=== PATIENT | male | born 1950 | race Caucasian/White ===

== ENCOUNTER 2019-05-20 06:54 | Emergency (ER) | payer OTHER, SELFPAY ==
[2019-05-20 06:57] VITALS: BP 177/95; PULSE 106; TEMP 36.8; O2SAT 95; BMI 36.6
--- NOTE | 2019-05-20 07:15 | XRR_ITS ---
PROCEDURE INFORMATION: Exam: XR Chest, 1 View Exam date and time: 05/20/2019 7:34 AM Age: 68 years old Clinical indication: Shortness of breath; Prior surgery; Surgery date: 6+ months; Surgery type: Open heart; Additional info: Cough/congestion TECHNIQUE: Imaging protocol: XR of the chest Views: 1 view. COMPARISON: CR Chest 1 [place] [id number] 09/29/2017 10:39 AM FINDINGS: Lungs: Interstitial opacities of lower lungs favoring scarring or atelectasis. Superimposed interstitial infiltrate retrocardiac left lower lung may be present. Scarring left upper lobe. Pleural space: Unremarkable. No pleural effusion. No pneumothorax. Heart/Mediastinum: Cardiomegaly. Bones/joints: Postoperative sternotomy. XR/XR chest 1V portable [id number] IMPRESSION: 1. Cardiomegaly. 2. Increasing retrocardiac left lower lung interstitial process. Infiltrate is not excluded. 3. Likely partial component of chronic thickening or atelectasis lower lungs in addition.
--- NOTE | 2019-05-20 07:16 | ECG_ITS ---
Measurements Intervals [place] Rate: 102 P: -5 NV: 148 QRS: -25 QRSD: 102 T: 109 QT: 347 QTc: 452 SINUS TACHYCARDIA POSSIBLE LEFT ATRIAL ENLARGEMENT [-0.1mV P WAVE IN V1/V2] SEPTAL MYOCARDIAL INFARCTION [40+ ms Q WAVE IN V1/V2], OF INDETERMINATE AGE MODERATE T-WAVE ABNORMALITY, CONSIDER LATERAL ISCHEMIA [-0.1+ mV T WAVE IN I/ I/aVL/V5/V6] Compared to ECG 09/29/2017 13:35:53 T-wave abnormality now present.Possible ischemia now present.Sinus rhythm no longer present.Left-axis deviation no longer present Left ventricular hypertrophy no longer present ST (T wave) deviation no longer present Myocardial infarct finding still present Electronically Signed On 05-20-2019 19:19:23 [employer] 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 [email or web address]
[2019-05-20 07:30] LABS: Basophils % 0.2 %; Eosinophils # 0.3 10^3/uL (0.0-0.8); Eosinophils % 2.9 %; Hematocrit 44.8 % (42.0-52.0); Hemoglobin 13.8 g/dL (11.7-16.6); Lymphocytes # 0.3 10^3/uL (0.8-4.8); Lymphocytes % 3.2 %; Mean Corpuscular HGB Conc 30.8 g/dL (30.0-36.0); Mean Corpuscular Hemoglobin 26.1 pg (28.0-34.0); Mean Corpuscular Volume 84.7 fL (80-94); Monocytes # 0.8 10^3/uL (0.2-0.9); Monocytes % 8.3 %; Neutrophils % 84.8 %; Nucleated Red Blood Cells % 0 %; Platelet Count 214 10^3/cmm (130-400); Red Blood Count 5.29 10^6/uL (4.1-5.3); Red Cell Distribution Width 15.5 % (12.1-15.1); White Blood Count 9.4 10^3/uL (4.0-10.0)
[2019-05-20 07:31] VITALS: BP 128/82; PULSE 92; RESP 28
--- NOTE | 2019-05-20 07:37 | PC.NURSE ---
Patient reports that he is sick. The patient was asked to elaborate on what this. The patient states he has chest pain, cough, fever, nausea, and trouble recalling recent events. His chest pain began 2 days ago while watching TV. He report coughing makes his pain worse. He denies radiation of pain. He rates this pain 4:10 at this time.
--- NOTE | 2019-05-20 07:45 | ED_ITS ---
HPI - URI/Sore Throat General: Chief Complaint: Upper Respiratory Infection Stated Complaint: sob/cp Time Seen by Provider: 05/20/19 07:06 Source: patient Mode of arrival: ambulatory Limitations: no limitations History of Present Illness: HPI Narrative: Patient is a 68-year-old male who presents to ED today with complaints of chest pain, productive cough, fever of 102 yesterday, worsening shortness of breath, and overall not feeling well over the past 2 days; patient reports chronic SOB related to his COPD but feels this is slightly worse than his baseline; patient does not wear oxygen at home; patient's chest pain reportedly is worse with coughing and movement; he denies sick contacts; reports one episode of vomiting yesterday but none since- nonbloody; patient denies abdominal pain or change in bowel movements MD elicited complaint: fever, cough and other (chest pain, SOB) Onset (ago): day(s) Consistency: constant Associated symptoms: Reports chest pain, fever(s) and vomiting; Deny abdominal pain, diarrhea or headache(s) Treatments prior to arrival: none Review of Systems Const: Reports: fever; Denies: body aches Eyes: Denies: change in vision or blurry vision ENMT: Denies: throat pain, enlarged tonsils, painful swallowing or oral sores/lesions Card: Reports: chest pain; Denies: palpitations, irregular heart rhythm, edema, swelling of feet/ankles, lightheadedness or syncope Resp: Reports: shortness of breath, productive cough and chest congestion; Denies: wheezing, stridor, pain on inspiration or coughing up blood GI: Reports: vomiting; Denies: abdominal pain, vomiting blood, difficulty swallowing, diarrhea, excessive passing of gas, change in bowel habits or painful bowel movements : Denies: difficulty urinating or painful urination Musc: Denies: neck pain, back pain or joint pain Skin/Breast: Denies: rash Neuro: Denies: headache, numbness in extremities, weakness in extremities, changes in sensation, lack of coordination, difficulty walking, frequent falls, dizziness, confusion or slurred speech PFSH ED PFSH: Statuses (acute, chronic, etc) shown below reflect problem list status as previously entered and may not be historically accurate Social History Smoking and tobacco status: never smoked Physical Exam Const: COMMON NORMALS: no apparent distress, oriented x3, alert and well nourished NUTRITIONAL APPEARANCE: obese HENMT: COMMON NORMALS: normocephalic and head/scalp atraumatic HEAD & SCALP: normocephalic and atraumatic Eye: COMMON NORMALS: PERRL and EOMs intact bilaterally PUPIL: Yes PERRL Neck/C-Spine: COMMON NORMALS: full ROM, no lymphadenopathy, supple and no meningeal signs Chest: CHEST: Yes localized rib tenderness with anteroposterior compression Resp: COMMON NORMALS: normal respiratory effort, no retractions and no use of accessory muscles EFFORT & INSPECTION: Yes able to speak in complete sentences AUSCULTATION: no wheezes and bronchial breath sounds Cardio: COMMON NORMALS: regular rate and regular rhythm RATE: regular rate RHYTHM: regular rhythm GI: COMMON NORMALS: normal to inspection, nondistended, normoactive bowel sounds, soft to palpation, non-tender, no hepatosplenomegaly and no masses PALPATION: Yes soft and Yes no hepatosplenomegaly : COMMON NORMALS: Yes no CVA tenderness BLADDER/KIDNEY EXAM: Yes no CVA tenderness Back/Pelvis: COMMON NORMALS: no CVA tenderness and thoracic and lumbar spine normal to inspection Extremity: COMMON NORMALS: normal to inspection Neuro: COMMON NORMALS: oriented x3 SENSORIUM/ORIENTATION: Yes alert MENINGEAL SIGNS: Yes no meningeal signs Skin: COMMON NORMALS: no rashes or lesions noted GENERAL SKIN EXAM: no rashes or lesions noted Course Vital Signs: Vital signs: Vital Signs Temperature 98.3 F 05/20/19 06:57 Pulse Rate 98 05/20/19 08:25 Respiratory Rate 25 H 05/20/19 08:25 Blood Pressure 154/90 05/20/19 08:25 Pulse Oximetry 95 05/20/19 08:25 MDM - URI/Sore Throat MDM Narrative: Medical decision making narrative: labs are non-concerning; pts O2 sats on RA normal; CXR with possible infiltrate-most likely viral given he is influenza A positive; reports symptoms started Fri-Sat so I think it is reasonable to treat him with Tamiflu as well as conservative measures at home; return to ED precautions given Lab Data: Labs: Lab Results 05/20/19 05/20/19 05/20/19 Range/Units 07:23 07:23 07:23 WBC 9.4 (4.0-10.0) 10^3/ uL RBC 5.29 (4.1-5.3) 10^6/u L Hgb 13.8 (11.7-16.6) g/dL Hct 44.8 (42.0-52.0) % MCV 84.7 (80-94) fL MCH 26.1 L (28.0-34.0) pg MCHC 30.8 (30.0-36.0) g/dL RDW 15.5 H (12.1-15.1) % Plt Count 214 (130-400) 10^3/c mm MPV 11.0 H (7.4-10.4) fL Neut % (Auto) 84.8 % Lymph % (Auto) 3.2 % Alpine % (Auto) 8.3 % Eos % (Auto) 2.9 % Baso % (Auto) 0.2 % Neut # (Auto) 8.0 H (1.8-7.7) 10^3/u L Lymph # (Auto) 0.3 L (0.8-4.8) 10^3/u L Alpine # (Auto) 0.8 (0.2-0.9) 10^3/u L Eos # (Auto) 0.3 (0.0-0.8) 10^3/u L Baso # (Auto) 0.0 (0.0-0.1) 10^3/u L Nucleated RBC % (a uto) 0 % Nucleated RBCs # 0.0 /100WBC Sodium 147 H (136-145) mmol/L Potassium 4.1 (3.5-5.1) mmol/L Chloride 106 (98-107) mmol/L Carbon Dioxide 25 (22-29) mmol/L Anion Gap 20.1 H (5-19) BUN 18 (8-23) mg/dL Creatinine 0.9 (0.7-1.2) mg/dL GFR Calculation 84.2 L (90-130) mL/min Glucose 163 H (74-106) mg/dL Calcium 9.1 (8.8-10.2) mg/Dl Total Bilirubin 0.5 (0.15-1.2) mg/dL AST 27 (0-40) U/L ALT 31 (0-41) U/L Alkaline Phosphata se 138 H (40-130) IU/L Troponin T Baselin e 10 (0-15) ng/mL NT-Pro-B Natriuret Pep (0-125) pg/mL Total Protein 7.5 (6.6-8.7) g/dL Albumin 4.0 (3.5-5.2) g/dL Globulin 3.5 (1.3-4.6) g/dL Influenza Type A A g (Negative) POC Influenza B Ag (Negative) 05/20/19 05/20/19 Range/Units 07:23 07:29 WBC (4.0-10.0) 10^3/ uL RBC (4.1-5.3) 10^6/u L Hgb (11.7-16.6) g/dL Hct (42.0-52.0) % MCV (80-94) fL MCH (28.0-34.0) pg MCHC (30.0-36.0) g/dL RDW (12.1-15.1) % Plt Count (130-400) 10^3/c mm MPV (7.4-10.4) fL Neut % (Auto) % Lymph % (Auto) % Alpine % (Auto) % Eos % (Auto) % Baso % (Auto) % Neut # (Auto) (1.8-7.7) 10^3/u L Lymph # (Auto) (0.8-4.8) 10^3/u L Alpine # (Auto) (0.2-0.9) 10^3/u L Eos # (Auto) (0.0-0.8) 10^3/u L Baso # (Auto) (0.0-0.1) 10^3/u L Nucleated RBC % (a uto) % Nucleated RBCs # /100WBC Sodium (136-145) mmol/L Potassium (3.5-5.1) mmol/L Chloride (98-107) mmol/L Carbon Dioxide (22-29) mmol/L Anion Gap (5-19) BUN (8-23) mg/dL Creatinine (0.7-1.2) mg/dL GFR Calculation (90-130) mL/min Glucose (74-106) mg/dL Calcium (8.8-10.2) mg/Dl Total Bilirubin (0.15-1.2) mg/dL AST (0-40) U/L ALT (0-41) U/L Alkaline Phosphata se (40-130) IU/L Troponin T Baselin e (0-15) ng/mL NT-Pro-B Natriuret Pep 484 H (0-125) pg/mL Total Protein (6.6-8.7) g/dL Albumin (3.5-5.2) g/dL Globulin (1.3-4.6) g/dL Influenza Type A A g Positive H (Negative) POC Influenza B Ag Negative (Negative) Imaging Data^: CXR: Radiologist's impression: [address] [address] XRay Report Signed Patient: Alex Nice Unit #: [id number] : [id number] Age/Sex: 68 / M ADM Date: 05/20/19 Loc: ER Room/Bed: Attending Dr: Ordering Provider/Ordering MD: Margarita Mendes Date of Service: 05/20/19 Procedure(s): XR chest 1V portable [id number] Accession Number(s): [id number] Report Number: [id number] PROCEDURE INFORMATION: Exam: XR Chest, 1 View Exam date and time: 05/20/2019 7:34 AM Age: 68 years old Clinical indication: Shortness of breath; Prior surgery; Surgery date: 6+ months; Surgery type: Open heart; Additional info: Cough/congestion TECHNIQUE: Imaging protocol: XR of the chest Views: 1 view. COMPARISON: CR Chest 1 [place] [id number] 09/29/2017 10:39 AM FINDINGS: Lungs: Interstitial opacities of lower lungs favoring scarring or atelectasis. Superimposed interstitial infiltrate retrocardiac left lower lung may be present. Scarring left upper lobe. Pleural space: Unremarkable. No pleural effusion. No pneumothorax. Heart/Mediastinum: Cardiomegaly. Bones/joints: Postoperative sternotomy. XR/XR chest 1V portable [id number] IMPRESSION: 1. Cardiomegaly. 2. Increasing retrocardiac left lower lung interstitial process. Infiltrate is not excluded. 3. Likely partial component of chronic thickening or atelectasis lower lungs in addition. Dictated By: Selina Soto DO Signed By: Selina Soto DO Signed Date/Time: 05/20/19 0754 DD/ 075 EKG Data^: EKG 1: EKG interpretation date: 05/20/19 EKG interpretation time: 07:00 Prior EKG tracings: available for review Ischemic changes: t wave inversions (present on previous EKG) Interpretation: Sinus tachycardia Rate 102 T wave inversion to I, aVL, V2-these were present on old EKG in 2018 Other EKG comments: reviewed with/by Dr. López Discharge Plan Discharge Patient Disposition: Home, Self-Care Clinical Impression: Influenza Condition: Stable Prescriptions: New Tamiflu 75 mg capsule 75 mg PO Q12H 5 Days Qty: 10 RF: 0 Discharge Orders: Discharge Order (Routine); Ordered 05/20/19 Ordered By: Margarita Mendes Referrals: Dank Schwartz [Primary Care Provider] - Discharge Diet: Usual diet Discharge Activity: Increase activity as tolerated Patient Instructions: Influenza (ED) Activity Restrictions/Additional Instructions: As discussed you tested positive for influenza/flu. We will treat you with the antiviral medication Tamiflu. Recommend lots of rest, fluids, Tylenol/Motrin for fevers and body aches. Return to ED for worsening pains, shortness of breath, uncontrollable fevers, or any other symptoms you may have. Discharge Date/Time: 05/20/19 08:26 Coding Level of Care Code ED Director Of Sustainability for Kevin Martines Exam Problem Focused
[2019-05-20 07:46] LABS: Alanine Aminotransferase 31 U/L (0-41); Alkaline Phosphatase 138 IU/L (40-130); Anion Gap 20.1 (5-19); Aspartate Amino Transferase 27 U/L (0-40); Blood Urea Nitrogen 18 mg/dL (8-23); Calcium 9.1 mg/Dl (8.8-10.2); Carbon Dioxide 25 mmol/L (22-29); Chloride 106 mmol/L (98-107); Globulin 3.5 g/dL (1.3-4.6); Glomerular Filtration Rate 84.2 mL/min (90-130); Glucose 163 mg/dL (74-106); Potassium 4.1 mmol/L (3.5-5.1); Sodium 147 mmol/L (136-145); Total Bilirubin 0.5 mg/dL (0.15-1.2); Total Protein 7.5 g/dL (6.6-8.7)
[2019-05-20 07:50] LABS: Troponin(5th) Baseline 10 ng/mL (0-15)
[2019-05-20 07:55] LABS: NT Pro B Type Natriuretic Pept 484 pg/mL (0-125)
[2019-05-20 07:57] LABS: Influenza A by IFA Positive (Negative); Influenza B by IFA Negative (Negative)
[2019-05-20 08:06] VITALS: PULSE 98; RESP 18; O2SAT 95
[2019-05-20] MEDS: ipratropium-albuterol 3 mL Neb INHALATION (08:06)
[2019-05-20 08:13] VITALS: PULSE 102; RESP 18; O2SAT 95
[2019-05-20 08:25] VITALS: BP 154/90; PULSE 98; RESP 25; O2SAT 95
== END 2019-05-20 08:26 | disposition home or self-care (01) ==
PROVIDERS: Emergency Provider Physician Assistant; Family Provider Internal Medicine; PCP Internal Medicine
DX: J11.1 Influenza due to unidentified influenza virus with other respiratory manifestations (principal); R06.02 Shortness of breath
CPT/HCPCS: 36415; 71045; 80053; 83880; 84484; 85025; 87804; 93005; 94640; 99282

== ENCOUNTER 2019-07-26 14:07 | Emergency (ER) | payer OTHER, SELFPAY ==
[2019-07-26 14:13] VITALS: BP 142/85; PULSE 89; RESP 18; TEMP 36.7; O2SAT 94; BMI 37.3
--- NOTE | 2019-07-26 14:23 | ED_ITS ---
Entered by Chanel Burdick, acting as scribe for Annie Salas DO Documented by User: Lorie Edge MD 07/26/19 17:39 HPI - Chest Pain General: Chief Complaint: Chest Pain Stated Complaint: Chest pain Time Seen by Provider: 07/26/19 14:32 Source: patient Mode of arrival: ambulatory Limitations: no limitations History of Present Illness: HPI narrative: Quinton is a 69-year-old male who has an extensive cardiac history states he has been having chest pain over the last 2 to 3 days. He states the pain is sharp in nature and rates it a 6 out of 10. He states he is also had a headache as well with this pain. He denies any worsening improving factors. He denies any shortness of breath. States the pain does radiate down his right arm. Patient here is having a difficulty time speaking with word finding difficulty. He states that he has had TIAs in the past though and that is normal for him and nothing new. He denies any new neurologic symptoms. complaint: chest pain Associated symptoms: Deny abdominal pain, dyspnea, fever(s), nausea or vomiting Review of Systems Const: Denies: fever Eyes: Denies: blurry vision or eye discomfort ENMT: Denies: throat pain or dental pain Card: Reports: chest pain Resp: Denies: shortness of breath GI: Denies: abdominal pain, nausea or vomiting : Denies: painful urination Musc: Denies: neck pain or back pain Skin/Breast: Denies: rash Neuro: Reports: headache Psych: Denies: depression Tai/Lymph: Denies: easy bruising All/Imm: Denies: hives [facility] ED PFSH: Social History Smoking and tobacco status: never smoked Physical Exam Const: COMMON NORMALS: no apparent distress, oriented x3 and healthy appearing HENMT: COMMON NORMALS: normocephalic and head/scalp atraumatic HEAD & SCALP: normocephalic and atraumatic Eye: COMMON NORMALS: PERRL and EOMs intact bilaterally PUPIL: Yes PERRL Neck/C-Spine: COMMON NORMALS: full ROM and supple Chest: COMMONS NORMALS: inspection of chest normal and palpation of chest normal Resp: COMMON NORMALS: normal respiratory effort, no retractions, no use of accessory muscles and clear to auscultation bilaterally AUSCULTATION: clear to auscultation bilaterally Cardio: COMMON NORMALS: regular rate, regular rhythm and no murmurs RATE: regular rate RHYTHM: regular rhythm GI: COMMON NORMALS: normal to inspection, nondistended, normoactive bowel sounds, soft to palpation, non-tender and no masses PALPATION: Yes soft Extremity: COMMON NORMALS: normal to inspection and full ROM Neuro: COMMON NORMALS: oriented x3, moves all extremities and no focal motor deficits Psych: COMMON NORMALS: mental status grossly normal, thought process normal and cooperative THOUGHT PROCESS: normal thought process Skin: COMMON NORMALS: no rashes or lesions noted and no wounds GENERAL SKIN EXAM: no rashes or lesions noted Course Vital Signs: Vital signs: Vital Signs Temperature 98.0 F 07/26/19 14:13 Pulse Rate 89 07/26/19 14:13 Respiratory Rate 16 07/26/19 16:06 Blood Pressure 142/85 07/26/19 14:13 Pulse Oximetry 97 07/26/19 16:06 MDM - Chest Pain MDM Narrative: Medical decision making narrative: Patient presents here with chest pain that is since resolved. His initial troponin here is negative. He does have quite an extensive history and I offered him admission. He refused admission and states that he does not want to stay in the hospital. I was able to talk him into a CT angios of the chest along with 2-hour troponin. If these 2 are negative patient likely will go home as he wishes. He understands the risks and is had a long discussion with him about the risks. . Lab Data: Labs: Lab Results 07/26/19 07/26/19 07/26/19 Range/Units 15:24 15:24 15:24 WBC 9.9 (4.0-10.0) 10^3/ uL RBC 5.11 (4.1-5.3) 10^6/u L Hgb 14.3 (11.7-16.6) g/dL Hct 44.4 (42.0-52.0) % MCV 86.9 (80-94) fL MCH 28.0 (28.0-34.0) pg MCHC 32.2 (30.0-36.0) g/dL RDW 15.7 H (12.1-15.1) % Plt Count 261 (130-400) 10^3/c mm MPV 12.0 H (7.4-10.4) fL Neut % (Auto) 74.8 % Lymph % (Auto) 15.7 % [place] % (Auto) 6.3 % Eos % (Auto) 2.3 % Baso % (Auto) 0.4 % Neut # (Auto) 7.4 (1.8-7.7) 10^3/u L Lymph # (Auto) 1.6 (0.8-4.8) 10^3/u L [place] # (Auto) 0.6 (0.2-0.9) 10^3/u L Eos # (Auto) 0.2 (0.0-0.8) 10^3/u L Baso # (Auto) 0.0 (0.0-0.1) 10^3/u L Nucleated RBC % (a uto) 0 % Nucleated RBCs # 0.0 /100WBC PT 25.00 H (10.5-13.3) SECO NDS INR 2.23 H (0.8-1.2) Sodium 140 (136-145) mmol/L Potassium 3.8 (3.5-5.1) mmol/L Chloride 103 (98-107) mmol/L Carbon Dioxide 24 (22-29) mmol/L Anion Gap 16.8 (5-19) BUN 16 (8-23) mg/dL Creatinine 0.9 (0.7-1.2) mg/dL GFR Calculation 83.9 L (90-130) mL/min Glucose 224 H (65-115) mg/dL Calculated Osmolal ity 293 (285-295) mOsm/k g Calcium 9.1 (8.5-10.5) mg/dL Total Bilirubin 0.3 (0.15-1.2) mg/dL AST 26 (0-40) U/L ALT 35 (0-41) U/L Alkaline Phosphata se 109 (40-130) IU/L Troponin T Baselin e (0-15) ng/mL Total Protein 7.1 (6.6-8.7) g/dL Albumin 3.8 (3.5-5.2) g/dL Globulin 3.3 (1.3-4.6) g/dL 03/19/20 Range/Units 15:24 WBC (4.0-10.0) 10^3/ uL RBC (4.1-5.3) 10^6/u L Hgb (11.7-16.6) g/dL Hct (42.0-52.0) % MCV (80-94) fL MCH (28.0-34.0) pg MCHC (30.0-36.0) g/dL RDW (12.1-15.1) % Plt Count (130-400) 10^3/c mm MPV (7.4-10.4) fL Neut % (Auto) % Lymph % (Auto) % [place] % (Auto) % Eos % (Auto) % Baso % (Auto) % Neut # (Auto) (1.8-7.7) 10^3/u L Lymph # (Auto) (0.8-4.8) 10^3/u L [place] # (Auto) (0.2-0.9) 10^3/u L Eos # (Auto) (0.0-0.8) 10^3/u L Baso # (Auto) (0.0-0.1) 10^3/u L Nucleated RBC % (a uto) % Nucleated RBCs # /100WBC PT (10.5-13.3) SECO NDS INR (0.8-1.2) Sodium (136-145) mmol/L Potassium (3.5-5.1) mmol/L Chloride (98-107) mmol/L Carbon Dioxide (22-29) mmol/L Anion Gap (5-19) BUN (8-23) mg/dL Creatinine (0.7-1.2) mg/dL GFR Calculation (90-130) mL/min Glucose (65-115) mg/dL Calculated Osmolal ity (285-295) mOsm/k g Calcium (8.5-10.5) mg/dL Total Bilirubin (0.15-1.2) mg/dL AST (0-40) U/L ALT (0-41) U/L Alkaline Phosphata se (40-130) IU/L Troponin T Baselin e 8 (0-15) ng/mL Total Protein (6.6-8.7) g/dL Albumin (3.5-5.2) g/dL Globulin (1.3-4.6) g/dL Imaging Data^: CXR: Radiologist's impression: [address] [place] [address] XRay Report Signed Patient: Alex Nice Unit #: [id number] : 1950 Age/Sex: 69 / M ADM Date: 07/26/19 Loc: ER Room/Bed: Attending Dr: Ordering Provider/Ordering MD: Lorie Edge MD Date of Service: 07/26/19 Procedure(s): XR chest 1V portable 59667 Accession Number(s): [id number] Report Number: [id number] WS: [id number] XR chest 1V portable 99337 REASON FOR EXAM: cp FINDINGS: Cardiomegaly is noted with coronary bypass changes. No pneumothorax is seen and no visible rib fractures in the frontal view are seen. The lung germain are relatively clear there is no pneumonia, pleural effusion, pulmonary edema, or mass effect. The hilum and apices normal. XR/XR chest 1V portable 31288 IMPRESSION: Cardiomegaly with coronary bypass changes. CT Head: Radiologist's impression: [facility] [address] [place] [address] CT Scan Report Signed Patient: Alex Nice Unit #: [id number] : 1950 Acct#:[id number] Age/Sex: 69 / M ADM Date: 07/26/19 Loc: ER Room/Bed: Attending Dr: Ordering Provider/Ordering MD: Lorie Edge MD Date of Service: 07/26/19 Procedure(s): CT head wo con* 81091 Accession Number(s): [id number] Report Number: [id number] PROCEDURE INFORMATION: Exam: CT Head Without Contrast Exam date and time: 07/26/2019 3:00 PM Age: 69 years old Clinical indication: Pain; Headache TECHNIQUE: Imaging protocol: Computed tomography of the head without contrast. Axial, coronal and sagittal reformatted images were created and reviewed. Total DLP: 862.03 mGy-cm Radiation optimization: All CT scans at this facility use at least one of these dose optimization techniques: automated exposure control; mA and/or kV adjustment per patient size (includes targeted exams where dose is matched to clinical indication); or iterative reconstruction. COMPARISON: CT head wo con* [id number] 05/15/2017 11:43 AM FINDINGS: Brain: Patchy areas of hypoattenuation in the periventricular and subcortical white matter, consistent with chronic small vessel ischemic disease. No CT evidence of acute intracranial hemorrhage or acute territorial infarction. No significant mass effect or midline shift. Basal cisterns patent. Ventricles: Prominence of the cortical sulci, cisterns and ventricular system, consistent with cerebral and cerebellar volume loss. Bones/joints: No acute osseous abnormality. Sinuses: Minimal ethmoid mucosal thickening. Mastoid air cells: Grossly unremarkable. Soft tissues: Grossly unremarkable. Vasculature: Calcific atherosclerotic disease in the cavernous internal carotid arteries, as well as the vertebro-basilar system. CT/CT head wo con* [id number] IMPRESSION: 1. No CT evidence of acute intracranial pathology. 2. Additional findings, as above. EKG Data^: EKG 1: Attestation: I personally reviewed and interpreted this EKG as follows: EKG interpretation date: 07/26/19 EKG interpretation time: 14:22 Interpretation: nsr hr [address] depression in avl and v2 along with t wave inversions in v2,v3 unchanged from ekg 05/20/19 EKG 2: Attestation: I personally reviewed and interpreted this EKG as follows: EKG interpretation date: 07/26/19 EKG interpretation time: 16:46 Interpretation: nsr hr 89 with t wave deression in v2 and v3 c/w with previous ekg Discharge Plan Discharge Patient Disposition: Home, Self-Care Clinical Impression: Chest pain Qualifiers: Chest pain type: other chest pain Qualified Code(s): R07.89 - Other chest pain Condition: Stable Prescriptions: No Action atorvastatin 80 mg Tablet 40 mg PO DAILY RF: 0 donepezil 10 mg Tablet 10 mg PO BEDTIME RF: 0 aspirin 81 mg Tablet,Delayed Release (Dr/Ec) 81 mg PO DAILY RF: 0 tamsulosin 0.4 mg Capsule 0.4 mg PO DAILY RF: 0 pantoprazole 40 mg Tablet,Delayed Release (Dr/Ec) 40 mg PO DAILY RF: 0 warfarin 2 mg Tablet See Rx Instructions .ROUTE .COMPLEX RF: 0 metoprolol tartrate 50 mg Tablet 50 mg PO BID RF: 0 furosemide 20 mg Tablet 20 mg PO DAILY RF: 0 docusate sodium 100 mg Tablet 100 mg PO DAILY RF: 0 cholecalciferol (vitamin D3) 400 unit Tablet,Chewable 400 unit PO DAILY RF: 0 Referrals: Dank Schwartz [Primary Care Provider] - 4-7 days Discharge Diet: Advance as tolerated Discharge Activity: Resume usual activity Patient Instructions: Chest Pain (ED) Coding Level of Care Code ED [employer] for Chg Fwd Exam Comprehensive Documented by User: Annie Salas DO 07/26/19 16:56 HPI - Chest Pain General: Chief Complaint: Chest Pain Stated Complaint: Chest pain Time Seen by Provider: 07/26/19 14:32 Review of Systems ENMT: Denies: enlarged tonsils PFSH ED PFSH: Social History Smoking and tobacco status: never smoked Course Vital Signs: Vital signs: Vital Signs Temperature 98.0 F 07/26/19 14:13 Pulse Rate 89 07/26/19 14:13 Respiratory Rate 16 07/26/19 16:06 Blood Pressure 142/85 07/26/19 14:13 Pulse Oximetry 97 07/26/19 16:06 MDM - Chest Pain Lab Data: Labs: Lab Results 07/26/19 07/26/19 07/26/19 Range/Units 15:24 15:24 15:24 WBC 9.9 (4.0-10.0) 10^3/ uL RBC 5.11 (4.1-5.3) 10^6/u L Hgb 14.3 (11.7-16.6) g/dL Hct 44.4 (42.0-52.0) % MCV 86.9 (80-94) fL MCH 28.0 (28.0-34.0) pg MCHC 32.2 (30.0-36.0) g/dL RDW 15.7 H (12.1-15.1) % Plt Count 261 (130-400) 10^3/c mm MPV 12.0 H (7.4-10.4) fL Neut % (Auto) 74.8 % Lymph % (Auto) 15.7 % [place] % (Auto) 6.3 % Eos % (Auto) 2.3 % Baso % (Auto) 0.4 % Neut # (Auto) 7.4 (1.8-7.7) 10^3/u L Lymph # (Auto) 1.6 (0.8-4.8) 10^3/u L [place] # (Auto) 0.6 (0.2-0.9) 10^3/u L Eos # (Auto) 0.2 (0.0-0.8) 10^3/u L Baso # (Auto) 0.0 (0.0-0.1) 10^3/u L Nucleated RBC % (a uto) 0 % Nucleated RBCs # 0.0 /100WBC PT 25.00 H (10.5-13.3) SECO NDS INR 2.23 H (0.8-1.2) Sodium 140 (136-145) mmol/L Potassium 3.8 (3.5-5.1) mmol/L Chloride 103 (98-107) mmol/L Carbon Dioxide 24 (22-29) mmol/L Anion Gap 16.8 (5-19) BUN 16 (8-23) mg/dL Creatinine 0.9 (0.7-1.2) mg/dL GFR Calculation 83.9 L (90-130) mL/min Glucose 224 H (65-115) mg/dL Calculated Osmolal ity 293 (285-295) mOsm/k g Calcium 9.1 (8.5-10.5) mg/dL Total Bilirubin 0.3 (0.15-1.2) mg/dL AST 26 (0-40) U/L ALT 35 (0-41) U/L Alkaline Phosphata se 109 (40-130) IU/L Troponin T Baselin e (0-15) ng/mL Total Protein 7.1 (6.6-8.7) g/dL Albumin 3.8 (3.5-5.2) g/dL Globulin 3.3 (1.3-4.6) g/dL 07/26/19 Range/Units 15:24 WBC (4.0-10.0) 10^3/ uL RBC (4.1-5.3) 10^6/u L Hgb (11.7-16.6) g/dL Hct (42.0-52.0) % MCV (80-94) fL MCH (28.0-34.0) pg MCHC (30.0-36.0) g/dL RDW (12.1-15.1) % Plt Count (130-400) 10^3/c mm MPV (7.4-10.4) fL Neut % (Auto) % Lymph % (Auto) % [place] % (Auto) % Eos % (Auto) % Baso % (Auto) % Neut # (Auto) (1.8-7.7) 10^3/u L Lymph # (Auto) (0.8-4.8) 10^3/u L [place] # (Auto) (0.2-0.9) 10^3/u L Eos # (Auto) (0.0-0.8) 10^3/u L Baso # (Auto) (0.0-0.1) 10^3/u L Nucleated RBC % (a uto) % Nucleated RBCs # /100WBC PT (10.5-13.3) SECO NDS INR (0.8-1.2) Sodium (136-145) mmol/L Potassium (3.5-5.1) mmol/L Chloride (98-107) mmol/L Carbon Dioxide (22-29) mmol/L Anion Gap (5-19) BUN (8-23) mg/dL Creatinine (0.7-1.2) mg/dL GFR Calculation (90-130) mL/min Glucose (65-115) mg/dL Calculated Osmolal ity (285-295) mOsm/k g Calcium (8.5-10.5) mg/dL Total Bilirubin (0.15-1.2) mg/dL AST (0-40) U/L ALT (0-41) U/L Alkaline Phosphata se (40-130) IU/L Troponin T Baselin e 8 (0-15) ng/mL Total Protein (6.6-8.7) g/dL Albumin (3.5-5.2) g/dL Globulin (1.3-4.6) g/dL Discharge Plan Discharge Patient Disposition: Home, Self-Care Clinical Impression: Chest pain Qualifiers: Chest pain type: other chest pain Qualified Code(s): R07.89 - Other chest pain Condition: Stable Prescriptions: No Action atorvastatin 80 mg Tablet 40 mg PO DAILY RF: 0 donepezil 10 mg Tablet 10 mg PO BEDTIME RF: 0 aspirin 81 mg Tablet,Delayed Release (Dr/Ec) 81 mg PO DAILY RF: 0 tamsulosin 0.4 mg Capsule 0.4 mg PO DAILY RF: 0 pantoprazole 40 mg Tablet,Delayed Release (Dr/Ec) 40 mg PO DAILY RF: 0 warfarin 2 mg Tablet See Rx Instructions .ROUTE .COMPLEX RF: 0 metoprolol tartrate 50 mg Tablet 50 mg PO BID RF: 0 furosemide 20 mg Tablet 20 mg PO DAILY RF: 0 docusate sodium 100 mg Tablet 100 mg PO DAILY RF: 0 cholecalciferol (vitamin D3) 400 unit Tablet,Chewable 400 unit PO DAILY RF: 0 Referrals: Dank Schwartz [Primary Care Provider] - 4-7 days Discharge Diet: Advance as tolerated Discharge Activity: Resume usual activity Patient Instructions: Chest Pain (ED) Coding Level of Care Code ED [employer] for Chg Fwd Exam Comprehensive The documentation recorded by the Gennaro capellan Bridget Annette, accurately reflects the service I personally performed and the decisions made by Josue schulte Sonia M, DO Jul 26, 2019 14:07
--- NOTE | 2019-07-26 14:32 | ECG_ITS ---
Measurements Intervals [place] Rate: 89 P: 37 [place]: 184 QRS: -23 QRSD: 105 T: 109 QT: 350 QTc: 427 SINUS RHYTHM LEFT VENTRICULAR HYPERTROPHY AND ST-T CHANGE [VOLTAGE CRITERIA PLUS ST/T ABN ABNORMALITY] ST changes V2,V3 -strain pattern vs ischemia Compared to ECG 05/20/2019 07:00:22 Left ventricular hypertrophy now present ST (T wave) deviation now present Sinus tachycardia no longer present T-wave abnormality no longer present Possible ischemia no longer present Myocardial infarct finding still present Electronically Signed On 07-27-2019 8:48:35 CDT by Jeremiah Park [email or web address]
--- NOTE | 2019-07-26 14:32 | CTR_ITS ---
PROCEDURE INFORMATION: Exam: CT Head Without Contrast Exam date and time: 07/26/2019 3:00 PM Age: 69 years old Clinical indication: Pain; Headache TECHNIQUE: Imaging protocol: Computed tomography of the head without contrast. Axial, coronal and sagittal reformatted images were created and reviewed. Total DLP: 862.03 mGy-cm Radiation optimization: All CT scans at this facility use at least one of these dose optimization techniques: automated exposure control; mA and/or kV adjustment per patient size (includes targeted exams where dose is matched to clinical indication); or iterative reconstruction. COMPARISON: CT head wo con* [id number] 05/15/2017 11:43 AM FINDINGS: Brain: Patchy areas of hypoattenuation in the periventricular and subcortical white matter, consistent with chronic small vessel ischemic disease. No CT evidence of acute intracranial hemorrhage or acute territorial infarction. No significant mass effect or midline shift. Basal cisterns patent. Ventricles: Prominence of the cortical sulci, cisterns and ventricular system, consistent with cerebral and cerebellar volume loss. Bones/joints: No acute osseous abnormality. Sinuses: Minimal ethmoid mucosal thickening. Mastoid air cells: Grossly unremarkable. Soft tissues: Grossly unremarkable. Vasculature: Calcific atherosclerotic disease in the cavernous internal carotid arteries, as well as the vertebro-basilar system. CT/CT head wo con* [id number] IMPRESSION: 1. No CT evidence of acute intracranial pathology. 2. Additional findings, as above. Radiation Dose CTDIVOL = (mGy): DLP = 862.03 (mGy-cm)
--- NOTE | 2019-07-26 14:32 | XR_ITS ---
WS: [id number] XR chest 1V portable [id number] REASON FOR EXAM: cp FINDINGS: Cardiomegaly is noted with coronary bypass changes. No pneumothorax is seen and no visible rib fractures in the frontal view are seen. The lung germain are relatively clear there is no pneumonia, pleural effusion, pulmonary edema, or mas s effect. The hilum and apices normal. XR/XR chest 1V portable [id number] IMPRESSION: Cardiomegaly with coronary bypass changes.
[2019-07-26 15:50] LABS: Basophils % 0.4 %; Eosinophils # 0.2 10^3/uL (0.0-0.8); Eosinophils % 2.3 %; Hematocrit 44.4 % (42.0-52.0); Hemoglobin 14.3 g/dL (11.7-16.6); Lymphocytes # 1.6 10^3/uL (0.8-4.8); Lymphocytes % 15.7 %; Mean Corpuscular HGB Conc 32.2 g/dL (30.0-36.0); Mean Corpuscular Volume 86.9 fL (80-94); Monocytes # 0.6 10^3/uL (0.2-0.9); Monocytes % 6.3 %; Neutrophils # 7.4 10^3/uL (1.8-7.7); Neutrophils % 74.8 %; Nucleated Red Blood Cells % 0 %; Platelet Count 261 10^3/cmm (130-400); Red Blood Count 5.11 10^6/uL (4.1-5.3); Red Cell Distribution Width 15.7 % (12.1-15.1); White Blood Count 9.9 10^3/uL (4.0-10.0)
[2019-07-26 16:06] VITALS: RESP 16; O2SAT 97
[2019-07-26 16:06] LABS: INR 2.23 (0.8-1.2)
[2019-07-26] MEDS: morphine 4 mg/mL SDV 1 mL IVP (16:06)
[2019-07-26 16:13] LABS: Alanine Aminotransferase 35 U/L (0-41); Albumin Level 3.8 g/dL (3.5-5.2); Alkaline Phosphatase 109 IU/L (40-130); Anion Gap 16.8 (5-19); Aspartate Amino Transferase 26 U/L (0-40); Blood Urea Nitrogen 16 mg/dL (8-23); Calcium 9.1 mg/dL (8.5-10.5); Carbon Dioxide 24 mmol/L (22-29); Chloride 103 mmol/L (98-107); Globulin 3.3 g/dL (1.3-4.6); Glomerular Filtration Rate 83.9 mL/min (90-130); Glucose 224 mg/dL (65-115); Osmolality Calculated 293 mOsm/kg (285-295); Potassium 3.8 mmol/L (3.5-5.1); Sodium 140 mmol/L (136-145); Total Bilirubin 0.3 mg/dL (0.15-1.2); Total Protein 7.1 g/dL (6.6-8.7)
[2019-07-26 16:14] LABS: Troponin(5th) Baseline 8 ng/mL (0-15)
--- NOTE | 2019-07-26 16:32 | ECG_ITS ---
Measurements Intervals [place] Rate: 89 P: 17 [place]: 171 QRS: -23 QRSD: 104 T: 114 QT: 341 QTc: 415 SINUS RHYTHM POSSIBLE LEFT ATRIAL ENLARGEMENT [-0.1mV P WAVE IN V1/V2] LEFT VENTRICULAR HYPERTROPHY AND ST-T CHANGE [VOLTAGE CRITERIA PLUS ST/T ABN ABNORMALITY] Electronically Signed On 07-27-2019 8:51:34 CDT by Jeremiah Park [email or web address]
--- NOTE | 2019-07-26 17:11 | CTR_ITS ---
PROCEDURE INFORMATION: Exam: CT Angiography Chest With Contrast Exam date and time: 07/26/2019 5:24 PM Age: 69 years old Clinical indication: Chest pain; Prior surgery; Surgery type: Bypass TECHNIQUE: Imaging protocol: Computed tomographic angiography of the chest with intravenous contrast. Axial, coronal and sagittal reformatted images were created and reviewed. 3D rendering: MIP and/or 3D reconstructed images were created by the technologist. Total DLP: 646.48 mGy-cm Radiation optimization: All CT scans at this facility use at least one of these dose optimization techniques: automated exposure control; mA and/or kV adjustment per patient size (includes targeted exams where dose is matched to clinical indication); or iterative reconstruction. Contrast material: OMNI 350; Contrast volume: 95 ml; Contrast route: IV; COMPARISON: CR XR chest 1V portable [id number] 07/26/2019 2:39 PM FINDINGS: Pulmonary arteries: Contrast opacification satisfactory. No intraluminal filling defect. Aorta: Mild atherosclerotic disease. No aneurysm or dissection. Lungs: Mild peribronchial thickening, suggestive of airway inflammation. Mild linear stranding and groundglass, likely due to atelectasis and/or scarring. No focal consolidation. Pleural space: Small right pleural effusion. Heart: Cardiomegaly. Evidence of open heart surgery. Mediastinum: Nonspecific distal esophageal wall thickening, suggesting chronic reflux/esophagitis. Diaphragm: Elevated left hemidiaphragm. Gallbladder and bile ducts: Cholelithiasis. Lymph nodes: No pathologically enlarged lymph nodes. Bones/joints: No acute osseous abnormality. Osteopenia. Degenerative changes. Soft tissues: Unremarkable. CT/CT angio chest PE protcl [id number] IMPRESSION: 1. No CT evidence of pulmonary embolism. 2. Mild peribronchial thickening, suggestive of airway inflammation. 3. Nonspecific distal esophageal wall thickening, suggesting chronic reflux/esophagitis. If clinically indicated, endoscopy may be obtained. 4. Additional findings, as above. Radiation Dose CTDIVOL = (mGy): DLP = 646.48 (mGy-cm)
[2019-07-26 17:41] LABS: Troponin 5 2HR 7.65 ng/mL (0-15)
[2019-07-26] MEDS: iohexol 350 mg/mL 100 mL Btl IV (17:56)
[2019-07-26 17:58] LABS: Troponin 5 2HR Delta -0.35 ABS# (0-10)
--- NOTE | 2019-07-26 19:15 | PC.NURSE ---
Report received from ANURADHA Chatman and care transferred to ANURADHA Virgen
[2019-07-26 19:21] VITALS: BP 155/107; PULSE 88; RESP 16; O2SAT 95
[2019-07-26 19:25] VITALS: BP 158/98; PULSE 88; RESP 16; O2SAT 96
== END 2019-07-26 19:29 | disposition home or self-care (01) ==
PROVIDERS: Emergency Provider Emergency Medicine; Family Provider Internal Medicine; PCP Internal Medicine
DX: R07.9 Chest pain, unspecified (principal); Z86.73 Personal history of transient ischemic attack (TIA), and cerebral infarction without residual deficits
CPT/HCPCS: 12345; 36415; 70450; 71045; 71275; 80053; 84484; 85025; 85610; 93005; 93010; 96374; 96375; 99282; 99284; J2270; Q9967

== ENCOUNTER 2019-10-26 12:41 | Emergency (ER) | payer OTHER, SELFPAY ==
[2019-10-26 12:49] VITALS: BP 160/91; PULSE 82; RESP 18; TEMP 36.8; O2SAT 95; BMI 38.0
--- NOTE | 2019-10-26 12:51 | W.ED.HA ---
HPI - Headache General: Chief Complaint: Headache Stated Complaint: BARAHONA Time Seen by Provider: 10/26/19 12:50 Source: patient Mode of arrival: ambulatory Limitations: no limitations History of Present Illness: HPI Narrative: Patient comes in today for complaints of headache for the last week. Patient reports he will go to bed with a headache wake up without but in the day he has another headache. Patient reports that usually he has an occasional headache but over the last week is just been persistent. Patient went to the [facility] today and was seen and they referred him to the emergency department for further treatment. MD elicited complaint: headache Review of Systems General: Reports: 10 or more systems reviewed and unremarkable except in HPI and below Neuro: Reports: headache(s) PFSH ED PFSH: Social History Smoking and tobacco status: never smoked Physical Exam Const: COMMON NORMALS: no acute distress, patient oriented x3 and alert GENERAL APPEARANCE: cooperative HENMT: COMMON NORMALS: normocephalic, TM's normal bilaterally and Normal external nose present HEAD & SCALP: normal to inspection and normocephalic NOSE: Normal external nose present TYMPANIC MEMBRANE: TM's normal bilaterally MOUTH: Normal oral and palatal mucosa present THROAT: posterior oropharynx normal Eye: GENERAL EYE: appearance normal, both eyes and all related structures Neck/C-Spine: COMMON NORMALS: full ROM and no meningeal signs Lymph: LYMPHATIC: no lymphadenopathy noted Chest: COMMONS NORMALS: normal inspection of the chest Resp: COMMON NORMALS: normal respiratory effort EFFORT & INSPECTION: Yes able to speak in complete sentences Cardio: COMMON NORMALS: regular rate and regular rhythm RATE: regular rate RHYTHM: regular rhythm GI: COMMON NORMALS: non-tender : COMMON NORMALS: Yes no CVA tenderness BLADDER/KIDNEY EXAM: Yes no CVA tenderness Back/Pelvis: COMMON NORMALS: no CVA tenderness and thoracic and lumbar spine normal to inspection Extremity: COMMON NORMALS: normal to inspection Neuro: COMMON NORMALS: patient oriented x3 and moves all extremities SENSORIUM/ORIENTATION: Yes alert MENINGEAL SIGNS: Yes no meningeal signs SPEECH: speech normal GAIT: Yes Normal gait present SENSORY EXAM: Yes extremities MOTOR EXAM: 5/5 motor strength present throughout COMATOSE PATIENT: corneal reflex present Psych: COMMON NORMALS: mental status grossly normal and cooperative Skin: COMMON NORMALS: no rashes or lesions noted GENERAL SKIN EXAM: no rashes or lesions noted Course ED course: 1350, patient reports improvement in headache and overall symptoms. Patient is resting well. Awaiting lab reports.[email or web address] Vital Signs: Vital signs: Vital Signs Temperature 98.2 F 10/26/19 12:49 Pulse Rate 78 10/26/19 14:02 Respiratory Rate 18 10/26/19 14:02 Blood Pressure 125/76 10/26/19 14:02 Pulse Oximetry 95 10/26/19 14:02 MDM - Headache MDM Narrative: Medical decision making narrative: Patient comes in today for complaints of headache. Patient reports a history of headaches but this 1 has been persisting for the last 5 days. Patient states that it is worse and the fact that has been lasting this long. Patient appears well. Patient has no focal neural deficits. Patient moves all extremities well and has good sensation throughout. Respirations are even lungs are clear to auscultation. Vital signs are normal. Differential diagnosis includes tension headache, migraine syndrome, intercerebral hemorrhage, stroke syndrome. CT scan of the head was negative. Vital signs were normal. Laboratory values were normal. Patient was given a headache cocktail of dexamethasone 10 mg, 10 mg Reglan, 25 mg Benadryl, and 15 mg ketorolac. Patient reported relief of headache. Reviewed exam and recommendations for treatment and follow-up with neurology for further treatment plans. Patient reported understanding and agreed to plan. Case management was consulted to help with referral. Lab Data: Labs: Lab Results 10/26/19 10/26/19 10/26/19 Range/Units 13:35 13:35 13:35 WBC 11.1 H (4.0-10.0) 10^3/ uL RBC 5.02 (4.1-5.3) 10^6/u L Hgb 14.1 (11.7-16.6) g/dL Hct 45.0 (42.0-52.0) % MCV 89.6 (80-94) fL MCH 28.1 (28.0-34.0) pg MCHC 31.3 (30.0-36.0) g/dL RDW 14.7 (12.1-15.1) % Plt Count 272 (130-400) 10^3/c mm MPV 11.9 H (7.4-10.4) fL Neut % (Auto) 76.1 % Lymph % (Auto) 13.6 % Jones % (Auto) 6.7 % Eos % (Auto) 2.5 % Baso % (Auto) 0.5 % Neut # (Auto) 8.4 H (1.8-7.7) 10^3/u L Lymph # (Auto) 1.5 (0.8-4.8) 10^3/u L Jones # (Auto) 0.7 (0.2-0.9) 10^3/u L Eos # (Auto) 0.3 (0.0-0.8) 10^3/u L Baso # (Auto) 0.1 (0.0-0.1) 10^3/u L Nucleated RBC % (a uto) 0 % Nucleated RBCs # 0.0 /100WBC Sodium 142 (136-145) mmol/L Potassium 3.9 (3.5-5.1) mmol/L Chloride 103 (98-107) mmol/L Carbon Dioxide 24 (22-29) mmol/L Anion Gap 18.9 (5-19) BUN 15 (8-23) mg/dL Creatinine 0.9 (0.7-1.2) mg/dL GFR Calculation 83.9 L (90-130) mL/min Glucose 127 H (65-115) mg/dL Calculated Osmolal ity 292 (285-295) mOsm/k g Calcium 8.9 (8.5-10.5) mg/dL Total Bilirubin 0.4 (0.15-1.2) mg/dL AST 43 H (0-40) U/L ALT 37 (0-41) U/L Alkaline Phosphata se 106 (40-130) IU/L Troponin T Gen 5 n g/L 11 (0-15) ng/L Total Protein 7.3 (6.6-8.7) g/dL Albumin 3.9 (3.5-5.2) g/dL Globulin 3.4 (1.3-4.6) g/dL Urine Color (Yellow) Urine Appearance (CLEAR) Urine pH (5-7) Ur Specific Gravit y (1.005-1.030) Urine Protein (Negative) Urine Glucose (UA) (Normal) Urine Ketones (Negative) Urine Blood (Negative) Urine Nitrate (Negative) Urine Bilirubin (NEGATIVE) Urine Urobilinogen (Negative) mg/dL Ur Leukocyte Yamilet ase (Negative) 10/26/19 Range/Units 13:42 WBC (4.0-10.0) 10^3/ uL RBC (4.1-5.3) 10^6/u L Hgb (11.7-16.6) g/dL Hct (42.0-52.0) % MCV (80-94) fL MCH (28.0-34.0) pg MCHC (30.0-36.0) g/dL RDW (12.1-15.1) % Plt Count (130-400) 10^3/c mm MPV (7.4-10.4) fL Neut % (Auto) % Lymph % (Auto) % Jones % (Auto) % Eos % (Auto) % Baso % (Auto) % Neut # (Auto) (1.8-7.7) 10^3/u L Lymph # (Auto) (0.8-4.8) 10^3/u L Jones # (Auto) (0.2-0.9) 10^3/u L Eos # (Auto) (0.0-0.8) 10^3/u L Baso # (Auto) (0.0-0.1) 10^3/u L Nucleated RBC % (a uto) % Nucleated RBCs # /100WBC Sodium (136-145) mmol/L Potassium (3.5-5.1) mmol/L Chloride (98-107) mmol/L Carbon Dioxide (22-29) mmol/L Anion Gap (5-19) BUN (8-23) mg/dL Creatinine (0.7-1.2) mg/dL GFR Calculation (90-130) mL/min Glucose (65-115) mg/dL Calculated Osmolal ity (285-295) mOsm/k g Calcium (8.5-10.5) mg/dL Total Bilirubin (0.15-1.2) mg/dL AST (0-40) U/L ALT (0-41) U/L Alkaline Phosphata se (40-130) IU/L Troponin T Gen 5 n g/L (0-15) ng/L Total Protein (6.6-8.7) g/dL Albumin (3.5-5.2) g/dL Globulin (1.3-4.6) g/dL Urine Color Yellow (Yellow) Urine Appearance Clear (CLEAR) Urine pH 5.0 (5-7) Ur Specific Gravit y 1.020 (1.005-1.030) Urine Protein Neg (Negative) Urine Glucose (UA) Norm (Normal) Urine Ketones Negative (Negative) Urine Blood Neg (Negative) Urine Nitrate Negative (Negative) Urine Bilirubin Neg (NEGATIVE) Urine Urobilinogen Norm (Negative) mg/dL Ur Leukocyte Yamilet ase Negative (Negative) EKG Data^: EKG 1: Attestation: I personally reviewed and interpreted this EKG as follows: (1339, sinus rhythm rate 79 bpm regular, no ST elevation, no ectopy) Discharge Plan Discharge Patient Disposition: Home, Self-Care Clinical Impression: Migraine Qualifiers: Migraine type: unspecified Status migrainosus presence: without status migrainosus Intractability: not intractable Qualified Code(s): G43.909 - Migraine, unspecified, not intractable, without status migrainosus Condition: Stable Prescriptions: No Action atorvastatin 80 mg Tablet 40 mg PO DAILY RF: 0 donepezil 10 mg Tablet 10 mg PO BEDTIME RF: 0 aspirin 81 mg Tablet,Delayed Release (Dr/Ec) 81 mg PO DAILY RF: 0 tamsulosin 0.4 mg Capsule 0.4 mg PO DAILY RF: 0 pantoprazole 40 mg Tablet,Delayed Release (Dr/Ec) 40 mg PO DAILY RF: 0 warfarin 2 mg Tablet See Rx Instructions .ROUTE .COMPLEX RF: 0 metoprolol tartrate 50 mg Tablet 50 mg PO BID RF: 0 furosemide 20 mg Tablet 20 mg PO DAILY RF: 0 docusate sodium 100 mg Tablet 100 mg PO DAILY RF: 0 cholecalciferol (vitamin D3) 400 unit Tablet,Chewable 400 unit PO DAILY RF: 0 Discharge Orders: Discharge Order (Routine); Ordered 10/26/19 Ordered By: Christofer Roth Referrals: Dank Schwartz [Primary Care Provider] - Discharge Diet: Usual diet Discharge Activity: Increase activity as tolerated Patient Instructions: Headache - Migraine (Adult) Activity Restrictions/Additional Instructions: Continue with naproxen as needed for headache. Drink plenty of water. Healthy diet and activity. Follow-up with primary care. Follow-up with neurologist for further treatment options. Case management will be contacting you regarding assistance with neurology referral. Coding Level of Care Code ED Director Of Enterprise Strategy for Kevin Fwd Exam Comprehensive
--- NOTE | 2019-10-26 12:57 | ECG_ITS ---
[facility] ED Test Date: 2019-10-26 Pat Name: Alex Nice Department: Room: Gender: Male Radio Repairer: [place] : 1950 Requested By: Christofer Rivers Order Number: [id number] Kimberlee MD: Laura Juárez M.D. Measurements Intervals [place] Rate: 79 P: 32 NH: 184 QRS: -20 QRSD: 105 T: 121 QT: 369 QTc: 425 Interpretive Statements SINUS RHYTHM POSSIBLE LEFT ATRIAL ENLARGEMENT LEFT VENTRICULAR HYPERTROPHY AND ST-T CHANGE POSSIBLE SEPTAL MYOCARDIAL INFARCTION, OF INDETERMINATE AGE Compared to ECG 07/26/2019 16:46:47 Myocardial infarct finding now present ST (T wave) deviation still present Electronically Signed On 10-27-2019 22:54:45 CDT by Laura Juárez M.D. [id number]
--- NOTE | 2019-10-26 12:58 | CT_ITS ---
WS: [id number] CT head wo con* [id number] REASON FOR EXAM: headache IV CONTRAST ADMINISTERED: None. TOTAL EXAM DLP: 851.[address] scans at [facility] use at least one of these dose optimization techniques: automat ed exposure control; mA and/or kV adjustment per patient size (includes targeted exams where dose is matched to clinical indication); or iterative reconstruction. FINDINGS: Brain white matter interfaces are normal. No evidence of hemorrhage, infarction, or mass effect. The ventricles are normal and not displaced. No paraventricular changes seen. The anthony ,posterior fossa are normal. The mastoid air cells are normal. The paranasal sinuses are normal. The orbits show no abnormalities. The calvarium show normal appearance. CT/CT head wo con* [id number] IMPRESSION: Normal CT of the brain
--- NOTE | 2019-10-26 12:58 | XR_ITS ---
WS: [id number] XR chest 1V portable [id number] REASON FOR EXAM: headache FINDINGS: Cardiomegaly is again noted similar to previous exam of July 26, 2019. There is sternotomy changes and coronary bypass findings. The peripheral lungs are well aerated and similar to the previous exam. XR/XR chest 1V portable [id number] IMPRESSION: Gross cardiomegaly Previous coronary bypass changes.
[2019-10-26] MEDS: metoclopramide 5 mg/mL SDV 2 mL 10 MG IVP (13:29)
[2019-10-26] MEDS: dexamethasone 10 mg/mL INJ IM (13:29)
[2019-10-26] MEDS: diphenhydrAMINE 50 mg/mL SDV 1mL 25 MG IVP (13:29)
[2019-10-26] MEDS: sodium chloride 0.9% 500 ML 999 ML IV (13:30)
[2019-10-26 13:44] VITALS: BP 133/86; PULSE 82; RESP 16; O2SAT 98
[2019-10-26 13:48] LABS: Basophils # 0.1 10^3/uL (0.0-0.1); Basophils % 0.5 %; Eosinophils # 0.3 10^3/uL (0.0-0.8); Eosinophils % 2.5 %; Hemoglobin 14.1 g/dL (11.7-16.6); Lymphocytes # 1.5 10^3/uL (0.8-4.8); Lymphocytes % 13.6 %; Mean Corpuscular HGB Conc 31.3 g/dL (30.0-36.0); Mean Corpuscular Hemoglobin 28.1 pg (28.0-34.0); Mean Corpuscular Volume 89.6 fL (80-94); Mean Platelet Volume 11.9 fL (7.4-10.4); Monocytes # 0.7 10^3/uL (0.2-0.9); Monocytes % 6.7 %; Neutrophils # 8.4 10^3/uL (1.8-7.7); Neutrophils % 76.1 %; Nucleated Red Blood Cells % 0 %; Platelet Count 272 10^3/cmm (130-400); Red Blood Count 5.02 10^6/uL (4.1-5.3); Red Cell Distribution Width 14.7 % (12.1-15.1); White Blood Count 11.1 10^3/uL (4.0-10.0)
[2019-10-26 14:02] VITALS: BP 125/76; PULSE 78; RESP 18; O2SAT 95
[2019-10-26 14:03] LABS: Add Urine Microscopic? NO
[2019-10-26 14:12] LABS: Bilirubin Urine Neg (NEGATIVE); Blood Urine Neg (Negative); Glucose Urine UA Norm (Normal); Ketones Urine Negative (Negative); Leukocyte Esterase Urine Negative (Negative); Nitrate Urine Negative (Negative); Protein Urine Neg (Negative); Urine Appearance Clear (CLEAR); Urine Color Yellow (Yellow); Urobilinogen Urine Norm (Negative)
[2019-10-26 14:17] LABS: Alanine Aminotransferase 37 U/L (0-41); Albumin Level 3.9 g/dL (3.5-5.2); Alkaline Phosphatase 106 IU/L (40-130); Anion Gap 18.9 (5-19); Aspartate Amino Transferase 43 U/L (0-40); Blood Urea Nitrogen 15 mg/dL (8-23); Calcium 8.9 mg/dL (8.5-10.5); Carbon Dioxide 24 mmol/L (22-29); Chloride 103 mmol/L (98-107); Creatinine Clr Calc Pharmacy 108.1804; Globulin 3.4 g/dL (1.3-4.6); Glomerular Filtration Rate 83.9 mL/min (90-130); Glucose 127 mg/dL (65-115); Osmolality Calculated 292 mOsm/kg (285-295); Potassium 3.9 mmol/L (3.5-5.1); Sodium 142 mmol/L (136-145); Total Bilirubin 0.4 mg/dL (0.15-1.2); Total Protein 7.3 g/dL (6.6-8.7); Troponin T (5th) Once 11 ng/L (0-15)
[2019-10-26 14:56] VITALS: BP 126/93; PULSE 74; RESP 16; O2SAT 96
--- NOTE | 2019-10-29 09:32 | DCPLANNER ---
Addendum entered by Montserrat Cotton 10/29/19 10:16: Анна from Dr. Maxwell office called case management assistant informed case management assistant that patients appointment scheduled for November at 2:[address] Pratt, needed to be rescheduled to November at 3:15. Patient returned employment evaluator/case manager phone call and case management assistant gave patient the appointment information. Original Note: retail manager in training had message to schedule a follow up appointment for patient with Dr. Pratt. retail manager in training called the office of Dr. Pratt, spoke with Анна. A follow up appointment was scheduled for November at 2:[address] Pratt. Patient has [employer] insurance, case management assistant called August with [facility] the community, informed VA that patient was seen in the ED and that patient had an appointment scheduled with Dr. Pratt. retail manager in training called patient to give patient appointment information. retail manager in training was unable to speak with patient at this time, a letter was mailed to patient with appointment information.
--- NOTE | 2019-11-20 11:23 | DCPLANNER ---
Patient did attend appointment scheduled for 11.15.[address] Pratt.
--- NOTE | 2019-11-20 11:25 | DCPLANNER ---
Patient did attend follow up appointment scheduled for 11.15.[address] Pratt.
== END 2019-10-26 15:03 | disposition home or self-care (01) ==
PROVIDERS: Emergency Provider Nurse Practitioner Family; Family Provider Internal Medicine; PCP Internal Medicine
DX: G43.909 Migraine, unspecified, not intractable, without status migrainosus (principal); Z79.82 Long term (current) use of aspirin; Z79.01 Long term (current) use of anticoagulants
CPT/HCPCS: 12345; 70450; 71045; 80053; 81003; 84484; 85025; 93005; 96372; 96374; 96375; 99283; J1100; J1200; J2765; J7040

== ENCOUNTER → 2019-11-15 13:13 | Outpatient (BNVA) | payer OTHER, SELFPAY | PROVIDERS: Family Provider Internal Medicine; PCP Internal Medicine; Visit Provider Specialist | DX: G43.711 Chronic migraine without aura, intractable, with status migrainosus (principal) | CPT/HCPCS: 96372; 99204; J1885 ==

== ENCOUNTER 2020-07-31 09:49 | Inpatient (IN) | payer OTHER, MEDICARE, SELFPAY ==
[2020-07-31] VITALS (14 sets, daily range): BP systolic 133–184; BP diastolic 75–107; PULSE 79–97; RESP 16–26; TEMP 36.1–36.7; O2SAT 91–96; BMI 36.6
--- NOTE | 2020-07-31 09:52 | ECG_ITS ---
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 Measurements Intervals [place] Rate: 82 P: 36 MA: 193 QRS: -18 QRSD: 101 T: 106 QT: 348 QTc: 409 Interpretive Statements SINUS RHYTHM LEFT VENTRICULAR HYPERTROPHY AND ST-T CHANGE [VOLTAGE CRITERIA PLUS ST/T ABNORMALITY] POSSIBLE SEPTAL MYOCARDIAL INFARCTION , OF INDETERMINATE AGE [30 ms Q WAVE IN V1/V2] Compared to ECG 10/26/2019 13:39:18 No significant changes Electronically Signed On 07-31-2020 20:36:48 CDT by Eligio Guzman M.D. [id number]
--- NOTE | 2020-07-31 09:52 | XR_ITS ---
WS: [id number] Exam: XR chest 1V portable [id number] Date/Time of Exam: 07/31/2020 9:52 AM Reason For Exam: chest pain Comparison 10/16/2019. The chest is somewhat rotated. There is cardiac enlargement unchanged. The lungs are fully expanded. No consolidating infiltrates are noted. No pleural effusions. Signs of previous CABG surgery. XR/XR chest 1V portable [id number] IMPRESSION: 1. Cardiac enlargement unchanged. No acute process.
[2020-07-31 10:26] LABS: Basophils # 0.1 10^3/uL (0.0-0.1); Basophils % 0.7 %; Eosinophils # 0.2 10^3/uL (0.0-0.8); Eosinophils % 1.5 %; Lymphocytes # 1.7 10^3/uL (0.8-4.8); Lymphocytes % 15.3 %; Mean Corpuscular HGB Conc 31.9 g/dL (30.0-36.0); Mean Corpuscular Hemoglobin 28.5 pg (28.0-34.0); Mean Corpuscular Volume 89.4 fL (80-94); Mean Platelet Volume 11.5 fL (7.4-10.4); Monocytes # 0.5 10^3/uL (0.2-0.9); Monocytes % 4.4 %; Neutrophils # 8.35 10^3/uL (1.8-7.7); Nucleated Red Blood Cells % 0 %; Platelet Count 244 10^3/cmm (130-400); Red Blood Count 5.26 10^6/uL (4.1-5.3); Red Cell Distribution Width 14.6 % (12.1-15.1); White Blood Count 10.9 10^3/uL (4.0-10.0)
[2020-07-31 10:47] LABS: Troponin(5th) Baseline 9 ng/L (0-15)
[2020-07-31 10:56] LABS: Alanine Aminotransferase 25 U/L (0-41); Albumin Level 3.7 g/dL (3.5-5.2); Alkaline Phosphatase 104 IU/L (40-130); Aspartate Amino Transferase 17 U/L (0-40); Blood Urea Nitrogen 20 mg/dL (8-23); Calcium 8.6 mg/dL (8.5-10.5); Carbon Dioxide 26 mmol/L (22-29); Chloride 100 mmol/L (98-107); Globulin 3.2 g/dL (1.3-4.6); Glomerular Filtration Rate 83.7 mL/min (90-130); Glucose 316 mg/dL (65-115); NT Pro B Type Natriuretic Pept 112 pg/mL (0-125); Osmolality Calculated 293 mOsm/kg (285-295); Sodium 134 mmol/L (136-145); Total Bilirubin 0.4 mg/dL (0.15-1.2); Total Protein 6.9 g/dL (6.6-8.7)
[2020-07-31 11:01] LABS: Anion Gap 12.7 (5-19); Potassium 4.7 mmol/L (3.5-5.1)
--- NOTE | 2020-07-31 11:11 | W.ED.CHESTPA ---
HPI - Chest Pain General: Chief Complaint: Chest Pain Stated Complaint: CHEST PAIN Time Seen by Provider: 07/31/20 10:03 History of Present Illness: HPI narrative: This patient is a 70 year old male presenting with chest pain that started at about 8 this morning. He has been having chest pain off and on for a while, and also breaks out in a sweat. He has symptoms yesterday but toughed it out but this morning the symptoms were bad enough that he decided to call his doctor and was told to come to the ED. He has had a CABG x4 two years ago. He sees Dr. Park here and gets primary care through the [facility]. He took his morning medications and says that he is compliant with all his usual meds as they are prescribed. MD complaint: chest pain Pertinent past history: coronary artery disease Onset (ago): hour(s) (2) Onset: after eating Pain location: left chest Pain radiation: neck Quality: aching, heaviness and similar to prior ND Relieving factors: nothing Exacerbating factors: nothing Associated symptoms: Reports diaphoresis, dyspnea and nausea Review of Systems General: Reports: 10 or more systems reviewed and unremarkable except in HPI and below Const: Reports: diaphoresis Eyes: Denies: change in vision ENMT: Denies: odynophagia Card: Reports: chest pain and dyspnea on exertion; Denies: swelling of feet/ankles Resp: Reports: dyspnea GI: Reports: nausea : Denies: flank pain Musc: Denies: neck pain or back pain Skin/Breast: Denies: rash Neuro: Denies: headache(s), numbness in extremities or weakness in extremities Tai/Lymph: Denies: easy bruising or easy bleeding PENDING SALE TO [facility] ED PFSH: Surgical History (Updated 07/31/20 @ 11:16 by Deb Waters MD) S/P CABG x 4 Social History Smoking and tobacco status: never smoked Physical Exam Const: COMMON NORMALS: patient oriented x3, no limitations and alert GENERAL APPEARANCE: cooperative and other (uncomfortable) NUTRITIONAL APPEARANCE: obese HENMT: HEAD & SCALP: normal to inspection FACE & SINUS: normal facial exam Eye: GENERAL EYE: appearance normal, both eyes and all related structures Neck/C-Spine: COMMON NORMALS: supple, no meningeal signs and no JVD Chest: COMMONS NORMALS: normal inspection of the chest Resp: COMMON NORMALS: normal respiratory effort, No use of accessory muscles and clear to auscultation bilaterally AUSCULTATION: clear to auscultation bilaterally and diminished lung sounds bilateral throughout Cardio: COMMON NORMALS: no JVD, regular rate, regular rhythm and No murmurs present (Cardio) RATE: regular rate RHYTHM: regular rhythm GI: COMMON NORMALS: Normal to inspection, nondistended, normoactive bowel sounds present, Soft to palpation and non-tender INSPECTION: Yes normal to inspection AUSCULTATION: Yes normoactive bowel sounds PALPATION: Yes Soft to palpation Back/Pelvis: COMMON NORMALS: thoracic and lumbar spine normal to inspection Extremity: COMMON NORMALS: normal to inspection Neuro: COMMON NORMALS: patient oriented x3, moves all extremities, no focal motor deficits and no sensory deficits noted SENSORIUM/ORIENTATION: Yes alert MENINGEAL SIGNS: Yes no meningeal signs Psych: COMMON NORMALS: mental status grossly normal, cooperative and normal affect Skin: COMMON NORMALS: no rashes or lesions noted and turgor normal GENERAL SKIN EXAM: no rashes or lesions noted and turgor normal Course ED course: Chest pain improved with nitro, but then came back a while later and he became diaphoretic again. Nitro paste placed and that seemed to control the symptoms. CT chest done to rule out pneumonia or PE - nothing that appeared to be acute. Troponins neg. EKG unchanged from prior - but his heart score is high based on the concerning nature of his symptoms and his history so will admit for further evaluation. Vital Signs: Vital signs: Vital Signs Temperature 98.0 F 07/31/20 10:02 Pulse Rate 92 07/31/20 16:36 Respiratory Rate 22 H 07/31/20 16:36 Blood Pressure 143/107 07/31/20 16:36 Pulse Oximetry 95 07/31/20 16:36 MDM - Chest Pain MDM Narrative: Medical decision making narrative: unstable angina, AMI, pericarditis, pneumonia, GERD. Doubt PE or TAD Lab Data: Labs: Lab Results 07/31/20 07/31/20 07/31/20 Range/Units 10:20 10:20 10:20 WBC 10.9 H (4.0-10.0) 10^3/ uL RBC 5.26 (4.1-5.3) 10^6/u L Hgb 15.0 (11.7-16.6) g/dL Hct 47.0 (42.0-52.0) % MCV 89.4 (80-94) fL MCH 28.5 (28.0-34.0) pg MCHC 31.9 (30.0-36.0) g/dL RDW 14.6 (12.1-15.1) % Plt Count 244 (130-400) 10^3/c mm MPV 11.5 H (7.4-10.4) fL Neut % (Auto) 77.0 % Lymph % (Auto) 15.3 % [place] % (Auto) 4.4 % Eos % (Auto) 1.5 % Baso % (Auto) 0.7 % Neut # (Auto) 8.35 H (1.8-7.7) 10^3/u L Lymph # (Auto) 1.7 (0.8-4.8) 10^3/u L [place] # (Auto) 0.5 (0.2-0.9) 10^3/u L Eos # (Auto) 0.2 (0.0-0.8) 10^3/u L Baso # (Auto) 0.1 (0.0-0.1) 10^3/u L Nucleated RBC % (a uto) 0 % Nucleated RBCs # 0.0 /100WBC Sodium 134 L (136-145) mmol/L Potassium 4.7 (3.5-5.1) mmol/L Chloride 100 (98-107) mmol/L Carbon Dioxide 26 (22-29) mmol/L Anion Gap 12.7 (5-19) BUN 20 (8-23) mg/dL Creatinine 0.9 (0.7-1.2) mg/dL GFR Calculation 83.7 L (90-130) mL/min Glucose 316 H (65-115) mg/dL Calculated Osmolal ity 293 (285-295) mOsm/k g Calcium 8.6 (8.5-10.5) mg/dL Total Bilirubin 0.4 (0.15-1.2) mg/dL AST 17 (0-40) U/L ALT 25 (0-41) U/L Alkaline Phosphata se 104 (40-130) IU/L Troponin T Baselin e 9 (0-15) ng/L Troponin T 120 Min [place] (0-15) ng/L Delta Troponin T (0-10) ABS# NT-Pro-B Natriuret Pep 112 (0-125) pg/mL Total Protein 6.9 (6.6-8.7) g/dL Albumin 3.7 (3.5-5.2) g/dL Globulin 3.2 (1.3-4.6) g/dL 07/31/20 Range/Units 12:23 WBC (4.0-10.0) 10^3/ uL RBC (4.1-5.3) 10^6/u L Hgb (11.7-16.6) g/dL Hct (42.0-52.0) % MCV (80-94) fL MCH (28.0-34.0) pg MCHC (30.0-36.0) g/dL RDW (12.1-15.1) % Plt Count (130-400) 10^3/c mm MPV (7.4-10.4) fL Neut % (Auto) % Lymph % (Auto) % [place] % (Auto) % Eos % (Auto) % Baso % (Auto) % Neut # (Auto) (1.8-7.7) 10^3/u L Lymph # (Auto) (0.8-4.8) 10^3/u L [place] # (Auto) (0.2-0.9) 10^3/u L Eos # (Auto) (0.0-0.8) 10^3/u L Baso # (Auto) (0.0-0.1) 10^3/u L Nucleated RBC % (a uto) % Nucleated RBCs # /100WBC Sodium (136-145) mmol/L Potassium (3.5-5.1) mmol/L Chloride (98-107) mmol/L Carbon Dioxide (22-29) mmol/L Anion Gap (5-19) BUN (8-23) mg/dL Creatinine (0.7-1.2) mg/dL GFR Calculation (90-130) mL/min Glucose (65-115) mg/dL Calculated Osmolal ity (285-295) mOsm/k g Calcium (8.5-10.5) mg/dL Total Bilirubin (0.15-1.2) mg/dL AST (0-40) U/L ALT (0-41) U/L Alkaline Phosphata se (40-130) IU/L Troponin T Baselin e (0-15) ng/L Troponin T 120 Min [place] 7.80 (0-15) ng/L Delta Troponin T -1.20 L (0-10) ABS# NT-Pro-B Natriuret Pep (0-125) pg/mL Total Protein (6.6-8.7) g/dL Albumin (3.5-5.2) g/dL Globulin (1.3-4.6) g/dL Discharge Plan Discharge Patient Disposition: Admitted As Inpatient Admit Provider: Rossi Mittal Clinical Impression: Unstable angina pectoris Chest pain Qualifiers: Chest pain type: unspecified Qualified Code(s): R07.9 - Chest pain, unspecified Condition: Stable Coding Level of Care Code ED Complex Care Nurse for [facility] Fwd Exam Comprehensive
[2020-07-31] MEDS: nitroglycerin 0.4 mg sublingual Tablet SUBLINGUAL (11:29)
--- NOTE | 2020-07-31 11:52 | ECG_ITS ---
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 Measurements Intervals [place] Rate: 83 P: 25 MA: 187 QRS: -22 QRSD: 102 T: 134 QT: 349 QTc: 411 Interpretive Statements SINUS RHYTHM POSSIBLE LEFT ATRIAL ENLARGEMENT [-0.1mV P WAVE IN V1/V2] LEFT VENTRICULAR HYPERTROPHY AND ST-T CHANGE [VOLTAGE CRITERIA PLUS ST/T ABNORMALITY] POSSIBLE SEPTAL MYOCARDIAL INFARCTION , OF INDETERMINATE AGE [30 ms Q WAVE IN V1/V2] Compared to ECG 07/31/2020 10:12:06 No significant changes Electronically Signed On 07-31-2020 20:43:48 CDT by Eligio Guzman M.D. [id number]
--- NOTE | 2020-07-31 13:15 | CT_ITS ---
WS: [id number] CT CHEST ANGIOGRAPHY WITH REFORMATS HISTORY: CP, SOB TECHNIQUE: Contiguous axial images are obtained through the chest during arterial injection of intrav enous contrast. Images are reconstructed to evaluate the pulmonary arteries. MIP imaging also reviewe d. All CT scans at [facility] use at least one of these dose optimization techniques: aut omated exposure control; mA and/or kV adjustment per patient size (includes targeted exams where dose is matched to clinical indication); or iterative reconstruction. CONTRAST: Omnipaque 350; 95 mL IV. DLP: 575.78 mGy.cm COMPARISON: 07/26/2019 Adequate opacification of the pulmonary arteries. Pulmonary artery size is normal. Small filling defe cts in the distal RIGHT lower and LEFT lower lobe pulmonary arteries. These are nonocclusive and may be related to chronic pulmonary emboli. No RIGHT heart strain. Mild atherosclerosis aorta. Prior CABG . No adenopathy. Diffuse thickening of the mid to distal esophagus as seen on the prior study. Correlate for esophagit is. Mild pulmonary venous congestion. Contracted gallbladder with stones. Adrenal glands are negative. Mild hepatic steatosis. CT/CT angio chest PE protcl [id number] IMPRESSION: 1. Very minimal subsegmental filling defects in the distal lower lobe pulmonar y arteries. Favor these are probably related to remote emboli. No large central pulmonary emboli. 2. Circumferential significant esophageal thickening. May be related to esopha gitis. 3. Prior CABG. 4. Mild pulmonary venous congestion.
[2020-07-31] MEDS: iohexol 350 mg/mL 100 mL Btl IV (13:25)
[2020-07-31] MEDS: nitroglycerin 1 gm/inch oint Pkt 1 INCH TOPICAL (14:01)
--- NOTE | 2020-07-31 15:52 | ECG_ITS ---
[facility] Test Date: 2020-07-31 Pat Name: Alex Nice Department: Room: Gender: Male Director Of Academic Support: : 1950 Requested By: Margarita Mendes Order Number: [id number] Kimberlee MD: Eligio Guzman M.D. Measurements Intervals [place] Rate: 90 P: 26 TN: 178 QRS: -24 QRSD: 101 T: 133 QT: 334 QTc: 411 Interpretive Statements SINUS RHYTHM POSSIBLE LEFT ATRIAL ENLARGEMENT [-0.1mV P WAVE IN V1/V2] BORDERLINE LEFT AXIS DEVIATION [QRS AXIS < -20] LEFT VENTRICULAR HYPERTROPHY AND ST-T CHANGE [VOLTAGE CRITERIA PLUS ST/T ABNORMALITY] Compared to ECG 07/31/2020 11:56:58 Myocardial infarct finding no longer present ST (T wave) deviation still present Electronically Signed On 07-31-2020 20:44:58 CDT by Eligio Guzman M.D. [id number]
[2020-07-31 16:53] LABS: Troponin 5 6HR 8.04 ng/L (0-15)
[2020-07-31 16:54] LABS: Troponin 5 6HR Delta -0.96 ng/L (0-12)
--- NOTE | 2020-07-31 18:10 | ECG_ITS ---
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 Interpretive Statements NAME OF STUDY: LEXISCAN SESTAMIBI STRESS TEST INDICATION: Angina; Hx of CABG PROCEDURE: At the baseline, the blood pressure was 115/90 mmHg, oxygen saturation 93% with a heart rate of 88 bpm. The electrocardiogram showed normal sinus rhythm. Possible left atrial enlargement. Left ventricular hypertrophy and ST-T wave changes. The Lexiscan was infused over a period of 20 seconds. A total of 0.4 milligrams of Lexiscan was infused. The stress phase was continued for a total of 5 minutes. Heart rate at the end of the stress phase was 94 bpm, oxygen saturation 94% with a blood pressure of 139/77 mmHg. The EKG at the peak infusion revealed sinus rhythm with no significant ST-T wave changes. Sestamibi was injected 20 seconds after the Lexiscan infusion. Blood pressure at the end of the recovery phase was 125/78 mmHg, oxygen saturation 92% with a heart rate of 94 beats per minute. CONCLUSION: 1. No significant EKG changes with the LexiScan infusion. 2. No LexiScan induced chest pain or cardiac arrhythmia. 3. Normal blood pressure and heart rate response. 4. Sestamibi/sestamibi perfusion scan pending; see separate report. Electronically Signed On 08-01-2020 14:54:01 CDT by Laura Juárez M.D. [id number]
--- NOTE | 2020-07-31 18:15 | PM.HP ---
Providers/Chief Complaint Admitting Physician: Rossi Mittal MD Primary Care Provider: Dank Schwartz Chief Complaint: CHEST PAIN History of Present Illness Alex Nice is a 70 year old male with past medical history of CAD, CABG 4 years ago, on anticoagulation with warfarin for unclear reason, may be PE versus A. fib who presented to the ER today complaining of chest pain and intense diaphoresis. Patient states he has been having chest pain on and off for the last 2 months, without any apparent trigger factors. Describes this as a retrosternal chest pain with radiation upwards into the neck associated with diaphoresis. No specific trigger described. Is unrelated to exertion. Has had episodes while laying still in bed as well. Some episodes resolved with taking sublingual nitroglycerin, some resolved spontaneously. Each time pain lasts about 2 to 3 minutes at a time. Does also describe shortness of breath during these episodes. More chronic shortness of breath described at least over the last 2 to 3 years with exertion. Patient feels his dyspnea has progressed currently with the point where he can walk about 20 feet without feeling dyspneic. Past history of CAD and CABG 4 years ago performed at [facility] in [place]. Follows with egg buyer in [place] at the ID. Currently on Coumadin, he is unsure of the indication, last INR checked yesterday was at 2.1. He has mild memory impairment, visiting home health nurse sets of his medications. He is unaware of the doses in which medications he takes exactly. Denies any orthopnea, denies paroxysmal nocturnal dyspnea. CTA of the chest was performed which showed small peripheral PE of uncertain chronicity. Note made of thickening of the lower end of the esophagus which has progressed since last CAT scan in 2019. Patient does describe symptoms of early satiety, and dysphagia worse for liquids than solids. Currently on a PPI. Denies any weight loss, in fact states he has gained 15 pounds in the past year. Troponin series currently today without any significant delta at 2 and 6 hours. EKG without any acute ST-T wave changes. Review of Systems General: Reports: 10 or more systems reviewed and unremarkable except in HPI and below Const: Denies: fever(s), chills or body aches Eyes: Denies: change in vision, blurry vision or photophobia ENMT: Reports: hoarseness; Denies: throat pain, enlarged tonsils, odynophagia or nasal congestion Card: Reports: chest pain and dyspnea on exertion; Denies: palpitations, irregular heart rhythm, edema, swelling of feet/ankles, lightheadedness, pre-syncope or orthopnea Resp: Reports: dyspnea; Denies: productive cough, non-productive cough, wheezing, stridor, pain on inspiration, change in phlegm color, hemoptysis or chest congestion GI: Denies: abdominal pain, nausea, vomiting, hematemesis, coffee ground emesis, dysphagia, heartburn, diarrhea, constipation, GI cramping, change in stool character, hematochezia or melena : Denies: flank pain, dysuria, urinary frequency, urinary urgency, urinary hesitancy or hematuria Musc: Denies: neck pain, back pain, extremity pain, joint swelling, joint warmth or deformity Neuro: Denies: headache(s), numbness in extremities, weakness in extremities, sensory changes, difficulty walking, frequent falls, dizziness, vertigo, behavioral changes, Slurred speech present or seizure-like activity Psych: Denies: anxiety, depression, suicidal ideation or homicidal ideation Endo: Denies: polyuria, polydipsia, tired all the time, cold intolerance or hot flashes Tai/Lymph: Denies: easy bruising or easy bleeding Medications/Allergies Home Medications Medication Instructions Recorded Confirmed Last Taken Type aspirin 81 mg PO DAILY 07/26/19 07/31/20 07/31/20 History atorvastatin 40 mg PO DAILY 07/26/19 07/31/20 07/30/20 History cholecalciferol (vitamin D3) 400 unit PO DAILY 07/26/19 07/31/20 07/31/20 History docusate sodium 100 mg PO DAILY 07/26/19 07/31/20 07/31/20 History donepezil 5 mg PO BEDTIME 07/26/19 07/31/20 07/30/20 History furosemide 20 mg PO DAILY 07/26/19 07/31/20 07/31/20 History metoprolol tartrate 50 mg PO BID 07/26/19 07/31/20 07/31/20 History pantoprazole 40 mg PO DAILY 07/26/19 07/31/20 07/31/20 History tamsulosin 0.4 mg PO DAILY 07/26/19 07/31/2021 History warfarin See Rx Instructions .ROUTE .COMPLEX 07/26/19 07/31/20 07/30/20 History amitriptyline 25 mg tablet 25 mg PO DAILY #30 tab 02/04/20 07/31/20 07/31/20 Rx isosorbide mononitrate 30 mg PO DAILY 07/31/20 07/31/20 07/31/20 History nitroglycerin [Nitrostat] 0.4 mg SUBLINGUAL Q5M PRN 07/31/20 07/31/20 Unknown History tizanidine 4 mg PO TID PRN 07/31/20 07/31/20 Unknown History Allergies Allergy/AdvReac Type Severity Reaction Status Date / Time No Known Allergies Allergy Verified 11/15/19 13:26 PFSH Acute PFSH: Medical History (Updated 07/31/20 @ 18:32 by Rossi Mittal MD) Chronic migraine without aura, intractable, with status migrainosus Coronary artery disease GERD (gastroesophageal reflux disease) Memory impairment Pulmonary embolism Surgical History (Updated 07/31/20 @ 11:16 by Deb Waters MD) S/P CABG x 4 Family History (Updated 07/31/20 @ 18:32 by Rossi Mittal MD) Other CAD (coronary artery disease) Social History Smoking and tobacco status: never smoked Vitals/I&O/Wt Last Vital Signs Temp 97.0 F L 07/31/20 17:00 Pulse 96 07/31/20 18:08 Resp 18 07/31/20 17:00 BP 167/94 07/31/20 17:00 Pulse Ox 91 07/31/20 17:00 Weight last 48 hrs Weight 122.47 kg Physical Exam Narrative: EXAM NARRATIVE: GENERAL: Awake, alert, oriented, in no acute distress. [] HEENT: Normocephalic, atraumatic, PERRLA. [] CHEST: Clear to auscultation bilaterally. [] CVS: S1, S2 normal. No murmur, rubs, gallops. Peripheral pulses palpable. [] ABDOMEN: Soft, nontender. Nondistended. Bowel sounds heard. [] NEUROVASCULAR: Awake, alert. Power 5/5 all extremities. DTR+ [] EXTREMITIES: No edema. [] Data : 07/31/20 10:20 07/31/20 10:20 A&P Assessment and plan (1) Chest pain: Currently EKG without any acute ST-T wave changes and troponin series negative at 2 and 6-hour, overall picture not consistent with acute MS, however certainly concerning for unstable angina. Patient has multiple risk factors for coronary artery disease We will order stress test tomorrow morning, and if abnormal will obtain cardiology consult Continue aspirin, statin, metoprolol in the interim Echocardiogram ordered to evaluate for current EF, any regional wall motion abnormalities Patient also noted to have bilateral small peripheral PE, unknown chronicity, will obtain records from his primary, at any rate do not think this would be contributing to the retrosternal chest pain that he is describing at this present time. Check INR today. If within range of 2-3, will continue Coumadin after stress test is obtained. If less than 2, will use full dose Lovenox Lower extremity duplex to evaluate for DVT [facility] Alternate etiology of chest pain may be related GERD, noted thickening noted at lower part of esophagus. Patient has not had an upper GI endoscopy yet. Together with symptoms of dysphagia and chest pain, patient get further evaluation to rule out underlying malignancy, however this can be addressed after stress test results are obtained and cardiac etiology ruled out first. 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 Diagnoses Chest pain R07.9 Chest pain type: unspecified Unstable angina pectoris I20.0 Pulmonary embolism I26.99
[2020-07-31] MEDS: isosorbide mononitrate ER 30 mg Tablet PO (18:52)
[2020-07-31] MEDS: donepezil 5 MG Tablet PO (20:23)
[2020-07-31] MEDS: metoprolol tartrate 50 mg Tablet PO (20:23)
[2020-07-31 20:40] LABS: INR 1.75 (0.8-1.2)
[2020-07-31 20:53] LABS: Estmated Average Glucose 269
[2020-07-31] MEDS: morphine 4 mg/mL SDV 1 mL 2 MG IVP (21:19)
[2020-08-01] VITALS (7 sets, daily range): BP systolic 106–127; BP diastolic 71–80; PULSE 73–94; RESP 16–31; TEMP 36.3–36.4; O2SAT 90–95
[2020-08-01 05:27] LABS: INR 1.65 (0.8-1.2)
[2020-08-01 05:40] LABS: Alanine Aminotransferase 22 U/L (0-41); Albumin Level 3.6 g/dL (3.5-5.2); Alkaline Phosphatase 90 IU/L (40-130); Aspartate Amino Transferase 18 U/L (0-40); Blood Urea Nitrogen 21 mg/dL (8-23); Calcium 8.2 mg/dL (8.5-10.5); Carbon Dioxide 27 mmol/L (22-29); Chloride 101 mmol/L (98-107); Globulin 3.4 g/dL (1.3-4.6); Glomerular Filtration Rate 95.8 mL/min (90-130); Glucose 244 mg/dL (65-115); Osmolality Calculated 295 mOsm/kg (285-295); Sodium 137 mmol/L (136-145); Total Bilirubin 0.6 mg/dL (0.15-1.2)
--- NOTE | 2020-08-01 07:45 | SUR.PREOP ---
Patient reports no pain or discomfort prior to the start of the procedure.
[2020-08-01] MEDS: regadenoson 0.4 Mg/5 ml Syringe IVP (07:48)
[2020-08-01] MEDS: docusate sodium 100 mg Capsule PO (09:58)
[2020-08-01] MEDS: tamsulosin 0.4 mg Capsule PO (09:58)
[2020-08-01] MEDS: atorvastatin 40 mg Tablet PO (09:58)
[2020-08-01] MEDS: aspirin 81 mg EC Tablet PO (09:59)
[2020-08-01] MEDS: pantoprazole DR 40 mg Tablet PO (09:59)
[2020-08-01] MEDS: isosorbide mononitrate ER 30 mg Tablet PO (09:59)
[2020-08-01] MEDS: FUROsemide 20 mg Tablet PO (09:59)
[2020-08-01] MEDS: metoprolol tartrate 50 mg Tablet PO (10:00)
--- NOTE | 2020-08-01 11:59 | PC.CHAP ---
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 visit [] Patient/Family/Request visit [] Outpatient visit [] Follow-up visit [] Physician referral [] Code/Alert [] Routine visit [] Staff referral [] Actively dying [] Patient sleeping [] Family support [] [xx] Out of room [] Palliative care [] [] Receiving care in room [] Pre-surgical visit [] Trauma [] Long length of stay [] ICU visit [] Other: Relational/Emotional Strength [] Patient feels connected with others/family/visitors/staff [] Distress [] Loneliness/isolation [] Abandonment Spirituality of Patient [] Person of Linn [] Attends Lutheran of their Linn [] Believes in Prayer [] Reads Bible or Roman Catholic materials [] There are Spiritual issues to be addressed 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 Interventions [] Prayer [] Active listening [] Non-anxious presence [] Spiritual/emotional support [] Crisis/trauma care [] Spiritual counseling [] Bereavement support [] Provided bereavement packet [] Provided Bible/devotional materials [] Provided toy/stuffed animal, coloring book to patient or family member [] Provided Communion [] Anointing/[place] [] Salvation [] Completed spiritual assessment [] Other: Impact on Illness or Injury [] Angry [] Fearful [] Anxious [] Often cries [] Exhaustion [] Unable to work [] Unable to attend sabianism [] Unable to walk/stand [] Unable to read [] Unable to drive [] Unable to eat/drink [] Unable to sleep [] Unable to be with family [] Patient intubated [] Other: Summary needs follow up Time spent with patient
[2020-08-01] MEDS: enoxaparin 120 mg/0.8 mL Syringe SUBCUT (12:35)
--- NOTE | 2020-08-01 15:26 | PM.DCS ---
Discharge Providers Date of Admission: 07/31/20 16:06 Date of Discharge: August 01, 2020 Attending Provider at Admission: Rossi Mittal MD Attending Provider at Discharge: Rossi Mittal MD Primary Care Provider: Dank Schwartz Diagnoses at Discharge Discharge Diagnosis (1) Chest pain: Status: Acute Qualifiers: Chest pain type: unspecified Qualified Code(s): R07.9 - Chest pain, unspecified (2) Unstable angina pectoris: Status: Acute (3) Pulmonary embolism: Status: Acute Qualifiers: Acute cor pulmonale presence: unspecified Chronicity: chronic Pulmonary embolism type: unspecified Qualified Code(s): I27.82 - Chronic pulmonary embolism Other Information Additional DC diagnoses/information: Reason for Visit Reason for Visit: CHEST PAIN Hospital Course Hospital Course Alex Nice is a 70 year old male with past medical history of CAD, CABG 4 years ago, on anticoagulation with warfarin for unclear reason, may be PE versus A. fib who presented to the ER today complaining of chest pain and intense diaphoresis. CTA of the chest was performed which showed small peripheral PE of uncertain chronicity, likely old per radiology read. Note made of thickening of the lower end of the esophagus which has progressed since last CAT scan in 2019. Patient does describe symptoms of early satiety, and dysphagia worse for liquids than solids. Troponin series currently today without any significant delta at 2 and 6 hours. EKG without any acute ST-T wave changes. Stress test was ordered and returned normal without signs of reversible ischemia. Echocardiogram remains pending at the time of discharge. Estimated EF from stress test at 57%, chest pain resolved after nitroglycerin on 07/31 and has not recurred. Alternate etiology of chest pain may be related GERD, noted thickening noted at lower part of esophagus. Patient has not had an upper GI endoscopy yet. Together with symptoms of dysphagia and chest pain, he should get get further evaluation to rule out underlying malignancy. Incidentally noted PE likely not contributing at this present time, per radiology read they appear to be old, patient is on anticoagulation with INR range between 2-3 as an outpatient, lower extremity Doppler was additionally negative. He received full dose Lovenox while in the hospital, resumed Coumadin upon discharge, recommend INR check on Tuesday(today is Tuesday) with his primary care provider at the [place] [facility]. Referrals provided to follow-up with Dr. Park from cardiology and Dr. Morin from surgery for endoscopy. Physical Exam Narrative: EXAM NARRATIVE: GEN: Awake, alert and oriented, no acute distress CVS: S1S2 N RS: CTA B/L Abd: Soft, nt/nd , bs+ NET TECHNICAL ARCHITECT: no focal neuro deficits Discharge Data Data Completed and Pending: Completed Studies During Hospitalization Category Date Time Status CT angio chest PE protcl 23100 Urge nt Cat Scan 07/31/20 13:15 Completed Sestamibi Stress Test Request Routi ne Exams 07/31/20 18:10 Completed XR chest 1V senait ble [id number] Urgent Exams 07/31/20 09:52 Completed NM [place] perf SPECT r/s* [id number] Routin e Nuc Med 08/01/20 18:12 [place] [id number] Routin e Ultrasound 08/01/20 18:10 Completed Pending at discharge Category Date Time Status CV echo complete* [id number] Routine Ultrasound 08/01/20 18:10 Taken Labs from last 24 hours 08/01/20 08/01/20 07/31/20 04:39 04:39 20:14 PT 20.10 H 21.00 H INR 1.65 H 1.75 H Sodium 137 Potassium 4.0 Chloride 101 Carbon Dioxide 27 Anion Gap 13.0 BUN 21 Creatinine 0.8 GFR Calculation 95.8 Glucose 244 H Estimat Average Gl ucose Hemoglobin A1c Calculated Osmolal ity 295 Calcium 8.2 L Total Bilirubin 0.6 AST 18 ALT 22 Alkaline Phosphata se 90 Troponin T Hi Sens 6Hr Troponin T Hi Sens 6Hr Delta Total Protein 7.0 Albumin 3.6 Globulin 3.4 07/31/20 07/31/20 18:24 16:15 PT INR Sodium Potassium Chloride Carbon Dioxide Anion Gap BUN Creatinine GFR Calculation Glucose Estimat Average Gl ucose 269 Hemoglobin A1c 11.0 H Calculated Osmolal ity Calcium Total Bilirubin AST ALT Alkaline Phosphata se Troponin T Hi Sens 6Hr 8.04 Troponin T Hi Sens 6Hr Delta -0.96 L Total Protein Albumin Globulin Vitals: Last Vital Signs Temp 97.6 F 08/01/20 11:17 Pulse 74 08/01/20 11:17 Resp 31 H 08/01/20 11:17 BP 125/76 08/01/20 11:17 Pulse Ox 95 08/01/20 11:17 Discharge Plan Discharge Patient Disposition: Home Condition: Stable Prescriptions: New alum-mag hydroxide-simeth [Maalox Maximum Strength] 400-400-40 mg/5 mL suspension 5 ml PO Q4H PRN (Reason: indigestion) Qty: 30 RF: 0 Continued amitriptyline 25 mg tablet 25 mg PO DAILY Qty: 30 RF: 2 atorvastatin 80 mg Tablet 40 mg PO DAILY RF: 0 donepezil 10 mg Tablet 5 mg PO BEDTIME RF: 0 aspirin 81 mg Tablet,Delayed Release (Dr/Ec) 81 mg PO DAILY RF: 0 tamsulosin 0.4 mg Capsule 0.4 mg PO DAILY RF: 0 warfarin 2 mg Tablet See Rx Instructions .ROUTE .COMPLEX RF: 0 metoprolol tartrate 50 mg Tablet 50 mg PO BID RF: 0 furosemide 20 mg Tablet 20 mg PO DAILY RF: 0 docusate sodium 100 mg Tablet 100 mg PO DAILY RF: 0 cholecalciferol (vitamin D3) 400 unit Tablet,Chewable 400 unit PO DAILY RF: 0 tizanidine 4 mg Tablet 4 mg PO TID PRN (Reason: Muscle Pain) RF: 0 isosorbide mononitrate 30 mg Tablet Extended Release 24 Hr 30 mg PO DAILY RF: 0 Nitrostat 0.4 mg Tablet, Sublingual 0.4 mg SUBLINGUAL Q5M PRN (Reason: Chest Pain) RF: 0 Changed pantoprazole 40 mg Tablet,Delayed Release (Dr/Ec) 40 mg PO BID Qty: 0 RF: 0 Discharge Orders: Discharge Order (Routine); Ordered 08/01/20 Ordered By: Rossi Mittal Referrals: Ronni Morin MD [Physician] - 7-10 days Bernie Park MD [Physician] - 7-10 days Discharge Diet: Cardiac Discharge Activity: Use walker/crutches as instructed Discharge Attestations Time Spent in Discharge Care*: greater than 30 min Quality Metrics Clinical Quality Measures During this hospital stay, did patient experience: None Coding Level of Care Code Acute Chg FW DC note Diagnoses Chest pain R07.9 Chest pain type: unspecified Unstable angina pectoris I20.0 Pulmonary embolism I27.82 Acute cor pulmonale presence: unspecified Chronicity: chronic Pulmonary embolism type: unspecified
[2020-08-01] MEDS: warfarin 6 mg Tablet PO (16:19)
--- NOTE | 2020-08-01 16:23 | PC.NURSE ---
patient discharged home at this time patient provided with discharge instruction as well as follow up appointments patient assisted to private vehicle by staff via wheel chair patient alert oriented and in stable condition upon departure
--- NOTE | 2020-08-01 18:10 | USCV_ITS ---
Alex Nice Age: 70 Gender: M : 1950 Exam Date: 08/01/2020 06:27 Ordering Phys: Rossi Mittal MD Technologist: REGINO Exam Location: [facility] – [place] Indication: PE ON CTA, EVAL FOR DVT HISTORY: Pulmonary embolism. PROCEDURES: Venous duplex imaging was performed in bilateral lower extremities. The following venous structures were evaluated: common femoral vein, profunda vein, proximal portion of the greater saphenous vein, superficial femoral vein, and the popliteal vein. In addition, the posterior tibial and peroneal trunk were evaluated. Serial compression, augmentation maneuvers, and spectral Doppler flow evaluation were performed. FINDINGS: Normal 2-D Doppler and augmentation and compressibility throughout the lower extremity venous structures. Additional imaging through the proximal calf veins also reveals no thrombus. Limited evaluation of the greater saphenous vein is patent with no thrombus. CONCLUSIONS No DVT bilateral lower extremities. Dr. Kaitlynn Colmenares DO (Electronically Signed) Final Date: 01 August 2020 08:33 Amended: 04 August 2020 10:11 C
--- NOTE | 2020-08-01 18:10 | USCV_ITS ---
ArletAlex Age: 70 Gender: M : 1950 Exam Date: 08/01/2020 09:11 Ordering Phys: Rossi Mittal MD Technologist: Porsha Davies [place]am [place] [facility] [place] Indication: CHEST PAIN BP: 130 / 80 HR: 82 Rhythm: Sinus Technical Quality: TDS MEASUREMENTS (Male / Female) Normal Values 2D ECHO LV Diastolic Diameter PLAX 5.4 cm 4.2 - 5.9 / 3.9 - 5.3 cm LV Systolic Diameter PLAX 4.3 cm LV Chamber Size 3.4 cm IVS Diastolic Thickness 1.2 cm 0.6 - 1.0 / 0.6 - 0.9 cm IVS Systolic Thickness 1.5 cm LVPW Diastolic Thickness 1.6 cm 0.6 - 1.0 / 0.6 - 0.9 cm LVPW Systolic Thickness 1.7 cm RV Chamber Size 3.1 cm LVOT Diameter 2.0 cm LV Ejection Fraction 2D Teich 41.6 % LV Ejection Fraction MOD 2C 49.0 % LV Ejection Fraction 2C AL 54.5 % LA Diameter 4.0 cm LA Width 3.1 cm LA Height 4.8 cm RA Width 3.1 cm RA Height 4.4 cm Aorta at Sinotubular Diameter 3.5 cm M-MODE LV Diastolic Diameter MM 5.1 cm 4.2 - 5.9 / 3.9 - 5.3 cm LV Systolic Diameter MM 3.7 cm LV Ejection Fraction MM Teich 52.7 % IVS Diastolic Thickness MM 1.3 cm 0.6 - 1.0 / 0.6 - 0.9 cm IVS Systolic Thickness MM 1.7 cm LVPW Diastolic Thickness MM 1.1 cm 0.6 - 1.0 / 0.6 - 0.9 cm LVPW Systolic Thickness MM 1.9 cm Aortic Annulus Diameter 3.9 cm LA Ao Ratio MM 1.3 MV E Point Septal Separation 0.6 cm DOPPLER AV Peak Velocity 185.0 cm/s LVOT Peak Velocity 98.0 cm/s AV Area Cont Eq vti 1.6 cm squared AV Area Cont Eq pk 1.7 cm squared MV Area PHT 3.9 cm squared Mitral E to A Ratio 0.9 MV E' Velocity 45.5 cm/s Mitral E to MV E' Ratio 12.9 Mitral E to LV E' Lateral Ratio 10.6 Mitral E to LV E' Septal Ratio 16.9 TR Peak Velocity 139.0 cm/s TR Peak Gradient 7.7 mmHg TV Peak E Velocity 71.0 cm/s Right Atrial Pressure 3.0 mmHg Pulmonary Artery Systolic Pressu 10.7 mmHg PV Peak Velocity 73.0 cm/s RV Acceleration Time 0.1 s RV Ejection Time 0.3 s RV AcT/ET 0.4 FINDINGS Left Ventricle Normal left ventricular size.systolic function and wall thickness, with no regional wall motion abnormalities. Normal left ventricular wall thickness. Grade 1 diastolic dysfunction is noted Right Ventricle The right ventricle is normal in size and function. Right Atrium The right atrium is normal in size. Left Atrium The left atrium is normal in size. Mitral Valve Structurally normal mitral valve without significant stenosis or prolapse. There is trace mitral regurgitation. Aortic Valve Aortic valve is thickened without significant sclerosis or stenosis. There is no aortic regurgitation. Tricuspid Valve Structurally normal tricuspid valve without significant stenosis or regurgitation. Insufficient TR jet to calculate RVSP Pulmonic Valve Structurally normal pulmonic valve without significant stenosis. There is no pulmonic regurgitation. Pericardium Normal pericardium without effusion. Aorta Normal ascending aorta dimension. CONCLUSIONS LV systolic function is normal with EF of 50-55% Grade 1 diastolic dysfunction Trace mitral regurgitation Compared to prior echocardiogram from 04/23/16, no significant changes are noted Kirk Lane MD (Electronically Signed) Final Date: 08 August 2020 16:10 S
--- NOTE | 2020-08-01 18:12 | NMCV_ITS ---
NM chap[place]ito perf SPECT r/s* [id number] Alex Nice Age: 70 Gender: M : 1950 Exam Date: 08/01/2020 07:17 Ordering Phys: Rossi Mittal MD Technologist: EUSEBIO Guillen Exam Location: [facility] Indications: CHEST PAIN STRESS TEST Please see separate stress test report in [facility] for full findings IMAGE PROTOCOL Rest/Stress 1 Lexiscan Day Radiopharmaceutical Dose (mCi) Administration Site Administered by Rest: Tc-99m 10.9 IV EUSEBIO Gutiérrez Sestamibi Stress:Tc-99m 32.9 IV EUSEBIO Guillen Sestamihalima Rest: 01-Aug-2020 60 Discovery 630 Stress: 01-Aug-2020 30 Discovery 630 0.4mg Lexiscan. Images obtained in supine and prone position. SPECT RESULTS Technical Quality: Excellent Raw Data Analysis: Normal Image Corrections: No attenuation or motion correction applied Summed Stress Score: 0 Summed Rest Score: 0 Summed Difference Score: 0 PERFUSION FINDINGS SPECT images demonstrate homogeneous tracer distribution throughout the myocardium. FUNCTIONAL RESULTS (calculated via Gated SPECT) Stress Image LV EF (%): 57 Stress EDV (mL):94 TID: 1.06 Stress ESV (mL):40 FUNCTIONAL FINDINGS: The left ventricle is normal in size. Transient Ischemia Dilatation of 1.1. There is normal left ventricular systolic function. The left ventricular ejection fraction is normal with a value of 57%. There is normal left ventricular wall thickening. Normal end-diastolic end-systolic volumes. IMPRESSIONS 1. Myocardial perfusion imaging is normal. 2. Overall left ventricular systolic function is normal without regional wall motion abnormalities. 3. The left ventricular ejection fraction is normal with a value of 57%. 4. No significant EKG changes with Lexiscan infusion, refer to separate report for details. 5. Scan indicates low risk for cardiac events. Laura Juárez MD (Electronically Signed) Final Date: 01 August 2020 14:58 S
== END 2020-08-01 16:24 | disposition home or self-care (01) | DRG 303 ==
LOC: ER 11:00 → CSU 16:28
PROVIDERS: Physician Assistant; Admitting Provider Student in an Organized Health Care Education/Training Program; Emergency Provider Emergency Medicine; PCP Internal Medicine; Visit Provider Student in an Organized Health Care Education/Training Program
DX: I25.110 Atherosclerotic heart disease of native coronary artery with unstable angina pectoris (principal); I27.82 Chronic pulmonary embolism; Z95.1 Presence of aortocoronary bypass graft; G43.711 Chronic migraine without aura, intractable, with status migrainosus; K21.9 Gastro-esophageal reflux disease without esophagitis; R41.3 Other amnesia; Z79.82 Long term (current) use of aspirin; Z79.01 Long term (current) use of anticoagulants
CPT/HCPCS: 36415; 71045; 71275; 78452; 80053; 83036; 83880; 84484; 85025; 85610; 93005; 93017; 93306; 93970; 96372; 99285; A9500; J1650; J2270; J2785; Q9967

== ENCOUNTER 2020-09-02 09:13 | Outpatient (CLI) | payer OTHER, MEDICARE, SELFPAY ==
--- NOTE | 2020-09-02 09:30 | FL_ITS ---
WS: [id number] MODIFIED BARIUM SWALLOW HISTORY: R47.02 - Dysphasia FLUOROSCOPY TIME: 2.2 minutes. Modified barium swallow was performed by the speech pathologist. Fluoroscopy was provided with the pa tient in a lateral projection. Multiple food consistencies were provided. No aspiration or laryngeal penetration. Patient experienced difficulty and increased gag reflex with liquid and food consistencies. There is mild delay in transit of the more solid food consistencies at the level of the piriform sinuses. Barium tablet swallowed without difficulty. There is mild delay in emptying of the esophagus. On a recent CT circumferential esophageal wall thic kening was described. Endoscopy may be necessary for further evaluation. FL/FL barium swallow modifd 39784 IMPRESSION: 1. No aspiration or laryngeal penetration. 2. Patient had difficulty swallowing the liquid and solid food consistencies w ith increased gag reflex. 3. Delayed emptying of esophagus. Circumferential esophageal thickening was no ivana on a recent CT. Endoscopy may be necessary for complete evaluation. Please see speech therapist report also for recommendations.
== END 2020-09-02 09:14 | disposition home or self-care (01) ==
LOC: RAD 09:17
PROVIDERS: PCP Family Medicine; Visit Provider Surgery
DX: R47.02 Dysphasia (principal)
CPT/HCPCS: 74230; 92611

== ENCOUNTER → 2020-09-26 10:42 | Outpatient (BNVA) | payer MEDICARE, SELFPAY | PROVIDERS: PCP Family Medicine; Visit Provider Surgery | DX: Z01.812 Encounter for preprocedural laboratory examination (principal); Z20.822 Contact with and (suspected) exposure to COVID-19 | CPT/HCPCS: 87635 ==

== ENCOUNTER → 2020-10-02 09:55 | Day surgery (SDC) | payer OTHER, MEDICARE, SELFPAY ==
[2020-09-30 13:50] VITALS: BMI 36.6
--- NOTE | 2020-10-02 10:17 | P.ANESASSM_ITS ---
Pre-Anesthetic Assessment Pre-Anesthetic Assessment: Height/Weight: Height 1.83 m Weight 122.47 kg Preop Diagnosis: upper gi symptoms Proposed Procedure: Operation Date: 10/02/20 11:30 Proposed Procedures p EGD Dilation W/ Balloon 11376 R47.2(Not Applicable) - Ronni Morin MD Familial anesthetic complications: None Was Beta Deann taken within 24 hours: Yes (says he took whatever he was supposed to last night) Was Clonid ine taken within 24 hours: N/A Last intake: Off warfarin for 3 days > 8 hrs NPO Social: Social History: No alcohol and No tobacco Exam: Pre-Anes Outpt Exam: alert, oriented x 3, clear to auscultation bilaterally and regular rate & rhythm Airway: Cervical ROM: WNL MP: 4 Dentition: Partials and Other (top plate) Additional comments: full navarro Pulmonary: Comments: 07/26/20 CTA IMPRESSION: 1. Very minimal subsegmental filling defects in the distal lower lobe pulmonary arteries. Favor these are probably related to remote emboli. No large central pulmonary emboli. 2. Circumferential significant esophageal thickening. May be related to esophagitis. 3. Prior CABG. 4. Mild pulmonary venous congestion. CV/HEM: CV/HEM: CAD (CABG 3 years ago - doing well, can climb a couple flights of stairs) and HTN Comments: Cath 2020 IMPRESSIONS 1. Myocardial perfusion imaging is normal. 2. Overall left ventricular systolic function is normal without regional wall motion abnormalities. 3. The left ventricular ejection fraction is normal with a value of 57%. 4. No significant EKG changes with Lexiscan infusion, refer to separate report for details. 5. Scan indicates low risk for cardiac events. Echo 2020 CONCLUSIONS LV systolic function is normal with EF of 50-55% Grade 1 diastolic dysfunction Trace mitral regurgitation Compared to prior echocardiogram from 04/23/16, no significant changes are noted GI: GI: GERD Metabolic: Metabolic: DM (about to start medication) Neuropsych: Neuropsych: TIA (post cabg) Anesthetic Plan: ASA status: 3 Anesthesia: MAC Risk of > 500 ml blood loss (7ml/kg in children): No PFSH Anesthesia PFSH: Medical History (Updated 08/18/20 @ 19:01 by Bernie Park MD) Chronic migraine without aura, intractable, with status migrainosus Coronary artery disease GERD (gastroesophageal reflux disease) HTN (hypertension), benign Hyperlipidemia Memory impairment Pulmonary embolism Surgical History S/P CABG x 4 Status post colonoscopy Family History (Updated 08/14/20 @ 12:34 by Adriana Fountain, RN) Other CAD (coronary artery disease) Cancer Chronic kidney disease (CKD) Diabetes Family history of premature coronary artery disease Hyperlipidemia Hypertension Lung disease Denies family history of Anesthesia complication Bleeding disorder Stroke Social History (Updated 08/14/20 @ 12:28 by Adriana Fuontain, RN) Smoking and tobacco status: never smoked Alcohol intake: never Data Anesthesia Cardiac Studies: No Data to Display
== END ==
PROVIDERS: PCP Family Medicine; Visit Provider Surgery
DX: R47.02 Dysphasia (principal)
CPT/HCPCS: J2704

== ENCOUNTER → 2020-10-08 11:26 | Outpatient (BNVA) | payer OTHER, MEDICARE, SELFPAY | PROVIDERS: PCP Family Medicine; Visit Provider Surgery | DX: R47.02 Dysphasia (principal); Z20.822 Contact with and (suspected) exposure to COVID-19 | CPT/HCPCS: 87635 ==

== ENCOUNTER 2020-10-14 06:25 | Day surgery (SDC) | payer OTHER, MEDICARE, SELFPAY ==
[2020-10-10 13:02] VITALS: BMI 36.6
[2020-10-14 06:45] VITALS: BP 153/99; PULSE 77; RESP 18; TEMP 36.1; O2SAT 98
[2020-10-14] MEDS: sodium chloride 0.9% 1,000 ML 30 ML IV (07:05)
[2020-10-14 07:06] LABS: Glucose Point of Care 158 mg/dL (70-110)
--- NOTE | 2020-10-14 07:38 | P.HP_ITS ---
Same Day Surgery H&P Indication for Procedure/HPI DATE OF PROCEDURE: October 14, 2020 CHIEF COMPLAINT/INDICATIONFOR SURGICAL PROCEDURE: dysphagia PREOP DIAGNOSIS: upper gi symptoms PLANNED PROCEDRUE: Operation Date: 10/14/20 07:30 Proposed Procedures p EGD Dilation W/ Balloon 96897 R47.2(Not Applicable) - Ronni Morin MD Medications/Allergies* Home Medications Medication Instructions Recorded Confirmed Type aspirin 81 mg PO DAILY 07/26/19 10/14/20 History atorvastatin 40 mg PO DAILY 07/26/19 10/14/20 History cholecalciferol (vitamin D3) 400 unit PO DAILY 07/26/19 10/10/20 History docusate sodium 100 mg PO DAILY 07/26/19 10/10/20 History donepezil 5 mg PO BEDTIME 07/26/19 10/10/20 History furosemide 20 mg PO DAILY 07/26/19 10/10/20 History metoprolol tartrate 50 mg PO BID 07/26/19 10/10/20 History tamsulosin 0.4 mg PO DAILY 07/26/19 10/10/20 History warfarin See Rx Instructions .ROUTE .COMPLEX 07/26/19 10/14/20 History nitroglycerin [Nitrostat] 0.4 mg SUBLINGUAL Q5M PRN 07/31/20 10/14/20 History Allergies/Adverse Reactions Allergy/AdvReac Type Severity Reaction Status Date / Time No Known Allergies Allergy Verified 10/10/20 12:58 Current Medications: Generic Name Dose Route Start Last Admin Trade Name Freq PRN Reason Stop Dose Admin Sodium Chloride 1,000 mls @ 30 mls/hr 10/14/20 06:45 10/14/20 07:05 Sodium Chloride 0.9% IV 10/15/20 06:44 30 mls/hr .Q24H MUSTAPHA Administration Pertinent History/Comorbid Conditions* Medical History (Updated 08/18/20 @ 19:01 by Bernie Park MD) Chronic migraine without aura, intractable, with status migrainosus Coronary artery disease GERD (gastroesophageal reflux disease) HTN (hypertension), benign Hyperlipidemia Memory impairment Pulmonary embolism Surgical History (Updated 08/08/20 @ 10:58 by Ronni Morin MD) S/P CABG x 4 Status post colonoscopy Family History (Updated 08/14/20 @ 12:34 by Adriana Fountain, RN) Diabetes CAD (coronary artery disease) Hyperlipidemia Chronic kidney disease (CKD) Family history of premature coronary artery disease Lung disease Cancer Hypertension Denies family history of Anesthesia complication Bleeding disorder Stroke Social History Smoking and tobacco status: never smoked Alcohol intake: never Pertinent Exam Findings alert, oriented x 3 and regular rate & rhythm Recommendations Surgery/Procedure today Coding Level of Care Code Acute Marketing Instructor for Kevin Martines
--- NOTE | 2020-10-14 07:52 | P.ANESUD_ITS ---
Pre-Anesthetic Update Pre-Anesthetic Assessment: Date of Surgery/Procedure: 10/14/20 Preop Shanelle gnosis: upper gi symptoms Proposed Procedure: Operation Date: 10/14/20 07:30 Proposed Procedures p EGD Dilation W/ Balloon 13160 R47.2(Not Applicable) - Ronni Morin MD Any changes to Pre-Anesthetic Assessment?: No Last Intake: Intake Last Liquid Date 10/13/20 Last Liquid Time 15:00 Last Solid Date 10/13/20 Last Solid Time 15:00 Last Intake: 16:00 Labs Last 48hrs: Laboratory Results - last 48 hr 10/14/20 07:03 POC Glucose 158 H Vitals: Temperature 96.9 F L 10/14/20 06:45 Pulse Rate 77 10/14/20 06:45 Respiratory Rate 18 10/14/20 06:45 Blood Pressure 153/99 10/14/20 06:45 Blood Pressure Rosanne n 117 10/14/20 06:45 Pulse Oximetry 98 10/14/20 06:45 Cardiac Studies: No Data to Display
[2020-10-14 08:17] VITALS: BP 133/75; PULSE 70; RESP 16; TEMP 36.4; O2SAT 93
[2020-10-14 08:29] VITALS: BP 153/85; PULSE 68; RESP 18; O2SAT 93
--- NOTE | 2020-10-14 21:20 | ANE.PACU2 ---
Inpatient post-anesthesia follow up: Airway intact: Yes Vital signs: Temperature 97.6 F Pulse Rate 68 Respiratory Rate 18 Blood Pressure 153/85 Pulse Oximetry 93 Oxygen Delivery Me thod Room Air Oxygen Flow Rate 5 Fraction of Inspir ed Oxygen Hydration adequate: Yes Nausea and vomiting: No Pain level: 1 Mental status: Baseline
== END 2020-10-14 08:52 | disposition home or self-care (01) ==
PROVIDERS: PCP Family Medicine; Visit Provider Surgery
DX: R13.10 Dysphagia, unspecified (principal); K29.70 Gastritis, unspecified, without bleeding; Z79.82 Long term (current) use of aspirin; Z79.01 Long term (current) use of anticoagulants; I25.10 Atherosclerotic heart disease of native coronary artery without angina pectoris; I10 Essential (primary) hypertension; E78.5 Hyperlipidemia, unspecified; Z86.711 Personal history of pulmonary embolism; Z95.1 Presence of aortocoronary bypass graft; Z82.49 Family history of ischemic heart disease and other diseases of the circulatory system; Z83.3 Family history of diabetes mellitus; K22.2 Esophageal obstruction
CPT/HCPCS: 36416; 43239; 43249; 82962; 88305; 96360; J2704; J7030

== ENCOUNTER 2020-10-24 08:00 | Emergency (ER) | payer MEDICARE, SELFPAY ==
[2020-10-24 08:07] VITALS: BP 146/94; PULSE 73; RESP 20; TEMP 36.9; O2SAT 93; BMI 35.2
[2020-10-24 08:26] VITALS: BP 146/94
[2020-10-24 08:28] LABS: Basophils # 0.1 10^3/uL (0.0-0.1); Basophils % 0.6 %; Eosinophils # 0.2 10^3/uL (0.0-0.8); Eosinophils % 2.1 %; Hematocrit 50.6 % (42.0-52.0); Hemoglobin 16.2 g/dL (11.7-16.6); Lymphocytes # 1.5 10^3/uL (0.8-4.8); Lymphocytes % 15.2 %; Mean Corpuscular Hemoglobin 28.4 pg (28.0-34.0); Mean Corpuscular Volume 88.8 fL (80-94); Mean Platelet Volume 11.9 fL (7.4-10.4); Monocytes # 0.6 10^3/uL (0.2-0.9); Monocytes % 6.1 %; Neutrophils # 7.34 10^3/uL (1.8-7.7); Neutrophils % 75.4 %; Nucleated Red Blood Cells % 0 %; Platelet Count 276 10^3/cmm (130-400); Red Cell Distribution Width 14.2 % (12.1-15.1); White Blood Count 9.7 10^3/uL (4.0-10.0)
[2020-10-24 08:46] LABS: Add Urine Microscopic? NO; Charge for UA Resulting for Rev
[2020-10-24 08:51] LABS: Alanine Aminotransferase 28 U/L (0-41); Albumin Level 4.2 g/dL (3.5-5.2); Alkaline Phosphatase 93 IU/L (40-130); Blood Urea Nitrogen 21 mg/dL (8-23); Calcium 8.8 mg/dL (8.5-10.5); Carbon Dioxide 25 mmol/L (22-29); Chloride 101 mmol/L (98-107); Globulin 3.6 g/dL (1.3-4.6); Glomerular Filtration Rate 95.8 mL/min (90-130); Glucose 159 mg/dL (65-115); Osmolality Calculated 292 mOsm/kg (285-295); Sodium 138 mmol/L (136-145); Total Bilirubin 0.5 mg/dL (0.15-1.2); Total Protein 7.8 g/dL (6.6-8.7)
[2020-10-24 08:53] LABS: Anion Gap 16.6 (5-19)
--- NOTE | 2020-10-24 08:55 | ED_ITS ---
HPI - Male Genitourinary General: Chief complaint: Urogenital-Male Stated complaint: CHILLS Time Seen by Provider: 10/24/20 08:09 History of Present Illness: HPI Narrative: 70-year-old male presents to the emergency room with complaints of fever chills difficulty urinating he states he has been unable to empty his bladder completely.This been going on for the last 2 days has not had any nausea vomiting denies any shortness of breath or chest pain. No diarrhea he is not noticed any hematuria. MD Complaint: other (Urinary retention) Onset (ago): day(s) Duration: intermittent and progressively worsening Severity: moderate Quality: aching Relieving factors: urination Associated symptoms: Reports urinary retention; Deny discharge, dysuria, fevers/chills, hematuria, nausea, rash, swelling, urinary incontinence, mass or vomiting Review of Systems Const: Denies: fever(s), chills, body aches, change in appetite, fatigue or malaise ENMT: Denies: throat pain, ear or mastoid pain, nasal discharge or nasal congestion Card: Denies: chest pain, edema, dyspnea on exertion or orthopnea Resp: Denies: dyspnea, productive cough or non-productive cough GI: Denies: nausea or vomiting : Denies: dysuria, urinary incontinence or hematuria Skin/Breast: Denies: rash or pruritus PFSH ED PFSH: Medical History Chronic migraine without aura, intractable, with status migrainosus Coronary artery disease GERD (gastroesophageal reflux disease) HTN (hypertension), benign Hyperlipidemia Memory impairment Pulmonary embolism Surgical History S/P CABG x 4 Status post colonoscopy Family History Other CAD (coronary artery disease) Cancer Chronic kidney disease (CKD) Diabetes Family history of premature coronary artery disease Hyperlipidemia Hypertension Lung disease Denies family history of Anesthesia complication Bleeding disorder Stroke Social History Smoking and tobacco status: never smoked Alcohol intake: never Physical Exam Const: COMMON NORMALS: no acute distress GENERAL APPEARANCE: cooperative and comfortable ORIENTATION/CONSCIOUSNESS: Yes awake, Yes oriented to person, Yes oriented to place and Yes oriented to time HENMT: COMMON NORMALS: normocephalic, atraumatic, hearing grossly normal bilaterally and external ears normal HEAD & SCALP: normocephalic and atraumatic EXTERNAL EAR: Yes external ears normal Neck/C-Spine: COMMON NORMALS: no JVD Resp: COMMON NORMALS: normal respiratory effort, No retractions, No use of accessory muscles and clear to auscultation bilaterally AUSCULTATION: clear to auscultation bilaterally Cardio: COMMON NORMALS: no JVD, regular rate, regular rhythm and No murmurs present (Cardio) RATE: regular rate RHYTHM: regular rhythm GI: COMMON NORMALS: Soft to palpation and No hepatosplenomegaly present AUSCULTATION: Yes normoactive bowel sounds PALPATION: Yes Soft to palpation, No Tenderness to palpation present (GI), No Guarding due to palpation present (GI) and Yes No hepatosplenomegaly present Extremity: COMMON NORMALS: normal to inspection, capillary refill normal, no clubbing, cyanosis or edema, no calf tenderness and no pedal edema Neuro: SENSORIUM/ORIENTATION: Yes oriented to person, Yes oriented to place and Yes oriented to time Skin: COMMON NORMALS: no rashes or lesions noted GENERAL SKIN EXAM: no rashes or lesions noted Course Vital Signs: Vital signs: Vital Signs Temperature 98.5 F 10/24/20 08:07 Pulse Rate 87 10/24/20 09:15 Respiratory Rate 16 10/24/20 09:15 Blood Pressure 128/95 10/24/20 09:15 Pulse Oximetry 96 10/24/20 09:15 MDM - Male [facility] Narrative: Medical decision making narrative: And has 400 residual urine. We will increase his tamsulosin 1 discussed with him either leaving the [place] in or taking it out and then he would have to return if he was able to void he wants to go home without it discussed the risks and benefits he still wishes to proceed with him follow-up with Dr. Castellanos next week return if his problems Lab Data: Labs: Lab Results 10/24/20 10/24/20 10/24/20 Range/Units 08:18 08:18 08:25 WBC 9.7 (4.0-10.0) 10^3/ uL RBC 5.70 H (4.1-5.3) 10^6/u L Hgb 16.2 (11.7-16.6) g/dL Hct 50.6 (42.0-52.0) % MCV 88.8 (80-94) fL MCH 28.4 (28.0-34.0) pg MCHC 32.0 (30.0-36.0) g/dL RDW 14.2 (12.1-15.1) % Plt Count 276 (130-400) 10^3/c mm MPV 11.9 H (7.4-10.4) fL Neut % (Auto) 75.4 % Lymph % (Auto) 15.2 % [place] % (Auto) 6.1 % Eos % (Auto) 2.1 % Baso % (Auto) 0.6 % Neut # (Auto) 7.34 (1.8-7.7) 10^3/u L Lymph # (Auto) 1.5 (0.8-4.8) 10^3/u L [place] # (Auto) 0.6 (0.2-0.9) 10^3/u L Eos # (Auto) 0.2 (0.0-0.8) 10^3/u L Baso # (Auto) 0.1 (0.0-0.1) 10^3/u L Nucleated RBC % (a uto) 0 % Nucleated RBCs # 0.0 /100WBC PT (12.1-14.9) SECO NDS INR (0.8-1.2) Sodium 138 (136-145) mmol/L Potassium 4.6 (3.5-5.1) mmol/L Chloride 101 (98-107) mmol/L Carbon Dioxide 25 (22-29) mmol/L Anion Gap 16.6 (5-19) BUN 21 (8-23) mg/dL Creatinine 0.8 (0.7-1.2) mg/dL GFR Calculation 95.8 (90-130) mL/min Glucose 159 H (65-115) mg/dL Calculated Osmolal ity 292 (285-295) mOsm/k g Calcium 8.8 (8.5-10.5) mg/dL Total Bilirubin 0.5 (0.15-1.2) mg/dL AST 23 (0-40) U/L ALT 28 (0-41) U/L Alkaline Phosphata se 93 (40-130) IU/L Total Protein 7.8 (6.6-8.7) g/dL Albumin 4.2 (3.5-5.2) g/dL Globulin 3.6 (1.3-4.6) g/dL Urine Color Straw (Yellow) Urine Appearance Clear (CLEAR) Urine pH 5 (5-7) Ur Specific Gravit y 1.015 (1.005-1.030) Urine Protein Neg (Negative) Urine Glucose (UA) Norm (Normal) Urine Ketones Negative (Negative) Urine Blood Neg (Negative) Urine Nitrate Negative (Negative) Urine Bilirubin Neg (Negative) Urine Urobilinogen Norm (Negative) mg/dL Ur Leukocyte Yamilet ase Negative (Negative) 10/24/20 Range/Units 09:32 WBC (4.0-10.0) 10^3/ uL RBC (4.1-5.3) 10^6/u L Hgb (11.7-16.6) g/dL Hct (42.0-52.0) % MCV (80-94) fL MCH (28.0-34.0) pg MCHC (30.0-36.0) g/dL RDW (12.1-15.1) % Plt Count (130-400) 10^3/c mm MPV (7.4-10.4) fL Neut % (Auto) % Lymph % (Auto) % [place] % (Auto) % Eos % (Auto) % Baso % (Auto) % Neut # (Auto) (1.8-7.7) 10^3/u L Lymph # (Auto) (0.8-4.8) 10^3/u L [place] # (Auto) (0.2-0.9) 10^3/u L Eos # (Auto) (0.0-0.8) 10^3/u L Baso # (Auto) (0.0-0.1) 10^3/u L Nucleated RBC % (a uto) % Nucleated RBCs # /100WBC PT 20.60 H (12.1-14.9) SECO NDS INR 1.73 H (0.8-1.2) Sodium (136-145) mmol/L Potassium (3.5-5.1) mmol/L Chloride (98-107) mmol/L Carbon Dioxide (22-29) mmol/L Anion Gap (5-19) BUN (8-23) mg/dL Creatinine (0.7-1.2) mg/dL GFR Calculation (90-130) mL/min Glucose (65-115) mg/dL Calculated Osmolal ity (285-295) mOsm/k g Calcium (8.5-10.5) mg/dL Total Bilirubin (0.15-1.2) mg/dL AST (0-40) U/L ALT (0-41) U/L Alkaline Phosphata se (40-130) IU/L Total Protein (6.6-8.7) g/dL Albumin (3.5-5.2) g/dL Globulin (1.3-4.6) g/dL Urine Color (Yellow) Urine Appearance (CLEAR) Urine pH (5-7) Ur Specific Gravit y (1.005-1.030) Urine Protein (Negative) Urine Glucose (UA) (Normal) Urine Ketones (Negative) Urine Blood (Negative) Urine Nitrate (Negative) Urine Bilirubin (Negative) Urine Urobilinogen (Negative) mg/dL Ur Leukocyte Yamilet ase (Negative) Discharge Plan Discharge Patient Disposition: Home Clinical Impression: Acute retention of urine, Benign prostatic hyperplasia Condition: Stable Prescriptions: Changed tamsulosin 0.4 mg Capsule 0.8 mg PO DAILY Qty: 0 RF: 0 No Action isosorbide mononitrate 30 mg tablet extended release 24 hr 15 mg PO BID Qty: 90 RF: 3 atorvastatin 80 mg Tablet 40 mg PO DAILY RF: 0 donepezil 10 mg Tablet 5 mg PO BEDTIME RF: 0 aspirin 81 mg Tablet,Delayed Release (Dr/Ec) 81 mg PO DAILY RF: 0 warfarin 2 mg Tablet See Rx Instructions .ROUTE .COMPLEX RF: 0 metoprolol tartrate 50 mg Tablet 50 mg PO BID RF: 0 furosemide 20 mg Tablet 20 mg PO DAILY RF: 0 docusate sodium 100 mg Tablet 100 mg PO DAILY RF: 0 cholecalciferol (vitamin D3) 400 unit Tablet,Chewable 400 unit PO DAILY RF: 0 nitroglycerin [Nitrostat] 0.4 mg Tablet, Sublingual 0.4 mg SUBLINGUAL Q5M PRN (Reason: Chest Pain) RF: 0 pantoprazole 40 mg Tablet,Delayed Release (Dr/Ec) 40 mg PO BID Qty: 0 RF: 0 alum-mag hydroxide-simeth [Maalox Maximum Strength] 400-400-40 mg/5 mL suspension 5 ml PO Q4H PRN (Reason: indigestion) Qty: 30 RF: 0 Discharge Orders: Discharge ED (Routine); Ordered 10/24/20 Ordered By: Luis A Umanzor Referrals: Kaelyn Horta MD [Primary Care Provider] - Discharge Diet: Usual diet Discharge Activity: Resume usual activity Patient Instructions: Opioid Safety Activity Restrictions/Additional Instructions: Case Management will make an appointment for you with the urologist. Coding Level of Care Code ED Energy And Conservation Technician for Kevin Martines
[2020-10-24 08:56] LABS: Aspartate Amino Transferase 23 U/L (0-40); Potassium 4.6 mmol/L (3.5-5.1)
[2020-10-24 09:15] VITALS: BP 128/95; PULSE 87; RESP 16; O2SAT 96
[2020-10-24 09:48] LABS: Bilirubin Urine Neg (Negative); Blood Urine Neg (Negative); Glucose Urine UA Norm (Normal); Ketones Urine Negative (Negative); Leukocyte Esterase Urine Negative (Negative); Nitrate Urine Negative (Negative); Protein Urine Neg (Negative); Specific Gravity, Urine 1.015 (1.005-1.030); Urine Appearance Clear (CLEAR); Urine Color Straw (Yellow); Urobilinogen Urine Norm (Negative); pH Urine 5 (5-7)
[2020-10-24 09:53] LABS: INR 1.73 (0.8-1.2)
--- NOTE | 2020-10-27 08:25 | DCPLANNER ---
manager intel had message to schedule a follow up appointment for patient with Dr. Castellanos. manager intel called the office of Dr. Castellanos, spoke with Mandy. manager intel gave clinic patients information. manager intel was told that patients information would be printed and reviewed. Clinic will call patient with appointment information. Patient has [employer] insurance, human services case manager emailed patients information over a secure email to [place]a with [employer] [facility] so that the authorization process could be started.
--- NOTE | 2020-11-14 07:17 | DCPLANNER ---
Patient has a follow up appointment scheduled for Saturday, November 21, 2020 at 8:[address] Castellanos. Clinic will call patient with appointment information.
--- NOTE | 2020-12-04 06:49 | DCPLANNER ---
Patient had a follow up appointment scheduled for 11.21.[address] Castellanos - patient did attend appointment.
== END 2020-10-24 10:38 | disposition home or self-care (01) ==
PROVIDERS: Emergency Provider Family Medicine; PCP Family Medicine
DX: N40.1 Benign prostatic hyperplasia with lower urinary tract symptoms (principal); R33.8 Other retention of urine; Z79.82 Long term (current) use of aspirin; Z79.01 Long term (current) use of anticoagulants; I25.10 Atherosclerotic heart disease of native coronary artery without angina pectoris; I10 Essential (primary) hypertension; E78.5 Hyperlipidemia, unspecified; Z86.711 Personal history of pulmonary embolism; Z95.1 Presence of aortocoronary bypass graft
CPT/HCPCS: 80053; 81003; 85025; 85610; 87040; 99283

== ENCOUNTER 2020-12-16 08:46 | Outpatient (CLI) | payer OTHER, SELFPAY ==
--- NOTE | 2020-12-16 09:00 | CT_ITS ---
WS: [id number] CT ABDOMEN PELVIS TECHNIQUE: Noncontrast CT of the abdomen and contrast-enhanced CT of the abdomen and pelvis with marvin nal and sagittal reformatted images. CLINICAL INFORMATION: URINARY RETENTION COMPARISON: CT October 2007 DLP: 5208.[address] scans at [facility] use at least one of these dose optimization techniques: automat ed exposure control; mA and/or kV adjustment per patient size (includes targeted exams where dose is matched to clinical indication); or iterative reconstruction. FINDINGS: Mild diffuse fatty infiltration liver. Cholelithiasis. Normal portal vein and splenic vein. Small eso phageal hiatal hernia. Fatty atrophy of the pancreas. Normal spleen. Normal renal parenchymal enhance ment. No hydronephrosis. Adrenal glands are normal. Noncalcified nodule right lower lobe measuring 6 mm. This is unchanged since the CT abdomen pelvis 2007. Atelectasis left lower lobe. Cardiomegaly. St ernotomy. Heterogeneous enhancing prostate measuring 3.7 x 4.9 CM. Prostate calcification. Bladder is decompres sed. Mild bladder wall thickening can be seen with bladder outlet obstruction or chronic cystitis. No obstructing renal or ureteral calculi. Normal excretion on the delayed imaging. Sigmoid diverticulosis. No evidence of acute diverticulitis. No evidence of small or large bowel obst ruction.Tiny fat-containing umbilical hernia. Disc bulging worse L4-5 with moderate central canal sami nosis CT/CT abdomen pelvis wo/w [id number] IMPRESSION: 1. No hydronephrosis in either kidney. No obstructing renal or ureteral calcul i. Normal renal parenchymal enhancement. Normal excretion on the delayed imagin g. 2. Bladder is decompressed with mild bladder wall thickening can be seen with chronic cystitis or bladder outlet obstruction. 3. Moderate enlargement of prostate measuring 4.9 x 3.8 cm. rrelation PSA. 4. Sigmoid diverticulosis. 5. Mild diffuse fatty infiltration liver. 6. Small esophageal hiatal hernia. 7. Cholelithiasis.
[2020-12-16 10:17] LABS: Anion Gap 15.2 (5-19); Blood Urea Nitrogen 17 mg/dL (8-23); Calcium 8.3 mg/dL (8.5-10.5); Carbon Dioxide 25 mmol/L (22-29); Chloride 101 mmol/L (98-107); Glomerular Filtration Rate 111.8 mL/min (90-130); Glucose 135 mg/dL (65-115); Osmolality Calculated 288 mOsm/kg (285-295); Potassium 4.2 mmol/L (3.5-5.1); Sodium 137 mmol/L (136-145)
== END 2020-12-16 08:47 | disposition home or self-care (01) ==
LOC: CT 08:47
PROVIDERS: PCP Family Medicine; Visit Provider Urology
DX: R33.9 Retention of urine, unspecified (principal); K80.20 Calculus of gallbladder without cholecystitis without obstruction; K44.9 Diaphragmatic hernia without obstruction or gangrene; K76.0 Fatty (change of) liver, not elsewhere classified; K57.30 Diverticulosis of large intestine without perforation or abscess without bleeding; N40.0 Benign prostatic hyperplasia without lower urinary tract symptoms
CPT/HCPCS: 36415; 74178; 80048; 81003; 87086; 88112; Q9967

== ENCOUNTER 2020-12-23 09:15 | Emergency (ER) | payer OTHER, MEDICARE, SELFPAY ==
[2020-12-23 09:17] VITALS: BMI 36.6
--- NOTE | 2020-12-23 09:20 | ED_ITS ---
HPI - Chest Pain General: Chief Complaint: Chest Pain Stated Complaint: chest pain Time Seen by Provider: 12/23/20 09:16 History of Present Illness: HPI narrative: 70-year-old male with a history of coronary artery disease. Who presents emergency room today complaining of chest pain and tingling on for the last couple of days it has gotten worse. Is worse with exertion and does not improve a little bit with rest he passed out once last week but did not come in to be seen. Patient had a echocardiogram and sestamibi stress test earlier this year both of which were relatively unremarkable other reviewed in the chart today. He is not taken any nitro for it no recent medication changes. Denies any fever sweats or chills pain does radiate into his back he denies any nausea vomiting or diaphoresis with it but is somewhat short of breath. MD complaint: chest pain Pertinent past history: coronary artery disease Onset (ago): day(s) Timing of current episode: episodic Prior episodes: Yes Onset: during exertion Pain location: left chest Pain radiation: back Severity: mild Quality: heaviness Relieving factors: rest Exacerbating factors: nothing Associated symptoms: Deny abdominal pain, diaphoresis, dyspnea, fever(s), leg edema, nausea, sense of impending doom, syncope or vomiting Treatment prior to arrival: none Review of Systems Const: Denies: fever(s) or diaphoresis ENMT: Denies: throat pain, ear or mastoid pain, nasal discharge or nasal congestion Card: Denies: syncope Resp: Denies: dyspnea GI: Denies: abdominal pain, nausea or vomiting : Denies: flank pain, dysuria, urinary frequency or urinary urgency Skin/Breast: Denies: rash or pruritus PFSH ED PFSH: Medical History BPH loc w urin obs/LUTS Chronic migraine without aura, intractable, with status migrainosus Coronary artery disease GERD (gastroesophageal reflux disease) Gross hematuria HTN (hypertension), benign Hyperlipidemia Memory impairment Pulmonary embolism Surgical History S/P CABG x 4 Status post colonoscopy Family History Mother , at age 92 Cancer bone Father , at age 93 No problems noted. Other CAD (coronary artery disease) Chronic kidney disease (CKD) Diabetes Family history of premature coronary artery disease Hyperlipidemia Hypertension Lung disease Denies family history of Anesthesia complication Bleeding disorder Stroke Social History Alcohol intake: never Marital status: Current occupational status: retired and disabled History of recent travel: No Physical Exam Const: COMMON NORMALS: no acute distress GENERAL APPEARANCE: cooperative and comfortable ORIENTATION/CONSCIOUSNESS: Yes awake, Yes oriented to person, Yes oriented to place and Yes oriented to time HENMT: COMMON NORMALS: normocephalic, atraumatic, hearing grossly normal bilaterally, external ears normal, EAC's normal, TM's normal bilaterally, Normal nasal mucous membranes and turbinates present, moist oral mucous membranes and oropharynx normal HEAD & SCALP: normocephalic and atraumatic NOSE: Normal nasal mucous membranes and turbinates present EXTERNAL EAR: Yes external ears normal EXTERNAL AUDITORY CANAL: EAC's normal TYMPANIC MEMBRANE: TM's normal bilaterally Eye: COMMON NORMALS: Equal, round and reactive pupils present, EOMs intact bilaterally, conjunctivae normal and no scleral icterus CONJUNCTIVA: Yes conjunctivae normal PUPIL: Yes Equal, round and reactive pupils present Neck/C-Spine: COMMON NORMALS: full ROM, no lymphadenopathy, supple and no JVD Lymph: LYMPHATIC: no lymphadenopathy noted and no lymphedema noted Resp: COMMON NORMALS: normal respiratory effort, No retractions, No use of accessory muscles and clear to auscultation bilaterally AUSCULTATION: clear to auscultation bilaterally Cardio: COMMON NORMALS: no JVD, regular rate, regular rhythm and No murmurs present (Cardio) RATE: regular rate RHYTHM: regular rhythm GI: COMMON NORMALS: Soft to palpation and No hepatosplenomegaly present AUSCULTATION: Yes normoactive bowel sounds PALPATION: Yes Soft to palpation, No Tenderness to palpation present (GI), No Guarding due to palpation present (GI) and Yes No hepatosplenomegaly present Extremity: COMMON NORMALS: normal to inspection, capillary refill normal, no clubbing, cyanosis or edema, no calf tenderness and no pedal edema Neuro: SENSORIUM/ORIENTATION: Yes oriented to person, Yes oriented to place and Yes oriented to time Skin: COMMON NORMALS: no rashes or lesions noted GENERAL SKIN EXAM: no rashes or lesions noted Course Vital Signs: Vital signs: Vital Signs Temperature 97.9 F 12/23/20 12:32 Pulse Rate 72 12/23/20 12:32 Respiratory Rate 18 12/23/20 12:32 Blood Pressure 117/86 12/23/20 12:32 Pulse Oximetry 95 12/23/20 12:32 MDM - Chest Pain MDM Narrative: Medical decision making narrative: Reviewed EKG and lab findings on the chart and discussed with the patient. He is not having any further discomfort now he had a stress test earlier this spring. We discussed possible admission for observation he prefer to go home. With his troponins negative and no significant EKG change compared to previous. At this point we will let him go home have should get short-term follow-up with Dr. Barrios has any worsening or change symptoms return immediately. Lab Data: Labs: Lab Results 12/23/20 12/23/20 12/23/20 Range/Units 09:30 09:30 09:30 WBC Cancelled Corrected WBC Cancelled RBC Cancelled Hgb Cancelled Hct Cancelled MCV Cancelled MCH Cancelled MCHC Cancelled RDW Cancelled Plt Count Cancelled MPV Cancelled Gran % Cancelled Neut % (Auto) Cancelled Lymph % (Auto) Cancelled [place] % (Auto) Cancelled Eos % (Auto) Cancelled Baso % (Auto) Cancelled Neut # (Auto) Cancelled Lymph # (Auto) Cancelled [place] # (Auto) Cancelled Eos # (Auto) Cancelled Baso # (Auto) Cancelled Absolute Gran (aut o) Cancelled Nucleated RBC % (a uto) Cancelled Nucleated RBCs # Cancelled Sodium 137 (136-145) mmol/L Potassium 3.8 (3.5-5.1) mmol/L Chloride 101 (98-107) mmol/L Carbon Dioxide 25 (22-29) mmol/L Anion Gap 14.8 (5-19) BUN 13 (8-23) mg/dL Creatinine 0.8 (0.7-1.2) mg/dL GFR Calculation 95.8 (90-130) mL/min Glucose 135 H (65-115) mg/dL Calculated Osmolal ity 286 (285-295) mOsm/k g Calcium 8.7 (8.5-10.5) mg/dL Total Bilirubin 0.6 (0.15-1.2) mg/dL AST 20 (0-40) U/L ALT 27 (0-41) U/L Alkaline Phosphata se 103 (40-130) IU/L Troponin T Baselin e 9 (0-15) ng/L Troponin T 120 Min three affiliated (0-15) ng/L Delta Troponin T (0-10) ABS# Total Protein 8.2 (6.6-8.7) g/dL Albumin 4.1 (3.5-5.2) g/dL Globulin 4.1 (1.3-4.6) g/dL Urine Color (Yellow) Urine Appearance (CLEAR) Urine pH (5-7) Ur Specific Gravit y (1.005-1.030) Urine Protein (Negative) Urine Glucose (UA) (Normal) Urine Ketones (Negative) Urine Blood (Negative) Urine Nitrate (Negative) Urine Bilirubin (Negative) Urine Urobilinogen (Negative) mg/dL Ur Leukocyte Yamilet ase (Negative) Urine RBC (0-2) /hpf Urine WBC (0-5) /hpf Ur Squamous Epith Cells (0-5) /hpf Amorphous Sediment Urine Bacteria (NONE) /hpf Urine Mucus /hpf 12/23/20 12/23/20 12/23/20 Range/Units 10:15 11:10 11:15 WBC 6.1 Corrected WBC RBC 5.35 H Hgb 15.0 Hct 46.8 MCV 87.5 MCH 28.0 MCHC 32.1 RDW 14.3 Plt Count 243 MPV 11.7 H Gran % Neut % (Auto) 69.9 Lymph % (Auto) 20.0 [place] % (Auto) 8.2 Eos % (Auto) 1.3 Baso % (Auto) 0.3 Neut # (Auto) 4.27 Lymph # (Auto) 1.2 [place] # (Auto) 0.5 Eos # (Auto) 0.1 Baso # (Auto) 0.0 Absolute Gran (aut o) Nucleated RBC % (a uto) 0 Nucleated RBCs # 0.0 Sodium (136-145) mmol/L Potassium (3.5-5.1) mmol/L Chloride (98-107) mmol/L Carbon Dioxide (22-29) mmol/L Anion Gap (5-19) BUN (8-23) mg/dL Creatinine (0.7-1.2) mg/dL GFR Calculation (90-130) mL/min Glucose (65-115) mg/dL Calculated Osmolal ity (285-295) mOsm/k g Calcium (8.5-10.5) mg/dL Total Bilirubin (0.15-1.2) mg/dL AST (0-40) U/L ALT (0-41) U/L Alkaline Phosphata se (40-130) IU/L Troponin T Baselin e (0-15) ng/L Troponin T 120 Min three affiliated 6.72 (0-15) ng/L Delta Troponin T -2.28 L (0-10) ABS# Total Protein (6.6-8.7) g/dL Albumin (3.5-5.2) g/dL Globulin (1.3-4.6) g/dL Urine Color Yellow (Yellow) Urine Appearance Clear (CLEAR) Urine pH 5 (5-7) Ur Specific Gravit y 1.020 (1.005-1.030) Urine Protein Neg (Negative) Urine Glucose (UA) Norm (Normal) Urine Ketones Negative (Negative) Urine Blood Neg (Negative) Urine Nitrate Negative (Negative) Urine Bilirubin Neg (Negative) Urine Urobilinogen 1 H (Negative) mg/dL Ur Leukocyte Yamilet ase 1+ H (Negative) Urine RBC Rare (0-2) /hpf Urine WBC 5-10 H (0-5) /hpf Ur Squamous Epith Cells 0-4 H (0-5) /hpf Amorphous Sediment Not Reportable Urine Bacteria Trace (NONE) /hpf Urine Mucus 2+ /hpf Discharge Plan Discharge Patient Disposition: Home Clinical Impression: Atypical chest pain Condition: Stable Prescriptions: No Action isosorbide mononitrate 30 mg tablet extended release 24 hr 15 mg PO BID Qty: 90 RF: 3 atorvastatin 80 mg Tablet 40 mg PO DAILY RF: 0 donepezil 10 mg Tablet 5 mg PO BEDTIME RF: 0 warfarin 2 mg Tablet See Rx Instructions .ROUTE .COMPLEX RF: 0 metoprolol tartrate 50 mg Tablet 50 mg PO BID RF: 0 furosemide 20 mg Tablet 20 mg PO DAILY RF: 0 docusate sodium 100 mg Tablet 100 mg PO DAILY RF: 0 cholecalciferol (vitamin D3) 400 unit Tablet,Chewable 400 unit PO DAILY RF: 0 aspirin 325 mg Tablet 325 mg PO DAILY RF: 0 ewlhfjovgi-ddwjksorkkevu-cbyb 50-325-40 mg Tablet 1 tab PO Q4H PRN (Reason: Migraine Headache) RF: 0 amitriptyline 25 mg Tablet 25 mg PO BEDTIME RF: 0 Fish Oil Capsule 1,000 mg PO BID RF: 0 Cymbalta 30 mg Capsule,Delayed Release(Dr/Ec) 30 mg PO DAILY RF: 0 tamsulosin 0.4 mg capsule 0.4 mg PO BID RF: 0 pantoprazole 40 mg tablet,delayed release (DR/EC) 40 mg PO QAM RF: 0 nitroglycerin [Nitrostat] 0.4 mg Tablet, Sublingual 0.4 mg SUBLINGUAL Q5M PRN (Reason: Chest Pain) RF: 0 alum-mag hydroxide-simeth [Maalox Maximum Strength] 400-400-40 mg/5 mL suspen sunil 5 ml PO Q4H PRN (Reason: indigestion) Qty: 30 RF: 0 Discharge Orders: Discharge ED (Routine); Ordered 12/23/20 Ordered By: Luis A Umanzor Referrals: Kaelyn Horta MD [Primary Care Provider] - Discharge Diet: Usual diet Discharge Activity: Resume usual activity Patient Instructions: Opioid Safety Activity Restrictions/Additional Instructions: Follow-up with Dr. Barrios Coding Level of Care Code ED Dip Stand Loader for Jeremiahg Fwd Exam Comprehensive
--- NOTE | 2020-12-23 09:22 | ECG_ITS ---
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 Measurements Intervals [place] Rate: 66 P: 14 FL: 183 QRS: -28 QRSD: 109 T: 131 QT: 415 QTc: 435 Interpretive Statements SINUS RHYTHM LEFT VENTRICULAR HYPERTROPHY AND ST-T CHANGE [VOLTAGE CRITERIA PLUS ST/T ABNORMALITY] POSSIBLE SEPTAL MYOCARDIAL INFARCTION , OF INDETERMINATE AGE [30 ms Q WAVE IN V1/V2] Compared to ECG 07/31/2020 16:04:32 Myocardial infarct finding now present ST (T wave) deviation still present Electronically Signed On 12-23-2020 16:12:48 CDT by Laura Juárez M.D. [id number]
--- NOTE | 2020-12-23 09:22 | XRR_ITS ---
PROCEDURE INFORMATION: Exam: XR Chest Exam date and time: 12/23/2020 9:22 AM Age: 70 years old Clinical indication: Cough and shortness of breath; Prior surgery; Surgery type: Heart; Additional info: Dyspnea/cough, SOB for years TECHNIQUE: Imaging protocol: XR of the chest. Views: 1 view. Total images: 1 COMPARISON: CR XR chest 1V portable [id number] 07/31/2020 10:31 AM FINDINGS: Lungs: Left pulmonary opacity is improved from the prior exam. Trace atelectasis or scar noted in the left mid lung. Pleural spaces: Unremarkable. No pleural effusion. No pneumothorax. Heart/Mediastinum: Heart size is stable when compared to the prior exam. Bones/joints: Osseous structures are unchanged from the prior exam. Other findings: Stable postsurgical changes. XR/XR chest 1V portable [id number] IMPRESSION: 1. Left pulmonary opacity is improved from the prior exam. 2. Trace atelectasis or scar noted in the left mid lung.
[2020-12-23 09:25] VITALS: BP 122/90; PULSE 71; RESP 18; O2SAT 94
--- NOTE | 2020-12-23 09:58 | PC.PHAR ---
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
[2020-12-23 10:15] LABS: Alanine Aminotransferase 27 U/L (0-41); Albumin Level 4.1 g/dL (3.5-5.2); Alkaline Phosphatase 103 IU/L (40-130); Anion Gap 14.8 (5-19); Aspartate Amino Transferase 20 U/L (0-40); Blood Urea Nitrogen 13 mg/dL (8-23); Calcium 8.7 mg/dL (8.5-10.5); Carbon Dioxide 25 mmol/L (22-29); Chloride 101 mmol/L (98-107); Globulin 4.1 g/dL (1.3-4.6); Glomerular Filtration Rate 95.8 mL/min (90-130); Glucose 135 mg/dL (65-115); Osmolality Calculated 286 mOsm/kg (285-295); Potassium 3.8 mmol/L (3.5-5.1); Sodium 137 mmol/L (136-145); Total Bilirubin 0.6 mg/dL (0.15-1.2); Total Protein 8.2 g/dL (6.6-8.7); Troponin(5th) Baseline 9 ng/L (0-15)
[2020-12-23 10:29] LABS: Basophils % 0.3 %; Eosinophils # 0.1 10^3/uL (0.0-0.8); Eosinophils % 1.3 %; Hematocrit 46.8 % (42.0-52.0); Lymphocytes # 1.2 10^3/uL (0.8-4.8); Mean Corpuscular HGB Conc 32.1 g/dL (30.0-36.0); Mean Corpuscular Volume 87.5 fl (80-94); Mean Platelet Volume 11.7 fL (7.4-10.4); Monocytes # 0.5 10^3/uL (0.2-0.9); Monocytes % 8.2 %; Neutrophils # 4.27 10^3/uL (1.8-7.7); Neutrophils % 69.9 %; Nucleated Red Blood Cells % 0 %; Platelet Count 243 10^3/cmm (130-400); Red Blood Count 5.35 10^6/uL (4.1-5.3); Red Cell Distribution Width 14.3 % (12.1-15.1); White Blood Count 6.1 10^3/uL (4.0-10.0)
--- NOTE | 2020-12-23 11:22 | ECG_ITS ---
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 Measurements Intervals [place] Rate: 65 P: 14 FL: 192 QRS: -25 QRSD: 104 T: 122 QT: 416 QTc: 433 Interpretive Statements SINUS RHYTHM POSSIBLE LEFT ATRIAL ENLARGEMENT [-0.1mV P-WAVE IN V1/V2] LEFT VENTRICULAR HYPERTROPHY AND ST-T CHANGE [VOLTAGE CRITERIA PLUS ST/T ABNORMALITY] POSSIBLE SEPTAL MYOCARDIAL INFARCTION , OF INDETERMINATE AGE [30 ms Q WAVE IN V1/V2] Compared to ECG 12/23/2020 09:20:27 No significant changes Electronically Signed On 12-23-2020 16:41:34 CDT by Laura Juárez M.D. [id number]
--- NOTE | 2020-12-23 11:22 | PC.NURSE ---
Pt was having some urinary retention. He was able to void 100mls. Post bladder scanner showed 95ml. Dr. Umanzor was notified.
[2020-12-23 11:29] VITALS: BP 135/81; PULSE 67; RESP 16; O2SAT 97
[2020-12-23 11:30] VITALS: BP 135/81; PULSE 67; O2SAT 97
[2020-12-23 11:50] LABS: Bilirubin Urine Neg (Negative); Blood Urine Neg (Negative); Glucose Urine UA Norm (Normal); Ketones Urine Negative (Negative); Nitrate Urine Negative (Negative); Protein Urine Neg (Negative); Urine Appearance Clear (CLEAR); Urine Color Yellow (Yellow); Urobilinogen Urine 1 mg/dL (Negative); pH Urine 5 (5-7)
[2020-12-23 11:50] LABS: Troponin 5 2HR 6.72 ng/L (0-15)
[2020-12-23 11:51] LABS: Leukocyte Esterase Urine 1+ (Negative)
[2020-12-23 11:56] LABS: Bacteria Urine TRACE /hpf; Mucus Urine 2+ /hpf; RBC Urine RARE /hpf (0-2); Squamous Epithelial Cell Urine 0-4 /hpf (0-5)
[2020-12-23 11:57] LABS: Add Urine Culture? No
[2020-12-23 11:57] LABS: Troponin 5 2HR Delta -2.28 ABS# (0-10)
[2020-12-23 12:32] VITALS: BP 117/86; PULSE 72; RESP 18; TEMP 36.6; O2SAT 95
== END 2020-12-23 12:27 | disposition home or self-care (01) ==
PROVIDERS: Emergency Provider Family Medicine; PCP Family Medicine
DX: R07.89 Other chest pain (principal); Z79.01 Long term (current) use of anticoagulants; Z79.82 Long term (current) use of aspirin; I25.10 Atherosclerotic heart disease of native coronary artery without angina pectoris; I10 Essential (primary) hypertension; E78.5 Hyperlipidemia, unspecified; Z86.711 Personal history of pulmonary embolism; Z95.1 Presence of aortocoronary bypass graft
CPT/HCPCS: 51798; 71045; 80053; 81001; 84484; 85025; 93005; 99283

== ENCOUNTER 2021-09-01 10:51 | Emergency (ER) | payer OTHER, MEDICARE, SELFPAY ==
[2021-09-01 10:59] VITALS: BP 135/84; PULSE 78; RESP 24; TEMP 36.1; O2SAT 98; BMI 33.9
--- NOTE | 2021-09-01 11:02 | ED_ITS ---
HPI - Chest Pain General: Chief Complaint: Chest Pain Stated Complaint: Possible Heart Attack Time Seen by Provider: 09/01/21 11:02 History of Present Illness: Mr. Nice is a 71-year-old gentleman with significant past medical history of hypertension, hyperlipidemia, CAD, history of CABG x4, history of pulmonary embolism on chronic anticoagulation who presents to the emergency department due to worsening chest pain. He has a longstanding history of chest pain that has been persistent however presents today due to increasing frequency of chest discomfort. He has pressure in the substernal and left anterior chest with episodes occurring randomly though more frequently with exertion. He often has associated diaphoresis, nausea, and shortness of breath. When present intensity of symptoms is generally moderate to severe and currently it is moderate in intensity. He reports compliance with his medication regimen including daily aspirin full dose. He notes more profound fatigue recently and baseline however denies sick contacts or other specific infectious symptoms. No other specific changes in health, exacerbating, or alleviating factors identified. Pertinent past history: coronary artery disease, CABG and other Onset (ago): hour(s) Timing of current episode: constant Prior episodes: Yes Onset: during exertion Pain location: substernal and left chest Severity: moderate Quality: tightness and aching Relieving factors: nothing Exacerbating factors: nothing Review of Systems General: Reports: 10 or more systems reviewed and unremarkable except in HPI and below PFSH ED PFSH: Medical History BPH loc w urin obs/LUTS Chronic migraine without aura, intractable, with status migrainosus Coronary artery disease GERD (gastroesophageal reflux disease) Gross hematuria HTN (hypertension), benign Hyperlipidemia Memory impairment Pulmonary embolism Surgical History S/P CABG x 4 Status post colonoscopy Family History Mother , at age 92 Cancer bone Father , at age 93 No problems noted. Other CAD (coronary artery disease) Chronic kidney disease (CKD) Diabetes Family history of premature coronary artery disease Hyperlipidemia Hypertension Lung disease Denies family history of Anesthesia complication Bleeding disorder Stroke Social History Alcohol intake: never Marital status: Current occupational status: retired and disabled History of recent travel: No Physical Exam Const: COMMON NORMALS: alert GENERAL APPEARANCE: cooperative and well developed HENMT: COMMON NORMALS: normocephalic and atraumatic HEAD & SCALP: normocephalic and atraumatic Eye: COMMON NORMALS: conjunctivae normal CONJUNCTIVA: Yes conjunctivae normal SCLERA: sclerae normal Neck/C-Spine: COMMON NORMALS: supple GENERAL: Yes trachea midline Resp: COMMON NORMALS: clear to auscultation bilaterally EFFORT & INSPECTION: Yes able to speak in complete sentences and Yes tachypneic AUSCULTATION: clear to auscultation bilaterally Cardio: COMMON NORMALS: regular rate and regular rhythm RATE: regular rate RHYTHM: regular rhythm GI: COMMON NORMALS: Soft to palpation PALPATION: Yes Soft to palpation and No Tenderness to palpation present (GI) PERCUSSION: normal to percussion Extremity: GENERAL: Yes normal exam except as noted and No edema Neuro: COMMON NORMALS: moves all extremities SENSORIUM/ORIENTATION: Yes alert and No Orientation impaired Psych: COMMON NORMALS: mental status grossly normal and Normal thought process present THOUGHT PROCESS: Normal thought process present Course ED course: - Patient was seen and evaluated by me at bedside - Patient placed on cardiac monitors, IV access obtained - Initial evaluation notable for exam as above - Labs and xrays personally interpreted by me. EKG reviewed, no STEMI but does have nonspecific ST segment analysis. Sinus rhythm. 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 Provoking factors. Abnormalities and symptoms did delta troponin is negative. - Imaging notable for pneumothorax or pleural insulation - Upon serial reexamination after treatment the patient was mildly improved - Based on patient history, evaluation, and testing as interpreted the most likely cause of the patient's condition is unspecified chest pain. The patient has an extensive cardiac history and is not low risk factors. - The results of ED evaluation were discussed with the patient including possible disposition options. Patient admission for additional testing which he declined in favor of outpatient testing. I discussed prescriptions and/or symptomatic cares (if applicable) including appropriate and responsible use, followup plan, and return precautions. The patient verbalized understanding and felt safe for discharge. - Patient discharged in satisfactory condition. Note: Click bubbles or prepopulated germain in note writing are used for assistance with data collection and billing and are inherently more limited than narrative and other text portions of this note. Please use narrative for additional clinical history and defer to narrative/free test for any case of contradictory information. If information appears in only free text or click bubble it should be considered present or absent as reported. Please contact note bid writer for clarifications of clinical information or contradictory information. MDM is a brief summary, contradictory or erroneous seeming information should be clarified and full note should be reviewed. Vital Signs: Vital signs: Vital Signs Temperature 97.1 F L 09/01/21 11:19 Pulse Rate 69 09/01/21 11:28 Respiratory Rate 20 H 09/01/21 11:28 Blood Pressure 128/69 09/01/21 12:03 Pulse Oximetry 94 09/01/21 12:03 MDM - Chest Pain Medical Decision Making 71-year-old gentleman with complex past medical treatment cardiac history presenting with chest pain. Delta troponin negative. ED evaluation without clear source of symptoms. Offered admission given patient is not low risk by heart score however he presented discharged. Discharged in satisfactory condition for outpatient cardiac evaluation and follow-up. Medical Records I reviewed the patient's medical records. Lab Data I reviewed the patient's lab results. : 09/01/21 11:15 09/01/21 11:15 Radiology Impressions Chest X-Ray 09/01/21 11:05 Impression: Atherosclerosis and hyperinflation. Laboratory Results WBC 8.7 10^3/uL (4.0-10.0) 09/01/21 11:15 RBC 5.01 10^6/uL (4.1-5.3) 09/01/21 11:15 Hgb 14.9 g/dL (11.7-16.6) 09/01/21 11:15 Hct 45.6 % (42.0-52.0) 09/01/21 11:15 MCV 91.0 fl (80-94) 09/01/21 11:15 MCH 29.7 pg (28.0-34.0) 09/01/21 11:15 MCHC 32.7 g/dL (30.0-36.0) 09/01/21 11:15 RDW 14.4 % (12.1-15.1) 09/01/21 11:15 Plt Count 248 10^3/cmm (130-400) 09/01/21 11:15 MPV 11.6 fL (7.4-10.4) H 09/01/21 11:15 Neut % (Auto) 75.5 % 09/01/21 11:15 Lymph % (Auto) 14.8 % 09/01/21 11:15 [place] % (Auto) 6.7 % 09/01/21 11:15 Eos % (Auto) 2.2 % 09/01/21 11:15 Baso % (Auto) 0.3 % 09/01/21 11:15 Neut # (Auto) 6.56 10^3/uL (1.8-7.7) 09/01/21 11:15 Lymph # (Auto) 1.3 10^3/uL (0.8-4.8) 09/01/21 11:15 [place] # (Auto) 0.6 10^3/uL (0.2-0.9) 09/01/21 11:15 Eos # (Auto) 0.2 10^3/uL (0.0-0.8) 09/01/21 11:15 Baso # (Auto) 0.0 10^3/uL (0.0-0.1) 09/01/21 11:15 Nucleated RBC % (auto) 0 % 09/01/21 11:15 Nucleated RBCs # 0.0 /100WBC 09/01/21 11:15 PT 21.90 SECONDS (12.1-14.9) H 09/01/21 11:15 INR 1.87 (0.8-1.2) H 09/01/21 11:15 APTT 38.5 SECONDS (23.9-36.7) H 09/01/21 11:15 Sodium 138 mmol/L (136-145) 09/01/21 11:15 Potassium 3.8 mmol/L (3.5-5.1) 09/01/21 11:15 Chloride 102 mmol/L (98-107) 09/01/21 11:15 Carbon Dioxide 26 mmol/L (22-29) 09/01/21 11:15 Anion Gap 13.8 (5-19) 09/01/21 11:15 BUN 19 mg/dL (8-23) 09/01/21 11:15 Creatinine 1.0 mg/dL (0.7-1.2) 09/01/21 11:15 GFR Calculation 73.9 mL/min (90-130) L 09/01/21 11:15 Glucose 179 mg/dL (65-115) H 09/01/21 11:15 Calculated Osmolality 293 mOsm/kg (285-295) 09/01/21 11:15 Calcium 8.0 mg/dL (8.5-10.5) L 09/01/21 11:15 Total Bilirubin 0.5 mg/dL (0.15-1.2) 09/01/21 11:15 AST 13 U/L (0-40) 09/01/21 11:15 ALT 18 U/L (0-41) 09/01/21 11:15 Alkaline Phosphatase 96 IU/L (40-130) 09/01/21 11:15 Troponin T Baseline 10 ng/L (0-15) 09/01/21 11:15 Troponin T 120 Minute 8.76 ng/L (0-15) 09/01/21 13:06 Delta Troponin T -1.24 ABS# (0-10) L 09/01/21 13:06 NT-Pro-B Natriuret Pep 347 pg/mL (0-125) H 09/01/21 11:15 Total Protein 6.6 g/dL (6.6-8.7) 09/01/21 11:15 Albumin 3.9 g/dL (3.5-5.2) 09/01/21 11:15 Globulin 2.7 g/dL (1.3-4.6) 09/01/21 11:15 Lipase 36 U/L (13-60) 09/01/21 11:15 Discharge Plan Discharge Patient Disposition: Home Clinical Impression: Chest pain Condition: Stable Prescriptions: New Norvasc 2.5 mg tablet 2.5 mg PO DAILY Qty: 30 0RF No Action isosorbide mononitrate 30 mg tablet extended release 24 hr 15 mg PO BID Qty: 90 3RF Rx Instructions: Hold this medicine for 24 hours before taking Viagra sildenafil 50 mg tablet 50 mg PO DAILY PRN (Reason: sexual activity) Qty: 30 3RF Rx Instructions: administer 30 minutes to 4 hours before activity atorvastatin 80 mg Tablet 40 mg PO QPM 0RF donepezil 10 mg Tablet 10 mg PO BEDTIME 0RF warfarin 2 mg Tablet See Rx Instructions .ROUTE .COMPLEX 0RF Rx Instructions: TAKE 4 TABS (8MG) PO ON TUESDAY,TUE, TUESDAY AND TAKE 3 TABS(6MG) ALL OTHER DAYS OR DIRECTED metoprolol tartrate 50 mg Tablet 50 mg PO BID 0RF furosemide 20 mg Tablet 20 mg PO DAILY 0RF docusate sodium 100 mg Tablet 100 mg PO DAILY 0RF cholecalciferol (vitamin D3) 400 unit Tablet,Chewable 400 unit PO DAILY 0RF aspirin 325 mg Tablet 325 mg PO DAILY 0RF djupcdfrob-ztdhcpgvdepkf-tkbh 50-325-40 mg Tablet 1 tab PO Q4H PRN (Reason: Migraine Headache) 0RF tamsulosin 0.4 mg capsule 0.4 mg PO QPM 0RF pantoprazole 40 mg tablet,delayed release (DR/EC) 40 mg PO BID 0RF nitroglycerin [Nitrostat] 0.4 mg Tablet, Sublingual 0.4 mg SUBLINGUAL Q5M PRN (Reason: Chest Pain) 0RF tizanidine 2 mg Tablet See Rx Instructions .ROUTE .COMPLEX 0RF Rx Instructions: 2mg po bedtime for 2 weeks then 4mg po bedtime allopurinol 100 mg Tablet 100 mg PO DAILY PRN (Reason: gout) 0RF metformin 500 mg Tablet Extended Release 24 Hr 500 mg PO DAILY 0RF Fish Oil Capsule 1,000 mg PO BID 0RF Cymbalta 60 mg Capsule,Delayed Release(Dr/Ec) 60 mg PO DAILY 0RF Maalox Maximum Strength 400-400-40 mg/5 mL suspension 5 ml PO Q6H PRN (Reason: indigestion) 0RF Discharge Orders: Discharge ED (Routine); Ordered 09/01/21 Ordered By: Shyam Lam Referrals: Kaelyn Horta MD [Primary Care Provider] - Discharge Diet: Usual diet Discharge Activity: Resume usual activity Patient Instructions: Chest Pain (ED) Activity Restrictions/Additional Instructions: Thank you for visiting the emergency department. You were seen and evaluated for chest pain. The exact cause of your symptoms is unclear however given your cardiac history you are not low risk for a cardiac cause. This requires further evaluation which you are electing to have in the outpatient setting. I will message case management for stress test and cardiology follow-up. Additionally I will add Norvasc to your medication regimen as you have not been taking the isosorbide mononitrate. Norvasc should not interact with your sildenafil. This also should help with angina. Please follow-up with your primary care provider and cardiology. Please return to the emergency department for worsening symptoms or anything else that you are concerned about and feel needs emergency department evaluation. Coding Level of Care Code ED Automatic Gluing Machine Operator for Kevin Martines Exam Comprehensive
--- NOTE | 2021-09-01 11:05 | XR_ITS ---
WS: [id number] Portable AP upright chest, 09/01/2021 Clinical Data: chest pain Comparison: Portable chest, 12/23/2020. Findings: No nodules, masses or effusions are seen. The heart is enlarged. The pulmonary vascularity is not increased. No pneumonia or pneumothorax is seen. The aortic arch and descending thoracic aorta are tortuous. There are midline sternotomy sutures. The diaphragms are flattened. XR/XR chest 1V portable [id number] Impression: Atherosclerosis and hyperinflation.
--- NOTE | 2021-09-01 11:06 | ECG_ITS ---
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 Measurements Intervals [place] Rate: 66 P: 30 MA: 186 QRS: -33 QRSD: 114 T: 102 QT: 405 QTc: 427 Interpretive Statements SINUS RHYTHM LEFT AXIS DEVIATION [QRS AXIS < -30] INCOMPLETE RIGHT BUNDLE BRANCH BLOCK LEFT VENTRICULAR HYPERTROPHY AND ST-T CHANGE POSSIBLE SEPTAL MYOCARDIAL INFARCTION , OF INDETERMINATE AGE Compared to ECG 12/23/2020 11:20:29 Left-axis deviation now present Incomplete right bundle-branch block now present ST (T wave) deviation still present Myocardial infarct finding still present Electronically Signed On 09-01-2021 23:19:03 CDT by Laura Juárez M.D. [email or web address]
[2021-09-01 11:19] VITALS: BP 167/91; PULSE 64; RESP 18; TEMP 36.2; O2SAT 96
[2021-09-01] MEDS: ondansetron 2 mg/ML SDV 2 mL 4 MG IVP (11:24)
[2021-09-01 11:25] VITALS: RESP 18
[2021-09-01] MEDS: morphine 4 mg/mL SDV 1 mL IVP (11:25)
[2021-09-01 11:26] LABS: Basophils % 0.3 %; Eosinophils # 0.2 10^3/uL (0.0-0.8); Eosinophils % 2.2 %; Hematocrit 45.6 % (42.0-52.0); Hemoglobin 14.9 g/dL (11.7-16.6); Lymphocytes # 1.3 10^3/uL (0.8-4.8); Lymphocytes % 14.8 %; Mean Corpuscular HGB Conc 32.7 g/dL (30.0-36.0); Mean Corpuscular Hemoglobin 29.7 pg (28.0-34.0); Mean Platelet Volume 11.6 fL (7.4-10.4); Monocytes # 0.6 10^3/uL (0.2-0.9); Monocytes % 6.7 %; Neutrophils # 6.56 10^3/uL (1.8-7.7); Neutrophils % 75.5 %; Nucleated Red Blood Cells % 0 %; Platelet Count 248 10^3/cmm (130-400); Red Blood Count 5.01 10^6/uL (4.1-5.3); Red Cell Distribution Width 14.4 % (12.1-15.1); White Blood Count 8.7 10^3/uL (4.0-10.0)
[2021-09-01 11:28] VITALS: BP 139/71; PULSE 69; RESP 20; O2SAT 99
[2021-09-01 11:44] LABS: Troponin(5th) Baseline 10 ng/L (0-15)
[2021-09-01 11:52] LABS: Alanine Aminotransferase 18 U/L (0-41); Albumin Level 3.9 g/dL (3.5-5.2); Alkaline Phosphatase 96 IU/L (40-130); Anion Gap 13.8 (5-19); Aspartate Amino Transferase 13 U/L (0-40); Blood Urea Nitrogen 19 mg/dL (8-23); Carbon Dioxide 26 mmol/L (22-29); Chloride 102 mmol/L (98-107); Creatinine Clr Calc Pharmacy 89.3659; Globulin 2.7 g/dL (1.3-4.6); Glomerular Filtration Rate 73.9 mL/min (90-130); Glucose 179 mg/dL (65-115); Lipase 36 U/L (13-60); NT Pro B Type Natriuretic Pept 347 pg/mL (0-125); Osmolality Calculated 293 mOsm/kg (285-295); Potassium 3.8 mmol/L (3.5-5.1); Sodium 138 mmol/L (136-145); Total Bilirubin 0.5 mg/dL (0.15-1.2); Total Protein 6.6 g/dL (6.6-8.7)
[2021-09-01 11:57] LABS: INR 1.87 (0.8-1.2); Partial Thromboplastin Time 38.5 SECONDS (23.9-36.7)
[2021-09-01 12:03] VITALS: BP 128/69; O2SAT 94
--- NOTE | 2021-09-01 12:07 | PC.PHAR ---
pt states he has a nurse from [facility] [phone] from [facility] states they dont have a med list for [place]-med[place] [facility] [place] [facility] and what the pt states he takes
[2021-09-01 13:36] LABS: Troponin 5 2HR 8.76 ng/L (0-15)
[2021-09-01 14:13] LABS: Troponin 5 2HR Delta -1.24 ABS# (0-10)
--- NOTE | 2021-09-03 12:50 | DCPLANNER ---
Addendum entered by Montserrat Cotton 10/02/21 18:41: Patient had a follow up appointment scheduled for 09.11.21 with [facility] - patient did attend appointment. Addendum entered by Montserrat Cotton 09/04/21 14:29: Patient has a follow up appointment scheduled for Saturday, September 11, 2021 at 10:[address] Kebede at [facility]. advertising campaign manager called patient and gave him the appointment information. Original Note: advertising campaign manager had message to schedule an out patient stress test and a follow up appointment for patient with [facility]. Patient has [facility] insurance, so a stress test from the ER can not be ordered. advertising campaign manager did send patients information to the front staff at [facility] for an appointment to be scheduled. Patients information will be printed and reviewed. Clinic will notify telehealth case manager of the scheduled appointment, telehealth case manager will call patient with appointment information. advertising campaign manager sent patients information to [place] with [facility] for the authorization process could be started.
== END 2021-09-01 14:03 | disposition home or self-care (01) ==
PROVIDERS: Emergency Provider Emergency Medicine; PCP Family Medicine
DX: R07.9 Chest pain, unspecified (principal); I10 Essential (primary) hypertension; E78.5 Hyperlipidemia, unspecified; I25.10 Atherosclerotic heart disease of native coronary artery without angina pectoris; Z95.1 Presence of aortocoronary bypass graft; Z86.711 Personal history of pulmonary embolism; Z79.01 Long term (current) use of anticoagulants; E11.9 Type 2 diabetes mellitus without complications; Z79.84 Long term (current) use of oral hypoglycemic drugs
CPT/HCPCS: 71045; 80053; 83690; 83880; 84484; 85025; 85610; 85730; 93005; 96374; 96375; 99284; J2270; J2405

== ENCOUNTER → 2021-09-11 09:36 | Outpatient (BNVA) | payer OTHER, MEDICARE, SELFPAY | PROVIDERS: PCP Family Medicine; Visit Provider Internal Medicine Cardiovascular Disease | DX: I25.810 Atherosclerosis of coronary artery bypass graft(s) without angina pectoris (principal); I27.82 Chronic pulmonary embolism; I10 Essential (primary) hypertension; E78.5 Hyperlipidemia, unspecified; Z95.1 Presence of aortocoronary bypass graft; E11.9 Type 2 diabetes mellitus without complications; Z79.01 Long term (current) use of anticoagulants; Z79.84 Long term (current) use of oral hypoglycemic drugs | CPT/HCPCS: 99213; 99214 ==

== ENCOUNTER 2021-09-29 09:19 | Observation (INO) | payer OTHER, MEDICARE, SELFPAY ==
[2021-09-29] VITALS (9 sets, daily range): BP systolic 121–157; BP diastolic 72–99; PULSE 66–90; RESP 14–18; TEMP 36.8–37; O2SAT 94–98; BMI 33.9
--- NOTE | 2021-09-29 09:41 | CT_ITS ---
WS: [id number] CT ABDOMEN AND PELVIS WITH CONTRAST HISTORY: abd pain, diarrhea TECHNIQUE: Imaging performed of the abdomen and pelvis with IV contrast. Single phase imaging of the abdomen. Coronal and sagittal reformats are submitted. All CT scans at [facility] use at [facility] [facility] one of these dose optimization techniques: automated exposure control; mA and/or kV adjustment per patient size (includes targeted exams where dose is matched to clinical indication); or iterative re construction. IV CONTRAST: Visipaque 320; 75 mL IV. Oral contrast: No DLP: 2034.47 mGy.cm COMPARISON: 12/16/2020 Lower thorax: Stable 5 mm nodule at the LEFT lung base. Heart is normal size. Marked diffuse circumfe rential thickening of the distal esophagus and a small hiatal hernia. Similar to the prior study. Liver/biliary system: Normal size with no intrahepatic dilatation. Gallbladder: Normally distended gallbladder with stones in the dependent portion. No adjacent inflamm ation. No common bile duct dilatation. Pancreas: Normal size pancreas and pancreatic duct. No adjacent inflammation. Spleen: Normal size spleen. No mass or infarct. Adrenal glands: Normal. Right kidney: Normal. Left kidney: Normal. Aorta: Mild atherosclerosis with no aneurysm. Calcifications at the origins of the SMA and celiac axi s with very mild stenosis. 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 Lymphadenopathy: None. Free fluid: None. GI tract: Normally distended stomach. No small bowel obstruction. The appendix is not visualized. No history of prior to removal. Beginning in the descending colon and through the sigmoid there is mild wall thickening and mural enhancement. There is mild adjacent inflammation and prominence of the vasa recta surrounding the distal colon to the level of the rectum. Abdominal wall: Fat containing umbilical hernia. Pelvis: No free fluid or adenopathy within the pelvis. Mild prostate enlargement. Bones: Unremarkable. CT/CT abdomen pelvis w con* [id number] IMPRESSION: 1. Bowel wall thickening with enhancement involving the descending and sigmoid colon to the level of the rectum. These changes can be seen with vasodilatatio n associated with acute hyperemia of inflammatory bowel disease, hemorrhage or reperfusion after ischemia. There is no ascites or free air. No free fluid. 2. Cholelithiasis without acute cholecystitis or bile duct dilatation. 3. Atherosclerosis aorta. Atherosclerotic plaque in the proximal SMA with sten osis approaching 50%. 4. Mild diffuse circumferential thickening of the distal esophagus. Similar to prior study from 12/16/2020.
--- NOTE | 2021-09-29 09:46 | W.ED.ABDPA2 ---
HPI - Abdominal Pain General: Chief Complaint: Abdominal Pain Stated Complaint: severe abdominal pain/weakness Time Seen by Provider: 09/29/21 09:25 History of Present Illness: 71 yo m p/w cc of watery diarrhea 20-30x per day, now on the fourth day. He feels weak and dehydrated. This has happened to him in past--he's unsure what causes it. Pt reports he has no recollection of any colonoscopy in last 5 years. Patient has crampy abdominal pain. His diarrhea is uncontrollable; he's having stool incontinence. No fever, hematochezia, vomiting. No recent abx or reported hx of c diff. Pt says the only think that works is CiproMax (he says it is an antibiotic). Pt has tried loperamide without relief. Review of Systems Narrative: Pertinent Positives: Weakness, diarrhea, crampy abdominal pain, stool incontinence Pertinent Negatives: Denies fever, vomiting, hematochezia, melena, history of C. difficile, sick contacts. 12 Point ROS performed and otherwise negative unless stated here or HPI. PFS ED PFSH: Medical History (Updated 09/29/21 @ 12:03 by Seng García MD) BPH loc w urin obs/LUTS Chronic migraine without aura, intractable, with status migrainosus Coronary artery disease Diabetes GERD (gastroesophageal reflux disease) Gross hematuria HTN (hypertension), benign Hyperlipidemia Memory impairment Pulmonary embolism Warfarin anticoagulation Surgical History (Updated 09/11/21 @ 10:24 by Nathan Kebede MD) S/P CABG x 4 Status post colonoscopy Family History Mother , at age 92 Cancer bone Father , at age 93 No problems noted. Other CAD (coronary artery disease) Chronic kidney disease (CKD) Diabetes Family history of premature coronary artery disease Hyperlipidemia Hypertension Lung disease Denies family history of Anesthesia complication Bleeding disorder Stroke Social History Smoking and tobacco status: never smoked Alcohol intake: never Marital status: Current occupational status: retired and disabled History of recent travel: No Physical Exam Narrative: EXAM NARRATIVE: I have reviewed the triage vital signs. Const: Well-nourished, Well-developed, appearing stated age. Patient just finished on the commode; diarrhea. Eyes: EOMI, no conjunctival injection, and symmetrical lids. ENMT: Atraumatic head and facial exam, external nose and ears normal Neck: Symmetric, trachea midline, no swelling, no JVD, ROM wnl CVS: Regular rate, radial pulse 2+, no peripheral edema RESP: Tachypneic after getting up from the commode. No coughing GI: Soft, obese, generalized tenderness with moderate depth palpation. No rebound MSK: Normocephalic/Atraumatic, extremities w/o deformity, no cyanosis or clubbing, no edema Skin: Warm, Dry, No rashes or lesions noted. Neuro: Sensation grossly intact, STARK, no focal neurologic deficits Psych: awake, alert, oriented, appropriate mood and affect Course Vital Signs: Vital signs: Vital Signs Temperature 98.6 F 09/29/21 09:22 Pulse Rate 78 09/29/21 09:54 Respiratory Rate 14 09/29/21 09:22 Blood Pressure 139/94 09/29/21 09:54 Pulse Oximetry 95 09/29/21 09:54 MDM - Abdominal Pain Medical Decision Making Differential diagnosis is broad and includes infectious diarrhea, inflammatory bowel disease, IBS, food allergies, neoplastic processes, malabsorption, etc. We will start with fluid resuscitation, check electrolytes and renal function, stool studies, CT scan of the abdomen and pelvis. UPDATE Patient has C. difficile colitis. CT scan is positive for distal colitis and PCR for C. difficile is positive. The patient's white blood cell count is elevated. He is clinically very fatigued and feels weak from fluid loss. He has history of distal pulmonary emboli and this may be contributing to his weakness as well. Patient does take Coumadin. The patient lives alone. He has been having stool incontinence. He has had 5 episodes of diarrhea here. I think it would be best to admit the patient at least overnight for treatment with oral vancomycin and rehydration therapy until his stool slowdown and he is able to treat himself at home. I spoke with Dr. Roman who agreed and oral vancomycin was started. Patient will be referred for observation in medical surgical unit. Lab Data : 09/29/21 09:45 09/29/21 09:45 Labs/Radiology: Radiology Impressions Abdomen/Pelvis CT 09/29/21 09:41 IMPRESSION: 1. Bowel wall thickening with enhancement involving the descending and sigmoid colon to the level of the rectum. These changes can be seen with vasodilatation associated with acute hyperemia of inflammatory bowel disease, hemorrhage or reperfusion after ischemia. There is no ascites or free air. No free fluid. 2. Cholelithiasis without acute cholecystitis or bile duct dilatation. 3. Atherosclerosis aorta. Atherosclerotic plaque in the proximal SMA with stenosis approaching 50%. 4. Mild diffuse circumferential thickening of the distal esophagus. Similar to prior study from 12/16/2020. Laboratory Results WBC 17.9 10^3/uL (4.0-10.0) H 09/29/21 09:45 RBC 5.36 10^6/uL (4.1-5.3) H 09/29/21 09:45 Hgb 15.8 g/dL (11.7-16.6) 09/29/21 09:45 Hct 48.0 % (42.0-52.0) 09/29/21 09:45 MCV 89.6 fl (80-94) 09/29/21 09:45 MCH 29.5 pg (28.0-34.0) 09/29/21 09:45 MCHC 32.9 g/dL (30.0-36.0) 09/29/21 09:45 RDW 14.1 % (12.1-15.1) 09/29/21 09:45 Plt Count 276 10^3/cmm (130-400) 09/29/21 09:45 MPV 11.7 fL (7.4-10.4) H 09/29/21 09:45 Neut % (Auto) 87.8 % 09/29/21 09:45 Lymph % (Auto) 4.7 % 09/29/21 09:45 Anson % (Auto) 4.5 % 09/29/21 09:45 Eos % (Auto) 2.3 % 09/29/21 09:45 Baso % (Auto) 0.3 % 09/29/21 09:45 Neut # (Auto) 15.73 10^3/uL (1.8-7.7) H 09/29/21 09:45 Lymph # (Auto) 0.8 10^3/uL (0.8-4.8) 09/29/21 09:45 Anson # (Auto) 0.8 10^3/uL (0.2-0.9) 09/29/21 09:45 Eos # (Auto) 0.4 10^3/uL (0.0-0.8) 09/29/21 09:45 Baso # (Auto) 0.1 10^3/uL (0.0-0.1) 09/29/21 09:45 Nucleated RBC % (auto) 0 % 09/29/21 09:45 Nucleated RBCs # 0.0 /100WBC 09/29/21 09:45 Sodium 136 mmol/L (136-145) 09/29/21 09:45 Potassium 3.4 mmol/L (3.5-5.1) L 09/29/21 09:45 Chloride 98 mmol/L (98-107) 09/29/21 09:45 Carbon Dioxide 26 mmol/L (22-29) 09/29/21 09:45 Anion Gap 15.4 (5-19) 09/29/21 09:45 BUN 10 mg/dL (8-23) 09/29/21 09:45 Creatinine 0.9 mg/dL (0.7-1.2) 09/29/21 09:45 GFR Calculation 83.4 mL/min (90-130) L 09/29/21 09:45 Glucose 179 mg/dL (65-115) H 09/29/21 09:45 Calculated Osmolality 286 mOsm/kg (285-295) 09/29/21 09:45 Lactate 2.1 mmol/L (0.5-2.2) 09/29/21 09:45 Calcium 9.2 mg/dL (8.5-10.5) 09/29/21 09:45 Magnesium 1.8 mg/dL (1.7-2.3) 09/29/21 09:45 Total Bilirubin 1.2 mg/dL (0.15-1.2) 09/29/21 09:45 AST 13 U/L (0-40) 09/29/21 09:45 ALT 16 U/L (0-41) 09/29/21 09:45 Alkaline Phosphatase 107 IU/L (40-130) 09/29/21 09:45 Total Protein 7.3 g/dL (6.6-8.7) 09/29/21 09:45 Albumin 4.1 g/dL (3.5-5.2) 09/29/21 09:45 Globulin 3.2 g/dL (1.3-4.6) 09/29/21 09:45 Discharge Plan Discharge Patient Disposition: Placed in Observation Clinical Impression: Clostridium difficile colitis Coding Level of Care Code ED Client Experience Manager for [facility] [employer]
[2021-09-29 10:00] LABS: Basophils # 0.1 10^3/uL (0.0-0.1); Basophils % 0.3 %; Eosinophils # 0.4 10^3/uL (0.0-0.8); Eosinophils % 2.3 %; Hemoglobin 15.8 g/dL (11.7-16.6); Lymphocytes # 0.8 10^3/uL (0.8-4.8); Lymphocytes % 4.7 %; Mean Corpuscular HGB Conc 32.9 g/dL (30.0-36.0); Mean Corpuscular Hemoglobin 29.5 pg (28.0-34.0); Mean Corpuscular Volume 89.6 fl (80-94); Mean Platelet Volume 11.7 fL (7.4-10.4); Monocytes # 0.8 10^3/uL (0.2-0.9); Monocytes % 4.5 %; Neutrophils # 15.73 10^3/uL (1.8-7.7); Neutrophils % 87.8 %; Nucleated Red Blood Cells % 0 %; Platelet Count 276 10^3/cmm (130-400); Red Blood Count 5.36 10^6/uL (4.1-5.3); Red Cell Distribution Width 14.1 % (12.1-15.1); White Blood Count 17.9 10^3/uL (4.0-10.0)
[2021-09-29] MEDS: sodium chloride 0.9% 1,000 ML 999 ML IV (10:01)
[2021-09-29] MEDS: morphine 4 mg/mL SDV 1 mL IVP (10:05)
[2021-09-29 10:21] LABS: Alanine Aminotransferase 16 U/L (0-41); Albumin Level 4.1 g/dL (3.5-5.2); Alkaline Phosphatase 107 IU/L (40-130); Anion Gap 15.4 (5-19); Aspartate Amino Transferase 13 U/L (0-40); Blood Urea Nitrogen 10 mg/dL (8-23); Calcium 9.2 mg/dL (8.5-10.5); Carbon Dioxide 26 mmol/L (22-29); Chloride 98 mmol/L (98-107); Globulin 3.2 g/dL (1.3-4.6); Glomerular Filtration Rate 83.4 mL/min (90-130); Glucose 179 mg/dL (65-115); Magnesium 1.8 mg/dL (1.7-2.3); Osmolality Calculated 286 mOsm/kg (285-295); Potassium 3.4 mmol/L (3.5-5.1); Sodium 136 mmol/L (136-145); Total Bilirubin 1.2 mg/dL (0.15-1.2); Total Protein 7.3 g/dL (6.6-8.7)
[2021-09-29 10:22] LABS: Lactate (Lactic Acid level) 2.1 mmol/L (0.5-2.2)
[2021-09-29] MEDS: iodixanol 320 mg/mL 100mL Btl IV (10:46)
--- NOTE | 2021-09-29 12:18 | P.HP_ITS ---
Providers/Chief Complaint Admitting Physician: Evaristo Roman MD Primary Care Provider: Kaelyn Horta MD Chief Complaint: severe abdominal pain/weakness History of Present Illness Alex Nice is a 71 year old male who presents to the emergency department with complaints of significant diarrhea, over 10 episodes, in the last 3 days. He states this is happened intermittently. 2 weeks ago this happened and he took some Cipro, with improvement for short while. He denies any fever. He has had some global abdominal pain. No blood in his stool, no black or tarry stool. Last colonoscopy over 5 years ago. Denies knowledge of having C. difficile before. Decreased p.o. intake, feeling tired and dizzy at times. Review of Systems General: Reports: 10 or more systems reviewed and unremarkable except in HPI and below Const: Reports: change in appetite; Denies: fever(s) or chills Eyes: Denies: change in vision ENMT: Denies: throat pain Card: Denies: chest pain Resp: Denies: dyspnea GI: Reports: abdominal pain and diarrhea; Denies: vomiting, hematochezia or melena : Denies: flank pain Musc: Denies: neck pain Skin/Breast: Denies: rash Neuro: Denies: headache(s) Psych: Denies: anxiety or depression Endo: Denies: polyuria Tai/Lymph: Denies: easy bruising All/Imm: Denies: urticaria Medications/Allergies Home Medications Medication Instructions Recorded Confirmed Last Taken Type atorvastatin 80 mg tablet 40 mg PO QPM 07/26/19 09/29/21 09/28/21 History cholecalciferol (vitamin D3) 10 400 unit PO DAILY 07/26/19 09/29/21 09/28/21 History mcg (400 unit) chewable tablet docusate sodium 100 mg tablet 100 mg PO DAILY 07/26/19 09/29/21 09/28/21 History donepezil 10 mg tablet 10 mg PO BEDTIME 07/26/19 09/29/21 09/28/21 History furosemide 20 mg tablet 20 mg PO DAILY 07/26/19 09/29/21 09/28/21 History metoprolol tartrate 50 mg tablet 50 mg PO BID 07/26/19 09/29/21 09/28/21 History warfarin 2 mg tablet See Rx Instructions .ROUTE .COMPLEX 07/26/19 09/29/21 09/28/21 History nitroglycerin 0.4 mg sublingual 0.4 mg SUBLINGUAL Q5M PRN 07/31/20 09/29/21 10/09/20 History tablet (Nitrostat) aspirin 325 mg tablet 325 mg PO DAILY 12/23/20 09/29/21 09/28/21 History ljaqopeotv-xwtpvylzdcqhy-deyhwdkj 1 tab PO Q4H PRN 12/23/20 09/29/21 Unknown History 50 mg-325 mg-40 mg tablet pantoprazole 40 mg tablet,delayed 40 mg PO BID 12/23/20 09/29/21 09/28/21 History release tamsulosin 0.4 mg capsule 0.4 mg PO QPM 12/23/20 09/29/21 09/28/21 History sildenafil 50 mg tablet 50 mg PO DAILY PRN #30 tab 05/13/21 09/29/21 Unknown Rx allopurinol 100 mg tablet 100 mg PO DAILY PRN 09/01/21 09/29/21 Unknown History aluminum-mag hydroxide-simethicone 5 ml PO Q6H PRN 09/01/21 09/29/21 Unknown History 400 mg-400 mg-40 mg/5 mL oral susp (Maalox Maximum Strength) duloxetine 60 mg capsule,delayed 60 mg PO DAILY 09/01/21 09/29/21 09/28/21 History release (Cymbalta) metformin 500 mg tablet,extended 500 mg PO BID 09/01/21 09/29/21 09/28/21 History release 24 hr omega-3 fatty acids 1,000 mg PO BID 09/01/21 09/29/21 09/28/21 History Lactobacillus acidophilus 10 20,000 mmu cells PO BID 09/29/21 09/29/21 09/28/21 History billion cell capsule bismuth subsalicylate 262 mg/15 mL 524 mg PO Q1H PRN 09/29/21 09/29/21 Unknown History oral suspension isosorbide mononitrate 30 mg 15 mg PO BID 09/29/21 09/29/21 09/28/21 History tablet,extended release 24 hr loperamide 2 mg tablet 2 mg PO DAILY PRN 09/29/21 09/29/21 Unknown History Allergies Allergy/AdvReac Type Severity Reaction Status Date / Time No Known Allergies Allergy Verified 09/11/21 09:51 PFSH Acute PFSH: Medical History (Updated 09/29/21 @ 12:30 by Evaristo Roman MD) BPH loc w urin obs/LUTS Chronic migraine without aura, intractable, with status migrainosus Coronary artery disease CVA (cerebral vascular accident) Depression Diabetes GERD (gastroesophageal reflux disease) Gross hematuria HTN (hypertension), benign Hyperlipidemia Memory impairment Pulmonary embolism Warfarin anticoagulation Surgical History S/P CABG x 4 Status post colonoscopy Family History Mother , at age 92 Cancer bone Father , at age 93 No problems noted. Other CAD (coronary artery disease) Chronic kidney disease (CKD) Diabetes Family history of premature coronary artery disease Hyperlipidemia Hypertension Lung disease Denies family history of Anesthesia complication Bleeding disorder Stroke Social History Smoking and tobacco status: never smoked Alcohol intake: never Marital status: Current occupational status: retired and disabled History of recent travel: No Vitals/I&O/Wt Last Vital Signs Temp 98.6 F 09/29/21 09:22 Pulse 78 09/29/21 09:54 Resp 14 09/29/21 09:22 BP 139/94 09/29/21 09:54 Pulse Ox 95 09/29/21 09:54 Weight last 48 hrs Weight 113.398 kg Physical Exam Narrative: General exam is an articulate white male, reporting voluminous diarrhea, who reports he is weak, in no current distress HEENT: Atraumatic and normocephalic. Pupils equally round. Oropharynx clear. Mucous membranes dry Neck is supple no lymphadenopathy thyromegaly Cardiovascular regular rate and rhythm without murmur, no S3 or S4 Lungs clear no wheezing or crackles Abdomen is soft, positive bowel sounds. Some global tenderness. No obvious organomegaly. exam is deferred Extremities no cyanosis clubbing or edema, cap refill brisk Skin a few red papules, left hand Neuro no obvious focal deficits. Data : 09/29/21 09:45 09/29/21 09:45 Other Labs: INR has been ordered Magnesium, calcium, lactate normal LFTs normal Stool is C. difficile positive. Bacterial and parasite panel are pending. Fecal Hemoccult positive. CT shows bowel thickening descending and sigmoid colon to the level of the rectum consistent with colitis. Cholelithiasis without cholecystitis is noted. Atherosclerotic this plaque is noted. Some circumferential thickening of the distal esophagus similar to prior study Micro: Microbiology 09/29/21 09:45 C.difficile Toxin B Gene (PCR) - Final Stool Occult Blood (FIT) - Final A&P Assessment and plan (1) Clostridium difficile colitis: Patient with severe C. difficile colitis, manifested while white blood cell count at 17.9, voluminous diarrhea, and mild dehydration. Initiate vancomycin 125 mg by mouth 4 times daily He warrants observation secondary to the severity of his symptoms, and high risk for dehydration and worsening clinical outcome without observation. Discussed with him etiology of C. difficile colitis, is frequently antibiotics. He has had ciprofloxacin in the last several weeks. Noted his stool is Hemoccult positive. This is consistent with his C. difficile colitis. No evidence of anemia. Continue Coumadin at this point. Status: Acute (2) Dehydration: Mild dehydration on clinical exam Continue hydration with IV fluids, with small amount of potassium Status: Acute (3) Diabetes: Sliding scale insulin Status: Acute (4) Pulmonary embolism: Continue Coumadin, pharmacy consult for dosing Status: Acute Qualifiers: Pulmonary embolism type: unspecified Chronicity: chronic Acute cor pulmonale presence: unspecified Qualified Code(s): I27.82 - Chronic pulmonary embolism Plan Mild hypokalemia, supplement Multiple other medical conditions as listed in his past medical history. Continue home medicines with the exception of Lasix which is being held for his mild dehydration Full code Coumadin will suffice for DVT prophylaxis Attestations Medical Necessity Statement*: Will require less than 2 midnight stay for evaluation and treatment of C. difficile colitis with initiation of vancomycin and support with IV fluids. 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
[2021-09-29] MEDS: lactated ringers 1,000 ML 75 ML IV (13:03)
[2021-09-29] MEDS: potassium chloride ER 20 mEq Tablet 40 MEQ PO (13:04)
[2021-09-29 13:10] LABS: INR 1.47 (0.8-1.2)
[2021-09-29] MEDS: HYDROmorphone 1 mg/mL INJ 1 mL IVP (14:52)
[2021-09-29] MEDS: pantoprazole DR 40 mg Tablet PO (17:34)
[2021-09-29] MEDS: atorvastatin 40 mg Tablet PO (17:34)
[2021-09-29] MEDS: isosorbide mononitrate ER 30 mg Tablet 15 MG PO (17:35)
[2021-09-29] MEDS: tamsulosin 0.4 mg Capsule PO (17:36)
[2021-09-29] MEDS: sodium chlor 0.9% + KCl 20 mEq 20 MEQ/1,000 ML BAG 75 MEQ IV (17:38)
[2021-09-29 17:45] LABS: Glucose Point of Care 158 mg/dL (70-110)
[2021-09-29] MEDS: warfarin 6 mg Tablet PO (18:17)
[2021-09-29] MEDS: donepezil 5 MG Tablet 10 MG PO (20:27)
[2021-09-29] MEDS: metoprolol tartrate 50 mg Tablet PO (20:27)
[2021-09-29 22:01] LABS: Glucose Point of Care 136 mg/dL (70-110)
[2021-09-30] VITALS (9 sets, daily range): BP systolic 106–137; BP diastolic 61–72; PULSE 56–82; RESP 16–18; TEMP 36.3–36.8; O2SAT 93–97
[2021-09-30 05:05] LABS: Basophils # 0.1 10^3/uL (0.0-0.1); Basophils % 0.4 %; Eosinophils # 0.8 10^3/uL (0.0-0.8); Eosinophils % 5.2 %; Hematocrit 41.7 % (42.0-52.0); Hemoglobin 13.2 g/dL (11.7-16.6); Lymphocytes % 6.4 %; Mean Corpuscular HGB Conc 31.7 g/dL (30.0-36.0); Mean Corpuscular Hemoglobin 29.3 pg (28.0-34.0); Mean Corpuscular Volume 92.5 fl (80-94); Mean Platelet Volume 11.5 fL (7.4-10.4); Monocytes # 1.1 10^3/uL (0.2-0.9); Neutrophils # 12.66 10^3/uL (1.8-7.7); Neutrophils % 80.6 %; Nucleated Red Blood Cells % 0 %; Platelet Count 228 10^3/cmm (130-400); Red Blood Count 4.51 10^6/uL (4.1-5.3); Red Cell Distribution Width 14.3 % (12.1-15.1); White Blood Count 15.7 10^3/uL (4.0-10.0)
[2021-09-30 05:18] LABS: INR 1.62 (0.8-1.2)
[2021-09-30 05:33] LABS: Alanine Aminotransferase 11 U/L (0-41); Albumin Level 3.4 g/dL (3.5-5.2); Alkaline Phosphatase 122 IU/L (40-130); Anion Gap 13.1 (5-19); Aspartate Amino Transferase 11 U/L (0-40); Blood Urea Nitrogen 10 mg/dL (8-23); Calcium 8.2 mg/dL (8.5-10.5); Carbon Dioxide 25 mmol/L (22-29); Chloride 104 mmol/L (98-107); Glomerular Filtration Rate 95.6 mL/min (90-130); Glucose 164 mg/dL (65-115); Osmolality Calculated 289 mOsm/kg (285-295); Potassium 4.1 mmol/L (3.5-5.1); Sodium 138 mmol/L (136-145); Total Protein 6.4 g/dL (6.6-8.7)
[2021-09-30] MEDS: sodium chlor 0.9% + KCl 20 mEq 20 MEQ/1,000 ML BAG 75 MEQ IV ×2 (06:23→21:29)
[2021-09-30 06:33] LABS: Glucose Point of Care 147 mg/dL (70-110)
--- NOTE | 2021-09-30 09:05 | P.PN_ITS ---
Subjective Subjective: Alex reports he is still having quite a bit of diarrhea. He thinks he had at least 20 stools last night. No nausea or vomiting. Medications: Reviewed: Yes Vitals/I&O/Wt Last Vital Signs Temp 98.1 F 09/30/21 07:50 Pulse 72 09/30/21 07:50 Resp 18 09/30/21 07:50 BP 132/71 09/30/21 07:50 Pulse Ox 95 09/30/21 07:50 09/29/21 09/30/21 09/30/21 22:59 06:59 14:59 Intake Total 343.75 / 1343.75 1316.25 / 2660.00 240 / 240 Balance 343.75 / 1343.75 1316.25 / 2660.00 240 / 240 Weight last 48 hrs Weight 113.398 kg Physical Exam Narrative: General exam is an articulate white male, no distress currently. During my interview he abruptly jumps up, and tries to make it to the toilet prior to having an episode of diarrhea. Neck is supple no lymphadenopathy thyromegaly Cardiovascular regular rate and rhythm without murmur, no S3 or S4 Lungs clear no wheezing or crackles Abdomen is soft, positive bowel sounds. Some global tenderness. No obvious organomegaly. Extremities no cyanosis clubbing or edema, cap refill brisk Skin a few red papules, left hand Data : 09/30/21 04:35 09/30/21 04:35 Micro: Microbiology 09/29/21 09:45 C.difficile Toxin B Gene (PCR) - Final Stool Occult Blood (FIT) - Final A&P Assessment and plan (1) Clostridium difficile colitis: Patient with severe C. difficile colitis, manifested with white blood cell count at 17.9, voluminous diarrhea, and mild dehydration. White blood cell count has improved somewhat today. Symptomatic diarrhea has not yet improved. Continue vancomycin 125 mg by mouth 4 times daily Not yet ready for discharge secondary to no improvement in symptoms currently. Continue IV fluids Discussed with him etiology of C. difficile colitis, is frequently antibiotics. He has had ciprofloxacin in the last several weeks. Noted his stool is Hemoccult positive. This is consistent with his C. difficile colitis. No evidence of anemia. Continue Coumadin at this point. When improvement occurs, he can likely be discharged home. Status: Acute (2) Dehydration: Mild dehydration on clinical exam Resolved with IV fluids. Continue. Status: Acute (3) Diabetes: Sliding scale insulin Status: Acute (4) Pulmonary embolism: Continue Coumadin, pharmacy consult for dosing Status: Acute Qualifiers: Pulmonary embolism type: unspecified Chronicity: chronic Acute cor pulmonale presence: unspecified Qualified Code(s): I27.82 - Chronic pulmonary embolism Plan Mild hypokalemia, resolved Multiple other medical conditions as listed in his past medical history. Continue home medicines with the exception of Lasix which is being held for his mild dehydration Full code Coumadin will suffice for DVT prophylaxis Attestations Medical Necessity Statement*: Needs continued hospitalization secondary to continued severe symptoms of C. difficile colitis. Coding Level of Care Code Acute Neuro Intensivist Physician for [facility] Diagnoses Clostridium difficile colitis A04.72 Dehydration E86.0 Diabetes E11.9 Pulmonary embolism I27.82 Pulmonary embolism type: unspecified Chronicity: chronic Acute cor pulmonale presence: unspecified
[2021-09-30] MEDS: insulin lispro 100 unit/1 mL SUBCUT ×2 (09:19→12:46)
[2021-09-30] MEDS: aspirin 325 mg Tablet PO (09:20)
[2021-09-30] MEDS: metoprolol tartrate 50 mg Tablet PO ×2 (09:20→21:28)
[2021-09-30] MEDS: isosorbide mononitrate ER 30 mg Tablet 15 MG PO ×2 (09:20→17:15)
[2021-09-30] MEDS: pantoprazole DR 40 mg Tablet PO ×2 (09:21→17:16)
[2021-09-30] MEDS: duloxetine 60 mg Capsule PO (09:21)
[2021-09-30] MEDS: acetaminophen 325 mg Tablet 650 MG PO (09:29)
[2021-09-30 10:56] LABS: Glucose Point of Care 142 mg/dL (70-110)
[2021-09-30] MEDS: HYDROcodone-acetaminophen 5-325 mg Tablet 1 TAB PO ×2 (11:25→17:15)
[2021-09-30] MEDS: warfarin 2 mg Tablet PO (14:43)
[2021-09-30] MEDS: warfarin 6 mg Tablet PO (14:44)
[2021-09-30 17:06] LABS: Glucose Point of Care 112 mg/dL (70-110)
[2021-09-30] MEDS: tamsulosin 0.4 mg Capsule PO (17:15)
[2021-09-30] MEDS: atorvastatin 40 mg Tablet PO (17:15)
[2021-09-30 20:55] LABS: Glucose Point of Care 117 mg/dL (70-110)
[2021-09-30] MEDS: donepezil 5 MG Tablet 10 MG PO (21:28)
[2021-10-01 03:12] LABS: Basophils # 0.1 10^3/uL (0.0-0.1); Basophils % 0.5 %; Eosinophils # 0.9 10^3/uL (0.0-0.8); Hematocrit 40.3 % (42.0-52.0); Hemoglobin 12.8 g/dL (11.7-16.6); Lymphocytes # 1.1 10^3/uL (0.8-4.8); Lymphocytes % 10.5 %; Mean Corpuscular HGB Conc 31.8 g/dL (30.0-36.0); Mean Corpuscular Hemoglobin 29.4 pg (28.0-34.0); Mean Corpuscular Volume 92.6 fl (80-94); Mean Platelet Volume 11.7 fL (7.4-10.4); Monocytes # 0.6 10^3/uL (0.2-0.9); Monocytes % 5.8 %; Neutrophils # 7.44 10^3/uL (1.8-7.7); Neutrophils % 73.8 %; Nucleated Red Blood Cells % 0 %; Platelet Count 213 10^3/cmm (130-400); Red Blood Count 4.35 10^6/uL (4.1-5.3); Red Cell Distribution Width 14.4 % (12.1-15.1); White Blood Count 10.1 10^3/uL (4.0-10.0)
[2021-10-01 03:22] LABS: INR 1.82 (0.8-1.2)
[2021-10-01 03:33] LABS: Anion Gap 12.7 (5-19); Blood Urea Nitrogen 6 mg/dL (8-23); Calcium 8.3 mg/dL (8.5-10.5); Carbon Dioxide 25 mmol/L (22-29); Chloride 106 mmol/L (98-107); Glomerular Filtration Rate 111.5 mL/min (90-130); Glucose 148 mg/dL (65-115); Osmolality Calculated 290 mOsm/kg (285-295); Potassium 3.7 mmol/L (3.5-5.1); Sodium 140 mmol/L (136-145)
[2021-10-01 03:36] VITALS: BP 126/77; PULSE 67; RESP 16; TEMP 36.7; O2SAT 97
[2021-10-01 06:36] LABS: Glucose Point of Care 142 mg/dL (70-110)
[2021-10-01 07:54] VITALS: BP 144/75; PULSE 63; TEMP 36.6; O2SAT 96
[2021-10-01 08:00] VITALS: PULSE 74; O2SAT 96
[2021-10-01] MEDS: metoprolol tartrate 50 mg Tablet PO (08:18)
[2021-10-01] MEDS: pantoprazole DR 40 mg Tablet PO (08:18)
[2021-10-01] MEDS: isosorbide mononitrate ER 30 mg Tablet 15 MG PO (08:18)
[2021-10-01] MEDS: duloxetine 60 mg Capsule PO (08:18)
[2021-10-01] MEDS: aspirin 325 mg Tablet PO (08:18)
[2021-10-01 08:27] LABS: Glucose Point of Care 141 mg/dL (70-110)
--- NOTE | 2021-10-01 10:27 | PM.DCS ---
Discharge Providers Date of Admission: 09/29/21 12:22 Date of Discharge: October 01, 2021 Attending Provider at Admission: Evaristo Roman MD Attending Provider at Discharge: Harris Spann Primary Care Provider: Kaelyn Horta MD Diagnoses at Discharge Discharge Diagnosis (1) Clostridium difficile colitis: Status: Acute (2) Dehydration: Status: Acute (3) Diabetes: Status: Acute (4) Pulmonary embolism: Status: Acute Qualifiers: Acute cor pulmonale presence: unspecified Chronicity: chronic Pulmonary embolism type: unspecified Qualified Code(s): I27.82 - Chronic pulmonary embolism Reason for Visit Reason for Visit: severe abdominal pain/weakness Hospital Course Hospital Course Pleasant 71-year-old gentleman with a history of TIAs with mild cognitive impairment, PE, on chronic anticoagulation with warfarin, other chronic morbidities who was admitted for cyst management after remote absence of diarrhea since about Tuesday. He was trying to self treat with ciprofloxacin which he stated was helping his symptoms temporarily, but since Tuesday continued having severe diarrhea, with some global abdominal pain, decreased p.o. intake, feeling tired and dizzy. Found to have C. difficile colitis with stool studies positive, with CT abdomen pelvis with bowel wall thickening involving descending, sigmoid colonic wall or rectum. Incidental findings included cholelithiasis without acute cholecystitis or bile duct dilation. Atherosclerosis of aorta. Atherosclerotic plaque and proximal SMA with stenosis approaching 50%. Mild diffuse circumferential thickening of the distal esophagus similar to prior study from 12/16/2020. Received treatment with PO vanco, IV hydration and potassium replacement. Diarrhea gradually improving. Abdominal pain resolved. He is currently tolerating clear liquids. Leukocytosis with significant improvement down from 18,000-10.1. Renal function remains intact. He states he still having some diarrhea, but so far no additional diarrhea since 4 AM this morning. He feels better and feels safe returning home. He elected to have medications delivered to bedside. Discussed with him to complete vancomycin course, but to notify primary provider in case diarrhea does not entirely resolve or comes back, in that case may require a prolonged pulse taper course. Discussed with him cleaning precautions at home, using it as infection/blister would be activity sports. Discussed with him to also avoid taking any more Cipro unless otherwise instructed by his doctor. Discussed w his son on the phone as well. Please follow-up with him for resolution of symptoms. Please also follow-up incidental findings including esophageal thickening, aorta and SMA atherosclerosis, incidentally noted SMA stenosis approaching 50%. Was continued on warfarin. Latest INR 1.82. Please follow-up in office. Physical Exam Const: COMMON NORMALS: alert GENERAL APPEARANCE: cooperative ORIENTATION/CONSCIOUSNESS: Yes awake HENMT: COMMON NORMALS: normocephalic, EAC's normal, Normal external nose present and moist oral mucous membranes HEAD & SCALP: normocephalic NOSE: Normal external nose present EXTERNAL AUDITORY CANAL: EAC's normal Neck/C-Spine: COMMON NORMALS: no meningeal signs Chest: CHEST: Yes Symmetrical chest wall rise OTHER: Old sternotomy scar. Resp: COMMON NORMALS: clear to auscultation bilaterally AUSCULTATION: clear to auscultation bilaterally Cardio: COMMON NORMALS: regular rate, regular rhythm and No murmurs present (Cardio) RATE: regular rate RHYTHM: regular rhythm GI: COMMON NORMALS: Normal to inspection, nondistended, normoactive bowel sounds present, Soft to palpation and non-tender PALPATION: Yes Soft to palpation Extremity: COMMON NORMALS: no pedal edema Neuro: COMMON NORMALS: moves all extremities SENSORIUM/ORIENTATION: Yes alert MENINGEAL SIGNS: Yes no meningeal signs Psych: COMMON NORMALS: mental status grossly normal Skin: COMMON NORMALS: no wounds RASHES: no rashes Discharge Data Studies Completed and Pending Completed Studies During Hospitalization Category Date Time Status CT abdomen pelvis w con* [id number] Urgent Cat Scan 09/29/21 09:41 Completed Pending at discharge Category Date Time Status Prothrombin Time INR AM LABS Lab 10/02/21 04:00 Ordered Radiology Impressions Abdomen/Pelvis CT 09/29/21 09:41 IMPRESSION: 1. Bowel wall thickening with enhancement involving the descending and sigmoid colon to the level of the rectum. These changes can be seen with vasodilatation associated with acute hyperemia of inflammatory bowel disease, hemorrhage or reperfusion after ischemia. There is no ascites or free air. No free fluid. 2. Cholelithiasis without acute cholecystitis or bile duct dilatation. 3. Atherosclerosis aorta. Atherosclerotic plaque in the proximal SMA with stenosis approaching 50%. 4. Mild diffuse circumferential thickening of the distal esophagus. Similar to prior study from 12/16/2020. Laboratory Results WBC 10.1 10^3/uL (4.0-10.0) H 10/01/21 02: RBC 4.35 10^6/uL (4.1-5.3) 10/01/21 02: Hgb 12.8 g/dL (11.7-16.6) 10/01/21 02: Hct 40.3 % (42.0-52.0) L 10/01/21 02: MCV 92.6 fl (80-94) 10/01/21 02: MCH 29.4 pg (28.0-34.0) 10/01/21 02: MCHC 31.8 g/dL (30.0-36.0) 10/01/21 02: RDW 14.4 % (12.1-15.1) 10/01/21 02: Plt Count 213 10^3/cmm (130-400) 10/01/21 02: MPV 11.7 fL (7.4-10.4) H 10/01/21 02: Neut % (Auto) 73.8 % 10/01/21 02: Lymph % (Auto) 10.5 % 10/01/21 02: Osborne % (Auto) 5.8 % 10/01/21 02: Eos % (Auto) 9.0 % 10/01/21 02: Baso % (Auto) 0.5 % 10/01/21 02: Neut # (Auto) 7.44 10^3/uL (1.8-7.7) 10/01/21 02: Lymph # (Auto) 1.1 10^3/uL (0.8-4.8) 10/01/21 02: Osborne # (Auto) 0.6 10^3/uL (0.2-0.9) 10/01/21 02: Eos # (Auto) 0.9 10^3/uL (0.0-0.8) H 10/01/21 02: Baso # (Auto) 0.1 10^3/uL (0.0-0.1) 10/01/21 02: Nucleated RBC % (auto) 0 % 10/01/21 02: Nucleated RBCs # 0.0 /100WBC 10/01/21 02: PT 21.40 SECONDS (12.1-14.9) H 10/01/21 02:23 INR 1.82 (0.8-1.2) H 10/01/21 02:23 Sodium 140 mmol/L (136-145) 10/01/21 02:23 Potassium 3.7 mmol/L (3.5-5.1) 10/01/21 02:23 Chloride 106 mmol/L (98-107) 10/01/21 02:23 Carbon Dioxide 25 mmol/L (22-29) 10/01/21 02:23 Anion Gap 12.7 (5-19) 10/01/21 02:23 BUN 6 mg/dL (8-23) L 10/01/21 02:23 Creatinine 0.7 mg/dL (0.7-1.2) 10/01/21 02:23 GFR Calculation 111.5 mL/min (90-130) 10/01/21 02:23 Glucose 148 mg/dL (65-115) H 10/01/21 02:23 POC Glucose 141 mg/dL (70-110) H 10/01/21 08:21 Calculated Osmolality 290 mOsm/kg (285-295) 10/01/21 02:23 Lactate 2.1 mmol/L (0.5-2.2) 09/29/21 09:45 Calcium 8.3 mg/dL (8.5-10.5) L 10/01/21 02:23 Magnesium 1.8 mg/dL (1.7-2.3) 09/29/21 09:45 Total Bilirubin 1.0 mg/dL (0.15-1.2) 09/30/21 04:35 AST 11 U/L (0-40) 09/30/21 04:35 ALT 11 U/L (0-41) 09/30/21 04:35 Alkaline Phosphatase 122 IU/L (40-130) 09/30/21 04:35 Total Protein 6.4 g/dL (6.6-8.7) L 09/30/21 04:35 Albumin 3.4 g/dL (3.5-5.2) L 09/30/21 04:35 Globulin 3.0 g/dL (1.3-4.6) 09/30/21 04:35 Vitals Last Vital Signs Temp 98 F 10/01/21 07:54 Pulse 74 10/01/21 08:00 Resp 16 10/01/21 03:36 BP 144/75 10/01/21 07:54 Pulse Ox 96 10/01/21 08:00 Discharge Plan Discharge Patient Disposition: Home Condition: Stable Prescriptions: New vancomycin 125 mg capsule 125 mg PO QID 8 Days Qty: 34 0RF Continued sildenafil 50 mg tablet 50 mg PO DAILY PRN (Reason: sexual activity) Qty: 30 3RF Rx Instructions: administer 30 minutes to 4 hours before activity atorvastatin 80 mg Tablet 40 mg PO QPM 0RF donepezil 10 mg Tablet 10 mg PO BEDTIME 0RF warfarin 2 mg Tablet See Rx Instructions .ROUTE .COMPLEX 0RF Rx Instructions: TAKE 4 TABS (8MG) PO ON TUESDAY,TUE, TUESDAY AND TAKE 3 TABS(6MG) ALL OTHER DAYS OR DIRECTED metoprolol tartrate 50 mg Tablet 50 mg PO BID 0RF docusate sodium 100 mg Tablet 100 mg PO DAILY 0RF cholecalciferol (vitamin D3) 400 unit Tablet,Chewable 400 unit PO DAILY 0RF aspirin 325 mg Tablet 325 mg PO DAILY 0RF gmvfrbtigd-cjljfuewtygcd-prap 50-325-40 mg Tablet 1 tab PO Q4H PRN (Reason: Migraine Headache) 0RF tamsulosin 0.4 mg capsule 0.4 mg PO QPM 0RF pantoprazole 40 mg tablet,delayed release (DR/EC) 40 mg PO BID 0RF nitroglycerin [Nitrostat] 0.4 mg Tablet, Sublingual 0.4 mg SUBLINGUAL Q5M PRN (Reason: Chest Pain) 0RF allopurinol 100 mg Tablet 100 mg PO DAILY PRN (Reason: gout) 0RF metformin 500 mg Tablet Extended Release 24 Hr 500 mg PO BID 0RF omega-3 fatty acids Capsule 1,000 mg PO BID 0RF duloxetine [Cymbalta] 60 mg Capsule,Delayed Release(Dr/Ec) 60 mg PO DAILY 0RF alum-mag hydroxide-simeth [Maalox Maximum Strength] 400-400-40 mg/5 mL suspension 5 ml PO Q6H PRN (Reason: indigestion) 0RF isosorbide mononitrate 30 mg Tablet Extended Release 24 Hr 15 mg PO BID 0RF bismuth subsalicylate 262 mg/15 mL Suspension 524 mg PO Q1H PRN (Reason: Heartburn) 0RF Rx Instructions: do not exceed 8 doses in a 24 hour period Lactobacillus acidophilus 10 billion cell Capsule 20,000 mmu cells PO BID 0RF Held furosemide 20 mg Tablet 20 mg PO DAILY 0RF Hold Instructions: Resume on 10/15/21. Discontinued loperamide 2 mg Tablet 2 mg PO DAILY PRN (Reason: Diarrhea) 0RF Rx Instructions: administer after each loose stool until symptoms controlled; do not exceed 8 mg per 24 hrs Discharge Orders: Discharge Order (Routine); Ordered 10/01/21 Ordered By: Harris Spann Referrals: Kaelyn Horta MD [Primary Care Provider] - 4-7 days (C diff) Patient Instructions: Vancomycin (By mouth), Dehydration (ED), C. Diff (Clostridioides Difficile) Infection (GEN) Activity Restrictions/Additional Instructions: Advance diet gradually to full liquid, then soft as tolerating. Avoid dehydration. Hold diuretic for now until instructed to resume by your primary doctor. Complete Vancomycin course. Do not take loperamide or other antidiarrheals as it may be dangerous when taken for colitis due to C diff. Follow-up with your primary doctor to reassess for resolution of C diff colitis. In case you develop high fever, abdominal pain, or are unable to eat, seek medical attention. In case diarrhea does not entirely resolve, or comes back, discussed with your primary doctor as you may require prolonged course of antibiotic (vancomycin or fidoxamycin). Please do not take ciprofloxacin unless otherwise instructed by your doctor. Clean surgfaces with bleach. Follow-up with your doctor for reassessment of your INR. Follow up with your primary doctor regarding mild diffuse circumferential thickening of the distal esophagus incidentally seen on CT. Discussed referral for evaluation by endoscopy if not done recently. Please discuss with your primary doctor incidentally seen atherosclerosis in her aorta as well as GI tract artery (SMA) which is showing narrowing up to 50%. Discharge Attestations Time Spent in Discharge Care*: greater than 30 min Quality Metrics Clinical Quality Measures [ No reported AMI, CVA or VTE this stay] Coding Level of Care Code Acute Chg FW DC note Diagnoses Clostridium difficile colitis A04.72 Dehydration E86.0 Diabetes E11.9 Pulmonary embolism I27.82 Acute cor pulmonale presence: unspecified Chronicity: chronic Pulmonary embolism type: unspecified
[2021-10-01 12:40] VITALS: BP 139/72; PULSE 59; RESP 18; TEMP 36.4; O2SAT 98
[2021-10-01 13:09] LABS: Glucose Point of Care 131 mg/dL (70-110)
== END 2021-10-01 13:31 | disposition home or self-care (01) ==
LOC: ER 12:35 → MEDSURG 15:03
PROVIDERS: Admitting Provider Internal Medicine; Emergency Provider Emergency Medicine; PCP Family Medicine; Visit Provider Internal Medicine
DX: A04.72 Enterocolitis due to Clostridium difficile, not specified as recurrent (principal); E86.0 Dehydration; E11.9 Type 2 diabetes mellitus without complications; I27.82 Chronic pulmonary embolism; Z86.73 Personal history of transient ischemic attack (TIA), and cerebral infarction without residual deficits; Z86.711 Personal history of pulmonary embolism; Z79.01 Long term (current) use of anticoagulants; N40.1 Benign prostatic hyperplasia with lower urinary tract symptoms; N13.8 Other obstructive and reflux uropathy; I10 Essential (primary) hypertension; E78.5 Hyperlipidemia, unspecified; Z95.1 Presence of aortocoronary bypass graft
CPT/HCPCS: 36415; 36416; 74177; 80048; 80053; 82274; 82962; 83605; 83735; 85025; 85610; 87493; 87506; 96365; 96366; 96367; 96372; 96375; 99285; G0378; J1170; J1815; J2270; J3370; J7030; Q9967

== ENCOUNTER → 2021-10-21 07:38 | Outpatient (BNVA) | payer OTHER, SELFPAY | PROVIDERS: PCP Family Medicine; Visit Provider Surgery | DX: A04.72 Enterocolitis due to Clostridium difficile, not specified as recurrent (principal); K22.89 Other specified disease of esophagus; R13.10 Dysphagia, unspecified | CPT/HCPCS: 99204 ==

== ENCOUNTER 2022-02-22 09:47 | Emergency (ER) | payer OTHER, SELFPAY ==
[2022-02-22 09:52] VITALS: BP 124/68; PULSE 69; RESP 16; TEMP 36.8; O2SAT 98; BMI 32.5
--- NOTE | 2022-02-22 10:12 | PC.NURSE ---
pt reports a syncopal episode a week ago and since then has had progressive swelling and decreased ROM to right arm. Pt c/o right elbow and wrist pain. Reports he keeps hitting his elbow, increasing his pain. Pt states if he stands up too quickly he gets dizzy, but that he is used to that. pt states he is only here to get his elbow checked out.
--- NOTE | 2022-02-22 10:20 | ECG_ITS ---
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 Measurements Intervals [place] Rate: 64 P: 22 MN: 214 QRS: -20 QRSD: 103 T: 84 QT: 404 QTc: 419 Interpretive Statements SINUS RHYTHM WITH FIRST DEGREE AV BLOCK POSSIBLE LEFT ATRIAL ENLARGEMENT [-0.1mV P-WAVE IN V1/V2] LEFT VENTRICULAR HYPERTROPHY AND ST-T CHANGE [VOLTAGE CRITERIA PLUS ST/T ABNORMALITY] Compared to ECG 09/01/2021 11:08:57 First degree AV block now present Left-axis deviation no longer present Incomplete right bundle-branch block no longer present Myocardial infarct finding no longer present ST (T wave) deviation still present Electronically Signed On 02-22-2022 17:19:[address] M.D. [id number]
--- NOTE | 2022-02-22 10:20 | XRR_ITS ---
PROCEDURE INFORMATION: Exam: XR Chest Exam date and time: 02/22/2022 10:46 AM Age: 71 years old Clinical indication: Other: Syncopal episode TECHNIQUE: Imaging protocol: Radiologic exam of the chest. Views: 1 view. COMPARISON: CR XR chest 1V portable [id number] 09/01/2021 11:15 AM FINDINGS: Lungs: Unremarkable. No consolidation. Pleural spaces: Unremarkable. No pleural effusion. No pneumothorax. Heart/Mediastinum: Changes of prior CABG. Bones/joints: Unremarkable. XR/XR chest 1V portable [id number] IMPRESSION: No acute cardiopulmonary abnormality.
--- NOTE | 2022-02-22 10:20 | CT_ITS ---
WS: [id number] CT HEAD TECHNIQUE: Noncontrast CT of the head obtained from the skullbase to the vertex. CLINICAL INFORMATION: syncopal episode COMPARISON: None. DLP: 1085.[address] scans at [facility] use at least one of these dose optimization techniques: automated e xposure control; mA and/or kV adjustment per patient size (includes targeted exams where dose is matc hed to clinical indication); or iterative reconstruction. FINDINGS: No evidence of intracranial hemorrhage or mass effect. Ventricular system and basal cisterns are mary nt. Mild small vessel changes with moderate parenchymal volume loss. Tiny chronic lacunar infarcts in the RIGHT caudate. Intracranial vascular calcification. No extra-axial fluid collections. No evidenc e of mass or mass effect. Paranasal sinuses and mastoid air cells are well aerated. .Normal visualized soft tissues. CT/CT head wo con* [id number] IMPRESSION: 1. No evidence of intracranial hemorrhage or mass effect. 2. Mild small vessel changes. Moderate parenchymal volume loss. 3. No acute intracranial findings.
--- NOTE | 2022-02-22 10:23 | XRR_ITS ---
PROCEDURE INFORMATION: Exam: XR Right Wrist Exam date and time: 02/22/2022 10:51 AM Age: 71 years old Clinical indication: Injury or trauma; Fall; Blunt trauma (contusions or hematomas); Wrist; Right; Additional info: Fall injury TECHNIQUE: Imaging protocol: Radiologic exam of the Right wrist. Views: 3 or more views. COMPARISON: No relevant prior studies available. FINDINGS: Bones/joints: No acute fracture or malalignment. Moderate STT and 1st CMC joint degenerative changes. Soft tissues: Normal. XR/XR wrist RT min 3V* [id number] IMPRESSION: No acute fracture or malalignment.
--- NOTE | 2022-02-22 10:23 | XRR_ITS ---
PROCEDURE INFORMATION: Exam: XR Right Elbow Exam date and time: 02/22/2022 10:51 AM Age: 71 years old Clinical indication: Injury or trauma; Fall; Blunt trauma (contusions or hematomas); Elbow; Right; Additional info: Fall injury TECHNIQUE: Imaging protocol: Radiologic exam of the Right elbow. Views: 3 or more views. COMPARISON: No relevant prior studies available. FINDINGS: Bones/joints: No acute fracture or malalignment. Mild degenerative changes of the elbow. No joint effusion. Lateral epicondylar enthesopathy. Soft tissues: Normal. XR/XR elbow RT min 3V* [id number] IMPRESSION: No acute fracture or malalignment.
--- NOTE | 2022-02-22 10:26 | ED_ITS ---
Documented by User: ANTHONY Casas 02/23/22 08:36 HPI - Fall General: Chief Complaint: Fall Stated Complaint: head injury-va sent over for head xray Time Seen by Provider: 02/22/22 10:06 History of Present Illness: Patient is a 71-year-old male comes to the ED with syncopal episode injury. Past medical history of hypertension, CAD, CABG, hyperlipidemia and diabetes. Patient is on warfarin. He states that approximately a week ago he was up walking around his house and had a syncopal episode. He says he has these types of syncopal episodes a couple times a year. He has to get up slowly and stand worries that for few minutes before he gets moving because when he first gets up he gets dizzy. After his syncopal episode a week ago he was able to get back up himself without any help. His main complaints since episode has been right elbow and right wrist pain. he denies any chest pain, headache, shortness of breath, headache, nausea/vomiting, bladder or bowel symptoms. Associated symptoms-after fall: Denies abdominal pain, chest pain, headache(s), hematuria or neck pain Review of Systems Const: Denies: fever(s), chills or fatigue Eyes: Denies: change in vision or eye discomfort ENMT: Denies: throat pain, odynophagia, nasal discharge or nasal congestion Card: Reports: syncope; Denies: chest pain, palpitations, edema, swelling of feet/ankles, dyspnea on exertion or orthopnea Resp: Denies: dyspnea, productive cough or non-productive cough GI: Denies: abdominal pain, nausea, vomiting, diarrhea, constipation or hematochezia : Denies: flank pain, difficulty urinating, dysuria or hematuria Musc: Reports: extremity pain (Right elbow and right wrist), extremity swelling (Right elbow right wrist) and limited range of motion (Right wrist); Denies: neck pain or back pain Skin/Breast: Denies: rash or new lesions Neuro: Denies: headache(s), numbness in extremities or weakness in extremities [facility] ED PFSH: Medical History BPH loc w urin obs/LUTS Chronic migraine without aura, intractable, with status migrainosus Coronary artery disease CVA (cerebral vascular accident) Depression Diabetes GERD (gastroesophageal reflux disease) Gross hematuria HTN (hypertension), benign Hyperlipidemia Memory impairment Pulmonary embolism Urinary retention Warfarin anticoagulation Surgical History History of esophagogastroduodenoscopy (EGD) S/P CABG x 4 Status post colonoscopy Family History Mother , at age 92 Cancer bone Father , at age 93 No problems noted. Other CAD (coronary artery disease) Chronic kidney disease (CKD) Diabetes Family history of premature coronary artery disease Hyperlipidemia Hypertension Lung disease Denies family history of Anesthesia complication Bleeding disorder Stroke Social History Smoking and tobacco status: never smoked Alcohol intake: never Marital status: Current occupational status: retired and disabled History of recent travel: No Physical Exam Const: COMMON NORMALS: no acute distress, patient oriented x3 and alert GENERAL APPEARANCE: cooperative and comfortable HENMT: COMMON NORMALS: normocephalic HEAD & SCALP: normocephalic MOUTH: Normal oral and palatal mucosa present THROAT: posterior oropharynx normal and uvula midline Neck/C-Spine: COMMON NORMALS: supple GENERAL: Yes normal visual inspection CERVICAL SPINE: Yes cervical ROM normal and No Cervical spine tenderness Resp: COMMON NORMALS: normal respiratory effort, No retractions, No use of accessory muscles and clear to auscultation bilaterally AUSCULTATION: clear to auscultation bilaterally Cardio: COMMON NORMALS: regular rate, regular rhythm, S1 normal heart sound present, S2 normal heart sound present, No gallops present (Cardio), No clicks present (Cardio), No murmurs present (Cardio) and Peripheral pulses 2+ throughout RATE: regular rate RHYTHM: regular rhythm HEART SOUNDS: S1 normal heart sound present and S2 normal heart sound present PERIPHERAL PULSES: Peripheral pulses 2+ throughout GI: COMMON NORMALS: Normal to inspection, nondistended, normoactive bowel sounds present, Soft to palpation, non-tender and no masses PALPATION: Yes Soft to palpation : COMMON NORMALS: Yes no CVA tenderness BLADDER/KIDNEY EXAM: Yes no CVA tenderness Back/Pelvis: COMMON NORMALS: no CVA tenderness Extremity: COMMON NORMALS: normal to inspection NARRATIVE EXTREMITY EXAM: Right arm?tenderness over olecranial process and right wrist. Neurovascular intact. Neuro: COMMON NORMALS: patient oriented x3 SENSORIUM/ORIENTATION: Yes alert GAIT: Yes Normal gait present Skin: GENERAL SKIN EXAM: dry skin Course Vital Signs: Vital signs: Vital Signs Temperature 98.3 F 02/22/22 09:52 Pulse Rate 68 02/22/22 12:46 Respiratory Rate 16 02/22/22 12:46 Blood Pressure 124/68 02/22/22 09:52 Pulse Oximetry 94 02/22/22 12:46 Oxygen Delivery Me thod 02/22/22 09:52 MDM - Fall Medical Decision Making Patient is a 71-year-old male comes to the ED with syncopal episode injury. Past medical history of hypertension, CAD, CABG, hyperlipidemia and diabetes. Patient is on warfarin. His main complaint is right wrist and right elbow pain since syncopal episode last week. Denies any chest pain, shortness of breath. Vitals are stable and patient appears nontoxic in no acute distress or pain. Labs are unremarkable. Troponin negative. Chest x-ray shows no acute findings. Head CT shows no acute findings. Right elbow and right wrist showed no acute fractures or findings. EKG showed no acute changes or any ST segment elevation or depression seen. Patient was diagnosed with right arm pain and episode of syncope. He was told to follow-up with his mortgage loan specialist within the next week for reevaluation. Return to ED precautions given. Patient understood and agreed with plan. Lab Data I reviewed the patient's lab results. : 02/22/22 10:40 02/22/22 10:40 Radiology Impressions Chest X-Ray 02/22/22 10:20 IMPRESSION: No acute cardiopulmonary abnormality. Head CT 02/22/22 10:20 IMPRESSION: 1. No evidence of intracranial hemorrhage or mass effect. 2. Mild small vessel changes. Moderate parenchymal volume loss. 3. No acute intracranial findings. Elbow X-Ray 02/22/22 10:23 IMPRESSION: No acute fracture or malalignment. Wrist X-Ray 02/22/22 10:23 IMPRESSION: No acute fracture or malalignment. Laboratory Results WBC 12.3 10^3/uL (4.0-10.0) H 02/22/22 10:40 RBC 4.51 10^6/uL (4.1-5.3) 02/22/22 10:40 Hgb 13.5 g/dL (11.7-16.6) 02/22/22 10:40 Hct 41.2 % (42.0-52.0) L 02/22/22 10:40 MCV 91.4 fl (80-94) 02/22/22 10:40 MCH 29.9 pg (28.0-34.0) 02/22/22 10:40 MCHC 32.8 g/dL (30.0-36.0) 02/22/22 10:40 RDW 14.5 % (12.1-15.1) 02/22/22 10:40 Plt Count 282 10^3/cmm (130-400) 02/22/22 10:40 MPV 11.3 fL (7.4-10.4) H 02/22/22 10:40 Neut % (Auto) 80.0 % 02/22/22 10:40 Lymph % (Auto) 10.9 % 02/22/22 10:40 [place] % (Auto) 6.4 % 02/22/22 10:40 Eos % (Auto) 1.6 % 02/22/22 10:40 Baso % (Auto) 0.4 % 02/22/22 10:40 Neut # (Auto) 9.82 10^3/uL (1.8-7.7) H 02/22/22 10:40 Lymph # (Auto) 1.3 10^3/uL (0.8-4.8) 02/22/22 10:40 [place] # (Auto) 0.8 10^3/uL (0.2-0.9) 02/22/22 10:40 Eos # (Auto) 0.2 10^3/uL (0.0-0.8) 02/22/22 10:40 Baso # (Auto) 0.1 10^3/uL (0.0-0.1) 02/22/22 10:40 Nucleated RBC % (auto) 0 % 02/22/22 10:40 Nucleated RBCs # 0.0 /100WBC 02/22/22 10:40 Sodium 134 mmol/L (136-145) L 02/22/22 10:40 Potassium 4.3 mmol/L (3.5-5.1) 02/22/22 10:40 Chloride 98 mmol/L (98-107) 02/22/22 10:40 Carbon Dioxide 28 mmol/L (22-29) 02/22/22 10:40 Anion Gap 12.3 (5-19) 02/22/22 10:40 BUN 19 mg/dL (8-23) 02/22/22 10:40 Creatinine 1.0 mg/dL (0.7-1.2) 02/22/22 10:40 GFR Calculation 73.9 mL/min (90-130) L 02/22/22 10:40 Glucose 118 mg/dL (65-115) H 02/22/22 10:40 Calculated Osmolality 281 mOsm/kg (285-295) L 02/22/22 10:40 Calcium 8.9 mg/dL (8.5-10.5) 02/22/22 10:40 Total Bilirubin 0.6 mg/dL (0.15-1.2) 02/22/22 10:40 AST 11 U/L (0-40) 02/22/22 10:40 ALT 14 U/L (0-41) 02/22/22 10:40 Alkaline Phosphatase 96 U/L (40-130) 02/22/22 10:40 Troponin T Baseline 9 ng/L (0-15) 02/22/22 10:40 NT-Pro-B Natriuret Pep 512 pg/mL (0-125) H 02/22/22 10:40 Total Protein 6.9 g/dL (6.6-8.7) 02/22/22 10:40 Albumin 3.7 g/dL (3.5-5.2) 02/22/22 10:40 Globulin 3.2 g/dL (1.3-4.6) 02/22/22 10:40 Discharge Plan Discharge Patient Disposition: Home Clinical Impression: Episode of syncope, Right arm pain Condition: Stable Prescriptions: No Action sildenafil 50 mg tablet 50 mg PO DAILY PRN (Reason: sexual activity) Qty: 30 3RF Rx Instructions: administer 30 minutes to 4 hours before activity atorvastatin 80 mg Tablet 40 mg PO QPM donepezil 10 mg Tablet 10 mg PO BEDTIME warfarin 2 mg Tablet See Rx Instructions .ROUTE .COMPLEX Rx Instructions: TAKE 4 TABS (8MG) PO ON TUESDAY,TUE, TUESDAY AND TAKE 3 TABS(6MG) ALL OTHER DAYS OR DIRECTED metoprolol tartrate 50 mg Tablet 50 mg PO BID furosemide 20 mg Tablet 20 mg PO DAILY Hold Instructions: Resume on 10/15/21. docusate sodium 100 mg Tablet 100 mg PO DAILY cholecalciferol (vitamin D3) 400 unit Tablet,Chewable 400 unit PO DAILY aspirin 325 mg Tablet 325 mg PO DAILY tamsulosin 0.4 mg capsule 0.4 mg PO QPM pantoprazole 40 mg tablet,delayed release (DR/EC) 40 mg PO BID nitroglycerin [Nitrostat] 0.4 mg Tablet, Sublingual 0.4 mg SUBLINGUAL Q5M PRN (Reason: Chest Pain) [place] 3 Fish Oil 684-1,200 mg Capsule,Delayed Release(Dr/Ec) 1 cap PO DAILY allopurinol 100 mg Tablet 100 mg PO DAILY PRN (Reason: gout) metformin 500 mg Tablet Extended Release 24 Hr 500 mg PO BID duloxetine [Cymbalta] 60 mg Capsule,Delayed Release(Dr/Ec) 60 mg PO DAILY alum-mag hydroxide-simeth [Maalox Maximum Strength] 400-400-40 mg/5 mL suspension 5 ml PO Q6H PRN (Reason: indigestion) isosorbide mononitrate 30 mg Tablet Extended Release 24 Hr 15 mg PO BID bismuth subsalicylate 262 mg/15 mL Suspension 524 mg PO Q1H PRN (Reason: Heartburn) Rx Instructions: do not exceed 8 doses in a 24 hour period Lactobacillus acidophilus 10 billion cell Capsule 20,000 mmu cells PO BID Discharge Orders: Discharge ED (Routine); Ordered 02/22/22 Ordered By: Joseph Laurent Referrals: Kaelyn Horta MD [Primary Care Provider] - Discharge Diet: Regular Discharge Activity: Increase activity as tolerated Patient Instructions: Syncope (DC) Activity Restrictions/Additional Instructions: Follow-up with medical provider as directed in the next 5 to 7 days for reevaluation. Kevin mortgage loan specialist and set up a follow-up appoint with them within the next couple weeks. Take medications as prescribed. Return to the ER or your medical provider if condition worsens. Please read and understand discharge instructions. Thank you for choosing [facility] for your healthcare needs today. Please realize this is an emergency room and that we are providing you with a medical screening exam and this may not be complete and all inclusive of all the testing and or work up that you may need to determine your ailment or severity of your illness. It is very important that you follow up as instructed or that you return to the Emergency Department should you have concerns or if your cond ition changes or worsens in any way. Coding Level of Care Code ED Solvent Station Attendant for Chg Fwd Exam Comprehensive Documented by User: Shyam Lam MD 02/28/22 23:51 HPI - Fall General: Chief Complaint: Fall Stated Complaint: head injury-va sent over for head xray Time Seen by Provider: 02/22/22 10:06 [facility] ED PFSH: Medical History BPH loc w urin obs/LUTS Chronic migraine without aura, intractable, with status migrainosus Coronary artery disease CVA (cerebral vascular accident) Depression Diabetes GERD (gastroesophageal reflux disease) Gross hematuria HTN (hypertension), benign Hyperlipidemia Memory impairment Pulmonary embolism Urinary retention Warfarin anticoagulation Surgical History History of esophagogastroduodenoscopy (EGD) S/P CABG x 4 Status post colonoscopy Family History Mother , at age 92 Cancer bone Father , at age 93 No problems noted. Other CAD (coronary artery disease) Chronic kidney disease (CKD) Diabetes Family history of premature coronary artery disease Hyperlipidemia Hypertension Lung disease Denies family history of Anesthesia complication Bleeding disorder Stroke Social History Smoking and tobacco status: never smoked Alcohol intake: never Marital status: Current occupational status: retired and disabled History of recent travel: No Course Vital Signs: Vital signs: Vital Signs Temperature 98.3 F 02/22/22 09:52 Pulse Rate 68 02/22/22 12:46 Respiratory Rate 16 02/22/22 12:46 Blood Pressure 124/68 02/22/22 09:52 Pulse Oximetry 94 10/17/22 12:46 Oxygen Delivery Me thod 02/22/22 09:52 MDM - Fall Medical Decision Making Patient is a 71-year-old male comes to the ED with syncopal episode injury. Past medical history of hypertension, CAD, CABG, hyperlipidemia and diabetes. Patient is on warfarin. His main complaint is right wrist and right elbow pain since syncopal episode last week. Denies any chest pain, shortness of breath. Vitals are stable and patient appears nontoxic in no acute distress or pain. Labs are unremarkable. Troponin negative. Chest x-ray shows no acute findings. Head CT shows no acute findings. Right elbow and right wrist showed no acute fractures or findings. EKG showed no acute changes or any ST segment elevation or depression seen. Patient was diagnosed with right arm pain and episode of syncope. He was told to follow-up with his mortgage loan specialist within the next week for reevaluation. Return to ED precautions given. Patient understood and agreed with plan. I discussed this case with ANTHONY Casas. I reviewed documentation. Shyam Lam MD Emergency Medicine Lab Data : 02/22/22 10:40 02/22/22 10:40 Radiology Impressions Chest X-Ray 02/22/22 10:20 IMPRESSION: No acute cardiopulmonary abnormality. Head CT 02/22/22 10:20 IMPRESSION: 1. No evidence of intracranial hemorrhage or mass effect. 2. Mild small vessel changes. Moderate parenchymal volume loss. 3. No acute intracranial findings. Elbow X-Ray 02/22/22 10:23 IMPRESSION: No acute fracture or malalignment. Wrist X-Ray 02/22/22 10:23 IMPRESSION: No acute fracture or malalignment. Laboratory Results WBC 12.3 10^3/uL (4.0-10.0) H 02/22/22 10:40 RBC 4.51 10^6/uL (4.1-5.3) 02/22/22 10:40 Hgb 13.5 g/dL (11.7-16.6) 02/22/22 10:40 Hct 41.2 % (42.0-52.0) L 02/22/22 10:40 MCV 91.4 fl (80-94) 02/22/22 10:40 MCH 29.9 pg (28.0-34.0) 02/22/22 10:40 MCHC 32.8 g/dL (30.0-36.0) 02/22/22 10:40 RDW 14.5 % (12.1-15.1) 02/22/22 10:40 Plt Count 282 10^3/cmm (130-400) 02/22/22 10:40 MPV 11.3 fL (7.4-10.4) H 02/22/22 10:40 Neut % (Auto) 80.0 % 02/22/22 10:40 Lymph % (Auto) 10.9 % 02/22/22 10:40 [place] % (Auto) 6.4 % 02/22/22 10:40 Eos % (Auto) 1.6 % 02/22/22 10:40 Baso % (Auto) 0.4 % 02/22/22 10:40 Neut # (Auto) 9.82 10^3/uL (1.8-7.7) H 02/22/22 10:40 Lymph # (Auto) 1.3 10^3/uL (0.8-4.8) 02/22/22 10:40 [place] # (Auto) 0.8 10^3/uL (0.2-0.9) 02/22/22 10:40 Eos # (Auto) 0.2 10^3/uL (0.0-0.8) 02/22/22 10:40 Baso # (Auto) 0.1 10^3/uL (0.0-0.1) 02/22/22 10:40 Nucleated RBC % (auto) 0 % 02/22/22 10:40 Nucleated RBCs # 0.0 /100WBC 02/22/22 10:40 Sodium 134 mmol/L (136-145) L 02/22/22 10:40 Potassium 4.3 mmol/L (3.5-5.1) 02/22/22 10:40 Chloride 98 mmol/L (98-107) 02/22/22 10:40 Carbon Dioxide 28 mmol/L (22-29) 02/22/22 10:40 Anion Gap 12.3 (5-19) 02/22/22 10:40 BUN 19 mg/dL (8-23) 02/22/22 10:40 Creatinine 1.0 mg/dL (0.7-1.2) 02/22/22 10:40 GFR Calculation 73.9 mL/min (90-130) L 02/22/22 10:40 Glucose 118 mg/dL (65-115) H 02/22/22 10:40 Calculated Osmolality 281 mOsm/kg (285-295) L 02/22/22 10:40 Calcium 8.9 mg/dL (8.5-10.5) 02/22/22 10:40 Total Bilirubin 0.6 mg/dL (0.15-1.2) 02/22/22 10:40 AST 11 U/L (0-40) 02/22/22 10:40 ALT 14 U/L (0-41) 02/22/22 10:40 Alkaline Phosphatase 96 U/L (40-130) 02/22/22 10:40 Troponin T Baseline 9 ng/L (0-15) 02/22/22 10:40 NT-Pro-B Natriuret Pep 512 pg/mL (0-125) H 02/22/22 10:40 Total Protein 6.9 g/dL (6.6-8.7) 02/22/22 10:40 Albumin 3.7 g/dL (3.5-5.2) 02/22/22 10:40 Globulin 3.2 g/dL (1.3-4.6) 02/22/22 10:40 Discharge Plan Discharge Patient Disposition: Home Clinical Impression: Episode of syncope, Right arm pain Condition: Stable Prescriptions: No Action sildenafil 50 mg tablet 50 mg PO DAILY PRN (Reason: sexual activity) Qty: 30 3RF Rx Instructions: administer 30 minutes to 4 hours before activity atorvastatin 80 mg Tablet 40 mg PO QPM donepezil 10 mg Tablet 10 mg PO BEDTIME warfarin 2 mg Tablet See Rx Instructions .ROUTE .COMPLEX Rx Instructions: TAKE 4 TABS (8MG) PO ON TUESDAY,TUE, TUESDAY AND TAKE 3 TABS(6MG) ALL OTHER DAYS OR DIRECTED metoprolol tartrate 50 mg Tablet 50 mg PO BID furosemide 20 mg Tablet 20 mg PO DAILY Hold Instructions: Resume on 10/15/21. docusate sodium 100 mg Tablet 100 mg PO DAILY cholecalciferol (vitamin D3) 400 unit Tablet,Chewable 400 unit PO DAILY aspirin 325 mg Tablet 325 mg PO DAILY tamsulosin 0.4 mg capsule 0.4 mg PO QPM pantoprazole 40 mg tablet,delayed release (DR/EC) 40 mg PO BID nitroglycerin [Nitrostat] 0.4 mg Tablet, Sublingual 0.4 mg SUBLINGUAL Q5M PRN (Reason: Chest Pain) [place] 3 Fish Oil 684-1,200 mg Capsule,Delayed Release(Dr/Ec) 1 cap PO DAILY allopurinol 100 mg Tablet 100 mg PO DAILY PRN (Reason: gout) metformin 500 mg Tablet Extended Release 24 Hr 500 mg PO BID duloxetine [Cymbalta] 60 mg Capsule,Delayed Release(Dr/Ec) 60 mg PO DAILY alum-mag hydroxide-simeth [Maalox Maximum Strength] 400-400-40 mg/5 mL suspension 5 ml PO Q6H PRN (Reason: indigestion) isosorbide mononitrate 30 mg Tablet Extended Release 24 Hr 15 mg PO BID bismuth subsalicylate 262 mg/15 mL Suspension 524 mg PO Q1H PRN (Reason: Heartburn) Rx Instructions: do not exceed 8 doses in a 24 hour period Lactobacillus acidophilus 10 billion cell Capsule 20,000 mmu cells PO BID Discharge Orders: Discharge ED (Routine); Ordered 02/22/22 Ordered By: Joseph Laurent Referrals: Kaelyn Horta MD [Primary Care Provider] - Discharge Diet: Regular Discharge Activity: Increase activity as tolerated Patient Instructions: Syncope (DC) Activity Restrictions/Additional Instructions: Follow-up with medical provider as directed in the next 5 to 7 days for reevaluation. Kevin mortgage loan specialist and set up a follow-up appoint with them within the next couple weeks. Take medications as prescribed. Return to the ER or your medical provider if condition worsens. Please read and understand discharge instructions. Thank you for choosing [facility] for your healthcare needs today. Please realize this is an emergency room and that we are providing you with a medical screening exam and this may not be complete and all inclusive of all the testing and or work up that you may need to determine your ailment or severity of your illness. It is very important that you follow up as instructed or that you return to the Emergency Department should you have concerns or if your condition changes or worsens in any way. Coding Level of Care Code ED Solvent Station Attendant for Kevin Martines Exam Comprehensive
[2022-02-22 11:00] LABS: Basophils # 0.1 10^3/uL (0.0-0.1); Basophils % 0.4 %; Eosinophils # 0.2 10^3/uL (0.0-0.8); Eosinophils % 1.6 %; Hematocrit 41.2 % (42.0-52.0); Hemoglobin 13.5 g/dL (11.7-16.6); Lymphocytes # 1.3 10^3/uL (0.8-4.8); Lymphocytes % 10.9 %; Mean Corpuscular HGB Conc 32.8 g/dL (30.0-36.0); Mean Corpuscular Hemoglobin 29.9 pg (28.0-34.0); Mean Corpuscular Volume 91.4 fl (80-94); Mean Platelet Volume 11.3 fL (7.4-10.4); Monocytes # 0.8 10^3/uL (0.2-0.9); Monocytes % 6.4 %; Neutrophils # 9.82 10^3/uL (1.8-7.7); Nucleated Red Blood Cells % 0 %; Platelet Count 282 10^3/cmm (130-400); Red Blood Count 4.51 10^6/uL (4.1-5.3); Red Cell Distribution Width 14.5 % (12.1-15.1); White Blood Count 12.3 10^3/uL (4.0-10.0)
[2022-02-22 11:36] LABS: Alanine Aminotransferase 14 U/L (0-41); Albumin Level 3.7 g/dL (3.5-5.2); Alkaline Phosphatase 96 U/L (40-130); Anion Gap 12.3 (5-19); Aspartate Amino Transferase 11 U/L (0-40); Blood Urea Nitrogen 19 mg/dL (8-23); Calcium 8.9 mg/dL (8.5-10.5); Carbon Dioxide 28 mmol/L (22-29); Chloride 98 mmol/L (98-107); Globulin 3.2 g/dL (1.3-4.6); Glomerular Filtration Rate 73.9 mL/min (90-130); Glucose 118 mg/dL (65-115); NT Pro B Type Natriuretic Pept 512 pg/mL (0-125); Osmolality Calculated 281 mOsm/kg (285-295); Potassium 4.3 mmol/L (3.5-5.1); Sodium 134 mmol/L (136-145); Total Bilirubin 0.6 mg/dL (0.15-1.2); Total Protein 6.9 g/dL (6.6-8.7)
[2022-02-22 11:49] LABS: Troponin(5th) Baseline 9 ng/L (0-15)
[2022-02-22] MEDS: acetaminophen 500 mg Tablet 1000 MG PO (12:35)
[2022-02-22 12:46] VITALS: PULSE 68; RESP 16; O2SAT 94
== END 2022-02-22 12:48 | disposition home or self-care (01) ==
PROVIDERS: Emergency Provider Physician Assistant; PCP Family Medicine
DX: R55 Syncope and collapse (principal); M79.601 Pain in right arm; Z79.01 Long term (current) use of anticoagulants; Z79.82 Long term (current) use of aspirin; Z79.84 Long term (current) use of oral hypoglycemic drugs; Z95.1 Presence of aortocoronary bypass graft; I25.10 Atherosclerotic heart disease of native coronary artery without angina pectoris; Z86.73 Personal history of transient ischemic attack (TIA), and cerebral infarction without residual deficits; E11.9 Type 2 diabetes mellitus without complications; I10 Essential (primary) hypertension; E78.5 Hyperlipidemia, unspecified
CPT/HCPCS: 70450; 71045; 73080; 73110; 80053; 83880; 84484; 85025; 93005; 99285

== ENCOUNTER → 2022-03-16 10:44 | Outpatient (BNVA) | payer OTHER, SELFPAY | PROVIDERS: PCP Family Medicine; Visit Provider Student in an Organized Health Care Education/Training Program | DX: A04.72 Enterocolitis due to Clostridium difficile, not specified as recurrent (principal) | CPT/HCPCS: 99214 ==

== ENCOUNTER 2022-05-11 02:10 | Emergency (ER) | payer OTHER, SELFPAY ==
--- NOTE | 2022-05-11 02:11 | XRR_ITS ---
PROCEDURE INFORMATION: Exam: XR Chest Exam date and time: 05/11/2022 2:24 AM Age: 71 years old Clinical indication: Chest pressure; Prior surgery; Surgery type: Cabg; Patient HX: C/O chest pain; Additional info: Cp TECHNIQUE: Imaging protocol: Radiologic exam of the chest. Views: 1 view. COMPARISON: CR XR chest 1V portable [id number] 02/22/2022 10:46 AM FINDINGS: Lungs: Minimal areas of left lower lung atelectasis or scarring. No consolidation. Pleural spaces: Unremarkable. No pleural effusion. No pneumothorax. Heart/Mediastinum: The heart is quite large with CABG. Bones/joints: Unremarkable. XR/XR chest 1V portable [id number] IMPRESSION: Stable chest with no acute process or significant change from 02/22/2022.
--- NOTE | 2022-05-11 02:12 | ECG_ITS ---
[facility] Test Date: 2022-05-11 Pat Name: Alex Nice Department: Room: Gender: Male Janitor: : 1950 Requested By: Lorie Edge Order Number: [id number] Kimberlee MD: Eligio Guzman M.D. Measurements Intervals [place] Rate: 70 P: 17 ID: [id number] QRS: -29 QRSD: 101 T: 119 QT: 392 QTc: 424 Interpretive Statements SINUS RHYTHM LEFT VENTRICULAR HYPERTROPHY AND ST-T CHANGE [VOLTAGE CRITERIA PLUS ST/T ABNORMALITY] POSSIBLE SEPTAL MYOCARDIAL INFARCTION , OF INDETERMINATE AGE [30 ms Q WAVE IN V1/V2] Compared to ECG 02/22/2022 10:31:59 Myocardial infarct finding now present First degree AV block no longer present ST (T wave) deviation still present Electronically Signed On 05-11-2022 20:24:47 FLOOR COVERING PRINTER ASSISTANT by Eligio Guzman M.D. [id number]
[2022-05-11 02:20] VITALS: BP 151/85; PULSE 73; RESP 18; TEMP 36.4; O2SAT 97; BMI 31.1
--- NOTE | 2022-05-11 02:29 | W.ED.CHESTPA ---
HPI - Chest Pain General: Chief Complaint: Chest Pain Stated Complaint: Chest Pains Time Seen by Provider: 05/11/22 02:13 Source: patient Mode of arrival: ambulatory Limitations: no limitations History of Present Illness: 71-year-old male states that over the last 2 days he has been running a chainsaw at his house and working states he did chainsaw a lot of trees he states he been having sharp chest pains today states much worse with movement and worse with touch. He denies any shortness of breath denies any diaphoresis. Associated symptoms: Deny abdominal pain, dyspnea, fever(s), nausea or vomiting Review of Systems Const: Denies: fever(s), chills, body aches or change in appetite Eyes: Denies: blurry vision or eye discomfort ENMT: Denies: throat pain or dental pain Card: Reports: chest pain Resp: Denies: dyspnea GI: Denies: abdominal pain, nausea, vomiting or diarrhea : Denies: dysuria Musc: Denies: neck pain or back pain Skin/Breast: Denies: rash Neuro: Denies: headache(s) Psych: Denies: depression Tai/Lymph: Denies: easy bruising All/Imm: Denies: urticaria PFSH ED PFSH: Medical History BPH loc w urin obs/LUTS Chronic migraine without aura, intractable, with status migrainosus Coronary artery disease CVA (cerebral vascular accident) Depression Diabetes GERD (gastroesophageal reflux disease) Gross hematuria HTN (hypertension), benign Hyperlipidemia Memory impairment Pulmonary embolism Urinary retention Warfarin anticoagulation Surgical History History of esophagogastroduodenoscopy (EGD) S/P CABG x 4 Status post colonoscopy Family History Mother , at age 92 Cancer bone Father , at age 93 No problems noted. Other CAD (coronary artery disease) Chronic kidney disease (CKD) Diabetes Family history of premature coronary artery disease Hyperlipidemia Hypertension Lung disease Denies family history of Anesthesia complication Bleeding disorder Stroke Social History Smoking and tobacco status: never smoked Alcohol intake: never Marital status: Current occupational status: retired and disabled History of recent travel: No Physical Exam Const: COMMON NORMALS: no acute distress, patient oriented x3 and healthy appearing HENMT: COMMON NORMALS: normocephalic and atraumatic HEAD & SCALP: normocephalic and atraumatic Eye: COMMON NORMALS: Equal, round and reactive pupils present and EOMs intact bilaterally PUPIL: Yes Equal, round and reactive pupils present Neck/C-Spine: COMMON NORMALS: full ROM and supple Chest: COMMONS NORMALS: normal inspection of the chest OTHER: point tender over chest Resp: COMMON NORMALS: normal respiratory effort, No retractions, No use of accessory muscles and clear to auscultation bilaterally AUSCULTATION: clear to auscultation bilaterally Cardio: COMMON NORMALS: regular rate, regular rhythm and No murmurs present (Cardio) RATE: regular rate RHYTHM: regular rhythm GI: COMMON NORMALS: Normal to inspection, nondistended, normoactive bowel sounds present, Soft to palpation, non-tender and no masses PALPATION: Yes Soft to palpation Extremity: COMMON NORMALS: normal to inspection and full ROM Neuro: COMMON NORMALS: patient oriented x3, moves all extremities and no focal motor deficits Psych: COMMON NORMALS: mental status grossly normal, Normal thought process present and cooperative THOUGHT PROCESS: Normal thought process present Skin: COMMON NORMALS: no rashes or lesions noted and no wounds GENERAL SKIN EXAM: no rashes or lesions noted Course Vital Signs: Vital signs: Vital Signs Temperature 97.6 F 05/11/22 02:20 Pulse Rate 67 05/11/22 03:22 Respiratory Rate 16 05/11/22 03:22 Blood Pressure 114/72 05/11/22 03:22 Pulse Oximetry 93 05/11/22 03:22 Oxygen Delivery Me thod 05/11/22 03:22 MDM - Chest Pain Medical Decision Making Patient presents for chest pain likely chest wall pain from using a chainsaw he is point tender to his anterior chest his troponin EKG and x-ray are normal he stable for discharge she is to follow-up with PCP and return if worsening he understands agrees to plan. Lab Data 05/11/22 02:27 05/11/22 02:27 Radiology Impressions Chest X-Ray 05/11/22 02:11 IMPRESSION: Stable chest with no acute process or significant change from 02/22/2022. Laboratory Results WBC 8.8 10^3/uL (4.0-10.0) 05/11/22 02:27 RBC 4.70 10^6/uL (4.1-5.3) 05/11/22 02:27 Hgb 13.8 g/dL (11.7-16.6) 05/11/22 02:27 Hct 43.4 % (42.0-52.0) 05/11/22 02:27 MCV 92.3 fl (80-94) 05/11/22 02:27 MCH 29.4 pg (28.0-34.0) 05/11/22 02: MCHC 31.8 g/dL (30.0-36.0) 05/11/22 02:27 RDW 14.9 % (12.1-15.1) 05/11/22 02:27 Plt Count 230 10^3/cmm (130-400) 05/11/22 02:27 MPV 11.5 fL (7.4-10.4) H 05/11/22 02:27 Neut % (Auto) 71.5 % 05/11/22 02:27 Lymph % (Auto) 17.2 % 05/11/22 02:27 Jerome % (Auto) 7.4 % 05/11/22 02:27 Eos % (Auto) 3.1 % 05/11/22 02:27 Baso % (Auto) 0.5 % 05/11/22 02:27 Neut # (Auto) 6.27 10^3/uL (1.8-7.7) 05/11/22 02:27 Lymph # (Auto) 1.5 10^3/uL (0.8-4.8) 05/11/22 02:27 Jerome # (Auto) 0.7 10^3/uL (0.2-0.9) 05/11/22 02:27 Eos # (Auto) 0.3 10^3/uL (0.0-0.8) 05/11/22 02:27 Baso # (Auto) 0.0 10^3/uL (0.0-0.1) 05/11/22 02:27 Nucleated RBC % (auto) 0 % 05/11/22 02:27 Nucleated RBCs # 0.0 /100WBC 05/11/22 02:27 PT 23.80 SECONDS (12.1-14.9) H 05/11/22 02:27 INR 2.09 (0.8-1.2) H 05/11/22 02:27 Sodium 140 mmol/L (136-145) 05/11/22 02:27 Potassium 4.2 mmol/L (3.5-5.1) 05/11/22 02:27 Chloride 105 mmol/L (98-107) 05/11/22 02:27 Carbon Dioxide 26 mmol/L (22-29) 05/11/22 02:27 Anion Gap 13.2 (5-19) 05/11/22 02:27 BUN 22 mg/dL (8-23) 05/11/22 02:27 Creatinine 1.0 mg/dL (0.7-1.2) 05/11/22 02:27 GFR Calculation 73.9 mL/min (90-130) L 05/11/22 02:27 Glucose 153 mg/dL (65-115) H 05/11/22 02:27 Calculated Osmolality 296 mOsm/kg (285-295) H 05/11/22 02:27 Calcium 8.4 mg/dL (8.5-10.5) L 05/11/22 02:27 Total Bilirubin 0.5 mg/dL (0.15-1.2) 05/11/22 02:27 AST 15 U/L (0-40) 05/11/22 02:27 ALT 16 U/L (0-41) 05/11/22 02:27 Alkaline Phosphatase 82 U/L (40-130) 05/11/22 02:27 Troponin T Baseline 9 ng/L (0-15) 05/11/22 02:27 Total Protein 6.8 g/dL (6.6-8.7) 05/11/22 02:27 Albumin 4.1 g/dL (3.5-5.2) 05/11/22 02:27 Globulin 2.7 g/dL (1.3-4.6) 05/11/22 02:27 EKG Data EKG 1: I personally reviewed and interpreted this EKG as follows: EKG interpretation date: 05/11/22 EKG interpretation time: 02:17 Interpretation: nsr hr [address] or t wave abnormalities qrs 101 qtc 413 Discharge Plan Discharge Patient Disposition: Home Clinical Impression: Chest pain Condition: Stable Prescriptions: New Naprosyn 500 mg tablet 500 mg PO BID PRN (Reason: pain) Qty: 20 0RF No Action Dificid 200 mg tablet 200 mg PO BID 10 Days Qty: 20 0RF sildenafil 50 mg tablet 50 mg PO DAILY PRN (Reason: sexual activity) Qty: 30 3RF Rx Instructions: administer 30 minutes to 4 hours before activity atorvastatin 80 mg Tablet 40 mg PO QPM donepezil 10 mg Tablet 10 mg PO BEDTIME warfarin 2 mg Tablet See Rx Instructions .ROUTE .COMPLEX Rx Instructions: TAKE 4 TABS (8MG) PO ON TUESDAY,TUE, TUESDAY AND TAKE 3 TABS(6MG) ALL OTHER DAYS OR DIRECTED metoprolol tartrate 50 mg Tablet 50 mg PO BID furosemide 20 mg Tablet 20 mg PO DAILY Hold Instructions: Resume on 10/15/21. docusate sodium 100 mg Tablet 100 mg PO DAILY cholecalciferol (vitamin D3) 400 unit Tablet,Chewable 400 unit PO DAILY aspirin 325 mg Tablet 325 mg PO DAILY tamsulosin 0.4 mg capsule 0.4 mg PO QPM pantoprazole 40 mg tablet,delayed release (DR/EC) 40 mg PO BID nitroglycerin [Nitrostat] 0.4 mg Tablet, Sublingual 0.4 mg SUBLINGUAL Q5M PRN (Reason: Chest Pain) [place] 3 Fish Oil 684-1,200 mg Capsule,Delayed Release(Dr/Ec) 1 cap PO DAILY allopurinol 100 mg Tablet 100 mg PO DAILY PRN (Reason: gout) metformin 500 mg Tablet Extended Release 24 Hr 500 mg PO BID duloxetine [Cymbalta] 60 mg Capsule,Delayed Release(Dr/Ec) 60 mg PO DAILY alum-mag hydroxide-simeth [Maalox Maximum Strength] 400-400-40 mg/5 mL suspension 5 ml PO Q6H PRN (Reason: indigestion) isosorbide mononitrate 30 mg Tablet Extended Release 24 Hr 15 mg PO BID bismuth subsalicylate 262 mg/15 mL Suspension 524 mg PO Q1H PRN (Reason: Heartburn) Rx Instructions: do not exceed 8 doses in a 24 hour period Lactobacillus acidophilus 10 billion cell Capsule 20,000 mmu cells PO BID Discharge Orders: Discharge ED (Routine); Ordered 05/11/22 Ordered By: Lorie Edge Referrals: Kaelyn Horta MD [Primary Care Provider] - 1-3 days Discharge Diet: Advance as tolerated Discharge Activity: Resume usual activity Coding Level of Care Code ED Web Development Instructor for Chg Fwd Exam Comprehensive
[2022-05-11 02:36] LABS: Basophils % 0.5 %; Eosinophils # 0.3 10^3/uL (0.0-0.8); Eosinophils % 3.1 %; Hematocrit 43.4 % (42.0-52.0); Hemoglobin 13.8 g/dL (11.7-16.6); Lymphocytes # 1.5 10^3/uL (0.8-4.8); Lymphocytes % 17.2 %; Mean Corpuscular HGB Conc 31.8 g/dL (30.0-36.0); Mean Corpuscular Hemoglobin 29.4 pg (28.0-34.0); Mean Corpuscular Volume 92.3 fl (80-94); Mean Platelet Volume 11.5 fL (7.4-10.4); Monocytes # 0.7 10^3/uL (0.2-0.9); Monocytes % 7.4 %; Neutrophils # 6.27 10^3/uL (1.8-7.7); Neutrophils % 71.5 %; Nucleated Red Blood Cells % 0 %; Platelet Count 230 10^3/cmm (130-400); Red Cell Distribution Width 14.9 % (12.1-15.1); White Blood Count 8.8 10^3/uL (4.0-10.0)
[2022-05-11] MEDS: ondansetron 2 mg/ML SDV 2 mL 4 MG IVP (02:38)
[2022-05-11] MEDS: morphine 4 mg/mL SDV 1 mL IVP (02:38)
[2022-05-11 02:52] LABS: INR 2.09 (0.8-1.2)
[2022-05-11 03:00] LABS: Troponin(5th) Baseline 9 ng/L (0-15)
[2022-05-11 03:01] LABS: Alanine Aminotransferase 16 U/L (0-41); Albumin Level 4.1 g/dL (3.5-5.2); Alkaline Phosphatase 82 U/L (40-130); Anion Gap 13.2 (5-19); Aspartate Amino Transferase 15 U/L (0-40); Blood Urea Nitrogen 22 mg/dL (8-23); Calcium 8.4 mg/dL (8.5-10.5); Carbon Dioxide 26 mmol/L (22-29); Chloride 105 mmol/L (98-107); Globulin 2.7 g/dL (1.3-4.6); Glomerular Filtration Rate 73.9 mL/min (90-130); Glucose 153 mg/dL (65-115); Osmolality Calculated 296 mOsm/kg (285-295); Potassium 4.2 mmol/L (3.5-5.1); Sodium 140 mmol/L (136-145); Total Bilirubin 0.5 mg/dL (0.15-1.2); Total Protein 6.8 g/dL (6.6-8.7)
[2022-05-11 03:22] VITALS: BP 114/72; PULSE 67; RESP 16; O2SAT 93
[2022-05-11] MEDS: HYDROcodone-acetaminophen 5-325 mg Tablet 1 TAB PO (04:03)
[2022-05-11 04:10] VITALS: BP 162/85; PULSE 71; RESP 18; O2SAT 94
== END 2022-05-11 04:11 | disposition home or self-care (01) ==
PROVIDERS: Emergency Provider Emergency Medicine; PCP Family Medicine
DX: R07.9 Chest pain, unspecified (principal); Z79.01 Long term (current) use of anticoagulants; Z79.82 Long term (current) use of aspirin; Z79.84 Long term (current) use of oral hypoglycemic drugs; I25.10 Atherosclerotic heart disease of native coronary artery without angina pectoris; Z86.73 Personal history of transient ischemic attack (TIA), and cerebral infarction without residual deficits; E11.9 Type 2 diabetes mellitus without complications; I10 Essential (primary) hypertension; E78.5 Hyperlipidemia, unspecified; Z95.1 Presence of aortocoronary bypass graft
CPT/HCPCS: 71045; 80053; 84484; 85025; 85610; 93005; 96374; 96375; 99285; J2270; J2405

== ENCOUNTER 2022-07-30 13:04 | Inpatient (IN) | payer OTHER, SELFPAY ==
[2022-07-30] VITALS (10 sets, daily range): BP systolic 141–178; BP diastolic 75–98; PULSE 57–68; RESP 15–18; TEMP 36.4–36.7; O2SAT 94–99; BMI 32.5
--- NOTE | 2022-07-30 13:15 | CT_ITS ---
WS: [id number] EXAMINATION: CT head wo con* [id number] REASON FOR EXAM: CVA COMPARISON: 02/22/2022 and no change from previous study ORDER DATE: 07/30/2022 2:05 PM TOTAL EXAM DLP: 1107.[address] scans at [facility] use at least one of these dose optimization techniques: automated e xposure control; mA and/or kV adjustment per patient size (includes targeted exams where dose is matc hed to clinical indication); or iterative reconstruction. TECHNIQUE: CT imaging of the head is performed without the use of intravascular contrast with transax ial imaging from the skull base to the vertex with 2-D reformats. FINDINGS: No evidence of intracranial hemorrhage or mass effect. Ventricular system and basal cisterns are patent. Mild small vessel changes with moderate parenchymal volume loss. Tiny chronic lacunar infarcts in the RIGHT caudate. Intracranial vascular calcification. No extra-axial fluid collections. No evidence of mass or mass effect. Paranasal sinuses and mastoid air cells are well aerated. .Normal visualized soft tissues. CT/CT head wo con* [id number] IMPRESSION: 1. No evidence of intracranial hemorrhage or mass effect. 2. Mild small vessel changes. Moderate parenchymal volume loss. 3. No acute intracranial findings and no change from previous study.
--- NOTE | 2022-07-30 13:15 | XR_ITS ---
WS: [id number] EXAMINATION: XR chest 1V portable [id number] REASON FOR EXAM: dyspnea/cough COMPARISON: 05/11/2022 ORDER DATE: 07/30/2022 1:29 PM TECHNIQUE: A single, portable frontal chest x-ray was obtained. X-RAY FINDINGS: Lungs: Minimal areas of left lower lung atelectasis or scarring. No consolidation. Pleural spaces: Unremarkable. No pleural effusion. No pneumothorax. Heart/Mediastinum: The heart is quite large with CABG. Bones/joints: Unremarkable. XR/XR chest 1V portable [id number] IMPRESSION: Stable chest with no acute process or significant change from 02/22/2022.
--- NOTE | 2022-07-30 13:30 | ECG_ITS ---
[facility] Test Date: 2022-07-30 Pat Name: Alex Nice Department: Room: Gender: Male Line Walker: : 1950 Requested By: Luis A Caruso Order Number: [id number] Kimberlee MD: Eligio Guzman M.D. Measurements Intervals [place] Rate: 64 P: 32 RI: 208 QRS: -31 QRSD: 109 T: 113 QT: 400 QTc: 415 Interpretive Statements SINUS RHYTHM POSSIBLE LEFT ATRIAL ENLARGEMENT [-0.1mV P-WAVE IN V1/V2] LEFT AXIS DEVIATION [QRS AXIS < -30] PATTERN CONSISTENT WITH PULMONARY DISEASE LEFT VENTRICULAR HYPERTROPHY AND ST-T CHANGE [VOLTAGE CRITERIA PLUS ST/T ABNORMALITY] Compared to ECG 05/11/2022 02:17:41 Left-axis deviation now present Myocardial infarct finding no longer present ST (T wave) deviation still present Electronically Signed On 07-30-2022 23:03:09 CDT by Eligio Guzman M.D. [id number]
--- NOTE | 2022-07-30 13:30 | ED_ITS ---
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 He has a history of previous Bustillos's palsy. He is awake and alert he does have a facial droop Onset (ago): minute(s) Timing confirmed by: spouse Location: speech History of same: Yes Severity: mild Quality: weak and numb Relieving factors: none Exacerbating factors: none On Anticoagulants: Yes Associated symptoms: Deny chest pain, cough, diaphoresis, fevers/chills, headache(s), anorexia, malaise, nausea, seizures, short of breath, syncope, tingling, vertigo, vomiting or weakness Treatments Prior to Arrival: none Review of Systems General: Reports: ROS unobtainable due to mental status (Limited review of systems due to cognitive deficits and memory loss) Const: Denies: malaise or diaphoresis Card: Denies: chest pain or syncope Resp: Denies: dyspnea GI: Denies: abdominal pain, nausea or vomiting Neuro: Denies: headache(s) or vertigo PFS ED PFSH: Medical History BPH loc w urin obs/LUTS Chronic migraine without aura, intractable, with status migrainosus Coronary artery disease CVA (cerebral vascular accident) Depression Diabetes GERD (gastroesophageal reflux disease) Gross hematuria HTN (hypertension), benign Hyperlipidemia Memory impairment Pulmonary embolism Urinary retention Warfarin anticoagulation Surgical History History of esophagogastroduodenoscopy (EGD) S/P CABG x 4 Status post colonoscopy Family History Mother , at age 92 Cancer bone Father , at age 93 No problems noted. Other CAD (coronary artery disease) Chronic kidney disease (CKD) Diabetes Family history of premature coronary artery disease Hyperlipidemia Hypertension Lung disease Denies family history of Anesthesia complication Bleeding disorder Stroke Social History Smoking and tobacco status: never smoked Alcohol intake: never Marital status: Current occupational status: retired and disabled NIH stroke score NIHSS: Level Of Consciousness - 1a: 0 Level Of Consciousness Questions - 1b: One Correct Level Of Consciousness Commands - 1c: Both Correct Best Gaze - 2: Normal Visual Clarke - 3: No Visual Loss Facial Palsy - 4: Partial Paralysis Motor Arm Right - 5: No Drift Motor Arm Left - 5: No Drift Motor Leg Right - 6: Drift Motor Leg Left - 6: No Drift Limb Ataxia - 7: Present In Two Limbs Sensory - 8: Mild To Moderate Loss Best Language - 9: Mild/Moderate Aphasia Dysarthia - 10: Normal Extinction And Inattention - 11: 1 Score: Total Score: 9 Physical Exam Const: GENERAL APPEARANCE: cooperative and comfortable ORIENTATION/C ONSCIOUSNESS: Yes awake, Yes oriented to person, Yes oriented to place and Yes oriented to time HENMT: COMMON NORMALS: normocephalic, atraumatic and hearing grossly normal bilaterally HEAD & SCALP: normocephalic and atraumatic Resp: COMMON NORMALS: normal respiratory effort, No retractions, No use of accessory muscles and clear to auscultation bilaterally AUSCULTATION: clear to auscultation bilaterally Cardio: COMMON NORMALS: regular rate, regular rhythm and No murmurs present (Cardio) RATE: regular rate RHYTHM: regular rhythm GI: COMMON NORMALS: Soft to palpation and No hepatosplenomegaly present AUSCULTATION: Yes normoactive bowel sounds PALPATION: Yes Soft to palpation, No Tenderness to palpation present (GI), No Guarding due to palpation present (GI) and Yes No hepatosplenomegaly present Extremity: COMMON NORMALS: normal to inspection, capillary refill normal, no clubbing, cyanosis or edema, no calf tenderness and no pedal edema Neuro: SENSORIUM/ORIENTATION: Yes oriented to person, Yes oriented to place and Yes oriented to time Skin: COMMON NORMALS: no rashes or lesions noted GENERAL SKIN EXAM: no ra shes or lesions noted Course Vital Signs: Vital signs: Vital Signs Temperature 98.0 F 07/30/22 13:09 Pulse Rate 63 07/30/22 16:17 Respiratory Rate 17 07/30/22 16:17 Blood Pressure 172/86 03/24/23 16:17 Pulse Oximetry 99 07/30/22 16:17 Oxygen Delivery Me thod 07/30/22 13:09 MDM - Neuro Symptoms/Deficit Medical Decision Making Patient is 72 hours or more since last known well. He is not able to contribute much to history. CT did not show anything acute he is under anticoagulated on his warfarin. He would not be a candidate for embolectomy or tPA. NIH score of 9 has persistent what appears to be new cognitive deficits that are sudden onset. Discussed with hospitalist will admit orders written. Labs imaging and EKG reviewed as found on the chart. Medical Records I reviewed the patient's medical records. Lab Data I reviewed the patient's lab results. 07/30/22 13:29 07/30/22 13:29 Radiology Impressions Chest X-Ray 07/30/22 13:15 IMPRESSION: Stable chest with no acute process or significant change from 02/22/2022. Head CT 07/30/22 13:15 IMPRESSION: 1. No evidence of intracranial hemorrhage or mass effect. 2. Mild small vessel changes. Moderate parenchymal volume loss. 3. No acute intracranial findings and no change from previous study. Laboratory Results WBC 8.4 10^3/uL (4.0-10.0) 07/30/22 13:29 RBC 4.83 10^6/uL (4.1-5.3) 07/30/22 13:29 Hgb 14.0 g/dL (11.7-16.6) 07/30/22 13:29 Hct 44.4 % (42.0-52.0) 07/30/22 13:29 MCV 91.9 fl (80-94) 07/30/22 13:29 MCH 29.0 pg (28.0-34.0) 07/30/22 13:29 MCHC 31.5 g/dL (30.0-36.0) 07/30/22 13:29 RDW 15.0 % (12.1-15.1) 07/30/22 13:29 Plt Count 242 10^3/cmm (130-400) 07/30/22 13:29 MPV 11.6 fL (7.4-10.4) H 07/30/22 13:29 Neut % (Auto) 70.6 % 07/30/22 13:29 Lymph % (Auto) 19.5 % 07/30/22 13:29 [place] % (Auto) 6.9 % 07/30/22 13:29 Eos % (Auto) 2.1 % 07/30/22 13:29 Baso % (Auto) 0.5 % 07/30/22 13:29 Neut # (Auto) 5.93 10^3/uL (1.8-7.7) 07/30/22 13:29 Lymph # (Auto) 1.6 10^3/uL (0.8-4.8) 07/30/22 13:29 [place] # (Auto) 0.6 10^3/uL (0.2-0.9) 07/30/22 13:29 Eos # (Auto) 0.2 10^3/uL (0.0-0.8) 07/30/22 13:29 Baso # (Auto) 0.0 10^3/uL (0.0-0.1) 07/30/22 13:29 Nucleated RBC % (auto) 0 % 07/30/22 13:29 Nucleated RBCs # 0.0 /100WBC 07/30/22 13:29 PT 22.30 SECONDS (12.1-14.9) H 07/30/22 13:29 INR 1.89 (0.8-1.2) H 07/30/22 13:29 Sodium 141 mmol/L (136-145) 07/30/22 13:29 Potassium 4.0 mmol/L (3.5-5.1) 07/30/22 13:29 Chloride 105 mmol/L (98-107) 07/30/22 13:29 Carbon Dioxide 26 mmol/L (22-29) 07/30/22 13:29 Anion Gap 14.0 (5-19) 07/30/22 13:29 BUN 21 mg/dL (8-23) 07/30/22 13:29 Creatinine 1.0 mg/dL (0.7-1.2) 07/30/22 13:29 GFR Calculation Not Reportable 07/30/22 13:29 Glucose 118 mg/dL (65-115) H 07/30/22 13:29 Calculated Osmolality 296 mOsm/kg (285-295) H 07/30/22 13:29 Calcium 8.6 mg/dL (8.5-10.5) 07/30/22 13:29 Total Bilirubin 0.6 mg/dL (0.15-1.2) 07/30/22 13:29 AST 17 U/L (0-40) 07/30/22 13:29 ALT 22 U/L (0-41) 07/30/22 13:29 Alkaline Phosphatase 80 U/L (40-130) 07/30/22 13:29 Total Protein 7.2 g/dL (6.6-8.7) 07/30/22 13:29 Albumin 3.9 g/dL (3.5-5.2) 07/30/22 13:29 Globulin 3.3 g/dL (1.3-4.6) 07/30/22 13:29 Urine Color Yellow (Yellow) 07/30/22 14:28 Urine Appearance Clear (CLEAR) 07/30/22 14:28 Urine pH 5 (5-7) 07/30/22 14:28 Ur Specific Romance 1.020 (1.005-1.030) 07/30/22 14:28 Urine Protein Neg (Negative) 07/30/22 14:28 Urine Glucose (UA) 2+ (Normal) H 07/30/22 14:28 Urine Ketones Negative (Negative) 07/30/22 14:28 Urine Blood Neg (Negative) 07/30/22 14:28 Urine Nitrate Negative (Negative) 07/30/22 14:28 Urine Bilirubin 1+ (Negative) H 07/30/22 14:28 Urine Urobilinogen Norm mg/dL (Negative) 07/30/22 14:28 Ur Leukocyte Esterase Negative (Negative) 07/30/22 14:28 Discharge Plan Discharge Patient Disposition: Admitted As Inpatient Clinical Impression: Cerebrovascular accident, Dementia Condition: Stable Prescriptions: No Action sildenafil 50 mg tablet 50 mg PO DAILY PRN (Reason: sexual activity) Qty: 30 3RF Rx Instructions: administer 30 minutes to 4 hours before activity atorvastatin 80 mg Tablet 40 mg PO QPM donepezil 10 mg Tablet 10 mg PO BEDTIME warfarin 2 mg Tablet See Rx Instructions .ROUTE .COMPLEX Rx Instructions: TAKE 4 TABS (8MG) PO ON TUESDAY,TUE, TUESDAY AND TAKE 3 TABS(6MG) ALL OTHER DAYS OR DIRECTED metoprolol tartrate 50 mg Tablet 50 mg PO BID furosemide 20 mg Tablet 20 mg PO DAILY Hold Instructions: Resume on 10/15/21. cholecalciferol (vitamin D3) 400 unit Tablet,Chewable 400 unit PO DAILY aspirin 325 mg Tablet 325 mg PO DAILY tamsulosin 0.4 mg capsule 0.4 mg PO QPM nitroglycerin [Nitrostat] 0.4 mg Tablet, Sublingual 0.4 mg SUBLINGUAL Q5M PRN (Reason: Chest Pain) [place] 3 Fish Oil 684-1,200 mg Capsule,Delayed Release(Dr/Ec) 1 cap PO DAILY loperamide 2 mg Capsule 2 mg PO Q6H PRN (Reason: Diarrhea) tizanidine 4 mg Tablet 2 mg PO BEDTIME metformin 500 mg Tablet Extended Release 24 Hr 500 mg PO BID duloxetine [Cymbalta] 60 mg Capsule,Delayed Release(Dr/Ec) 60 mg PO DAILY isosorbide mononitrate 30 mg Tablet Extended Release 24 Hr 15 mg PO BID bismuth subsalicylate 262 mg/15 mL Suspension 524 mg PO Q1H PRN (Reason: Heartburn) Rx Instructions: do not exceed 8 doses in a 24 hour period Lactobacillus acidophilus 10 billion cell Capsule 20,000 mmu cells PO BID Referrals: Kaelyn Horta MD [Primary Care Provider] - Coding Level of Care Code ED Waiter/Waitress Dining Car for Kevin Martines
[2022-07-30 13:46] LABS: Basophils % 0.5 %; Eosinophils # 0.2 10^3/uL (0.0-0.8); Eosinophils % 2.1 %; Hematocrit 44.4 % (42.0-52.0); Lymphocytes # 1.6 10^3/uL (0.8-4.8); Lymphocytes % 19.5 %; Mean Corpuscular HGB Conc 31.5 g/dL (30.0-36.0); Mean Corpuscular Volume 91.9 fl (80-94); Mean Platelet Volume 11.6 fL (7.4-10.4); Monocytes # 0.6 10^3/uL (0.2-0.9); Monocytes % 6.9 %; Neutrophils # 5.93 10^3/uL (1.8-7.7); Neutrophils % 70.6 %; Nucleated Red Blood Cells % 0 %; Platelet Count 242 10^3/cmm (130-400); Red Blood Count 4.83 10^6/uL (4.1-5.3); White Blood Count 8.4 10^3/uL (4.0-10.0)
[2022-07-30 13:58] LABS: INR 1.89 (0.8-1.2)
[2022-07-30 14:06] LABS: Alanine Aminotransferase 22 U/L (0-41); Albumin Level 3.9 g/dL (3.5-5.2); Alkaline Phosphatase 80 U/L (40-130); Aspartate Amino Transferase 17 U/L (0-40); Blood Urea Nitrogen 21 mg/dL (8-23); Calcium 8.6 mg/dL (8.5-10.5); Carbon Dioxide 26 mmol/L (22-29); Chloride 105 mmol/L (98-107); Globulin 3.3 g/dL (1.3-4.6); Glucose 118 mg/dL (65-115); Osmolality Calculated 296 mOsm/kg (285-295); Sodium 141 mmol/L (136-145); Total Bilirubin 0.6 mg/dL (0.15-1.2); Total Protein 7.2 g/dL (6.6-8.7)
[2022-07-30 14:39] LABS: Charge for UA Resulting for Rev
--- NOTE | 2022-07-30 14:42 | PC.PHAR ---
pt unable to verify medications- [facility]- called pts home health nurse to verify medications- nurse is with [employer] [phone]
[2022-07-30 15:04] LABS: Add Urine Microscopic? NO; Bilirubin Urine 1+ (Negative); Blood Urine Neg (Negative); Glucose Urine UA 2+ (Normal); Ketones Urine Negative (Negative); Leukocyte Esterase Urine Negative (Negative); Nitrate Urine Negative (Negative); Protein Urine Neg (Negative); Urine Appearance Clear (CLEAR); Urine Color Yellow (Yellow); Urobilinogen Urine Norm (Negative); pH Urine 5 (5-7)
--- NOTE | 2022-07-30 15:19 | PC.NURSE ---
PT PLACED ON CONTINUOUS NIBP, SPO2, AND CM
--- NOTE | 2022-07-30 16:53 | CTR_ITS ---
PROCEDURE INFORMATION: Exam: CTA Head With Contrast, Arteriography Exam date and time: 07/30/2022 5:04 PM Age: 72 years old Clinical indication: Memory loss and weakness; Additional info: AMS, CVA TECHNIQUE: Imaging protocol: Computed tomographic angiography of the head with contrast. Exam focused on the arteries. 3D rendering (Not supervised by radiologist): MIP and/or 3D reconstructed images were created by the technologist. Radiation optimization: All CT scans at this facility use at least one of these dose optimization techniques: automated exposure control; mA and/or kV adjustment per patient size (includes targeted exams where dose is matched to clinical indication); or iterative reconstruction. Contrast material: OMNI 350; Contrast volume: 100 ml; Contrast route: INTRAVENOUS (IV); REPORTING DATA: Count of CT and Cardiac NM exams in prior 12 months: This patient has received 3 known CTs and 0 known cardiac nuclear medicine studies in the 12 months prior to the current study. COMPARISON: CT head wo con* [id number] 07/30/2022 2:06 PM RADIATION DOSE METRICS: Total DLP (mGy-cm): 1205.68 FINDINGS: ANTERIOR CIRCULATION: Right internal carotid artery: Intracranial segment is patent with no significant stenosis. No aneurysm. Right middle cerebral artery: No occlusion or significant stenosis. No aneurysm. Right anterior cerebral artery: No occlusion or significant stenosis. No aneurysm. Left internal carotid artery: The left internal carotid artery has mild calcified atherosclerotic plaque with mild narrowing in the distal cavernous segment. Left middle cerebral artery: There is mild narrowing of the proximal left MCA just beyond its origin related to atherosclerosis. Left anterior cerebral artery: No occlusion or significant stenosis. No aneurysm. POSTERIOR CIRCULATION: Right vertebral artery: The right V4 segment of the vertebral artery has some faint opacification proximally and is more robust newly opacified in its distal aspect likely from retrograde collateral flow. Left vertebral artery: The distal left V4 segment of the vertebral artery has moderate stenosis just proximal to the basilar focally. Basilar artery: The basilar artery has multifocal irregularity throughout its course from atherosclerotic disease. The basilar artery beyond the origin of the superior cerebellar arteries is not visualized. This may be chronic related to bilateral SENIOR ERP CONSULTANT origin or congenital. Right posterior cerebral artery: The right SENIOR ERP CONSULTANT has origin and is patent. Left posterior cerebral artery: The left SENIOR ERP CONSULTANT has origin and is patent. Brain: Chronic lacunar-type infarcts right caudate nucleus are unchanged. Stable mild involutional changes of the brain. No midline shift or mass effect. No hemorrhage. Cerebral ventricles: No ventriculomegaly. Bones/joints: Unremarkable. No acute fracture. Soft tissues: Unremarkable. PROCEDURE INFORMATION: Exam: CTA Neck With Contrast Exam date and time: 07/30/2022 5:04 PM Age: 72 years old Clinical indication: Memory loss and weakness; Additional info: AMS, CVA TECHNIQUE: Imaging protocol: Computed tomographic angiography of the neck with contrast. 3D rendering (Not supervised by radiologist): MIP and/or 3D reconstructed images were created by the technologist. Radiation optimization: All CT scans at this facility use at least one of these dose optimization techniques: automated exposure control; mA and/or kV adjustment per patient size (includes targeted exams where dose is matched to clinical indication); or iterative reconstruction. Contrast material: OMNI 350; Contrast volume: 100 ml; Contrast route: INTRAVENOUS (IV); REPORTING DATA: Count of CT and Cardiac NM exams in prior 12 months: This patient has received 3 known CTs and 0 known cardiac nuclear medicine studies in the 12 months prior to the current study. COMPARISON: CT head wo con* [id number] 07/30/2022 2:06 PM RADIATION DOSE METRICS: Total DLP (mGy-cm): 1205.68 FINDINGS: Right common carotid artery: No stenosis. No dissection or occlusion. Right internal carotid artery: Right internal carotid calcified and noncalcified plaque proximally causes mild approximally 30% stenosis just beyond the bifurcation. Right external carotid artery: High-grade greater than 70% stenosis is present at its origin. Left common carotid artery: No stenosis. No dissection or occlusion. Left internal carotid artery: Proximal left internal carotid artery calcified and noncalcified plaque is present without significant stenosis. Left external carotid artery: No occlusion or stenosis of the origin. Right vertebral artery: The right vertebral artery is occluded just beyond its origin with regions of intermittent opacification in the V2 segment and V3 segment. Left vertebral artery: No stenosis. No dissection or occlusion. Soft tissues: Normal. No significant soft tissue swelling. Bones/joints: Previous sternotomy for CABG. CT/CT angio headneck* [id number] IMPRESSION: 1. The right V4 segment of the vertebral artery is reconstituted distally likely from retrograde flow. Its proximal intracranial portion is intermittently opacified. This is likely the sequelae of a dissection which is age indeterminate. 2. The distal basilar artery beyond the superior cerebellar artery origin is not visualized. This may be congenital related to bilateral origin of the tooling supervisor or related to age-indeterminate occlusion. 3. Major anterior intracranial circulation branch vessels are patent with mild atherosclerotic changes as described. IMPRESSION: 1. 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 This is most likely the sequelae of an age-indeterminate dissection. 2. Carotid mild atherosclerotic changes without high-grade stenosis or occlusion. REFERENCES: NASCET CRITERIA. The degree of stenosis in the cervical segment of the internal carotid artery is based on NASCET criteria. Normal is no stenosis. Mild is less than 50% stenosis. Moderate is 50-69% stenosis. Severe is 70% to 99% stenosis. Total occlusion is no detectable patent lumen.
--- NOTE | 2022-07-30 17:04 | PM.HP ---
Providers/Chief Complaint Primary Care Provider: Kaelyn Horta MD Chief Complaint: CVA X3 DAYS History of Present Illness Alex Nice is a 72 year old male with a past medical history of CAD status post CABG, history of pulmonary embolism on Coumadin, history of noninsulin-dependent type 2 diabetes mellitus, hypertension, dyslipidemia, BPH, history of recurrent C. difficile infections, history of dementia, who presents to [facility] due to altered mental status increased confusion. Patient tells me that he woke up this morning he did not know where he was, he did not remember the day before. Because of concerns for confusion, he knew something was off so [facility]. He is not exactly sure how he got there, I asked him what car he drove and it took him a minute to come up that he drove a Chevy truck, and another minute to come up with the answer that it was maroon-colored. It takes about a minute for him to tell me his birthday, he knows in the hospital but he does not know the time, does not know the date. He can follow commands, but his responses are very delayed. He tells me that he feels off, he is more forgetful than usual, denies any dysuria, hematuria, no abdominal pain, no diarrhea, no fevers, no cough. He denies any chest pain or palpitations. According to ER physician, there was concern for difficulty speaking, difficulty walking right-sided facial droop right sided weakness, concerns for acute CVA, acute head CT had no acute CVA findings. Does show a right-sided lacunar infarct. No evidence of UTI. No evidence of pneumonia on chest x-ray. Blood work was relative within normal limits. NIH stroke scale 9, Hospital stay was called for admission currently he does have weakness on the right side, roughly 4-5 compared to 5 out of 5 on the left, has a bit of a right facial droop, more profoundly he has trouble coordinating, [id number]-vy-syyn is grossly abnormal bilaterally, especially on the right, he denies drinking alcohol, but does tell me that once alcoholic goes an alcoholic. But has not drank any alcohol in many years. He does have some productive aphasia, Review of Systems Const: Denies: fever(s) Eyes: Denies: change in vision Card: Denies: chest pain or palpitations Resp: Denies: dyspnea or non-productive cough GI: Denies: abdominal pain, nausea or vomiting : Denies: flank pain or difficulty urinating Musc: Denies: neck pain or back pain Skin/Breast: Denies: rash Neuro: Reports: numbness in extremities, weakness in extremities, lack of coordination, difficulty walking, confusion and difficulty communicating thoughts; Denies: headache(s) or Slurred speech present Medications/Allergies Home Medications Medication Instructions Recorded Confirmed Last Taken Type atorvastatin 80 mg tablet 40 mg PO QPM 07/26/19 07/30/22 07/29/22 History cholecalciferol (vitamin D3) 10 400 unit PO DAILY 07/26/19 07/30/22 02/22/22 History mcg (400 unit) chewable tablet donepezil 10 mg tablet 10 mg PO BEDTIME 07/26/19 07/30/22 07/29/22 History furosemide 20 mg tablet 20 mg PO DAILY 07/26/19 07/30/22 07/30/22 History metoprolol tartrate 50 mg tablet 50 mg PO BID 07/26/19 07/30/22 07/30/22 History warfarin 2 mg tablet See Rx Instructions .Route .COMPLEX 07/26/19 07/30/22 07/30/22 History nitroglycerin 0.4 mg sublingual 0.4 mg sublingual Q5M PRN Chest 07/31/20 07/30/22 10/09/20 History tablet (Nitrostat) Pain aspirin 325 mg tablet 325 mg PO DAILY 12/23/20 07/30/22 02/22/22 History tamsulosin 0.4 mg capsule 0.4 mg PO QPM 12/23/20 07/30/22 07/29/22 History sildenafil 50 mg tablet 50 mg PO DAILY PRN sexual activity 05/13/21 07/30/22 Unknown Rx #30 tabs duloxetine 60 mg capsule,delayed 60 mg PO DAILY 09/01/21 07/30/22 07/30/22 History release (Cymbalta) metformin 500 mg tablet,extended 500 mg PO BID 09/01/21 07/30/22 07/30/22 History release 24 hr Lactobacillus acidophilus 10 20,000 mmu cells PO BID 09/29/21 07/30/22 02/22/22 History billion cell capsule bismuth subsalicylate 262 mg/15 mL 524 mg PO Q1H PRN Heartburn 09/29/21 07/30/22 Unknown History oral suspension isosorbide mononitrate 30 mg 15 mg PO BID 09/29/21 07/30/22 07/30/22 History tablet,extended release 24 hr omega-3 fatty acids-fish oil 684 1 cap PO DAILY 02/22/22 07/30/22 07/30/22 History mg-1,200 mg capsule,delayed release loperamide 2 mg capsule 2 mg PO Q6H PRN Diarrhea 07/30/22 07/30/22 Unknown History tizanidine 4 mg tablet 2 mg PO BEDTIME 07/30/22 07/30/22 07/29/22 History Allergies Allergy/AdvReac Type Severity Reaction Status Date / Time No Known Allergies Allergy Verified 07/30/22 14:42 PFSH Acute PFSH: Medical History BPH loc w urin obs/LUTS Chronic migraine without aura, intractable, with status migrainosus Coronary artery disease CVA (cerebral vascular accident) Depression Diabetes GERD (gastroesophageal reflux disease) Gross hematuria HTN (hypertension), benign Hyperlipidemia Memory impairment Pulmonary embolism Urinary retention Warfarin anticoagulation Surgical History History of esophagogastroduodenoscopy (EGD) S/P CABG x 4 Status post colonoscopy Family History Mother , at age 92 Cancer bone Father , at age 93 No problems noted. Other CAD (coronary artery disease) Chronic kidney disease (CKD) Diabetes Family history of premature coronary artery disease Hyperlipidemia Hypertension Lung disease Denies family history of Anesthesia complication Bleeding disorder Stroke Social History Smoking and tobacco status: never smoked Alcohol intake: never Marital status: Current occupational status: retired and disabled Vitals/I&O/Wt Last Vital Signs Temp 98.0 F 07/30/22 13:09 Pulse 63 07/30/22 16:17 Resp 17 07/30/22 16:17 BP 172/86 07/30/22 16:17 Pulse Ox 99 07/30/22 16:17 O2 Del Method 07/30/22 13:09 Weight last 48 hrs Weight 108.862 kg Physical Exam Const: COMMON NORMALS: no acute distress ORIENTATION/CONSCIOUSNESS: Yes awake, Yes oriented to person, Yes oriented to place and Yes confused; not oriented to time HENMT: COMMON NORMALS: normocephalic HEAD & SCALP: normocephalic Eye: COMMON NORMALS: Equal, round and reactive pupils present and EOMs intact bilaterally Neck/C-Spine: COMMON NORMALS: no JVD Resp: COMMON NORMALS: normal respiratory effort, No retractions, No use of accessory muscles and clear to auscultation bilaterally AUSCULTATION: clear to auscultation bilaterally Cardio: COMMON NORMALS: regular rate, regular rhythm, S1 normal heart sound present and S2 normal heart sound present RATE: regular rate RHYTHM: regular rhythm HEART SOUNDS: S1 normal heart sound present and S2 normal heart sound present GI: COMMON NORMALS: Normal to inspection, nondistended, normoactive bowel sounds present, Soft to palpation, non-tender, No hepatosplenomegaly present, no masses and no bruits PALPATION: Yes Soft to palpation Extremity: COMMON NORMALS: no calf tenderness and no pedal edema Neuro: OTHER: - Has slight right facial droop -Right upper extremity strength 4-5 -Right lower extremity strength 4-5 -Has productive aphasia -[id number]-[id number]-vbxg abnormally bilaterally Data 07/30/22 13:29 07/30/22 13:29 A&P Assessment and plan (1) Altered mental status: (2) Cerebrovascular accident: (3) Dementia: (4) Warfarin anticoagulation: (5) S/P CABG x 4: (6) Hyperlipidemia: (7) Gross hematuria: (8) BPH loc w urin obs/LUTS: (9) Coronary artery disease: Qualifiers: Coronary Disease-Associated Artery/Lesion type: bypass graft [place] vs. transplanted heart: [place] heart Associated angina: without angina Qualified Code(s): I25.810 - Atherosclerosis of coronary artery bypass graft(s) without angina pectoris (10) HTN (hypertension), benign: Plan Altered mental status -Highly concerning for acute CVA -Right-sided deficits, productive aphasia, cerebellar signs -Out of tPA window, timeframe unknown, NIH stroke scale 9 is on Coumadin Plan -Neurochecks, aspiration precautions, night stroke scale -PT OT, speech therapy eval -Blood pressure management -Continue Coumadin, monitor INR -CT angiogram of the neck -Cardiac echo -TSH, A1c, lipid panel -Telemetry monitoring -Serial EKGs or troponins telemetry monitoring -Full code -Coumadin for DVT prophylaxis -Type 2 diabetes mellitus, low-dose sliding scale Attestations Medical Necessity Statement*: Patient requires hospitalization outpatient with observation for altered mental status Diagnoses Altered mental status R41.82 Cerebrovascular accident I63.9 Dementia F03.90 Warfarin anticoagulation Z79.01 S/P CABG x 4 Z95.1 Hyperlipidemia E78.5 Gross hematuria R31.0 BPH loc w urin obs/LUTS N40.1 Coronary artery disease I25.810 Coronary Disease-Associated Artery/Lesion type: bypass graft [place] vs. transplanted heart: [place] heart Associated angina: without angina HTN (hypertension), benign I10
[2022-07-30] MEDS: iohexol 350 mg/mL 500 mL Btl (per mL) IV (17:14)
[2022-07-30 17:19] LABS: Troponin(5th) Baseline 7 ng/L (0-15)
[2022-07-30 17:33] LABS: Amphetamines Screen Urine Negative (Negative); Barbiturates Screen Urine Negative (Negative); Benzodiazepines Screen Urine Negative (Negative); Cocaine Screen Urine Negative (Negative); Opiate Screen Urine Negative (Negative); PCP Screen Urine Negative (Negative); THC Screen Urine Negative (Negative)
[2022-07-30 17:38] LABS: Glucose Point of Care 86 mg/dL (70-110)
[2022-07-30 17:41] LABS: Estmated Average Glucose 154
[2022-07-30 17:52] LABS: Chol HDL Ratio 3.21 mg/dL (1.0-5.00); Cholesterol 106 mg/dL (0-200); HDL Cholesterol 33 mg/dL (60-100); LDL Cholesterol Calculated 39 mg/dL (50-129); LDL HDL Ratio 1.18 RATIO (0.00-3.22); Triglycerides 169 mg/dL (0-150)
[2022-07-30] MEDS: sodium chloride 0.9% 1,000 ML 75 ML IV ×2 (17:54→21:47)
[2022-07-30] MEDS: pantoprazole 40 mg SDV IVP (17:55)
[2022-07-30] MEDS: isosorbide mononitrate ER 30 mg Tablet 15 MG PO (17:57)
--- NOTE | 2022-07-30 17:58 | PC.NURSE ---
PT NOTICED TO HAVE CLEARING OF THE THROAT AFTER DYSPHASIA SCREENING. DR. AVENDAÑO NOTIFIED. PHYSICIAN INSTRUCTED TO ADMINISTER PO ISOSORBIDE.
[2022-07-30 18:11] LABS: NT Pro B Type Natriuretic Pept 372 pg/mL (0-125); Thyroid Stimulating Hormone 1.34 uIU/mL (0.27-4.20); Vitamin B12 468 pg/mL (232-1245)
[2022-07-30 18:12] LABS: Alcohol Level < 10 mg/dL (0-10)
--- NOTE | 2022-07-30 18:44 | ECG_ITS ---
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 Measurements Intervals [place] Rate: 61 P: 28 MO: 220 QRS: -30 QRSD: 108 T: 122 QT: 428 QTc: 434 Interpretive Statements SINUS RHYTHM WITH FIRST DEGREE AV BLOCK BORDERLINE LEFT AXIS DEVIATION [QRS AXIS < -20] LEFT VENTRICULAR HYPERTROPHY AND ST-T CHANGE [VOLTAGE CRITERIA PLUS ST/T ABNORMALITY] Compared to ECG 07/30/2022 13:30:56 First degree AV block now present ST (T wave) deviation still present Electronically Signed On 07-30-2022 23:17:18 CDT by Eligio Guzman M.D. [id number]
[2022-07-30 18:55] LABS: Folate Level 11.9 ng/mL (4.5-32.2)
[2022-07-30 20:04] LABS: Troponin 5 2HR 7.37 ng/L (0-15)
--- NOTE | 2022-07-30 20:08 | PC.OT ---
OT Eval Held - Eval held on this day secondary to insufficient time for completion of evaluation.
--- NOTE | 2022-07-30 20:13 | PC.NURSE ---
Patient educated on need for MRI, patient is refusing MRI. Dr Petty aware. Son notified that patient is being transferred to [facility].
[2022-07-30 20:31] LABS: Troponin 5 2HR Delta 0.37 ABS# (0-10)
[2022-07-30] MEDS: donepezil 5 MG Tablet 10 MG PO (21:47)
[2022-07-30] MEDS: atorvastatin 40 mg Tablet PO (21:47)
[2022-07-30] MEDS: metoprolol tartrate 50 mg Tablet PO (21:50)
[2022-07-30 22:33] LABS: Glucose Point of Care 98 mg/dL (70-110)
[2022-07-30 23:07] LABS: Troponin 5 6HR 8.39 ng/L (0-15)
[2022-07-30 23:13] LABS: Troponin 5 6HR Delta 1.39 ng/L (0-12)
[2022-07-31] VITALS (9 sets, daily range): BP systolic 99–156; BP diastolic 56–81; PULSE 55–66; RESP 16–19; TEMP 36.3–36.7; O2SAT 92–96
[2022-07-31 05:02] LABS: Basophils % 0.3 %; Eosinophils # 0.3 10^3/uL (0.0-0.8); Eosinophils % 3.1 %; Hemoglobin 13.1 g/dL (11.7-16.6); Lymphocytes # 1.5 10^3/uL (0.8-4.8); Lymphocytes % 16.8 %; Mean Corpuscular HGB Conc 31.2 g/dL (30.0-36.0); Mean Corpuscular Hemoglobin 28.5 pg (28.0-34.0); Mean Corpuscular Volume 91.3 fl (80-94); Mean Platelet Volume 11.3 fL (7.4-10.4); Monocytes # 0.6 10^3/uL (0.2-0.9); Monocytes % 7.1 %; Neutrophils # 6.29 10^3/uL (1.8-7.7); Neutrophils % 72.4 %; Nucleated Red Blood Cells % 0 %; Platelet Count 234 10^3/cmm (130-400); White Blood Count 8.7 10^3/uL (4.0-10.0)
[2022-07-31 05:14] LABS: INR 1.78 (0.8-1.2)
[2022-07-31 05:21] LABS: Alanine Aminotransferase 18 U/L (0-41); Albumin Level 3.7 g/dL (3.5-5.2); Alkaline Phosphatase 79 U/L (40-130); Anion Gap 12.2 (5-19); Aspartate Amino Transferase 15 U/L (0-40); Blood Urea Nitrogen 17 mg/dL (8-23); Calcium 8.2 mg/dL (8.5-10.5); Carbon Dioxide 26 mmol/L (22-29); Chloride 104 mmol/L (98-107); Globulin 2.8 g/dL (1.3-4.6); Glucose 126 mg/dL (65-115); Osmolality Calculated 289 mOsm/kg (285-295); Potassium 4.2 mmol/L (3.5-5.1); Sodium 138 mmol/L (136-145); Total Protein 6.5 g/dL (6.6-8.7)
[2022-07-31] MEDS: sodium chloride 0.9% 1,000 ML 75 ML IV ×2 (05:40→18:01)
--- NOTE | 2022-07-31 06:00 | USCV_ITS ---
Alex Nice Age: 72 Gender: M : 1950 Exam Date: 07/31/2022 13:56 Ordering Phys: Harris Spann MD Technologist: DONALD Exam Location: [facility] [place] Indication: cva BP: / HR: 56 Rhythm: Sinus Technical Quality: Adequate MEASUREMENTS (Male / Female) Normal Values 2D ECHO LV Diastolic Diameter PLAX 5.3 cm 4.2 - 5.9 / 3.9 - 5.3 cm LV Systolic Diameter PLAX 3.9 cm IVS Diastolic Thickness 1.0 cm 0.6 - 1.0 / 0.6 - 0.9 cm IVS Systolic Thickness 1.5 cm LVPW Diastolic Thickness 1.2 cm 0.6 - 1.0 / 0.6 - 0.9 cm LVPW Systolic Thickness 1.4 cm LVOT Diameter 2.1 cm LV Ejection Fraction 2D Teich 50.2 % LV Ejection Fraction MOD 2C 80.6 % LV Ejection Fraction 2C AL 81.7 % LA Diameter 4.3 cm M-MODE Aortic Annulus Diameter 3.4 cm LA Ao Ratio MM 1.3 MV E Point Septal Separation 0.8 cm DOPPLER AV Peak Velocity 213.0 cm/s LVOT Peak Velocity 100.0 cm/s AV Area Cont Eq vti 1.9 cm squared AV Area Cont Eq pk 1.7 cm squared MV Area PHT 4.1 cm squared Mitral E to A Ratio 1.0 MV E' Velocity 44.5 cm/s Mitral E to MV E' Ratio 13.3 Mitral E to LV E' Lateral Ratio 13.6 Mitral E to LV E' Septal Ratio 13.1 TV Peak E Velocity 70.0 cm/s PV Peak Velocity 129.0 cm/s FINDINGS Left Ventricle Left ventricle is normal in size. LV systolic function is normal with EF of 50-55%. No regional wall motion abnormalities. Right Ventricle Normal in size and function Right Atrium Normal in size Left Atrium Dilated Mitral Valve Structurally normal in size.Mild mitral regurgitation. Aortic Valve Aortic valve is thickened. Mild aortic stenosis with aortic valve area of 1.88cm2 with mean gradient across the aortic valve of 10mmHg. Tricuspid Valve Trace tricuspid regurgitation. Pulmonic Valve Trace pulmonic regurgitation. Pericardium Normal Aorta Normal in size IVC Not well visualized CONCLUSIONS LV systolic function is normal with EF of 50-55%. Left atrial dilation Mild mitral regurgitation Mild aortic stenosis with aortic valve area of 1.88cm2 with mean gradient across the aortic valve of 10mmHg. Trace tricuspid regurgitation Trace pulmonic regurgitation Compared to prior echocardiogram from 07/2020, mild aortic stenosis now seen Kirk Lane MD (Electronically Signed) Final Date: 01 August 2022 12:32 S
[2022-07-31 07:10] LABS: Glucose Point of Care 125 mg/dL (70-110)
[2022-07-31] MEDS: aspirin 81 mg EC Tablet PO (08:42)
[2022-07-31] MEDS: isosorbide mononitrate ER 30 mg Tablet 15 MG PO ×2 (08:42→17:40)
[2022-07-31] MEDS: duloxetine 60 mg Capsule PO (08:43)
[2022-07-31] MEDS: tamsulosin 0.4 mg Capsule PO (08:43)
[2022-07-31] MEDS: metoprolol tartrate 50 mg Tablet PO ×2 (08:43→21:59)
[2022-07-31] MEDS: LORazepam 2 mg/mL INJ 1 mL 1 MG IM (09:49)
--- NOTE | 2022-07-31 09:59 | MRR_ITS ---
PROCEDURE INFORMATION: Exam: MRA Head Without Contrast; Arteriography Exam date and time: 07/31/2022 10:12 AM Age: 72 years old Clinical indication: Cognitive deficit and memory loss; Altered mental status; Additional info: Right sided weakness TECHNIQUE: Imaging protocol: Magnetic resonance angiography head without contrast. Xenv-sy-jroceu (TOF) technique was utilized for this exam. Exam focused on the arteries. COMPARISON: CT angio headneck* [id number] 07/30/2022 5:04 PM FINDINGS: ANTERIOR CIRCULATION: Right internal carotid artery: Intracranial segment is patent with no significant stenosis. No aneurysm. Right middle cerebral artery: No occlusion or significant stenosis. No aneurysm. Right anterior cerebral artery: No occlusion or significant stenosis. No aneurysm. Left internal carotid artery: Intracranial segment is patent with moderate stenosis in the clinoid segment. No aneurysm. Left middle cerebral artery: No occlusion. Short severe stenosis in proximal M1 segment documented on prior CTA head (series 21, image 79) appears as 2 mm segment of nearly absent flow on the current exam (series 301, image 116, series 305, image 17). No aneurysm. Left anterior cerebral artery: No occlusion or significant stenosis. No aneurysm. POSTERIOR CIRCULATION: Right vertebral artery: The artery is occluded at the craniocervical junction. The flow within the right V4 segment is likely supplied from the left vertebral artery. No aneurysm. Left vertebral artery: No occlusion or significant stenosis. No aneurysm. Basilar artery: No occlusion or significant stenosis. No aneurysm. The artery is of small caliber as expected with origin of bilateral posterior cerebral arteries (see below). Right posterior cerebral artery: No occlusion or significant stenosis. No aneurysm. There is developmental variant of origin of the artery from the anterior circulation. Left posterior cerebral artery: No occlusion or significant stenosis. No aneurysm. There is developmental variant of origin of the artery from the anterior circulation. MR/MR angio head wo con [id number] IMPRESSION: Short severe stenosis in the proximal left M1 segment documented on CTA head on 07/30/2022 it appears as 2 mm wide focus of absent flow on the current exam. Moderate stenosis in the clinoid segment of the left internal carotid artery. Age indeterminate occlusion of the right vertebral artery. 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
--- NOTE | 2022-07-31 10:00 | MRR_ITS ---
PROCEDURE INFORMATION: Exam: MR Head Without Contrast Exam date and time: 07/31/2022 10:22 AM Age: 72 years old Clinical indication: Altered mental status/memory loss; Additional info: Right side weekness TECHNIQUE: Imaging protocol: Magnetic resonance imaging of the head without contrast. COMPARISON: CT head wo con* [id number] 07/30/2022 2:06 PM FINDINGS: Brain: No acute infarction. No sequela of hemorrhage. There are small confluent areas and multiple foci of increased signal seen on the FLAIR and T2 weighted sequences with no restricted diffusion in the bilateral periventricular white matter and in the central anthony suggestive of chronic small vessel ischemic changes. Cerebral ventricles: No hydrocephalus. The ventricles and sulci are prominent in size in keeping with brain atrophy. Bones/joints: No focal signal abnormality. Paranasal sinuses: Normal as visualized. No acute sinusitis. Mastoid air cells: No mastoid effusion. Orbital cavities: Unremarkable. Soft tissues: Unremarkable. MR/MR head wo con* [id number] IMPRESSION: No acute infarction. Brain atrophy and chronic microangiopathic changes in the periventricular white matter and in the anthony.
--- NOTE | 2022-07-31 10:47 | PC.NURSE ---
Patient refuse cardiac monitoring, patient stated I don't need the monitor because even if there is something wrong I'm not getting it fixed.
[2022-07-31 11:53] LABS: Glucose Point of Care 117 mg/dL (70-110)
[2022-07-31] MEDS: warfarin 2 mg Tablet PO (14:27)
[2022-07-31] MEDS: warfarin 2 mg Tablet 6 MG PO (14:28)
--- NOTE | 2022-07-31 17:03 | P.PN_ITS ---
Subjective Subjective: - Overnight, patient was found to have a right vertebral artery dissection, age indeterminate -Dr. Umanzor from the emergency room spoke to vascular surgery, they did not recommend any intervention except anticoagulation -I spoke to [facility] about the case, spoke to neurology, they recommended medical management, continue anticoagulation continue antiplatelet therapy, however they did recommend an MRI -MRI could not be performed as patient declined -This morning patient was seen he is alert to person, to place, not to time he continues to have right upper right lower extremity weakness, no choking or coughing episodes, he continues to have significant word finding difficulty, and episodes of confusion Vitals/I&O/Wt Last Vital Signs Temp 98.1 F 07/31/22 16:00 Pulse 58 L 07/31/22 16:00 Resp 16 07/31/22 16:00 BP 156/68 07/31/22 16:00 Pulse Ox 93 07/31/22 16:00 O2 Del Method 07/31/22 04:43 07/31/22 07/31/22 07/31/22 06:59 14:59 22:59 Intake Total 791.25 / 1082.50 Output Total 500 / 500 Balance 291.25 / 582.50 Weight last 48 hrs Weight 108.862 kg Physical Exam Const: COMMON NORMALS: no acute distress ORIENTATION/CONSCIOUSNESS: Yes awake and Yes oriented to person; not oriented to place and not oriented to time Resp: COMMON NORMALS: normal respiratory effort, No retractions, No use of accessory muscles and clear to auscultation bilaterally AUSCULTATION: clear to auscultation bilaterally Cardio: COMMON NORMALS: regular rate, regular rhythm, S1 normal heart sound present and S2 normal heart sound present RATE: regular rate RHYTHM: regular rhythm HEART SOUNDS: S1 normal heart sound present and S2 normal heart sound present GI: COMMON NORMALS: Normal to inspection, nondistended, normoactive bowel sounds present and non-tender Extremity: COMMON NORMALS: no pedal edema Neuro: SENSORIUM/ORIENTATION: Yes oriented to person, No oriented to place and No oriented to time OTHER: Right upper extremity strength 4-5 Right lower extremity strength 4-5 Word finding difficulty Slight right facial droop [id number] abnormal Data 07/31/22 04:46 07/31/22 04:46 Micro: Microbiology 03/24/23 17:25 Blood Culture - Preliminary Blood SPECIMEN COLLECTED 07/30/22 17:20 Blood Culture - Preliminary Blood SPECIMEN COLLECTED A&P Assessment and plan (1) Vertebral artery dissection: (2) Altered mental status: (3) Cerebrovascular accident: (4) Dementia: (5) Warfarin anticoagulation: (6) S/P CABG x 4: (7) Hyperlipidemia: (8) Gross hematuria: (9) BPH loc w urin obs/LUTS: (10) Coronary artery disease: Qualifiers: Coronary Disease-Associated Artery/Lesion type: bypass graft [place] vs. transplanted heart: [place] heart Associated angina: without angina Qualified Code(s): I25.810 - Atherosclerosis of coronary artery bypass graft(s) without angina pectoris (11) HTN (hypertension), benign: Plan Altered mental status -Highly concerning for acute CVA -Right-sided deficits, word finding difficulty, cerebellar signs -Out of tPA window, timeframe unknown, NIH stroke scale 9 is on Coumadin -With findings of vertebral artery dissection on the right, vascular surgery recommended no surgical invention except anticoagulation, -Spoke to Castrejon about the case, recommended medical management anticoagulant therapy, and MRIs, patient declined last night agreeable this morning Plan -Neurochecks, aspiration precautions, night stroke scale -PT OT, speech therapy eval -Blood pressure management -Continue Coumadin, monitor INR -MRI head and neck -Cardiac echo -TSH within normal limits, A1c 7.0, -Telemetry monitoring -Serial EKGs or troponins telemetry monitoring -Full code -Coumadin for DVT prophylaxis -Type 2 diabetes mellitus, low-dose sliding scale Attestations Medical Necessity Statement*: Patient requires hospitalization for for cute CVA, right vertebral artery dissection, inpatient, greater than 2 midnights Diagnoses Vertebral artery dissection I77.74 Altered mental status R41.82 Cerebrovascular accident I63.9 Dementia F03.90 Warfarin anticoagulation Z79.01 S/P CABG x 4 Z95.1 Hyperlipidemia E78.5 Gross hematuria R31.0 BPH loc w urin obs/LUTS N40.1 Coronary artery disease I25.810 Coronary Disease-Associated Artery/Lesion type: bypass graft [place] vs. transplanted heart: [place] heart Associated angina: without angina HTN (hypertension), benign I10
[2022-07-31 17:10] LABS: Glucose Point of Care 102 mg/dL (70-110)
[2022-07-31 17:10] LABS: Glucose Point of Care 123 mg/dL (70-110)
[2022-07-31] MEDS: pantoprazole 40 mg SDV IVP (17:25)
[2022-07-31 20:17] LABS: Glucose Point of Care 148 mg/dL (70-110)
[2022-07-31] MEDS: atorvastatin 40 mg Tablet PO (21:59)
[2022-07-31] MEDS: donepezil 5 MG Tablet 10 MG PO (21:59)
[2022-08-01] VITALS (8 sets, daily range): BP systolic 116–163; BP diastolic 67–90; PULSE 57–76; RESP 15–19; TEMP 36.2–37.6; O2SAT 92–96
[2022-08-01 04:38] LABS: Basophils # 0.1 10^3/uL (0.0-0.1); Basophils % 0.6 %; Eosinophils # 0.5 10^3/uL (0.0-0.8); Eosinophils % 5.6 %; Hematocrit 41.9 % (42.0-52.0); Hemoglobin 13.1 g/dL (11.7-16.6); Lymphocytes # 1.3 10^3/uL (0.8-4.8); Lymphocytes % 14.2 %; Mean Corpuscular HGB Conc 31.3 g/dL (30.0-36.0); Mean Corpuscular Hemoglobin 28.7 pg (28.0-34.0); Mean Corpuscular Volume 91.7 fl (80-94); Mean Platelet Volume 11.5 fL (7.4-10.4); Monocytes # 0.6 10^3/uL (0.2-0.9); Monocytes % 7.1 %; Neutrophils # 6.47 10^3/uL (1.8-7.7); Neutrophils % 72.1 %; Nucleated Red Blood Cells % 0 %; Platelet Count 211 10^3/cmm (130-400); Red Blood Count 4.57 10^6/uL (4.1-5.3); Red Cell Distribution Width 14.7 % (12.1-15.1)
[2022-08-01 04:52] LABS: INR 1.63 (0.8-1.2)
[2022-08-01 04:55] LABS: Alanine Aminotransferase 15 U/L (0-41); Albumin Level 3.4 g/dL (3.5-5.2); Alkaline Phosphatase 73 U/L (40-130); Anion Gap 10.3 (5-19); Aspartate Amino Transferase 13 U/L (0-40); Blood Urea Nitrogen 11 mg/dL (8-23); Calcium 8.5 mg/dL (8.5-10.5); Carbon Dioxide 26 mmol/L (22-29); Chloride 106 mmol/L (98-107); Glucose 140 mg/dL (65-115); Osmolality Calculated 288 mOsm/kg (285-295); Potassium 4.3 mmol/L (3.5-5.1); Sodium 138 mmol/L (136-145); Total Bilirubin 0.8 mg/dL (0.15-1.2); Total Protein 6.4 g/dL (6.6-8.7)
[2022-08-01 06:31] LABS: Glucose Point of Care 134 mg/dL (70-110)
[2022-08-01] MEDS: isosorbide mononitrate ER 30 mg Tablet 15 MG PO ×2 (09:09→17:30)
[2022-08-01] MEDS: metoprolol tartrate 50 mg Tablet PO ×2 (09:09→20:34)
[2022-08-01] MEDS: aspirin 81 mg EC Tablet PO (09:09)
[2022-08-01] MEDS: tamsulosin 0.4 mg Capsule PO (09:09)
[2022-08-01] MEDS: enoxaparin 100 mg/mL Syringe SUBCUT ×2 (09:09→20:34)
[2022-08-01] MEDS: duloxetine 60 mg Capsule PO (09:09)
--- NOTE | 2022-08-01 12:54 | P.PN_ITS ---
Subjective Subjective: Patient was seen this morning, upset with his persistent word finding difficulty, he tells me that he notices he is having episodes of confusion, he feels more weak on the right side, right upper right lower extremity, he is frustrated about being here in the hospital, he really does not want to go to a shelter, Vitals/I&O/Wt Last Vital Signs Temp 97.8 F 08/01/22 08:00 Pulse 62 08/01/22 12:00 Resp 15 08/01/22 08:00 BP 157/82 08/01/22 12:00 Pulse Ox 94 08/01/22 12:00 O2 Del Method 07/31/22 04:43 07/31/22 08/01/22 08/01/22 22:59 06:59 14:59 Intake Total 1726.25 / 1726.25 1240 / 1240 Output Total 850 / 850 Balance 1726.25 / 1726.25 -850 / 876.25 1240 / 1240 Weight last 48 hrs Weight 108.862 kg Physical Exam Const: COMMON NORMALS: no acute distress ORIENTATION/CONSCIOUSNESS: Yes awake, Yes oriented to person and Yes oriented to place; not oriented to time OTHER: alert to per Resp: COMMON NORMALS: normal respiratory effort, No retractions, No use of accessory muscles and clear to auscultation bilaterally AUSCULTATION: clear to auscultation bilaterally Cardio: COMMON NORMALS: regular rate, regular rhythm, S1 normal heart sound pr esent and S2 normal heart sound present RATE: regular rate RHYTHM: regular rhythm HEART SOUNDS: S1 normal heart sound present and S2 normal heart sound present GI: COMMON NORMALS: Normal to inspection, nondistended, normoactive bowel sounds present and non-tender Extremity: COMMON NORMALS: no pedal edema OTHER: Strength in right upper extremity 3 out of 5, strength in right lower extremity with 5, still trouble coordinating still has word finding difficulty no facial droop noted today, Neuro: SENSORIUM/ORIENTATION: Yes oriented to person, Yes oriented to place and No oriented to time Data 08/01/22 04:05 08/01/22 04:05 Micro: Microbiology 07/30/22 14:28 Urine Culture - Final Urine,Voided 07/30/22 17:25 Blood Culture - Preliminary Blood NEGATIVE TO DATE 07/30/22 17:20 Blood Culture - Preliminary Blood NEGATIVE TO DATE A&P Assessment and plan (1) Vertebral artery dissection: (2) Altered mental status: (3) Cerebrovascular accident: (4) Dementia: (5) Warfarin anticoagulation: (6) S/P CABG x 4: (7) Hyperlipidemia: (8) Gross hematuria: (9) BPH loc w urin obs/LUTS: (10) Coronary artery disease: Qualifiers: Coronary Disease-Associated Artery/Lesion type: bypass graft [place] vs. transplanted heart: [place] heart Associated angina: without angina Qualified Code(s): I25.810 - Atherosclerosis of coronary artery bypass graft(s) without angina pectoris (11) HTN (hypertension), benign: (12) Acute ischemic left MCA stroke: Plan Acute CVA, left MCA -Right-sided deficits, word finding difficulty, cerebellar signs -Right-sided deficits today are a little bit more pronounced, 3 out of 5 upper and lower extremities, compared to yesterday -Out of tPA window, timeframe unknown, could be a day or 3 days, NIH stroke scale 9 on admission, wason Coumadin -With findings of vertebral artery dissection on the right, vascular surgery recommended no surgical invention except anticoagulation, -Spoke to Castrejon about the case, recommended medical management anticoagulant therapy, and MRI ordered a stat however patient declined -MRI ordered the day after 07/31/2022, as patient was more agreeable Ativan ordered -MRI head No acute infarction. Brain atrophy and chronic microangiopathic changes in the periventricular white matter and in the anthony. MRA ?Short severe stenosis in the proximal left M1 segment documented on CTA head on 07/30/2022 it appears as 2 mm wide focus of absent flow on the current exam. ? Moderate stenosis in the clinoid segment of the left internal carotid artery. ? Age indeterminate occlusion of the right vertebral artery. ? 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 -Findings above concerning for left M1 short severe stenosis, Plan -Continue aspirin, statin, Plavix added today -Neurochecks, aspiration precautions, night stroke scale -PT OT, speech therapy eval -Blood pressure management -Continue Coumadin, INR subtherapeutic at 1.68, bridge with Lovenox -TSH within normal limits, A1c 7.0, -Telemetry monitoring -Serial EKGs or troponins telemetry monitoring -Full code -Coumadin and Lovenox for DVT prophylaxis -Type 2 diabetes mellitus, low-dose sliding scale Attestations Medical Necessity Statement*: Patient requires hospitalization for acute CVA, left MCA, Diagnoses Vertebral artery dissection I77.74 Altered mental status R41.82 Cerebrovascular accident I63.9 Dementia F03.90 Warfarin anticoagulation Z79.01 S/P CABG x 4 Z95.1 Hyperlipidemia E78.5 Gross hematuria R31.0 BPH loc w urin obs/LUTS N40.1 Coronary artery disease I25.810 Coronary Disease-Associated Artery/Lesion type: bypass graft [place] vs. transplanted heart: [place] heart Associated angina: without angina HTN (hypertension), benign I10 Acute ischemic left MCA stroke I63.512
[2022-08-01 13:55] LABS: Glucose Point of Care 156 mg/dL (70-110)
[2022-08-01] MEDS: warfarin 2 mg Tablet 4 MG PO (13:57)
[2022-08-01] MEDS: amlodipine 10 mg Tablet PO (13:57)
[2022-08-01] MEDS: warfarin 2 mg Tablet 6 MG PO (13:58)
[2022-08-01] MEDS: clopidogrel 75 mg Tablet PO (13:58)
[2022-08-01] MEDS: pantoprazole 40 mg SDV IVP (14:43)
[2022-08-01 17:11] LABS: Glucose Point of Care 98 mg/dL (70-110)
[2022-08-01] MEDS: atorvastatin 40 mg Tablet PO (20:33)
[2022-08-01] MEDS: donepezil 5 MG Tablet 10 MG PO (20:34)
[2022-08-01] MEDS: acetaminophen 325 mg Tablet 650 MG PO (20:35)
[2022-08-01 21:49] LABS: Glucose Point of Care 145 mg/dL (70-110)
[2022-08-02] MEDS: sodium chloride 0.9% 1,000 ML 75 ML IV (00:15)
[2022-08-02] MEDS: pantoprazole 40 mg SDV IVP (00:45)
--- NOTE | 2022-08-02 02:15 | PC.NURSE ---
Patient continues to refuse monitoring and evaluation advisor. Patient also refused fluids for half of the shift and threatened to leave AMA. After Patient had a nap Nurse spoke with patient again about fluids. Patient was agreeable to fluids but continued to refuse monitoring and evaluation advisor.
[2022-08-02 04:00] VITALS: BP 151/78; PULSE 60; RESP 20; TEMP 36.4; O2SAT 98
--- NOTE | 2022-08-02 04:07 | PC.NURSE ---
Nurse responded to patient call light and patient was upset about fluids inconveniencing him and disrupting his sleep. Patient started talking about leaving AMA again. Nurse was able to calm patient, toileting offered, linen change was done, Ice water refilled in room. IV fluids paused d/t patient refusal. Patient states he will be leaving in the morning.
[2022-08-02 04:42] LABS: Basophils % 0.5 %; Eosinophils # 0.6 10^3/uL (0.0-0.8); Eosinophils % 6.7 %; Hematocrit 42.1 % (42.0-52.0); Hemoglobin 13.3 g/dL (11.7-16.6); Lymphocytes # 1.6 10^3/uL (0.8-4.8); Lymphocytes % 19.1 %; Mean Corpuscular HGB Conc 31.6 g/dL (30.0-36.0); Mean Corpuscular Hemoglobin 28.7 pg (28.0-34.0); Mean Corpuscular Volume 90.7 fl (80-94); Mean Platelet Volume 11.5 fL (7.4-10.4); Monocytes # 0.6 10^3/uL (0.2-0.9); Monocytes % 6.9 %; Neutrophils % 66.3 %; Nucleated Red Blood Cells % 0 %; Platelet Count 229 10^3/cmm (130-400); Red Blood Count 4.64 10^6/uL (4.1-5.3); Red Cell Distribution Width 14.7 % (12.1-15.1); White Blood Count 8.2 10^3/uL (4.0-10.0)
[2022-08-02 05:04] LABS: INR 1.84 (0.8-1.2)
[2022-08-02 05:10] LABS: Alanine Aminotransferase 15 U/L (0-41); Albumin Level 3.5 g/dL (3.5-5.2); Alkaline Phosphatase 76 U/L (40-130); Anion Gap 12.3 (5-19); Aspartate Amino Transferase 14 U/L (0-40); Blood Urea Nitrogen 12 mg/dL (8-23); Calcium 8.4 mg/dL (8.5-10.5); Carbon Dioxide 26 mmol/L (22-29); Chloride 108 mmol/L (98-107); Globulin 3.1 g/dL (1.3-4.6); Glucose 127 mg/dL (65-115); Osmolality Calculated 295 mOsm/kg (285-295); Potassium 4.3 mmol/L (3.5-5.1); Sodium 142 mmol/L (136-145); Total Bilirubin 0.6 mg/dL (0.15-1.2); Total Protein 6.6 g/dL (6.6-8.7)
[2022-08-02 08:18] VITALS: BP 152/91; PULSE 63; RESP 18; TEMP 36.4; O2SAT 96
[2022-08-02] MEDS: isosorbide mononitrate ER 30 mg Tablet 15 MG PO (08:41)
[2022-08-02] MEDS: duloxetine 60 mg Capsule PO (08:41)
[2022-08-02] MEDS: metoprolol tartrate 50 mg Tablet PO (08:44)
[2022-08-02] MEDS: tamsulosin 0.4 mg Capsule PO (08:44)
[2022-08-02] MEDS: amlodipine 10 mg Tablet PO (08:44)
[2022-08-02] MEDS: aspirin 81 mg EC Tablet PO (08:44)
[2022-08-02] MEDS: clopidogrel 75 mg Tablet PO (08:49)
--- NOTE | 2022-08-02 10:15 | P.DS_ITS ---
Discharge Providers Date of Admission: 07/30/22 16:53 Date of Discharge: August 02, 2022 Attending Provider at Admission: Liam Holloway MD Attending Provider at Discharge: Bernie Baxter MD Primary Care Provider: Kaelyn Horta MD Diagnoses at Discharge Discharge Diagnosis (1) Vertebral artery dissection: Status: Acute (2) Altered mental status: Status: Acute (3) Cerebrovascular accident: Status: Acute (4) Dementia: Status: Acute (5) Warfarin anticoagulation: Status: Acute (6) S/P CABG x 4: Status: Acute (7) Hyperlipidemia: Status: Acute (8) Gross hematuria: Status: Acute (9) BPH loc w urin obs/LUTS: Status: Acute (10) Coronary artery disease: Status: Acute Qualifiers: Associated angina: without angina Coronary Disease-Associated Artery/Lesion type: bypass graft [place] vs. transplanted heart: [place] heart Qualified Code(s): I25.810 - Atherosclerosis of coronary artery bypass graft(s) without angina pectoris (11) HTN (hypertension), benign: Status: Acute (12) Acute ischemic left MCA stroke: Status: Acute Reason for Visit Reason for Visit: CVA X3 DAYS Hospital Course Hospital Course Alex Nice is a 72 year old male with a past medical history of CAD status post CABG, history of pulmonary embolism on Coumadin, history of noninsulin- dependent type 2 diabetes mellitus, hypertension, dyslipidemia, BPH, history of recurrent C. difficile infections, history of dementia, who presents to [facility] due to altered mental status increased confusion Patient was diagnosed with acute left MCA and right vertebral artery dissection for which he was managed with antiplatelets and anticoagulating agent, he was not a tPA candidate, at home he was on Coumadin which was resumed and he was bridged with therapeutic Lovenox because his INR was less than 2, his case was presented to stroke team and neuro vascular surgeon who recommended continuation of anticoagulating agent and no intervention at this point for vertebral artery dissection. Patient's mentation improved gradually with conservative managem ent, he was able to walk on his own without any assistance, he does have right- sided hemianopsia, his weakness has improved significantly, he did well with PT OT and speech therapy. On 08/02 patient was threatening to leave AMA, he was upset that nurse has not attended to his calls multiple times for his headache. After reviewing his case with director of casework and physical therapy decision was made to discharge him home with home health services on Coumadin and Plavix. He has history of pulmonary embolism for which he is on anticoagulating agent. Past history of CAD and CABG [address] [facility] in [place].? 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 Echo unremarkable, other than mild aortic valve stenosis. He remained in sinus rhythm throughout hospitalization Physical Exam Narrative: Awake and alert Right-sided weakness improving Right-sided hemianopsia Pleasant and cooperative Room air Hemodynamically stable GCS 15 Discharge Data Studies Completed and Pending Completed Studies During Hospitalization Category Date Time Status CT angio head neck [CT angio headneck* [id number]] Cat Scan 07/30/22 16:[address] head wo con* [id number] Stat Cat Scan 07/30/22 13:15 Completed XR chest 1V portable [id number] Stat Exams 07/30/22 13:15 Completed MR angio head wo con [id number] Stat MRI 07/31/22 09:59 Completed MR head wo con* [id number] Stat MRI 07/31/22 10:00 Completed CV. echo w/w bubble cont [id number] Routine Ultrasound 07/31/22 06:00 Completed Pending at discharge Category Date Time Status Blood Culture Stat Lab 07/30/22 17:25 Results Radiology Impressions Chest X-Ray 07/30/22 13:15 IMPRESSION: Stable chest with no acute process or significant change from 02/22/2022. Head CT 07/30/22 13:15 IMPRESSION: 1. No evidence of intracranial hemorrhage or mass effect. 2. Mild small vessel changes. Moderate parenchymal volume loss. 3. No acute intracranial findings and no change from previous study. Head/Neck CTA 07/30/22 16:53 IMPRESSION: 1. The right V4 segment of the vertebral artery is reconstituted distally likely from retrograde flow. Its proximal intracranial portion is intermittently opacified. This is likely the sequelae of a dissection which is age indeterminate. 2. The distal basilar artery beyond the superior cerebellar artery origin is not visualized. This may be congenital related to bilateral origin of the loom starter or related to age-indeterminate occlusion. 3. Major anterior intracranial circulation branch vessels are patent with mild atherosclerotic changes as described. IMPRESSION: 1. 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 This is most likely the sequelae of an age-indeterminate dissection. 2. Carotid mild atherosclerotic changes without high-grade stenosis or occlusion. REFERENCES: NASCET CRITERIA. The degree of stenosis in the cervical segment of the internal carotid artery is based on NASCET criteria. Normal is no stenosis. Mild is less than 50% stenosis. Moderate is 50-69% stenosis. Severe is 70% to 99% stenosis. Total occlusion is no detectable patent lumen. ADDENDUM: 07/30/221811 THIS REPORT CONTAINS FINDINGS THAT MAY BE CRITICAL TO PATIENT CARE. The findings were verbally communicated via telephone conference with LIAM Salas at 6:10 PM CDT on 07/30/2022. The findings were acknowledged and understood. Head MRA 07/31/22 09:59 IMPRESSION: Short severe stenosis in the proximal left M1 segment documented on CTA head on 07/30/2022 it appears as 2 mm wide focus of absent flow on the current exam. Moderate stenosis in the clinoid segment of the left internal carotid artery. Age indeterminate occlusion of the right vertebral artery. 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 Head MRI 07/31/22 10:00 IMPRESSION: No acute infarction. Brain atrophy and chronic microangiopathic changes in the periventricular white matter and in the anthony. Laboratory Results WBC 8.2 10^3/uL (4.0-10.0) 08/02/22 03:51 RBC 4.64 10^6/uL (4.1-5.3) 08/02/22 03:51 Hgb 13.3 g/dL (11.7-16.6) 08/02/22 03:51 Hct 42.1 % (42.0-52.0) 08/02/22 03:51 MCV 90.7 fl (80-94) 08/02/22 03:51 MCH 28.7 pg (28.0-34.0) 08/02/22 03:51 MCHC 31.6 g/dL (30.0-36.0) 08/02/22 03:51 RDW 14.7 % (12.1-15.1) 08/02/22 03:51 Plt Count 229 10^3/cmm (130-400) 08/02/22 03:51 MPV 11.5 fL (7.4-10.4) H 08/02/22 03:51 Neut % (Auto) 66.3 % 08/02/22 03:51 Lymph % (Auto) 19.1 % 08/02/22 03:51 [place] % (Auto) 6.9 % 08/02/22 03:51 Eos % (Auto) 6.7 % 08/02/22 03:51 Baso % (Auto) 0.5 % 08/02/22 03:51 Neut # (Auto) 5.40 10^3/uL (1.8-7.7) 08/02/22 03:51 Lymph # (Auto) 1.6 10^3/uL (0.8-4.8) 08/02/22 03:51 [place] # (Auto) 0.6 10^3/uL (0.2-0.9) 08/02/22 03:51 Eos # (Auto) 0.6 10^3/uL (0.0-0.8) 08/02/22 03:51 Baso # (Auto) 0.0 10^3/uL (0.0-0.1) 08/02/22 03:51 Nucleated RBC % (auto) 0 % 08/02/22 03:51 Nucleated RBCs # 0.0 /100WBC 08/02/22 03:51 PT 21.90 SECONDS (12.1-14.9) H 08/02/22 03:51 INR 1.84 (0.8-1.2) H 08/02/22 03:51 Sodium 142 mmol/L (136-145) 08/02/22 03:51 Potassium 4.3 mmol/L (3.5-5.1) 08/02/22 03:51 Chloride 108 mmol/L (98-107) H 08/02/22 03:51 Carbon Dioxide 26 mmol/L (22-29) 08/02/22 03:51 Anion Gap 12.3 (5-19) 08/02/22 03:51 BUN 12 mg/dL (8-23) 08/02/22 03:51 Creatinine 0.8 mg/dL (0.7-1.2) 08/02/22 03:51 GFR Calculation Not Reportable 08/02/22 03:51 Glucose 127 mg/dL (65-115) H 08/02/22 03:51 POC Glucose 145 mg/dL (70-110) H 08/01/22 21:45 Estimat Average Glucose 154 07/30/22 17:25 Hemoglobin A1c 7.0 % (4.0-6.0) H 07/30/22 17:25 Calculated Osmolality 295 mOsm/kg (285-295) 08/02/22 03:51 Calcium 8.4 mg/dL (8.5-10.5) L 08/02/22 03:51 Total Bilirubin 0.6 mg/dL (0.15-1.2) 08/02/22 03:51 AST 14 U/L (0-40) 08/02/22 03:51 ALT 15 U/L (0-41) 08/02/22 03:51 Alkaline Phosphatase 76 U/L (40-130) 08/02/22 03:51 Troponin T Baseline 7 ng/L (0-15) 07/30/22 16:54 Troponin T 120 Minute 7.37 ng/L (0-15) 07/30/22 19:05 Delta Troponin T 0.37 ABS# (0-10) 07/30/22 19:05 Troponin T Hi Sens 6Hr 8.39 ng/L (0-15) 07/30/22 22:40 Troponin T Hi Sens 6Hr Delta 1.39 ng/L (0-12) 07/30/22 22:40 NT-Pro-B Natriuret Pep 372 pg/mL (0-125) H 07/30/22 17:25 Total Protein 6.6 g/dL (6.6-8.7) 08/02/22 03:51 Albumin 3.5 g/dL (3.5-5.2) 08/02/22 03:51 Globulin 3.1 g/dL (1.3-4.6) 08/02/22 03:51 Triglycerides 169 mg/dL (0-150) H 07/30/22 17:25 Cholesterol 106 mg/dL (0-200) 07/30/22 17:25 LDL Cholesterol, Calc 39 mg/dL (50-129) L 07/30/22 17:25 HDL Cholesterol 33 mg/dL (60-100) L 07/30/22 17:25 LDL/HDL Ratio 1.18 RATIO (0.00-3.22) 07/30/22 17:25 Cholesterol/HDL Ratio 3.21 mg/dL (1.0-5.00) 07/30/22 17:25 Vitamin B12 468 pg/mL (232-1245) 07/30/22 17:25 Folate 11.9 ng/mL (4.5-32.2) 07/30/22 17:25 TSH 1.34 uIU/mL (0.27-4.20) 07/30/22 17:25 Urine Color Yellow (Yellow) 07/30/22 14:28 Urine Appearance Clear (CLEAR) 07/30/22 14:28 Urine pH 5 (5-7) 07/30/22 14:28 Ur Specific Junior 1.020 (1.005-1.030) 07/30/22 14:28 Urine Protein Neg (Negative) 07/30/22 14:28 Urine Glucose (UA) 2+ (Normal) H 07/30/22 14:28 Urine Ketones Negative (Negative) 07/30/22 14:28 Urine Blood Neg (Negative) 07/30/22 14:28 Urine Nitrate Negative (Negative) 07/30/22 14:28 Urine Bilirubin 1+ (Negative) H 07/30/22 14:28 Urine Urobilinogen Norm mg/dL (Negative) 07/30/22 14:28 Ur Leukocyte Esterase Negative (Negative) 07/30/22 14:28 Urine Opiates Screen Negative ng/mL (Negative) 07/30/22 14:28 Ur Barbiturates Screen Negative ng/mL (Negative) 07/30/22 14:28 Ur Phencyclidine Scrn Negative ng/mL (Negative) 07/30/22 14:28 Ur Amphetamines Screen Negative ng/mL (Negative) 07/30/22 14:28 U Benzodiazepines Scrn Negative ng/mL (Negative) 07/30/22 14:28 Urine Cocaine Screen Negative ng/mL (Negative) 07/30/22 14:28 U Marijuana (THC) Screen Negative ng/mL (Negative) 07/30/22 14:28 Ethyl Alcohol < 10 mg/dL (0-10) 07/30/22 17:25 Vitals Last Vital Signs Temp 97.6 F 08/02/22 08:18 Pulse 63 08/02/22 08:18 Resp 18 08/02/22 08:18 BP 152/91 08/02/22 08:18 Pulse Ox 96 08/02/22 08:18 O2 Del Method 08/02/22 08:18 Discharge Plan Discharge Patient Disposition: Home Condition: Stable Prescriptions: New clopidogrel 75 mg Tablet 75 mg PO DAILY Qty: 90 3RF amlodipine 10 mg Tablet 10 mg PO DAILY Qty: 60 3RF Continued sildenafil 50 mg tablet 50 mg PO DAILY PRN (Reason: sexual activity) Qty: 30 3RF Rx Instructions: administer 30 minutes to 4 hours before activity atorvastatin 80 mg Tablet 40 mg PO QPM donepezil 10 mg Tablet 10 mg PO BEDTIME metoprolol tartrate 50 mg Tablet 50 mg PO BID furosemide 20 mg Tablet 20 mg PO DAILY Hold Instructions: Resume on 10/15/21. cholecalciferol (vitamin D3) 400 unit Tablet,Chewable 400 unit PO DAILY tamsulosin 0.4 mg capsule 0.4 mg PO QPM nitroglycerin [Nitrostat] 0.4 mg Tablet, Sublingual 0.4 mg SUBLINGUAL Q5M PRN (Reason: Chest Pain) omega-3 fatty acids-fish oil 684-1,200 mg Capsule,Delayed Release(Dr/Ec) 1 cap PO DAILY loperamide 2 mg Capsule 2 mg PO Q6H PRN (Reason: Diarrhea) tizanidine 4 mg Tablet 2 mg PO BEDTIME warfarin 2 mg Tablet See Rx Instructions .ROUTE .COMPLEX Qty: 60 0RF Rx Instructions: TAKE 4 TABS (8MG) PO ON TUESDAY,TUE, TUESDAY AND TAKE 3 TABS(6MG) ALL OTHER DAYS OR DIRECTED metformin 500 mg Tablet Extended Release 24 Hr 500 mg PO BID duloxetine [Cymbalta] 60 mg Capsule,Delayed Release(Dr/Ec) 60 mg PO DAILY isosorbide mononitrate 30 mg Tablet Extended Release 24 Hr 15 mg PO BID bismuth subsalicylate 262 mg/15 mL Suspension 524 mg PO Q1H PRN (Reason: Heartburn) Rx Instructions: do not exceed 8 doses in a 24 hour period Lactobacillus acidophilus 10 billion cell Capsule 20,000 mmu cells PO BID Discontinued aspirin 325 mg Tablet 325 mg PO DAILY Discharge Orders: Discharge Order (Routine); Ordered 08/02/22 Ordered By: Bernie Baxter Other Ambulatory Orders: DME: [facility] (Order) Location: None Selected Ordered By: Liam Holloway Referrals: Kaelyn Horta MD [Primary Care Provider] - 08/03/22 2:00 pm Discharge Diet: Cardiac Discharge Activity: As per PT/OT instructions Patient Instructions: Amlodipine (By mouth), Clopidogrel (By mouth), Stroke (GEN), Opioid Safety, Stroke Stoplight Discharge Attestations Time Spent in Discharge Care*: less than 30 min Quality Metrics Clinical Quality Measures [ No reported AMI, CVA or VTE this stay] Coding Level of Care Code Acute Code for Chg Fwd Diagnoses Vertebral artery dissection I77.74 Altered mental status R41.82 Cerebrovascular accident I63.9 Dementia F03.90 Warfarin anticoagulation Z79.01 S/P CABG x 4 Z95.1 Hyperlipidemia E78.5 Gross hematuria R31.0 BPH loc w urin obs/LUTS N40.1 Coronary artery disease I25.810 Associated angina: without angina Coronary Disease-Associated Artery/Lesion type: bypass graft [place] vs. transplanted heart: [place] heart HTN (hypertension), benign I10 Acute ischemic left MCA stroke I63.512
[2022-08-02 11:15] LABS: Glucose Point of Care 230 mg/dL (70-110)
== END 2022-08-02 11:42 | disposition home health service (06) | DRG 64 ==
LOC: ER 17:07 → MEDSURG 07-31 19:31
PROVIDERS: Admitting Provider Family Medicine; Emergency Provider Family Medicine; PCP Family Medicine; Visit Provider Internal Medicine
DX: I63.512 Cerebral infarction due to unspecified occlusion or stenosis of left middle cerebral artery (principal); I77.74 Dissection of vertebral artery; G81.91 Hemiplegia, unspecified affecting right dominant side; R47.01 Aphasia; R29.810 Facial weakness; H53.47 Heteronymous bilateral field defects; R20.2 Paresthesia of skin; R29.709 NIHSS score 9; I25.10 Atherosclerotic heart disease of native coronary artery without angina pectoris; Z95.1 Presence of aortocoronary bypass graft; Z86.711 Personal history of pulmonary embolism; E11.9 Type 2 diabetes mellitus without complications; I10 Essential (primary) hypertension; E78.5 Hyperlipidemia, unspecified; N40.1 Benign prostatic hyperplasia with lower urinary tract symptoms; R33.8 Other retention of urine; F03.90 Unspecified dementia, unspecified severity, without behavioral disturbance, psychotic disturbance, mood disturbance, and anxiety; I65.22 Occlusion and stenosis of left carotid artery; Z79.01 Long term (current) use of anticoagulants; Z79.84 Long term (current) use of oral hypoglycemic drugs; G43.711 Chronic migraine without aura, intractable, with status migrainosus; F32.A Depression, unspecified; K21.9 Gastro-esophageal reflux disease without esophagitis
CPT/HCPCS: 36415; 36416; 70450; 70496; 70498; 70544; 70551; 71045; 80053; 80061; 80306; 80307; 81003; 82607; 82746; 82962; 83036; 83880; 84443; 84484; 85025; 85610; 87040; 87086; 92507; 92523; 92610; 93005; 94664; 96360; 96361; 96372; 97110; 97116; 97161; 97165; 97535; 99285; C8929; C9113; J1650; J2060; J7030; Q9967

== ENCOUNTER → 2022-09-01 10:12 | Outpatient (BNVA) | payer OTHER, SELFPAY | PROVIDERS: PCP Family Medicine; Visit Provider Specialist | DX: I25.810 Atherosclerosis of coronary artery bypass graft(s) without angina pectoris (principal); I10 Essential (primary) hypertension; E78.5 Hyperlipidemia, unspecified; Z79.01 Long term (current) use of anticoagulants | CPT/HCPCS: 99214 ==

== ENCOUNTER 2023-08-08 08:33 | Emergency (ER) | payer OTHER, SELFPAY ==
[2023-08-08] VITALS (25 sets, daily range): BP systolic 125–165; BP diastolic 78–116; PULSE 79–104; RESP 16–28; O2SAT 92–99
--- NOTE | 2023-08-08 08:37 | XR_ITS ---
WS: [id number] Examination: XR chest 1V portable [id number] Reason for Exam: dyspnea/cough Date: August 08, 2023 Comparison: July 30, 2022 Findings: The heart is enlarged. Sternal wires are in place. There is no evidence to suggest pulmonary edema. No large effusion is identified. No dense consolidation is identified. There is minimal linear atelectasis or scarring in the left mid lung. Impression: There is cardiomegaly without pulmonary edema. No dense consolidation is seen. Again minimal linear s car or atelectasis is noted on the left.
--- NOTE | 2023-08-08 08:39 | ECG_ITS ---
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 Measurements Intervals [place] Rate: 99 P: 50 NM: 186 QRS: -30 QRSD: 102 T: 92 QT: 374 QTc: 482 Interpretive Statements SINUS RHYTHM WITH FREQUENT VENTRICULAR PREMATURE COMPLEXES WITH OCCASIONAL SUPRAVENTRICULAR PREMATURE COMPLEXES LEFT VENTRICULAR HYPERTROPHY AND ST-T CHANGE [VOLTAGE CRITERIA PLUS ST/T ABNORMALITY] POSSIBLE SEPTAL MYOCARDIAL INFARCTION , OF INDETERMINATE AGE [30 ms Q WAVE IN V1/V2] Compared to ECG 07/30/2022 18:44:21 Ventricular premature complex(es) now present Myocardial infarct finding now present First degree AV block no longer present ST (T wave) deviation still present Electronically Signed On 08-08-2023 16:26:21 CDT by Eligio Guzman M.D. [id number]
[2023-08-08 08:53] LABS: Basophils % 0.5 %; Eosinophils # 0.2 10^3/uL (0.0-0.8); Hematocrit 46.9 % (37-53); Lymphocytes # 1.8 10^3/uL (0.8-4.8); Lymphocytes % 21.2 %; Mean Corpuscular HGB Conc 32.8 g/dL (30-55); Mean Corpuscular Hemoglobin 29.7 pg (27-33); Mean Corpuscular Volume 90.4 fl (82-101); Mean Platelet Volume 11.8 fL (7.4-10.4); Monocytes # 0.4 10^3/uL (0.2-0.9); Monocytes % 5.2 %; Neutrophils # 5.92 10^3/uL (1.8-7.7); Neutrophils % 70.4 %; Nucleated Red Blood Cells % 0 %; Platelet Count 240 10^3/cmm (157-399); Red Blood Count 5.19 10^6/uL (3.85-5.65); Red Cell Distribution Width 15.2 % (12.1-15.1); White Blood Count 8.41 10^3/uL (3.29-11.43)
--- NOTE | 2023-08-08 09:01 | ED_ITS ---
HPI - Chest Pain 2 General: Chief Complaint: Chest Pain Stated Complaint: [place] Time Seen by Provider: 08/08/23 08:37 Source: patient Mode of arrival: ambulatory History of Present Illness: 71-year-old male presents emergency room with chest pain began yesterday was initially seen at the [facility] and redirected here. He has known history of coronary disease previously had bypass. 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 Other CAD (coronary artery disease) Chronic kidney disease (CKD) Diabetes Family history of premature coronary artery disease Hyperlipidemia Hypertension Lung disease Denies family history of Anesthesia complication Bleeding disorder Stroke Social History Smoking and tobacco/nicotine status: never used tobacco/nicotine Alcohol intake: never Substance/Drug Use: never Marital status: Current occupational status: retired and disabled Physical Exam 2 Const: COMMON NORMALS: no acute distress GENERAL APPEARANCE: cooperative and comfortable ORIENTATION/CONSCIOUSNESS: Yes awake, Yes oriented to person, Yes oriented to place and Yes oriented to time HENMT: COMMON NORMALS: normocephalic, atraumatic and hearing grossly normal bilaterally HEAD & SCALP: normocephalic and atraumatic Resp: COMMON NORMALS: normal respiratory effort, No retractions, No use of accessory muscles and clear to auscultation bilaterally AUSCULTATION: clear to auscultation bilaterally Cardio: COMMON NORMALS: regular rate, regular rhythm and No murmurs present (Cardio) RATE: regular rate RHYTHM: regular rhythm GI: COMMON NORMALS: Soft to palpation and No hepatosplenomegaly present A USCULTATION: Yes normoactive bowel sounds PALPATION: Yes Soft to palpation, No Tenderness to palpation present (GI), No Guarding due to palpation present (GI) and Yes No hepatosplenomegaly present Extremity: COMMON NORMALS: normal to inspection, capillary refill normal, no clubbing, cyanosis or edema, no calf tenderness and no pedal edema Neuro: SENSORIUM/ORIENTATION: Yes oriented to person, Yes oriented to place and Yes oriented to time Skin: COMMON NORMALS: no rashes or lesions noted GENERAL SKIN EXAM: no rashes or lesions noted Course 2 Vital Signs: Vital signs: Vital Signs Pulse Rate 102 H 08/08/23 12:15 Respiratory Rate 20 H 08/08/23 12:15 Blood Pressure 153/99 08/08/23 13:00 Pulse Oximetry 97 08/08/23 13:00 Oxygen Delivery Me thod Room Air 08/08/23 10:52 MDM - Chest Pain Medical Decision Making Negative for acute coronary syndrome patient no longer having any symptoms. CTA negative EKGs reviewed no acute changes cardiac enzymes negative. Will set him up for an outpatient Lexiscan sestamibi stress test continue his current medications. Near the end of the visit we are about to discharge patient reports he also wanted to be checked out because he had penile drainage he reports a new sex partner recently. Patient was empirically treated for urethritis with a gram of Zithromax IM ceftriaxone 500 mg and discharged home with doxycycline 100 mg twice daily. He only had 0-4 white blood cells per high-power field GC and Chlamydia are pending. Will contact him with the results. Recommend he avoid sexual intimacy until the results are back. Differential Diagnosis Likely acute massive pulmonary embolism and acute myocardial infarction Medical Records I reviewed the patient's medical records. Lab Data I reviewed the patient's lab results. 08/08/23 08:47 08/08/23 08:47 Laboratory Results WBC 8.41 10^3/uL (3.29-11.43) 08/08/23 08:47 RBC 5.19 10^6/uL (3.85-5.65) 08/08/23 08:47 Hgb 15.40 g/dL (11.27-16.99) 08/08/23 08:47 Hct 46.9 % (37-53) 08/08/23 08:47 MCV 90.4 fl (82-101) 08/08/23 08:47 MCH 29.7 pg (27-33) 08/08/23 08:47 MCHC 32.8 g/dL (30-55) 08/08/23 08:47 RDW 15.2 % (12.1-15.1) H 08/08/23 08:47 Plt Count 240 10^3/cmm (157-399) 08/08/23 08:47 MPV 11.8 fL (7.4-10.4) H 08/08/23 08:47 Neut % (Auto) 70.4 % 08/08/23 08:47 Lymph % (Auto) 21.2 % 08/08/23 08:47 [place] % (Auto) 5.2 % 08/08/23 08:47 Eos % (Auto) 2.0 % 08/08/23 08:47 Baso % (Auto) 0.5 % 08/08/23 08:47 Neut # (Auto) 5.92 10^3/uL (1.8-7.7) 08/08/23 08:47 Lymph # (Auto) 1.8 10^3/uL (0.8-4.8) 08/08/23 08:47 [place] # (Auto) 0.4 10^3/uL (0.2-0.9) 08/08/23 08:47 Eos # (Auto) 0.2 10^3/uL (0.0-0.8) 08/08/23 08:47 Baso # (Auto) 0.0 10^3/uL (0.0-0.1) 08/08/23 08:47 Nucleated RBC % (auto) 0 % 08/08/23 08:47 Nucleated RBCs # 0.0 /100WBC 08/08/23 08:47 PT 22.20 SECONDS (12.1-14.9) H 08/08/23 08:47 INR 1.87 (0.8-1.2) H 08/08/23 08:47 Sodium 139 mmol/L (136-145) 08/08/23 08:47 Potassium 3.9 mmol/L (3.5-5.1) 08/08/23 08:47 Chloride 103 mmol/L (98-107) 08/08/23 08:47 Carbon Dioxide 21 mmol/L (22-29) L 08/08/23 08:47 Anion Gap 18.9 (5-19) 08/08/23 08:47 BUN 18 mg/dL (8-23) 08/08/23 08:47 Creatinine 0.9 mg/dL (0.7-1.2) 08/08/23 08:47 GFR Calculation Not Reportable 08/08/23 08:47 Glucose 267 mg/dL (65-115) H 08/08/23 08:47 Calculated Osmolality 299 mOsm/kg (285-295) H 08/08/23 08:47 Calcium 9.0 mg/dL (8.5-10.5) 08/08/23 08:47 Total Bilirubin 0.4 mg/dL (0.15-1.2) 08/08/23 08:47 AST 15 U/L (0-40) 08/08/23 08:47 ALT 18 U/L (0-41) 08/08/23 08:47 Alkaline Phosphatase 81 U/L (40-130) 08/08/23 08:47 Troponin T Baseline 8 ng/L (0-15) 08/08/23 08:47 Troponin T 120 Minute 7.03 ng/L (0-15) 08/08/23 11:55 Delta Troponin T -0.97 ABS# (0-10) L 08/08/23 11:55 Total Protein 7.4 g/dL (6.6-8.7) 08/08/23 08:47 Albumin 4.3 g/dL (3.5-5.2) 08/08/23 08:47 Globulin 3.1 g/dL (1.3-4.6) 08/08/23 08:47 Urine Color Yellow (Yellow) 08/08/23 12:56 Urine Appearance Clear (CLEAR) 08/08/23 12:56 Urine pH 5 (5-7) 08/08/23 12:56 Ur Specific [place] 1.005 (1.005-1.030) 08/08/23 12:56 Urine Protein Neg (Negative) 08/08/23 12:56 Urine Glucose (UA) 4+ (Normal) H 08/08/23 12:56 Urine Ketones Negative (Negative) 08/08/23 12:56 Urine Blood Neg (Negative) 08/08/23 12:56 Urine Nitrate Negative (Negative) 08/08/23 12:56 Urine Bilirubin Neg (Negative) 08/08/23 12:56 Urine Urobilinogen Norm mg/dL (Negative) 08/08/23 12:56 Ur Leukocyte Esterase Trace (Negative) H 08/08/23 12:56 Urine RBC None /hpf (0-2) 08/08/23 12:56 Urine WBC 0-4 /hpf (0-5) H 08/08/23 12:56 Ur Squamous Epith Cells None /hpf (0-5) 08/08/23 12:56 Amorphous Sediment Not Reportable 08/08/23 12:56 Urine Bacteria Trace /hpf (NONE) 08/08/23 12:56 All radiology interpretation(s) finalized by discharge Discharge Plan Discharge Patient Disposition: Home Clinical Impression: Atypical chest pain, Urethritis Condition: Stable Prescriptions: New doxycycline hyclate 100 mg capsule 100 mg PO BID 14 Days Qty: 28 0RF No Action sildenafil 50 mg tablet 50 mg PO DAILY PRN (Reason: sexual activity) Qty: 30 3RF Rx Instructions: administer 30 minutes to 4 hours before activity atorvastatin 80 mg Tablet 40 mg PO QPM donepezil 10 mg Tablet 10 mg PO BEDTIME furosemide 20 mg Tablet 20 mg PO DAILY Hold Instructions: Resume on 10/15/21. cholecalciferol (vitamin D3) 400 unit Tablet,Chewable 400 unit PO DAILY tamsulosin 0.4 mg capsule 0.4 mg PO QPM nitroglycerin [Nitrostat] 0.4 mg Tablet, Sublingual 0.4 mg SUBLINGUAL Q5M PRN (Reason: Chest Pain) omega-3 fatty acids-fish oil 684-1,200 mg Capsule,Delayed Release(Dr/Ec) 1 cap PO DAILY loperamide 2 mg Capsule 2 mg PO Q6H PRN (Reason: Diarrhea) clopidogrel 75 mg Tablet 75 mg PO DAILY Qty: 90 3RF amlodipine 10 mg Tablet 10 mg PO DAILY Qty: 60 3RF warfarin 2 mg Tablet See Rx Instructions .ROUTE .COMPLEX Qty: 60 0RF Rx Instructions: TAKE 4 TABS (8MG) PO ON TUESDAY,TUE, TUESDAY AND TAKE 3 TABS(6MG) ALL OTHER DAYS OR DIRECTED metoprolol tartrate 100 mg Tablet 50 mg PO BID carbamide peroxide 6.5 % Drops 4 drp OTIC (EAR) Q1-2M folic acid 0.8 mg Capsule 0.8 mg PO DAILY empagliflozin 25 mg Tablet 25 mg PO DAILY Probiotic Complex 25 billion cell -100 mg Capsule 1 cap PO DAILY metformin 500 mg Tablet Extended Release 24 Hr 1,000 mg PO BID duloxetine [Cymbalta] 60 mg Capsule,Delayed Release(Dr/Ec) 60 mg PO DAILY bismuth subsalicylate 262 mg/15 mL Suspension 524 mg PO Q1H PRN (Reason: Heartburn) Rx Instructions: do not exceed 8 doses in a 24 hour period Lactobacillus acidophilus 10 billion cell Capsule 20,000 mmu cells PO BID Discharge Orders: Discharge ED (Routine); Ordered 08/08/23 Ordered By: Luis A Umanzor Referrals: Kaelyn Horta MD [Primary Care Provider] - Discharge Diet: Usual diet Discharge Activity: Limit activity as instructed Patient Instructions: Opioid Safety, Pain Management Activity Restrictions/Additional Instructions: Thank you for choosing [facility] for your healthcare needs today. Please realize this is an emergency room and that we are providing you with a medical screening exam and this may not be complete and all inclusive of all the testing and or work up that you may need to determine your ailment or severity of your illness. It is very important that you follow up as instructed or that you return to the Emergency Department should you have concerns or if your condition changes or worsens in any way. You were seen today with complaints of chest pain. Your cardiac enzymes and EKG did not show any acute changes. Will set you up for an outpatient stress test. Additionally you complained of some discomfort and discharge from penis. You empirically treated with ceftriaxone and Zithromax in the emergency room and given a prescription for doxycycline 100 mg twice a day for 14 days will contact you the results when they become available. Continue your other previously prescribed medications. Coding Level of Care Code ED [employer] for Chg Fwd
[2023-08-08] MEDS: aspirin 81 mg Chew Tablet 324 MG PO (09:07)
[2023-08-08 09:11] LABS: Troponin(5th) Baseline 8 ng/L (0-15)
[2023-08-08 09:19] LABS: Alanine Aminotransferase 18 U/L (0-41); Albumin Level 4.3 g/dL (3.5-5.2); Alkaline Phosphatase 81 U/L (40-130); Aspartate Amino Transferase 15 U/L (0-40); Blood Urea Nitrogen 18 mg/dL (8-23); Carbon Dioxide 21 mmol/L (22-29); Chloride 103 mmol/L (98-107); Creatinine Clr Calc Pharmacy 94.5544; Globulin 3.1 g/dL (1.3-4.6); Glucose 267 mg/dL (65-115); Osmolality Calculated 299 mOsm/kg (285-295); Sodium 139 mmol/L (136-145); Total Bilirubin 0.4 mg/dL (0.15-1.2); Total Protein 7.4 g/dL (6.6-8.7)
[2023-08-08 09:20] LABS: Anion Gap 18.9 (5-19); Potassium 3.9 mmol/L (3.5-5.1)
[2023-08-08 09:27] LABS: INR 1.87 (0.8-1.2)
--- NOTE | 2023-08-08 11:03 | CT_ITS ---
WS: [id number] CT CHEST ANGIOGRAPHY WITH REFORMATS HISTORY: chest pain dyspnea TECHNIQUE: Contiguous axial images are obtained through the chest during arterial injection of intrav enous contrast. Images are reconstructed to evaluate the pulmonary arteries. MIP imaging also reviewe d. All CT scans at [facility] use at least one of these dose optimization techniques: automat ed exposure control; mA and/or kV adjustment per patient size (includes targeted exams where dose is matched to clinical indication); or iterative reconstruction. CONTRAST: Omnipaque 350; 100 mL IV. DLP: 529.98 mGy.cm COMPARISON: 07/31/2020 Good opacification of the pulmonary arteries. No filling defect or pulmonary embolism. Mild atheroscl erosis aorta. No RIGHT heart strain. Prior CABG. No mediastinal or hilar adenopathy. No pneumonia. Mi ld dependent changes and volume loss due to poor inspiratory effort. There are a few scattered pulmon imelda nodules. These are 2 to 4 mm and most of them have been present on the prior study. No mass. No pericardial or pleural effusions. Reidentified is mild diffuse thickening of the esophagus which h as been present on prior studies. Visualized liver and spleen are negative. Cholelithiasis without acute cholecystitis. LEFT adrenal ad enoma 1.3 x 2.3 cm. Thoracic spondylosis. No destructive bone lesions. IMPRESSION: 1. No pulmonary embolism. 2. No pneumonia. 3. Prior CABG. 4. Cholelithiasis without acute cholecystitis. 5. Subcentimeter, stable pulmonary nodules measuring 2 to 4 mm. 6. LEFT adrenal adenoma.
[2023-08-08] MEDS: iohexol 350 mg/mL 500 mL Btl (per mL) IV (11:29)
[2023-08-08 12:33] LABS: Troponin 5 2HR 7.03 ng/L (0-15)
[2023-08-08 12:39] LABS: Troponin 5 2HR Delta -0.97 ABS# (0-10)
[2023-08-08 13:31] LABS: Glucose Urine UA 4+ (Normal); Protein Urine Neg (Negative); Specific Gravity, Urine 1.005 (1.005-1.030); Urine Appearance Clear (CLEAR); Urine Color Yellow (Yellow); pH Urine 5 (5-7)
[2023-08-08 13:32] LABS: Add Urine Microscopic? YES; Bacteria Urine TRACE /hpf; Bilirubin Urine Neg (Negative); Blood Urine Neg (Negative); Ketones Urine Negative (Negative); Leukocyte Esterase Urine Trace (Negative); Nitrate Urine Negative (Negative); Urobilinogen Urine Norm (Negative); WBC Urine 0-4 /hpf (0-5)
[2023-08-08 13:33] LABS: Add Urine Culture? No
[2023-08-08] MEDS: azithromycin 250 mg Tablet 1000 MG PO (13:40)
[2023-08-08] MEDS: cefTRIAXone 500 MG in water for injection-sterile 1 ML IM (13:40)
[2023-08-09 12:30] LABS: Chlamydia Trachomatis RNA TMA NOT DETECTED (NOT DETECTED); Neisseria Gonorrhoeae RNA, TMA NOT DETECTED (NOT DETECTED)
--- NOTE | 2023-08-24 09:16 | DCPLANNER ---
outpatient order sent to centralized scheduling for Lexremediosan
== END 2023-08-08 14:10 | disposition home or self-care (01) ==
PROVIDERS: Emergency Provider Family Medicine; PCP Family Medicine
DX: R07.89 Other chest pain (principal); N34.2 Other urethritis; Z79.01 Long term (current) use of anticoagulants; Z79.02 Long term (current) use of antithrombotics/antiplatelets; Z79.84 Long term (current) use of oral hypoglycemic drugs; Z95.1 Presence of aortocoronary bypass graft; F03.90 Unspecified dementia, unspecified severity, without behavioral disturbance, psychotic disturbance, mood disturbance, and anxiety; Z86.73 Personal history of transient ischemic attack (TIA), and cerebral infarction without residual deficits; E11.9 Type 2 diabetes mellitus without complications; I10 Essential (primary) hypertension; E78.5 Hyperlipidemia, unspecified; I25.10 Atherosclerotic heart disease of native coronary artery without angina pectoris
CPT/HCPCS: 36415; 71045; 71275; 80053; 81001; 84484; 85025; 85610; 87491; 87591; 93005; 96372; 99285; J0696; Q0144; Q9967

== ENCOUNTER 2023-08-22 08:27 | Emergency (ER) | payer OTHER, MEDICARE, SELFPAY ==
[2023-08-22 09:02] VITALS: BP 136/79; PULSE 66; RESP 18; TEMP 36.8; O2SAT 95
--- NOTE | 2023-08-22 09:02 | ED_ITS ---
HPI - Male Genitourinary General: Chief complaint: Urogenital-Male Stated complaint: unable to urinate Time Seen by Provider: 08/22/23 08:36 Source: patient Mode of arrival: ambulatory History of Present Illness: 73-year-old male presents emergency room complaining of burning sensation with urinating. No penile drainage. No fever sweats or chills no flank pain. Patient was seen recently for chest pain cardiac workup was negative he complained of penile drainage and partner recently he was prophylactically treated for urethritis Chlamydia GC and wet mount were all negative. Urine culture was negative. 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 Other CAD (coronary artery disease) Chronic kidney disease (CKD) Diabetes Family history of premature coronary artery disease Hyperlipidemia Hypertension Lung disease Denies family history of Anesthesia complication Bleeding disorder Stroke Social History Smoking and tobacco/nicotine status: never used tobacco/nicotine Alcohol intake: never Substance/Drug Use: never Marital status: Current occupational status: retired and disabled Physical Exam Const: COMMON NORMALS: no acute distress GENERAL APPEARANCE: cooperative and comfortable ORIENTATION/CONSCIOUSNESS: Yes awake, Yes oriented to person, Yes oriented to place and Yes oriented to time HENMT: COMMON NORMALS: normocephalic, atraumatic and hearing grossly normal bilaterally HEAD & SCALP: normocephalic and atraumatic Resp: COMMON NORMALS: normal respiratory effort, No retractions, No use of accessory muscles and clear to auscultation bilaterally AUSCULTATION: clear to auscultation bilaterally Cardio: COMMON NORMALS: regular rate, regular rhythm and No murmurs present (Cardio) RATE: regular rate RHYTHM: regular rhythm GI: COMMON NORMALS: Soft to palpation and No hepatosplenomegaly present AUSCULTATION: Yes normoactive bowel sounds PALPATION: Yes Soft to palpation, No Tenderness to palpation present (GI), No Guarding due to palpation present (GI) and Yes No hepatosplenomegaly present Extremity: COMMON NORMALS: normal to inspection, capillary refill normal, no clubbing, cyanosis or edema, no calf tenderness and no pedal edema Neuro: SENSORIUM/ORIENTATION: Yes oriented to person, Yes oriented to place and Yes oriented to time Skin: COMMON NORMALS: no rashes or lesions noted GENERAL SKIN EXAM: no rashes or lesions noted Course Vital Signs: Vital signs: Vital Signs Temperature 98.2 F 08/22/23 09:02 Pulse Rate 68 08/22/23 10:50 Respiratory Rate 18 08/22/23 09:02 Blood Pressure 121/78 08/22/23 10:50 Pulse Oximetry 95 08/22/23 10:50 Oxygen Delivery Me thod Room Air 08/22/23 09:08 MDM - Male Medical Decision Making Labs and imaging and EKG reviewed. Urine did not show any signs of infection. Suspect some of his symptoms may be BPH and glucosuria. No signs of infection cultures from last ER visit were negative. Increase his tamsulosin to 0.8 mg daily and follow-up with urology Medical Records I reviewed the patient's medical records. Lab Data I reviewed the patient's lab results. Laboratory Results POC Glucose 115 mg/dL (70-110) H 08/22/23 10:21 Urine Color Yellow (Yellow) 04/15/24 09:35 Urine Appearance Clear (CLEAR) 08/22/23 09:35 Urine pH 6 (5-7) 08/22/23 09:35 Ur Specific [place] 1.010 (1.005-1.030) 08/22/23 09:35 Urine Protein Neg (Negative) 08/22/23 09:35 Urine Glucose (UA) 4+ (Normal) H 08/22/23 09:35 Urine Ketones Negative (Negative) 08/22/23 09:35 Urine Blood Neg (Negative) 08/22/23 09:35 Urine Nitrate Negative (Negative) 08/22/23 09:35 Urine Bilirubin Neg (Negative) 08/22/23 09:35 Urine Urobilinogen Norm mg/dL (Negative) 08/22/23 09:35 Ur Leukocyte Esterase Negative (Negative) 08/22/23 09:35 No radiology studies performed this visit Discharge Plan Discharge Patient Disposition: Home Clinical Impression: HTN (hypertension), benign, Dysuria, Glucosuria Condition: Stable Prescriptions: New tamsulosin 0.4 mg capsule 0.8 mg PO DAILY Qty: 60 0RF No Action sildenafil 50 mg tablet 50 mg PO DAILY PRN (Reason: sexual activity) Qty: 30 3RF Rx Instructions: administer 30 minutes to 4 hours before activity atorvastatin 80 mg Tablet 40 mg PO QPM donepezil 10 mg Tablet 20 mg PO BEDTIME furosemide 20 mg Tablet 20 mg PO QAM Hold Instructions: Resume on 10/15/21. cholecalciferol (vitamin D3) 400 unit Tablet,Chewable 400 unit PO DAILY tamsulosin 0.4 mg capsule 0.4 mg PO QPM nitroglycerin [Nitrostat] 0.4 mg Tablet, Sublingual 0.4 mg SUBLINGUAL Q5M PRN (Reason: Chest Pain) omega-3 fatty acids-fish oil 684-1,200 mg Capsule,Delayed Release(Dr/Ec) 1 cap PO BID loperamide 2 mg Capsule 2 mg PO Q6H PRN (Reason: Diarrhea) clopidogrel 75 mg Tablet 75 mg PO DAILY Qty: 90 3RF amlodipine 10 mg Tablet 10 mg PO DAILY Qty: 60 3RF warfarin 2 mg Tablet See Rx Instructions .ROUTE .COMPLEX Qty: 60 0RF Rx Instructions: TAKE 4 TABS (8MG) PO ON TUESDAY,TUE, TUESDAY AND TAKE 3 TABS(6MG) ALL OTHER DAYS OR DIRECTED metoprolol tartrate 100 mg Tablet 50 mg PO BID folic acid 0.8 mg Capsule 0.8 mg PO DAILY empagliflozin 25 mg Tablet 25 mg PO DAILY Probiotic Complex 25 billion cell -100 mg Capsule 1 cap PO DAILY metformin 500 mg Tablet Extended Release 24 Hr 1,000 mg PO BID duloxetine [Cymbalta] 60 mg Capsule,Delayed Release(Dr/Ec) 60 mg PO DAILY bismuth subsalicylate 262 mg/15 mL Suspension 524 mg PO Q1H PRN (Reason: Heartburn) Rx Instructions: do not exceed 8 doses in a 24 hour period Lactobacillus acidophilus 10 billion cell Capsule 20,000 mmu cells PO DAILY allopurinol 100 mg Tablet 100 mg PO DAILY pantoprazole 40 mg Tablet,Delayed Release (Dr/Ec) 40 mg PO BID Discharge Orders: Discharge ED (Routine); Ordered 08/22/23 Ordered By: Luis A Umanzor Referrals: Kaelyn Horta MD [Primary Care Provider] - Discharge Diet: Usual diet Discharge Activity: Resume usual activity Patient Instructions: Opioid Safety, Pain Management Activity Restrictions/Additional Instructions: Thank you for choosing [facility] for your healthcare needs today. Please realize this is an emergency room and that we are providing you with a medical screening exam and this may not be complete and all inclusive of all the testing and or work up that you may need to determine your ailment or severity of your illness. It is very important that you follow up as instructed or that you return to the Emergency Department should you have concerns or if your condition changes or worsens in any way. He should follow-up with your primary care doctor for referral to urology Coding Level of Care Code ED Computer Technical Support Specialist for Kevin Martines
[2023-08-22 09:08] VITALS: BP 136/79; O2SAT 94
--- NOTE | 2023-08-22 09:24 | PC.PHAR ---
Addendum entered by Cleopatra Malik 08/22/23 09:37: [employer] -[place]- [phone] WORK CELL PHONE NUMBER. Original Note: PT USES [employer] LIST-08/22/23 9:25AM
[2023-08-22 09:42] LABS: Add Urine Microscopic? NO; Charge for UA Resulting for Rev
[2023-08-22 10:11] LABS: Protein Urine Neg (Negative); Urine Appearance Clear (CLEAR); Urine Color Yellow (Yellow); pH Urine 6 (5-7)
[2023-08-22 10:12] LABS: Bilirubin Urine Neg (Negative); Blood Urine Neg (Negative); Glucose Urine UA 4+ (Normal); Ketones Urine Negative (Negative); Leukocyte Esterase Urine Negative (Negative); Nitrate Urine Negative (Negative); Urobilinogen Urine Norm (Negative)
[2023-08-22 10:24] LABS: Glucose Point of Care 115 mg/dL (70-110)
[2023-08-22 10:50] VITALS: BP 121/78; PULSE 68; O2SAT 95
== END 2023-08-22 10:50 | disposition home or self-care (01) ==
PROVIDERS: Emergency Provider Family Medicine; PCP Family Medicine
DX: R30.0 Dysuria (principal); I10 Essential (primary) hypertension; R81 Glycosuria; Z79.02 Long term (current) use of antithrombotics/antiplatelets; Z79.84 Long term (current) use of oral hypoglycemic drugs; Z79.01 Long term (current) use of anticoagulants; F03.90 Unspecified dementia, unspecified severity, without behavioral disturbance, psychotic disturbance, mood disturbance, and anxiety; Z86.73 Personal history of transient ischemic attack (TIA), and cerebral infarction without residual deficits; E11.9 Type 2 diabetes mellitus without complications; E78.5 Hyperlipidemia, unspecified; I25.10 Atherosclerotic heart disease of native coronary artery without angina pectoris; Z95.1 Presence of aortocoronary bypass graft
CPT/HCPCS: 36416; 51798; 81003; 82962; 99283

== ENCOUNTER 2024-05-03 12:29 | Emergency (ER) | payer OTHER, SELFPAY ==
--- NOTE | 2024-05-03 12:32 | CT_ITS ---
WS: [id number] CT HEAD NONCONTRAST HISTORY: cva TECHNIQUE: Contiguous axial imaging performed through the brain. Bone and soft tissue windows. Sagitt al and coronal reformats reviewed. All CT scans at [facility] use at least one of these dose optimization techniques: automated exposure control; mA and/or kV adjustment per patient size (includ es targeted exams where dose is matched to clinical indication); or iterative reconstruction. DLP: 1073.55 mGy.cm COMPARISON: 07/30/2022 No acute intracranial hemorrhage, midline shift or mass effect. Moderate symmetric atrophy with volume loss and small vessel disease. Small lacunar infarcts along th e external capsules. Ventricles: Normal size with no hydrocephalus. No inferior displacement of cerebellar tonsils. Paranasal sinuses: As visualized are clear. Mastoid air cells: Moderate fluid in the RIGHT mastoid air cells. Calvarium and scalp: Skull is intact with no soft tissue edema or swelling. CT/CT head wo con* [id number] IMPRESSION: 1. No acute intracranial hemorrhage or edema. 2. Moderate symmetric atrophy and small vessel disease. Small bilateral lacuna r infarcts along the external capsules. 3. RIGHT mastoid air cell effusion.
--- NOTE | 2024-05-03 12:32 | XRR_ITS ---
PROCEDURE INFORMATION: Exam: XR Chest Exam date and time: 05/03/2024 1:15 PM Age: 73 years old Clinical indication: Shortness of breath; Additional info: AMS TECHNIQUE: Imaging protocol: Radiologic exam of the chest. Views: 1 view. COMPARISON: CT angio chest PE protcl [id number] 08/08/2023 11:25 AM FINDINGS: Lungs: Unremarkable. No consolidation. Pleural spaces: Unremarkable. No pleural effusion. No pneumothorax. Heart/Mediastinum: Similar cardiomegaly. Sequela of prior CABG. Bones/joints: Sternotomy wires noted. Visualized osseous structures are intact. XR/XR chest 1V portable [id number] IMPRESSION: No acute findings.
--- NOTE | 2024-05-03 12:33 | ECG_ITS ---
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 Measurements Intervals [place] Rate: 70 P: 51 KS: 195 QRS: -13 QRSD: 103 T: 130 QT: 390 QTc: 422 Interpretive Statements SINUS RHYTHM LEFT VENTRICULAR HYPERTROPHY AND ST-T CHANGE [VOLTAGE CRITERIA PLUS ST/T ABNORMALITY] Compared to ECG 08/08/2023 08:39:30 Ventricular premature complex(es) no longer present Myocardial infarct finding no longer present ST (T wave) deviation still present Electronically Signed On 05-04-2024 18:33:43 QUANTITATIVE MANAGER by Kirk Lane M.D. [email or web address]
[2024-05-03 12:47] VITALS: BP 129/78; PULSE 75; RESP 18; TEMP 36.4; O2SAT 97; BMI 31.8
--- NOTE | 2024-05-03 13:01 | CT_ITS ---
WS: [id number] CT ANGIOGRAM CEREBRAL AND CAROTID ARTERIES HISTORY: curtis/cva TECHNIQUE: CT angiogram is performed of the carotid and cerebral arteries. During arterial injection imaging is obtained from the skull vertex to the aortic arch in 1.25 mm imaging. Coronal and sagittal reformats are submitted. Additional multi planar reformats of the carotid and cerebral arteries are submitted, MIP imaging also reviewed. NASCET criteria utilized. [facility] at least one of these dose optimization techniques: automated exposure control; mA and/or kV adjust ment per patient size (includes targeted exams where dose is matched to clinical indication); or iter ative reconstruction. CONTRAST: Omnipaque 350; 100 mL IV. DLP: 573.61 mGy.cm COMPARISON: None available. Carotid Angiogram: Right carotid: Common carotid artery: Focal intimal noncalcified wall thickening in the mid cervical carotid artery. No high-grade stenosis at the bifurcation. Internal carotid artery: Small amount of calcified plaque proximal RIGHT ICA. External carotid artery: Patent. Left carotid: Common carotid artery: Arises normally from the aorta. No significant plaque or stenosis. Internal carotid artery: Small amount of calcified plaque at the bifurcation and proximal ICA. No hig h-grade stenosis. External carotid artery: Patent. Right vertebral artery: Very small caliber RIGHT vertebral artery. Intermittent visualization of vanessa t opacification of the RIGHT vertebral artery. Occlusion was described on 07/30/2022. Very distal RIGH T vertebral artery has more robust flow which may be retrograde filling. Left vertebral artery: Unremarkable. Arises normally from the subclavian artery. Subclavian arteries: No stenosis or significant abnormality. Upper thorax: Chronic emphysema. 3 mm noncalcified nodule is unchanged RIGHT upper lobe. Scattered at herosclerotic plaque aorta. Prior CABG. Thyroid gland: Normal. Osseous structures: Advanced cervical spondylosis. CEREBRAL ANGIOGRAM: Intracranial vertebral arteries: Distal vertebral arteries are patent. Basilar artery: Small caliber but patent RIGHT basilar artery. Intracranial Internal carotid arteries: Advanced atherosclerotic calcification through the cavernous carotid arteries, LEFT greater than RIGHT. No complete occlusion. Middle cerebral arteries: Normal. Anterior cerebral arteries and ACOM: Normal. Posterior cerebral arteries and PCOM's: Bilateral origin of the posterior cerebral arteries. Po sterior communicating arteries well visualized. Dural venous sinuses are normally enhancing. . CT/CT angio headneck* [id number] IMPRESSION: 1. No high-grade cervical carotid artery stenosis. Stenosis less than 50% at t he bifurcations. 2. Small caliber RIGHT vertebral artery does not normally opacified. Similar t o the prior study with intermittent areas of opacification. 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 3. No cerebral artery aneurysm. 4. Advanced calcified plaque in the intracranial cavernous portion of the de jesus tid arteries, LEFT greater than RIGHT.
[2024-05-03 13:11] LABS: Basophils # 0.1 10^3/uL (0.0-0.1); Basophils % 0.6 %; Eosinophils # 0.2 10^3/uL (0.0-0.8); Eosinophils % 2.3 %; Hematocrit 46.7 % (37-53); Lymphocytes # 1.8 10^3/uL (0.8-4.8); Lymphocytes % 17.2 %; Mean Corpuscular HGB Conc 31.5 g/dL (30-55); Mean Corpuscular Hemoglobin 29.2 pg (27-33); Mean Corpuscular Volume 92.7 fl (82-101); Mean Platelet Volume 11.9 fL (7.4-10.4); Monocytes # 0.6 10^3/uL (0.2-0.9); Neutrophils # 7.65 10^3/uL (1.8-7.7); Neutrophils % 73.3 %; Nucleated Red Blood Cells % 0 %; Platelet Count 256 10^3/cmm (157-399); Red Blood Count 5.04 10^6/uL (3.85-5.65); White Blood Count 10.44 10^3/uL (3.29-11.43)
[2024-05-03] MEDS: iohexol 350 mg/mL 500 mL Btl (per mL) IV (13:35)
[2024-05-03 13:39] VITALS: RESP 18
[2024-05-03 13:39] LABS: Alanine Aminotransferase 15 U/L (0-41); Alkaline Phosphatase 92 U/L (40-130); Blood Urea Nitrogen 16 mg/dL (8-23); Calcium 9.1 mg/dL (8.5-10.5); Carbon Dioxide 22 mmol/L (22-29); Chloride 100 mmol/L (98-107); Creatinine Clr Calc Pharmacy 84.2422; Globulin 3.3 g/dL (1.3-4.6); Glucose 122 mg/dL (65-115); Osmolality Calculated 284 mOsm/kg (285-295); Sodium 136 mmol/L (136-145); Thyroid Stimulating Hormone 1.24 uIU/mL (0.27-4.20); Total Bilirubin 0.4 mg/dL (0.15-1.2); Total Protein 7.3 g/dL (6.6-8.7)
[2024-05-03] MEDS: morphine 4 mg/mL SDV 1 mL IVP (13:39)
[2024-05-03] MEDS: ondansetron 2 mg/ML SDV 2 mL 4 MG IVP (13:39)
[2024-05-03 13:40] LABS: Anion Gap 18.4 (5-19); Aspartate Amino Transferase 20 U/L (0-40); Potassium 4.4 mmol/L (3.5-5.1)
[2024-05-03 13:49] LABS: Bilirubin Urine Negative (Negative); Blood Urine Negative (Negative); Glucose Urine UA 3+ (Normal); Ketones Urine Negative (Negative); Leukocyte Esterase Urine Negative (Negative); Nitrate Urine Negative (Negative); Protein Urine Negative (Negative); Urine Appearance Clear (CLEAR); Urine Color Yellow (Yellow); Urobilinogen Urine 0.2 mg/dL (Negative)
[2024-05-03 13:54] LABS: Add Urine Microscopic? YES; Bacteria Urine None Seen /hpf; Hyaline Casts Urine 0-4 /lpf; RBC Urine 0-2 /hpf (0-2); Squamous Epithelial Cell Urine 0-5 /hpf (0-5)
--- NOTE | 2024-05-03 14:14 | PC.PHAR ---
Pt is [facility]. Pt has current [facility] med list in his room.
--- NOTE | 2024-05-03 14:20 | W.ED.NEUROSD ---
HPI - Neuro Symptoms/Deficit General: Chief Complaint: Neuro Symptoms/Deficit Stated Complaint: strokelike symptoms Time Seen by Provider: 05/03/24 12:51 Source: patient Mode of arrival: ambulatory Limitations: no limitations History of Present Illness: 73-year-old male who states that he has been having a headache over the last 2 days he states he is also had some numbness and weakness in his left arm had some slight slurred speech he states as well. His last known well was 2 days ago he states the headache is a 7 out of 10 denies any fever denies any worsening improving factors. Associated symptoms: Reports headache(s); Deny chest pain, nausea or vomiting Related Data Home Medications Medication Instructions Recorded Confirmed atorvastatin 80 mg tablet 40 mg PO QPM 07/26/19 05/03/24 cholecalciferol (vitamin D3) 10 400 unit PO DAILY 07/26/19 05/03/24 mcg (400 unit) chewable tablet donepezil 10 mg tablet 20 mg PO BEDTIME 07/26/19 05/03/24 furosemide 20 mg tablet 20 mg PO QAM 07/26/19 05/03/24 nitroglycerin 0.4 mg sublingual 0.4 mg sublingual Q5M PRN Chest 07/31/20 05/03/24 tablet (Nitrostat) Pain tamsulosin 0.4 mg capsule 0.4 mg PO QPM 12/23/20 05/03/24 metformin 500 mg tablet,extended 1,000 mg PO BID 09/01/21 05/03/24 release 24 hr bismuth subsalicylate 262 mg/15 mL 524 mg PO Q1H PRN Heartburn 09/29/21 05/03/24 oral suspension omega-3 fatty acids-fish oil 684 1 cap PO BID 02/22/22 05/03/24 mg-1,200 mg capsule,delayed release loperamide 2 mg capsule 2 mg PO Q6H PRN Diarrhea 07/30/22 05/03/24 empagliflozin 25 mg tablet 25 mg PO DAILY 08/08/23 05/03/24 metoprolol tartrate 100 mg tablet 50 mg PO BID 08/08/23 05/03/24 allopurinol 100 mg tablet 100 mg PO DAILY 08/22/23 05/03/24 pantoprazole 40 mg tablet,delayed 40 mg PO BID 08/22/23 05/03/24 release apixaban 5 mg tablet (Eliquis) 5 mg PO BID 05/03/24 05/03/24 carbamide peroxide 6.5 % ear drops 4 drp otic (ear) .Q30D ear wax 05/03/24 05/03/24 (Debrox) blockage folic acid 400 mcg tablet 0.4 mg PO DAILY 05/03/24 05/03/24 hydrocodone 5 mg-acetaminophen 325 1 - 2 tab PO Q6H PRN Pain 05/03/24 05/03/24 mg tablet Previous Rx's Medication Instructions Recorded sildenafil 50 mg tablet 50 mg PO DAILY PRN sexual activity 05/13/21 #30 tabs amlodipine 10 mg tablet 10 mg PO DAILY #60 tabs 08/02/22 clopidogrel 75 mg tablet 75 mg PO DAILY #90 tabs 08/02/22 Allergies Allergy/AdvReac Type Severity Reaction Status Date / Time No Known Allergies Allergy Verified 05/03/24 12:52 Review of Systems Const: Denies: fever(s), chills, body aches or change in appetite ENMT: Denies: throat pain or dental pain Card: Denies: chest pain Resp: Denies: dyspnea GI: Denies: abdominal pain, nausea, vomiting or diarrhea Musc: Denies: neck pain or back pain Skin/Breast: Denies: rash Neuro: Reports: headache(s), numbness in extremities, weakness in extremities and Slurred speech present [facility] ED PFSH: Medical History 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 Other CAD (coronary artery disease) Chronic kidney disease (CKD) Diabetes Family history of premature coronary artery disease Hyperlipidemia Hypertension Lung disease Denies family history of Anesthesia complication Bleeding disorder Stroke Social History Smoking and tobacco/nicotine status: never used tobacco/nicotine Alcohol intake: never Substance/Drug Use: never Marital status: Current occupational status: retired and disabled NIH stroke score NIHSS: Level Of Consciousness - 1a: 0 Level Of Consciousness Questions - 1b: Both Correct Level Of Consciousness Commands - 1c: Both Correct Best Gaze - 2: Normal Visual Clarke - 3: No Visual Loss Facial Palsy - 4: Normal Motor Arm Right - 5: No Drift Motor Arm Left - 5: Drift Motor Leg Right - 6: No Drift Motor Leg Left - 6: No Drift Limb Ataxia - 7: Absent Sensory - 8: Normal Best Language - 9: No Aphasia Dysarthia - 10: Mild/Moderate Dysarthia Extinction And Inattention - 11: 0 Score: Total Score: 2 Physical Exam Const: COMMON NORMALS: no acute distress, patient oriented x3 and healthy appearing HENMT: COMMON NORMALS: normocephalic and atraumatic HEAD & SCALP: normocephalic and atraumatic Eye: COMMON NORMALS: conjunctivae normal CONJUNCTIVA: Yes conjunctivae normal Neck/C-Spine: COMMON NORMALS: full ROM and supple Chest: COMMONS NORMALS: normal inspection of the chest Resp: COMMON NORMALS: normal respiratory effort, No retractions, No use of accessory muscles and clear to auscultation bilaterally AUSCULTATION: clear to auscultation bilaterally Cardio: COMMON NORMALS: regular rate, regular rhythm and No murmurs present (Cardio) RATE: regular rate RHYTHM: regular rhythm GI: COMMON NORMALS: Normal to inspection, nondistended, normoactive bowel sounds present, Soft to palpation, non-tender and no masses PALPATION: Yes Soft to palpation Extremity: COMMON NORMALS: normal to inspection and full ROM Neuro: COMMON NORMALS: patient oriented x3, moves all extremities and no focal motor deficits Psych: COMMON NORMALS: mental status grossly normal Skin: COMMON NORMALS: no rashes or lesions noted and no wounds GENERAL SKIN EXAM: no rashes or lesions noted Course Vital Signs: Vital signs: Vital Signs Temperature 97.5 F L 05/03/24 12:47 Pulse Rate 75 05/03/24 12:47 Respiratory Rate 18 05/03/24 13:39 Blood Pressure 129/78 05/03/24 12:47 Pulse Oximetry 97 05/03/24 12:47 Oxygen Delivery Me thod Room Air 05/03/24 12:47 MDM - Neuro Symptoms/Deficit Medical Decision Making Patient presents with headache has also had some slight slurred speech and left-sided weakness he states he feels much improved after his headaches gone the symptoms resolved head CT here showed no acute abnormalities I did strongly recommend admission for stroke rule out patient states he does not want to stay and refuses to be admitted we will get him follow-up with neurology he is already on a statin and a blood thinner return if worsening. Medical Records I reviewed the patient's medical records. Lab Data I reviewed the patient's lab results. 05/03/24 13:04 05/03/24 13:[address] 05/03/24 12:32 IMPRESSION: 1. No acute intracranial hemorrhage or edema. 2. Moderate symmetric atrophy and small vessel disease. Small bilateral lacunar infarcts along the external capsules. 3. RIGHT mastoid air cell effusion. Head/Neck CTA 05/03/24 13:01 IMPRESSION: 1. No high-grade cervical carotid artery stenosis. Stenosis less than 50% at the bifurcations. 2. Small caliber RIGHT vertebral artery does not normally opacified. Similar to the prior study with intermittent areas of opacification. Consistent with chronic RIGHT vertebral artery occlusion with reflux of flow in the distal vertebral artery. 3. No cerebral artery aneurysm. 4. Advanced calcified plaque in the intracranial cavernous portion of the carotid arteries, LEFT greater than RIGHT. Laboratory Results WBC 10.44 10^3/uL (3.29-11.43) 05/03/24 13:04 RBC 5.04 10^6/uL (3.85-5.65) 05/03/24 13:04 Hgb 14.70 g/dL (11.27-16.99) 05/03/24 13:04 Hct 46.7 % (37-53) 05/03/24 13:04 MCV 92.7 fl (82-101) 05/03/24 13:04 MCH 29.2 pg (27-33) 05/03/24 13:04 MCHC 31.5 g/dL (30-55) 05/03/24 13:04 RDW 15.0 % (12.1-15.1) 05/03/24 13:04 Plt Count 256 10^3/cmm (157-399) 05/03/24 13:04 MPV 11.9 fL (7.4-10.4) H 05/03/24 13:04 Neut % (Auto) 73.3 % 05/03/24 13:04 Lymph % (Auto) 17.2 % 05/03/24 13:04 Craig % (Auto) 6.0 % 05/03/24 13:04 Eos % (Auto) 2.3 % 05/03/24 13:04 Baso % (Auto) 0.6 % 05/03/24 13:04 Neut # (Auto) 7.65 10^3/uL (1.8-7.7) 05/03/24 13:04 Lymph # (Auto) 1.8 10^3/uL (0.8-4.8) 05/03/24 13:04 Craig # (Auto) 0.6 10^3/uL (0.2-0.9) 05/03/24 13:04 Eos # (Auto) 0.2 10^3/uL (0.0-0.8) 05/03/24 13:04 Baso # (Auto) 0.1 10^3/uL (0.0-0.1) 05/03/24 13:04 Nucleated RBC % (auto) 0 % 05/03/24 13:04 Nucleated RBCs # 0.0 /100WBC 05/03/24 13:04 PT 15.60 SECONDS (12.1-14.9) H 05/03/24 13:04 INR 1.20 (0.8-1.2) 05/03/24 13:04 Sodium 136 mmol/L (136-145) 05/03/24 13:04 Potassium 4.4 mmol/L (3.5-5.1) 05/03/24 13:04 Chloride 100 mmol/L (98-107) 05/03/24 13:04 Carbon Dioxide 22 mmol/L (22-29) 05/03/24 13:04 Anion Gap 18.4 (5-19) 05/03/24 13:04 BUN 16 mg/dL (8-23) 05/03/24 13:04 Creatinine 1.0 mg/dL (0.7-1.2) 05/03/24 13:04 GFR Calculation Not Reportable 05/03/24 13:04 Glucose 122 mg/dL (65-115) H 05/03/24 13:04 Calculated Osmolality 284 mOsm/kg (285-295) L 05/03/24 13:04 Calcium 9.1 mg/dL (8.5-10.5) 05/03/24 13:04 Total Bilirubin 0.4 mg/dL (0.15-1.2) 05/03/24 13:04 AST 20 U/L (0-40) 05/03/24 13:04 ALT 15 U/L (0-41) 05/03/24 13:04 Alkaline Phosphatase 92 U/L (40-130) 05/03/24 13:04 Total Protein 7.3 g/dL (6.6-8.7) 05/03/24 13:04 Albumin 4.0 g/dL (3.5-5.2) 05/03/24 13:04 Globulin 3.3 g/dL (1.3-4.6) 05/03/24 13:04 TSH 1.24 uIU/mL (0.27-4.20) 05/03/24 13:04 Urine Color Yellow (Yellow) 05/03/24 13:46 Urine Appearance Clear (CLEAR) 05/03/24 13:46 Urine pH 5.0 (5-7) 05/03/24 13:46 Ur Specific [place] 1.040 (1.005-1.030) H 05/03/24 13:46 Urine Protein Negative (Negative) 05/03/24 13:46 Urine Glucose (UA) 3+ (Normal) H 05/03/24 13:46 Urine Ketones Negative (Negative) 05/03/24 13:46 Urine Blood Negative (Negative) 05/03/24 13:46 Urine Nitrate Negative (Negative) 05/03/24 13:46 Urine Bilirubin Negative (Negative) 05/03/24 13:46 Urine Urobilinogen 0.2 mg/dL (Negative) 05/03/24 13:46 Ur Leukocyte Esterase Negative (Negative) 05/03/24 13:46 Urine RBC 0-2 /hpf (0-2) 05/03/24 13:46 Urine WBC 6-10 /hpf (0-5) 05/03/24 13:46 Ur Squamous Epith Cells 0-5 /hpf (0-5) 05/03/24 13:46 Amorphous Sediment Not Reportable 05/03/24 13:46 Urine Bacteria None seen /hpf (NONE) 05/03/24 13:46 Hyaline Casts 0-4 /lpf H 05/03/24 13:46 All radiology interpretation(s) finalized by discharge EKG Data EKG 1: I personally reviewed and interpreted this EKG as follows: EKG interpretation date: 05/03/24 EKG interpretation time: 12:56 Interpretation: nsr hr [address] elevation qrs 103 qtc 411 Discharge Plan Discharge Patient Disposition: Home Clinical Impression: Headache, Arm paresthesia, left Condition: Stable Prescriptions: No Action sildenafil 50 mg tablet 50 mg PO DAILY PRN (Reason: sexual activity) Qty: 30 3RF Rx Instructions: administer 30 minutes to 4 hours before activity atorvastatin 80 mg Tablet 40 mg PO QPM donepezil 10 mg Tablet 20 mg PO BEDTIME furosemide 20 mg Tablet 20 mg PO QAM Hold Instructions: Resume on 10/15/21. cholecalciferol (vitamin D3) 400 unit Tablet,Chewable 400 unit PO DAILY tamsulosin 0.4 mg capsule 0.4 mg PO QPM nitroglycerin [Nitrostat] 0.4 mg Tablet, Sublingual 0.4 mg SUBLINGUAL Q5M PRN (Reason: Chest Pain) omega-3 fatty acids-fish oil 684-1,200 mg Capsule,Delayed Release(Dr/Ec) 1 cap PO BID loperamide 2 mg Capsule 2 mg PO Q6H PRN (Reason: Diarrhea) clopidogrel 75 mg Tablet 75 mg PO DAILY Qty: 90 3RF amlodipine 10 mg Tablet 10 mg PO DAILY Qty: 60 3RF metoprolol tartrate 100 mg Tablet 50 mg PO BID empagliflozin 25 mg Tablet 25 mg PO DAILY metformin 500 mg Tablet Extended Release 24 Hr 1,000 mg PO BID bismuth subsalicylate 262 mg/15 mL Suspension 524 mg PO Q1H PRN (Reason: Heartburn) Rx Instructions: do not exceed 8 doses in a 24 hour period allopurinol 100 mg Tablet 100 mg PO DAILY pantoprazole 40 mg Tablet,Delayed Release (Dr/Ec) 40 mg PO BID hydrocodone-acetaminophen 5-325 mg tablet 1 - 2 tab PO Q6H MDD 3daily PRN (Reason: Pain) folic acid 400 mcg Tablet 0.4 mg PO DAILY Debrox 6.5 % Drops 4 drp OTIC (EAR) .Q30D Eliquis 5 mg Tablet 5 mg PO BID Discharge Orders: Discharge ED (Routine); Ordered 05/03/24 Ordered By: Lorie Edge Referrals: Kaelyn Horta MD [Primary Care Provider] - Discharge Diet: Advance as tolerated Discharge Activity: Resume usual activity Patient Instructions: Acute Headache (ED), Stroke (DC) Coding Level of Care Code 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
--- NOTE | 2024-05-04 05:09 | DCPLANNER ---
Message sent to Neurology for follow up-CVA
== END 2024-05-03 14:53 | disposition home or self-care (01) ==
PROVIDERS: Emergency Provider Emergency Medicine; PCP Family Medicine
DX: R51.9 Headache, unspecified (principal); R20.2 Paresthesia of skin; Z79.84 Long term (current) use of oral hypoglycemic drugs; Z79.01 Long term (current) use of anticoagulants; Z95.1 Presence of aortocoronary bypass graft; I10 Essential (primary) hypertension; E78.5 Hyperlipidemia, unspecified; Z86.73 Personal history of transient ischemic attack (TIA), and cerebral infarction without residual deficits
CPT/HCPCS: 70450; 70496; 70498; 71045; 80053; 81001; 84443; 85025; 85610; 93005; 96374; 96375; 99285; J2270; J2405

== ENCOUNTER 2025-01-09 09:09 | Emergency (ER) | payer OTHER, SELFPAY ==
--- OUTSIDE RECORDS SUMMARY | 2024-03-20 08:11 | XMS_ITS | Encounter Summary ---
Author Name [facility] [place] Address [address] [place] [address] Care Team Providers Care Coach Name Role Phone NUPUR WOODS Primary Care Provider Unavailabl e Insurance Providers: All historical and current Section Date Range: From patient's date of to the date document was created. This section includes the names of all active insurance providers for the patient. Insurance Provider Type of Coverage Plan Name Start of Policy Coverage End of Policy Coverage Group Number Member ID Insurance Provider's Telephone Number Policy Bee's Name Patient's Relationship to Policy Bee MEDICARE (WNR) MEDICARE (M) PART A Apr 08, 1991 PART A [id number] [phone] Randy KNOX PATIENT MEDICARE (WNR) MEDICARE (M) PART A Apr 08, 1991 PART A [id number] [phone] Randy KNOX PATIENT MEDICARE (WNR) MEDICARE (M) PART B Apr 08, 1991 PART B [id number] [phone] Randy KNOX PATIENT MEDICARE (WNR) MEDICARE (M) PART B Apr 08, 1991 PART B [id number] [phone] Randy KNOX PATIENT MEDICARE (WNR) MEDICARE (M) PART A Apr 08, 1991 PART A [id number] [phone] Randy KNOX PATIENT MEDICARE (WNR) MEDICARE (M) PART B Apr 08, 1991 PART B [id number] LISETTERandy TONY PATIENT MEDICARE (WNR) MEDICARE (M) PART A Apr 08, 1991 PART A [id number] LISETTERandy TONY PATIENT MEDICARE (WNR) MEDICARE (M) PART B Apr 08, 1991 PART B [id number] LISETTERandy TONY PATIENT Selected Encounter This section includes the information on record at [place] for the Encounter. Date/Time Encounter Type Encounter Description Reason Provider Source Mar 20, 2024 01:11 PM Outpatient Encounter COMMUNITY CARE CONSULT MELONIE LEW Albino Encounter Template Text not used by [place] Plan of Treatment: Future Appointments (+ 6 months) and Future Tests (+/- 45 days) The Plan of Treatment section includes future care activities for the patient from all [place] treatmentfacilities. This section includes future appointments and future orders which are active, pending or scheduled. Future Appointments This section includes appointments that were scheduled to occur 6 months from the date of the Encounter, up to a maximum of 20 appointments. The data comes from all [place] treatment facilities. Appointment Date/Time Appointment Type Appointme nt Facility Name Apr 16, 2024 09:00 AM [facility] [place] [facility] [facility] May 03, 2024 11:45 AM [facility] [place] [facility] [facility] May 03, 2024 12:29 PM [facility] [place] [facility] May 03, 2024 01:45 PM [facility] [facility] May 07, 2024 08:40 AM [facility] [facility] May 07, 2024 01:30 PM [facility] [facility] May 31, 2024 11:30 AM [facility]ORY [facility] May 31, 2024 01:30 PM [facility] - [facility] Jun 05, 2024 03:30 PM [facility]ORY - [facility] Jun 05, 2024 03:31 PM [facility] - [facility] Aug 29, 2024 07:30 AM [facility] [place] [facility] Sep 03, 2024 01:02 PM [facility] September 12, 2024 08:40 AM [facility] [facility] September 12, 2024 09:15 AM [facility] - [facility]INE [facility] Advance Directives: All historical and current Section Date Range: From patient's date of to the date document was created. This section includes ALL of a patient's completed or amended [place] Advance and Rescinded Directives. The entries below indicate that a directive exists for the patient, but an actual copy is not included with this document. The data comes from all [place] facilities. Date Advance Directives Provider Source Apr 30, 2016 ADVANCE DIRECTIVE DISCUSSION MICHELINE BELTRAN [facility] May 10, 2000 ADVANCE DIRECTIVE BELLA SAHA [facility] Encounter Notes: All associated encounter notes This section contains the clinical notes associated to the Encounter. Date/Time Encounter Note(s) Provider Source Mar 19, 2024 02:50 PM NONVA NOTE: LOCAL TITLE: COMMUNITY CARE-TOMEKA SELF PRESENTING CARE COORD PLAN STANDARD TITLE: NONVA NOTE DATE OF NOTE: MAR 19, 2024@14:50 ENTRY DATE: MAR 20, 2024@13:19:45 AUTHOR: MELONIE LEW EXP COSIGNER: URGENCY: STATUS: COMPLETED COMMUNITY CARE-[place]OME[place] SELF PRESENTING CARE COORD PLAN [id number] PB Has ADDENDA Emergency Notification Intake Date Presenting to the Facility: Mar Date of note has been modified to reflect Date of Service. Reason for modification: Care Coordination Method of Contact: Notified from [facility] worklist Notification ID: [id number] [facility] Referral #: [id number] Clinical Review [facility] Hospital Name: Hospital: [facility] Address: [address] City: [place] State: [place] Zip Code: [address] Community Facility Point of Contact: Name: Radha Velasquez Chief complaint: Leg Pain Primary Diagnosis: Disposition Transfer Transfer to other [facility] Facility Higher level of care for S22.41XA Closed fracture of multiple ribs of right side, initial encounter [J93.9] Pneumothorax on right [T79.A21A] Traumatic compartment syndrome of right lower extremity, initial encounter (Primary) Facility Name: [facility] City: [place] Episode of Care Complete Records sent to [facility] for upload State: [place] /deandra/ Melonie Lew RN BSN jjp [facility] Signed: 03/20/2024 13:25 Receipt Acknowledged By: 03/20/2024 15:03 /es/ LIBRADO ZARAGOZA LPN 03/21/2024 14:14 /es/ ANURADHA RASMUSSEN CHICAGONati CBCARLOS 03/26/2024 16:46 /es/ NUPUR WOODS MD 03/19/2024 ADDENDUM STATUS: COMPLETED VistA Imaging Scanned Document - Addendum. ER/HPI,Prov Notes, Dr. ana Powell MD, 03/19/24 SCANNED DOCUMENT SIGNATURE NOT REQUIRED Electronically Filed: 03/23/2024 by: ELIZABETH Mcmahon [facility] 03/29/2024 ADDENDUM STATUS: COMPLETED Notification ID: [id number] [facility] Referral #: [id number] /es/ ANURADHA [place] [facility] Signed: 03/29/2024 07:13 MELONIE LEW [facility]
--- OUTSIDE RECORDS SUMMARY | 2024-04-09 03:22 | XMS_ITS | Encounter Summary ---
Author Name [facility] [place] Address [address] [place] [address] Care Team Providers Care Annual Campaign Manager Name Role Phone NUPUR WOODS Primary Care [...] PART A Apr 08, 1991 PART A [id number] [phone] Randy KNOX PATIENT MEDICARE (WNR) MEDICARE (M) PART B Apr 08, 1991 PART B [id number] 30A [phone] Randy KNOX PATIENT MEDICARE (WNR) MEDICARE (M) PART A Apr 08, 1991 PART A [id number] [phone] Randy KNOX PATIENT MEDICARE (WNR) MEDICARE (M) PART B Apr 08, 1991 PART B [id number] [phone] Randy KNOX PATIENT MEDICARE (WNR) MEDICARE (M) PART A Apr 08, 1991 PART A [id number] Randy KNOX PATIENT MEDICARE (WNR) MEDICARE (M) PART B Apr 08, 1991 PART B [id number] 30A [phone] Randy KNOX PATIENT MEDICARE (WNR) MEDICARE (M) PART A Apr 08, 1991 PART A [id number] Randy KNOX PATIENT MEDICARE (WNR) MEDICARE (M) PART B Apr 08, 1991 PART B [id number] Randy KNOX PATIENT Selected Encounter This section includes the information on record at [place] for the Encounter. Date/Time Encounter Type Encounter Description Reason Provider Source Apr 09, 2024 08:22 AM Outpatient Encounter ADMIN PAT ACTIVTIES (MASNONCT) OSEAS PRICE Albino Encounter Template Text not used by [place] Plan of Treatment: Future Appointments (+ 6 months) and Future Tests (+/- 45 days) The Plan of Treatment section includes future care activities for the patient from all [place] treatmentfacilities. This section includes future appointments and future orders which are active, pending or scheduled. Future Appointments This section includes appointments that were scheduled to occur 6 months from the date of the Encounter, up to a maximum of 20 appointments. The data comes from all [place] treatment facilities. Appointment Date/Time Appointment Type Appointme nt Facility Name Apr 16, 2024 09:00 AM AMBULATORY - MEDICINE [facility] May 03, 2024 11:45 AM [facility] May 03, 2024 12:29 PM [facility] [place]IC[place] [facility] May 03, 2024 01:45 PM [facility] [facility] May 07, 2024 08:40 AM [facility] [place] [facility] May 07, 2024 01:30 PM [facility] [place] [facility] May 31, 2024 11:30 AM [facility] [facility] May 31, 2024 01:30 PM [facility] [facility] Jun 05, 2024 03:30 PM [facility] Jun 05, 2024 03:31 PM [facility] [facility] Aug 29, 2024 07:30 AM [facility] [place] [facility] Sep 03, 2024 01:02 PM [facility] [place] [facility] September 12, 2024 08:40 AM [facility] September 12, 2024 09:15 AM [facility] Lab Results: +/- 30 days of the encounter This section includes the Chemistry and Hematology Lab Results on record with [facility] for the patient. Radiology Reports and Pathology Reports are provided separately, in subsequent sections. Lab Results This section contains the Chemistry/Hematology Results that were resulted 30 days before or 30 daysafter the date of the Encounter. Date/Time Source Result Type Result - Unit Interpretation Reference Range Specimen Type Comment May 07, 2024 09:54 AM [facility] CREATININE(EGFR) PLASMA Specimen Type: PLASMA No comment entered. Ordering Provider: SALENA CARRION Report Released Date/Time: Apr 16, 2024 08:11 AM Reporting Lab: [place] [facility] [address] [place] [facility] [address] Performing Lab: [place] [facility] [address] [place] [address] CREATININE 0.90 mg/dL 0.7-1.3 EGFR (CKD-EPI 2020) 91 May 07, 2024 09:54 AM [facility] HGB,HCT,PLT BLOOD Specimen Ty pe: BLOOD No comment entered. Ordering Provider: SALENA CARRION Report Released Date/Time: Apr 16, 2024 08:11 AM Reporting Lab: [place] [facility] [address] [place] [address] Performing Lab: [place] [facility] [address] [place] [address] HGB 14.1 g/dL 13.1-16.8 HCT 43.9 38.2-48.4 PLT 272 10*3/uL 150-400 Advance Directives: All historical and current Section Date Range: From patient's date of to the date document was created. This section includes ALL of a patient's completed or amended [place] Advance and Rescinded Directives. The entries below indicate that a directive exists for the patient, but an actual copy is not included with this document. The data comes from all [place] facilities. Date Advance Directives Provider Source Apr 30, 2016 ADVANCE DIRECTIVE DISCUSSION MICHELINE BELTRAN [facility] May 10, 2000 ADVANCE DIRECTIVE BOWLING,BELLA [facility] Encounter Notes: All associated encounter notes This section contains the clinical notes associated to the Encounter. Date/Time Encounter Note(s) Provider Source Apr 09, 2024 08:22 AM TELEHEALTH NOTE: LOCAL TITLE: TELE EMERGENCY CARE RECONCILIATION CLERK NOTE STANDARD TITLE: TELEHEALTH NOTE DATE OF NOTE: APR 09, 2024@08:22 ENTRY DATE: APR 09, 2024@08:22:36 AUTHOR: RUBA REEVES COSIGNER: URGENCY: STATUS: COMPLETED TELE EMERGENCY CARE RECONCILIATION CLERK NOTE Has ADDENDA referred from: [place]'s name, last 4, and were verified. Encounter/Visit Type: Telephone [place]'s Phone Number, Address, Email Address and Contact Information Patient Address: [address] [place] [address] [address] [place] [address] Patient Email - NONE FOUND Emergency Contact: CON - Patient Contacts Patient Phone Numbers: Cell: No data available Home: Work: No data available Emergency Contact: Name: GIFTY KNOX Relationship: SON Secondary Emergency Contact: Name: GERTRUDIS KNOX Relationship: SON Secondary Next of Kin Contact Name: GLORIA SMITH Relationship: DAUGHTER - Age: 73 years old Gender: MALE Chief Complaint: diarrhea [facility]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 Able to speak complete sentences with ease. Skin Assessment: Chief Complaint: Pt reports return of sx of diarrhea last week (hx of cdiff); reached out to care-team but has not had a return call. Yesterday diarrhea sx increased so pt reached out again and was escalated to Tele [facility]. Pt declines ED eval and wants treatment before he ends back up in the hospital. Safety Assessment: (Self-Reported) Are you living in a safe environment? Yes Are you carrying any weapons or contraband? No Past Medical History/Active Problems: HOLLIE - Active Problems 25 Active Problems PROBLEM LAST MOD PROVIDER Arthritis, Rheumatoid 05/14/2015 DANK TRAVIS Lumbago 05/07/2000 BETY RAMIREZ-IRVIN Hypertensive disorder 04/29/2016 PHILIP PERLA Hypercholesterolemia 04/29/2016 PHILIP PERLA Arteriosclerosis of coronary artery bypass graft 08/21/2023 DANK TRAVIS 1. Seen ED 07/2020, refer to cardiology and EGD 2. Chest pain seen in ED December 2020 = discharged home atypical chest pain 3. Chest pain to go to ed 07/02 4. 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 Camphylobacter, 2. C,diff in [facility] 3. 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 NUPUR WOODS Per vascular continue anticoagulation H/O: stroke 08/03/2022 NUPUR WOODS Right-sided weakness, right hemianopsia Warfarin monitoring status 08/03/2022 NUPUR WOODS Dank hematuria 08/03/2022 NUPUR WOODS Gross hematuria 07/2022 during CVA hospitalization Benign prostatic hypertrophy with outflow 08/03/2022 NUPUR WOODS obstruction History of coronary artery bypass grafting 08/05/2022 NUPUR WOODS UTI - Urinary tract infection 09/02/2023 NUPUR WOODS Nitrofur Multiple rib fractures on the right 03/202403/26/2024 NUPUR WOODS Allergies/Adverse Reactions Current Medications: Active Outpatient Medications (including Supplies): ALLOPURINOL 100MG TAB TAKE ONE TABLET BY MOUTH ONCE A DAY ACTIVE (S) FOR GOUT. TAKE WITH PLENTY OF WATER. AMLODIPINE BESYLATE 10MG TAB TAKE ONE TABLET BY MOUTH ONCE ACTIVE A DAY FOR HIGH BLOOD PRESSURE APIXABAN 5MG TAB TAKE ONE TABLET BY MOUTH TWICE A DAY FOR ACTIVE ANTICOAGULATION ATORVASTATIN CALCIUM 80MG TAB TAKE ONE-HALF TABLET BY ACTIVE (S) MOUTH EVERY EVENING FOR CHOLESTEROL. REPORT ANY UNEXPLAINED MUSCLE PAIN/WEAKNESS TO PROVIDER. CARBAMIDE PEROXIDE 6.5% OTIC SOLN INSTILL 4 DROPS IN BOTH ACTIVE EARS EVERY 4 WEEKS FOR EAR WAX BLOCKAGE AND MORE FREQUENTLY IF NEEDED CHOLECALCIF 10MCG (D3-400UNIT) TAB TAKE ONE TABLET BY ACTIVE MOUTH ONCE A DAY FOR VITAMIN D DEFICIENCY. CLOPIDOGREL BISULFATE 75MG TAB TAKE ONE TABLET BY MOUTH ACTIVE ONCE A DAY FOR STROKE PREVENTION DONEPEZIL HCL 10MG TAB TAKE TWO TABLETS BY MOUTH AT ACTIVE BEDTIME FOR MEMORY (JUST PRIOR TO RETIRING) EMPAGLIFLOZIN 25MG TAB TAKE ONE TABLET BY MOUTH ONCE A DAY ACTIVE FOR DIABETES FOLIC ACID 0.4MG TAB TAKE ONE TABLET BY MOUTH ONCE A DAY ACTIVE (S) FOR FOLIC ACID SUPPLEMENTATION FUROSEMIDE 20MG TAB TAKE ONE TABLET BY MOUTH EVERY MORNING ACTIVE (S) FOR FLUID RETENTION HYDROCODONE 5MG/ACETAMINOPHEN 325MG TAB TAKE 1 TABLET BY ACTIVE MOUTH EVERY EIGHT(8) HOURS NEEDED FOR PAIN (MAX 3 TABLETS PER DAY) CAUTION: DO NOT EXCEED 4000MG PER DAY ACETAMINOPHEN (APAP) FROM ALL MEDS. LOPERAMIDE HCL 2MG CAP TAKE ONE CAPSULE BY MOUTH ACTIVE NEEDED FOR DIARRHEA TAKE 2 CAPSULES JUST BEFORE START OF DIARRHEA, THEN 1 CAPSULE AFTER EACH DIARRHEA EPISODE TO MAXIMUM OF 8 CAPSULES IN A DAY METFORMIN HCL 500MG 24HR SA TAB TAKE TWO TABLETS BY MOUTH ACTIVE TWICE A DAY WITH MEALS FOR DIABETES TAKE WITH FOOD. AVOID ALCOHOL. DISCONTINUE BEFORE GETTING XRAY DYE. INCREASE DOSE METOPROLOL TARTRATE 100MG TAB TAKE ONE-HALF TABLET BY ACTIVE MOUTH TWICE A DAY FOR HEART/BLOOD PRESSURE. TAKE WITH OR IMMEDIATELY FOLLOWING FOOD. PANTOPRAZOLE NA 40MG EC TAB TAKE ONE TABLET BY MOUTH TWICE ACTIVE A DAY TO LOWER STOMACH ACID - TAKE 30 MINUTES BEFORE MEAL(S) PROBIOTIC COMBINATION CAP/TAB TAKE 1 CAPSULE BY MOUTH ONCE ACTIVE A DAY NUTRITIONAL SUPPLEMENT TAMSULOSIN HCL 0.4MG CAP TAKE ONE CAPSULE BY MOUTH EVERY ACTIVE (S) EVENING FOR BENIGN PROSTATIC HYPERPLASIA APPROXIMATELY 30 MINUTES AFTER THE SAME MEAL EACH DAY Non-VA BISMUTH SUBSALICYLATE 262MG/15ML SUSP 30 ML BY ACTIVE MOUTH NEEDED Vital Signs (Historical/Last 3): Measurement DT TEMP RESP PULSE BP POx F(C) (L/MIN)(%) 09/29/2023 12:48 97.9(36.6) 18 77 115/76 96 09/12/2023 14:34 98.4(36.9) 18 78 107/73 96 08/23/2023 13:04 98(36.7) 18 76 135/80 Measurement DT PAIN WEIGHT HEIGHT LB(KG)[BMI] IN(CM) 09/29/2023 12:48 0 229.4(104.05)[31*] 72.0(182.88) 09/12/2023 14:34 0 233.9(106.10)[32*] 08/23/2023 13:04 Emergency Severity Index ([place]) level: Level 3 Disposition: Transferred to Tele Emergency Care Provider Time Spent: 4 minutes /deandra/ RUBA REEVES REGISTERED NURSE Signed: 04/09/2024 08:25 04/09/2024 ADDENDUM STATUS: COMPLETED [place] called back stating he neded antibiotcis for his diarrhea, he states that he knows he has c-diff. Spoke with [place] about what [place] had told him regarding giving a stool sample, he states he is not able to leave the house. Also discussed that he could be evaluated for his diarrhea. /deandra/ CRISTAL CHAU RN, BSN Signed: 04/09/2024 11:50 RUBA REEVES [facility]
--- OUTSIDE RECORDS SUMMARY | 2024-05-03 06:45 | XMS_ITS | Encounter Summary ---
Author Name [facility] [facility] [place] Address [address] [place] [address] Care Team Providers Care Quarter Trimmer Name Role Phone PEGGYLAURENE Primary Care Provider Unavailabl e Insurance Providers: [...] Policy Bee MEDICARE (WNR) MEDICARE (M) PART B Apr 08, 1991 PART B [id number] [phone] Randy KNOX PATIENT MEDICARE (WNR) MEDICARE (M) PART A Apr 08, 1991 PART A [id number] [phone] Randy KNOX PATIENT MEDICARE (WNR) MEDICARE (M) PART A Apr 08, 1991 PART A [id number] Randy KNOX PATIENT MEDICARE (WNR) MEDICARE (M) PART B Apr 08, 1991 PART B [id number] [phone] Randy KNOX PATIENT MEDICARE (WNR) MEDICARE (M) PART A Apr 08, 1991 PART A [id number] [phone] Randy KNOX PATIENT MEDICARE (WNR) MEDICARE (M) PART B Apr 08, 1991 PART B [id number] [phone] Randy KNOX PATIENT MEDICARE (WNR) MEDICARE (M) PART A Apr 08, 1991 PART A [id number] [phone] Randy KNOX PATIENT MEDICARE (WNR) MEDICARE (M) PART B Apr 08, 1991 PART B [id number] Randy KNOX PATIENT Selected Encounter This section includes the information on record at [place] for the Encounter. Date/Time Encounter Type Encounter Description Reason Provider Source May 03, 2024 11:45 AM OFF/OP EST SEPTEMBER X REQ PHY/QHP PRIMARY CARE/MEDICINE ICD-10-CM 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 NASREEN PATINO Albino Encounter Template Text not used by [facility] Assessments - Encounter Diagnoses This section includes the primary and secondary diagnoses documented for the Encounter. Date/Time Primary/Secondary Diagnosis Diagnosis Name Provider Source May 03, 2024 03:31 PM PRIMARY Unspecified mononeuropathy of left upper limb ARTHUR PATINO [facility] Plan of Treatment: Future Appointments (+ 6 months) and Future Tests (+/- 45 days) The Plan of Treatment section includes future care activities for the patient from all [place] treatmentfacilities. This section includes future appointments and future orders which are active, pending or scheduled. Future Appointments This section includes appointments that were scheduled to occur 6 months from the date of the Encounter, up to a maximum of 20 appointments. The data comes from all [place] treatment facilities. Appointment Date/Time Appointment Type Appointme nt Facility Name May 07, 2024 08:40 AM [facility] May 07, 2024 01:30 PM [facility] [place] [facility] May 31, 2024 11:30 AM [facility] May 31, 2024 01:30 PM [facility] Jun 05, 2024 03:30 PM [facility] Jun 05, 2024 03:31 PM [facility] Aug 29, 2024 07:30 AM [facility] [place] [facility] Sep 03, 2024 01:02 PM AMBULATORY - MEDICINE [facility] September 12, 2024 08:40 AM AMBULATORY - MEDICINE [facility] September 12, 2024 09:15 AM AMBULATORY MEDICINE [facility] Active, Pending, and Scheduled Orders This section includes a listing of several types of active, pending, and scheduled orders, including clinic medications orders, diagnostic test orders, procedure orders and consult orders; where the start date of the order is 45 days before the date of the Encounter or 45 days after the date of theEncounter. The data comes from all [place] treatment facilities. Test Date/Time Test Type Test Details Facility Name Jun 05, 2024 04:01 PM Laboratory - Chemi stry Order ANCILLARY GLUCOSE-PB BLOOD, POCT [facility] Jun 05, 2024 04:01 PM Laboratory - Chemi stry Order POC UA (STL-PB-MA) URINE [facility] Lab Results: +/- 30 days of the encounter This section includes the Chemistry and Hematology Lab Results on record with [facility] for the patient. Radiology Reports and Pathology Reports are provided separately, in subsequent sections. Lab Results This section contains the Chemistry/Hematology Results that were resulted 30 days before or 30 daysafter the date of the Encounter. Date/Time Source Result Type Result - Unit Interpretation Reference Range Specimen Type Comment May 07, 2024 09:54 AM [facility] CREATININE(EGFR) PLASMA Specimen Type: PLASMA No comment entered. Ordering Provider: SALENA CARRION Report Released Date/Time: Apr 16, 2024 08:11 AM Reporting Lab: [place] [facility] [address] [place] [address] Performing Lab: [place] [facility] [address] [place] [address] CREATININE 0.90 mg/dL 0.7-1.3 EGFR (CKD-EPI 2020) 91 May 07, 2024 09:54 AM [facility] HGB,HCT,PLT BLOOD Specimen Ty pe: BLOOD No comment entered. Ordering Provider: SALENA CARRION Report Released Date/Time: Apr 16, 2024 08:11 AM Reporting Lab: [place] [facility] [address] [place] [address] Performing Lab: [place] [facility] [address] [place] [address] HGB 14.1 g/dL 13.1-16.8 HCT 43.9 38.2-48.4 PLT 272 10*3/uL 150-400 Vital Signs: All taken on the encounter date This section contains inpatient and outpatient Vital Signs collected on the date of the Encounter. Date/Time Temperature Pulse Blood Pressure Respiratory Rate SP02 Pain Height Weight Body Mass Index Source May 03, 2024 11:58 AM 98.3 72 135/81 96 [facility] Social History: Smoking Status (Most current) and Tobacco Use (All prior to encounter date) This section includes the most current, and the historical, smoking and tobacco- related health factors from the [facility] facility where the Encounter took place. Current Smoking Status This section includes the most current smoking, or tobacco-related health factor, from the [facility] facility where the Encounter took place. Date/Time Current Smoking Status Comment Facil ity September 29, 2023 12:30 PM VA-TOBACCO NEVER USED [facility] Tobacco Use History This section includes a history of the smoking, or tobacco-related health factors, that were collected on or before the date of the Encounter. The data comes from the [facility] facility where the Encounter took place. Date/Time Smoking Status/Tobacco Use Comment F acility Aug 05, 2022 11:30 AM VA-TOBACCO NEVER USED [facility] Oct 21, 2020 09:00 AM VA-TOBACCO NEVER USED [facility] Jan 19, 2019 11:38 AM LIFETIME NON-TOBACCO USER [facility] Jan 19, 2019 11:38 AM VA-TOBACCO NEVER USED [facility] Jul 26, 2018 09:42 AM CURRENT NON-TOBACCO USER-HX OF U SE [facility] May 14, 2015 11:17 AM TOBACCO MEDS OFFERED BUT DECLINE D [facility] May 14, 2015 11:17 AM TOBACCO OFFERED PT MEDS (PROVIDE R) [facility] May 14, 2015 11:17 AM TOBACCO OFFERED STOP SMOKING CLI RHODA [facility] Dec 12, 2014 10:11 AM LIFETIME NON-USER OF TOBACCO [facility] Advance Directives: All historical and current Section Date Range: From patient's date of to the date document was created. This section includes ALL of a patient's completed or amended [place] Advance and Rescinded Directives. The entries below indicate that a directive exists for the patient, but an actual copy is not included with this document. The data comes from all [place] facilities. Date Advance Directives Provider Source Apr 30, 2016 ADVANCE DIRECTIVE DISCUSSION RUBYMICHELINE [facility] May 10, 2000 ADVANCE DIRECTIVE BELLA SAHA [facility] Encounter Notes: All associated encounter notes This section contains the clinical notes associated to the Encounter. Date/Time Encounter Note(s) Provider Source May 03, 2024 11:48 AM NURSING PROGRESS N OTE: LOCAL TITLE: NURSING NOTE PB STANDARD TITLE: NURSING PROGRESS NOTE DATE OF NOTE: MAY 03, 2024@11:48 ENTRY DATE: MAY 03, 2024@11:48:26 AUTHOR: OMERO PATINO COSIGNER: URGENCY: STATUS: COMPLETED This is a 73 year old MALE with known Allergies as noted: Patient has answered NKA On the following Active Medications: Active Outpatient Medications (including Supplies): Active Outpatient Medications Status 1) ALLOPURINOL 100MG TAB TAKE ONE TABLET BY MOUTH ONCE A DAY ACTIVE (S) FOR GOUT. TAKE WITH PLENTY OF WATER. 2) AMLODIPINE BESYLATE 10MG TAB TAKE ONE TABLET BY MOUTH ONCE A ACTIVE DAY Indication: FOR HIGH BLOOD PRESSURE 3) APIXABAN 5MG TAB TAKE ONE TABLET BY MOUTH TWICE A DAY ACTIVE (S) Indication: FOR ANTICOAGULATION 4) ATORVASTATIN CALCIUM 80MG TAB TAKE ONE-HALF TABLET BY MOUTH ACTIVE EVERY EVENING FOR CHOLESTEROL. REPORT ANY UNEXPLAINED MUSCLE PAIN/WEAKNESS TO PROVIDER. 5) CHOLECALCIF 10MCG (D3-400UNIT) TAB TAKE ONE TABLET BY MOUTH ACTIVE ONCE A DAY FOR VITAMIN D DEFICIENCY. 6) CLOPIDOGREL BISULFATE 75MG TAB TAKE ONE TABLET BY MOUTH ONCE ACTIVE A DAY Indication: FOR STROKE PREVENTION 7) EMPAGLIFLOZIN 25MG TAB TAKE ONE TABLET BY MOUTH ONCE A DAY ACTIVE Indication: FOR DIABETES 8) FOLIC ACID 0.4MG TAB TAKE ONE TABLET BY MOUTH ONCE A DAY ACTIVE (S) Indication: FOR FOLIC ACID SUPPLEMENTATION 9) FUROSEMIDE 20MG TAB TAKE ONE TABLET BY MOUTH EVERY MORNING ACTIVE FOR FLUID RETENTION 10) LOPERAMIDE HCL 2MG CAP TAKE ONE CAPSULE BY MOUTH NEEDED ACTIVE TAKE 2 CAPSULES JUST BEFORE START OF DIARRHEA, THEN 1 CAPSULE AFTER EACH DIARRHEA EPISODE TO MAXIMUM OF 8 CAPSULES IN A DAY Indication: FOR DIARRHEA 11) METFORMIN HCL 500MG 24HR SA TAB TAKE TWO TABLETS BY MOUTH ACTIVE (S) TWICE A DAY WITH MEALS TAKE WITH FOOD. AVOID ALCOHOL. DISCONTINUE BEFORE GETTING XRAY DYE. INCREASE DOSE Indication: FOR DIABETES 12) METOPROLOL TARTRATE 100MG TAB TAKE ONE-HALF TABLET BY MOUTH ACTIVE TWICE A DAY FOR HEART/BLOOD PRESSURE. TAKE WITH OR IMMEDIATELY FOLLOWING FOOD. 13) PANTOPRAZOLE NA 40MG EC TAB TAKE ONE TABLET BY MOUTH TWICE A ACTIVE DAY TO LOWER STOMACH ACID - TAKE 30 MINUTES BEFORE MEAL(S) 14) PROBIOTIC COMBINATION CAP/TAB TAKE 1 CAPSULE BY MOUTH ONCE A ACTIVE DAY Indication: NUTRITIONAL SUPPLEMENT 15) TAMSULOSIN HCL 0.4MG CAP TAKE ONE CAPSULE BY MOUTH EVERY ACTIVE (S) EVENING APPROXIMATELY 30 MINUTES AFTER THE SAME MEAL EACH DAY Indication: FOR BENIGN PROSTATIC HYPERPLASIA Active Non-VA Medications Status 1) Non-VA BISMUTH SUBSALICYLATE 262MG/15ML SUSP 30 ML BY MOUTH ACTIVE NEEDED 16 Total Medications C/C: Horrible headache and left arm numbness started yesterday. S: The presented to the clinic today with the complaint of horrible headache and my left arm is numb. The reports that he took a hydrocodone yesterday afternoon, but has not taken anything since. it worked really well, but when it wore off the headache came back. The reports that the numbness comes and goes, but reports that he is currently having numbness in his and fingers and up into his forearm. The does report that he is seeing ID for his CDIF in [place] but does not want to keep going there and would like to be sent to a provider in [facility]. O/A: The ambulated to the exam room with assistance of a cane, gait is steady. The 's breathing is labored after walking down the quij[place] and every time he talks. His oxygen is 95-97%. The reports SOB is not new for him. This nurse if familiar with this and I do not recall his breathing being this labored last time he was seen a couple of months ago. Asked the if he was having any chest pain, the reports, yes but it is nothing new. Asked the how long he has been having chest pain, and he became confused and was unable to answer, but did state again that it was nothing new. When asking the about what he has taken for the headache, he could not remember what time he took they hydrocodone, and just keeps telling me, I have some dementia. The lost his train of thought several times during the visit. Vitals were stable today. Vital Signs: as charted P: Discussed the above symptoms and assessment with ADEBAYO Sen who stepped into the room to examine the . She talked to the about going to the ER to be further evaluated. The refused EMS and signed an AMA paper at 1215 and said that he would give himself to [facility] ER. Report called to Kaitlynn, a nurse at the [facility] ER at 1220. The voiced understanding, is in agreement with the plan and has no further questions or complaints at this time. The ambulated to the exit in satisfactory manner. RTC: as needed Per [facility] Directive 1605.06, wristband documentation: Patient wristband was removed and destroyed by (staff name) Ivan Patino RN and placed in the designated [employer] bin. /deandra/ Omero Patino RN,BSN [place] Signed: 05/03/2024 15:29 Receipt Acknowledged By: 05/04/2024 07:08 /deandra/ HARPREET Cuevas, MSN, Joseph Irving [facility] OMERO PATINO [facility]
--- OUTSIDE RECORDS SUMMARY | 2024-05-29 11:30 | XMS_ITS ---
Author Organization [facility] Address [address] [place] [address] Care Team Providers Care Tire Servicer Name Role Phone Yo VO Primary Care Provider Kb Hare JR [phone] REASON FOR VISIT [id number] C-Diff Medications Medication SIG (Take, Route, Frequency, Duration) Notes Start Date End Date Status Empagliflozin 25 MG Tablet 1 tablet Oral ly Once a day Active Fish Oil 1000 MG Capsule 1 capsule Orall y Once a day Active Folic Acid 0.8 MG Capsule 0.5 capsule Or ally Once a day Active Clopidogrel Bisulfate 75 MG Tablet 1 tablet Orally Once a day Active Furosemide 20 MG Tablet 1 tablet Orally Once a day Active Pantoprazole Sodium 40 MG Tablet Delayed Release 1 tablet Orally Once a day Active Probiotic - Tablet Chewable as directed Orally Active Lactobacillus Acid-Pectin - Capsule as directed Orally Active Loperamide HCl 2 MG Capsule 1 capsule as needed Orally Four times a day Active metFORMIN HCl 500 MG Tablet 1 tablet wit h a meal Orally Once a day Active DULoxetine HCl 60 MG Capsule Delayed Release Particles 1 capsule Orally Once a day Active Isosorbide Mononitrate 10 MG Tablet 1 tab Orally three times a day Active Metoprolol Tartrate 100 MG Tablet 1 tablet with food Orally Twice a day Active Tamsulosin HCl 0.4 MG Capsule 1 capsule Orally Once a day Active Warfarin Sodium 2 MG Tablet 1 tablet Ora lly Once a day Active tiZANidine HCl 4 MG Tablet 1 tablet as n eeded Orally Three times a day Active Donepezil HCl 10 MG Tablet 1 tablet at b edtime Orally Once a day Active Allopurinol 100 MG Tablet 1 tablet Orall y Once a day Active amLODIPine Besylate 10 MG Tablet 1 tablet Orally Once a day Active Atorvastatin Calcium 80 MG Tablet 1 tablet Orally Once a day Active Bismuth Subsalicylate 262 MG/15ML Suspension 30 mL with meals and at bedtime Orally Four times a day Active Carbamide Peroxide 6.5 % Solution 5 drops into affected ear Otic Twice a day Active Cholecalciferol 10 MCG (400 UNIT) Tablet 2 tablets Orally Once a day Active Encounters Encounter Location Date Provider Diagnosis [facility] [address] [place] [address], [place] [address] 05/29/2024 Kb Gonzalez C. 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 difficile colitis (ICD-10 - A04.72) 1. 73 yo male with Hx of recurrent chronic c. diff colitis -has taken Dificid in past 2. Recurrent chronic C. Diff colitis -consider underlying colon pathology, and he may need immune dysfunction w/u. 3. Lab studies; 05-22-24 Cdiff, stool O&P, stool culture, GI pathogen panel, CBC,CRP,CMP ordered (studies not done as of 05-29-24) Labs Follow up: Kevin Baker 05/29/2024 Recurrent Clostridioides difficile diarrhea (ICD-10 - A04.71) 1. 73 yo male with Hx of recurrent chronic c. diff colitis -has taken Dificid in past 2. Recurrent chronic C. Diff colitis -consider underlying colon pathology, and he may need immune dysfunction w/u. 3. Lab studies; 05-22-24 Cdiff, stool O&P, stool culture, GI pathogen panel, CBC,CRP,CMP ordered (studies not done as of 05-29-24) Labs Follow up: Kevin Baker 05/29/2024 Dysenteric diarrhea (ICD-10 - A09) 1. 73 yo male with Hx of recurrent chronic c. diff colitis -has taken Dificid in past 2. Recurrent chronic C. Diff colitis -consider underlying colon pathology, and he may need immune dysfunction w/u. 3. Lab studies; 05-22-24 Cdiff, stool O&P, stool culture, GI pathogen panel, CBC,CRP,CMP ordered (studies not done as of 05-29-24) Labs Follow up: Scribe Nadeen Baker Plan Of Treatment No Information History and Physical Notes * HPI (History of Present Illness) Category Sub-Category Detail Notes Category Not es Provider Note Patient is 73 yo male with Hx of 3 years of recurrent C. Diff colitis. Treated with vancomycin periodically for years. Has never had a fecal transplant. Currently frequent diarrhea, he is having abdominal pain 05-22-24; last seen in clinic 06-06-2023 now back for recurrent issue with C. Diff. Diarrhea all throughout day. 05-29-24; Progress Notes * Haylie NICEShirleyOB: 2 (74 yo M)Acc No.[id number]:05/29/2024 Progress Notes Patient: Alex Ramírez Provider: Rajesh Gonzalez MD :1950 A ge:73 Y S ex:Male Date:05/29/2024 Address:[address] [place] [address], [id number] Pcp:Yo VO Subjective: * Chief Complaints: * [id number] C-Diff * HPI: Carmita morales Note: Patient is 73 yo male with Hx of 3 years of recurrent C. Diff colitis. Treated with vancomycin periodically for years. Has never had a fecal transplant. Currently frequent diarrhea, he is having abdominal pain 05-22-24; last seen in clinic [id number] back for recurrent issue with C. Diff. Diarrhea all throughout day. 05-29-24;. * Medications: T akingDonepezil HCl 10 MG Tablet 1 tablet at bedtime Orally Once a day tiZANidine HCl 4 MG Tablet 1 tablet as needed Orally Three times a day Tamsulosin HCl 0.4 MG Capsule 1 capsule Orally Once a day Metoprolol Tartrate 100 MG Tablet 1 tablet with food Orally Twice a day Isosorbide Mononitrate 10 MG Tablet 1 tab Orally three times a day DULoxetine HCl 60 MG Capsule Delayed Release Particles 1 capsule Orally Once a day Warfarin Sodium 2 MG Tablet 1 tablet Orally Once a day Probiotic - Tablet Chewable as directed Orally Pantoprazole Sodium 40 MG Tablet Delayed Release 1 tablet Orally Once a day metFORMIN HCl 500 MG Tablet 1 tablet with a meal Orally Once a day Loperamide HCl 2 MG Capsule 1 capsule as needed Orally Four times a day Lactobacillus Acid-Pectin - Capsule as directed Orally Furosemide 20 MG Tablet 1 tablet Orally Once a day Folic Acid 0.8 MG Capsule 0.5 capsule Orally Once a day Fish Oil 1000 MG Capsule 1 capsule Orally Once a day Empagliflozin 25 MG Tablet 1 tablet Orally Once a day Clopidogrel Bisulfate 75 MG Tablet 1 tablet Orally Once a day Cholecalciferol 10 MCG (400 UNIT) Tablet 2 tablets Orally Once a day Carbamide Peroxide 6.5 % Solution 5 drops into affected ear Otic Twice a day Bismuth Subsalicylate 262 MG/15ML Suspension 30 mL with meals and at bedtime Orally Four times a day Atorvastatin Calcium 80 MG Tablet 1 tablet Orally Once a day amLODIPine Besylate 10 MG Tablet 1 tablet Orally Once a day Allopurinol 100 MG Tablet 1 tablet Orally Once a day Taking Donepezil HCl 10 MG Tablet 1 tablet at bedtime Orally Once a day Taking tiZANidine HCl 4 MG Tablet 1 tablet as needed Orally Three times a day Taking Tamsulosin HCl 0.4 MG Capsule 1 capsule Orally Once a day Taking Metoprolol Tartrate 100 MG Tablet 1 tablet with food Orally Twice a day Taking Isosorbide Mononitrate 10 MG Tablet 1 tab Orally three times a day Taking DULoxetine HCl 60 MG Capsule Delayed Release Particles 1 capsule Orally Once a day Taking Warfarin Sodium 2 MG Tablet 1 tablet Orally Once a day Taking Probiotic - Tablet Chewable as directed Orally Taking Pantoprazole Sodium 40 MG Tablet Delayed Release 1 tablet Orally Once a day Taking metFORMIN HCl 500 MG Tablet 1 tablet with a meal Orally Once a day Taking Loperamide HCl 2 MG Capsule 1 capsule as needed Orally Four times a day Taking Lactobacillus Acid-Pectin - Capsule as directed Orally Taking Furosemide 20 MG Tablet 1 tablet Orally Once a day Taking Folic Acid 0.8 MG Capsule 0.5 capsule Orally Once a day Taking Fish Oil 1000 MG Capsule 1 capsule Orally Once a day Taking Empagliflozin 25 MG Tablet 1 tablet Orally Once a day Taking Clopidogrel Bisulfate 75 MG Tablet 1 tablet Orally Once a day Taking Cholecalciferol 10 MCG (400 UNIT) Tablet 2 tablets Orally Once a day Taking Carbamide Peroxide 6.5 % Solution 5 drops into affected ear Otic Twice a day Taking Bismuth Subsalicylate 262 MG/15ML Suspension 30 mL with meals and at bedtime Orally Four times a day Taking Atorvastatin Calcium 80 MG Tablet 1 tablet Orally Once a day Taking amLODIPine Besylate 10 MG Tablet 1 tablet Orally Once a day Taking Allopurinol 100 MG Tablet 1 tablet Orally Once a day Assessment: * Assessment: 1. R ecurrent Clostridioides difficile diarrhea - A04.71 (Primary) 2 . C . difficile colitis - A04.72 3 . D ysenteric diarrhea - A09 1. 73 yo male with Hx of rec urrent chronic c. diff colitis -has taken Dificid in past 2. Recurrent chronic C. Diff colitis -consider underlying colon pathology, and he may need immune dysfunction w/u. 3. Lab studies; 05-22-24 Cdiff, stool O&P, stool culture, GI pathogen panel, CBC,CRP,CMP ordered (studies not done as of 05-29-24) Labs Follow up: Kevin Baker Care Plan Details* * Electronic signature of Julia Gonzalez JR, MD on 01/09/2025 at 09:24 AM CDT Sign off status: Pending * Provider: Rajesh Gonzalez MD Date: 0 05/29/2024 Generated for Siria tovar/Natalie/Waylonitting on: 0 01/09/2025 09:24 AM CDT
--- OUTSIDE RECORDS SUMMARY | 2024-05-31 06:30 | XMS_ITS ---
Author Name [facility] Organization [facility] [place] Address [address] [place] [address] Care Team Providers Care Bumper Operator Name Role Phone NUPUR WOODS Primary Care [...] PART A Apr 08, 1991 PART A [phone] Randy KNOX PATIENT MEDICARE (WNR) MEDICARE (M) PART B Apr 08, 1991 PART B [id number] Randy KNOX PATIENT MEDICARE (WNR) MEDICARE (M) PART A Apr 08, 1991 PART A [id number] Randy KNOX PATIENT MEDICARE (WNR) MEDICARE (M) PART B Apr 08, 1991 PART B [id number] [phone] Randy KNOX PATIENT MEDICARE (WNR) MEDICARE (M) PART A Apr 08, 1991 PART A [id number] LISETTE,C TONY PATIENT MEDICARE (WNR) MEDICARE (M) PART B Apr 08, 1991 PART B [id number] Randy KNOX PATIENT MEDICARE (WNR) MEDICARE (M) PART A Apr 08, 1991 PART A [id number] Randy KNOX PATIENT MEDICARE (WNR) MEDICARE (M) PART B Apr 08, 1991 PART B [id number] LISETTERandy TONY PATIENT Selected Encounter This section includes the information on record at [place] for the Encounter. Date/Time Encounter Type Encounter Description Reason Provider Source May 31, 2024 11:30 AM HHS/HOSPICE OF RN EA 15 MIN [facility] Nursing (RN / LP) ICD-10-CM M06.9 Rheumatoid arthritis, unspecified ERIN RASMUSSEN Encounter Template Text not used by [place] Assessments - Encounter Diagnoses This section includes the primary and secondary diagnoses documented for the Encounter. Date/Time Primary/Secondary Diagnosis Diagnosis Name Provider Source May 31, 2024 02:24 PM PRIMARY Rheumatoid arthritis, unspecified ERIN RASMUSSENAR [place] [facility] May 31, 2024 02:24 PM SECONDARY Atherosclerosis of CABG w/o angina pectoris ERIN RASMUSSENAR [place] [facility] May 31, 2024 02:24 PM SECONDARY Cardiomyopathy, unspecified ERIN RASMUSSENUFF [facility] May 31, 2024 02:24 PM SECONDARY Diarrhea, unspecified MASONERIN KENDALLU FF [facility] May 31, 2024 02:24 PM SECONDARY Type 2 diabetes mellitus without complications ERIN RASMUSSENUFF [facility] May 31, 2024 02:24 PM SECONDARY Unsp dementia, unsp severity, without beh/psych/mood/anx ERIN RASMUSSENUFF [facility] May 31, 2024 02:24 PM SECONDARY Urinary tract infection, site not specified ERIN RASMUSSEN [facility] Plan of Treatment: Future Appointments (+ 6 months) and Future Tests (+/- 45 days) The Plan of Treatment section includes future care activities for the patient from all [place] treatmentfacilities. This section includes future appointments and future orders which are active, pending or scheduled. Future Appointments This section includes appointments that were scheduled to occur 6 months from the date of the Encounter, up to a maximum of 20 appointments. The data comes from all [place] treatment [facility]. Appointment Date/Time Appointment Type Appointme nt Facility Name Jun 05, 2024 03:30 PM AMBULATORY - MEDICINE [facility] Jun 05, 2024 03:31 PM AMBULATORY - MEDICINE [facility] Aug 29, 2024 07:30 AM AMBULATORY - MEDICINE [place] [facility] Sep 03, 2024 01:02 PM [facility]ORY - MEDIC[facility] September 12, 2024 08:40 AM [facility]ORY - MEDICINE [facility] September 12, 2024 09:15 AM AMBULATORY - MEDICINE [facility] Nov 28, 2024 10:00 AM AMBULATORY - MEDICINE [facility] Active, Pending, and Scheduled Orders This section includes a listing of several types of active, pending, and scheduled orders, including clinic medications orders, diagnostic test orders, procedure orders and consult orders; where the start date of the order is 45 days before the date of the Encounter or 45 days after the date of theEncounter. The data comes from all [facility]. Test Date/Time Test Type Test Details Facility Name Jun 05, 2024 04:01 PM Laboratory - Chemi stry Order ANCILLARY GLUCOSE-PB BLOOD, POCT [facility] Jun 05, 2024 04:01 PM Laboratory - Chemi stry Order POC UA (STL-PB-MA) URINE [facility] Lab Results: +/- 30 days of the encounter This section includes the Chemistry and Hematology Lab Results on record with [place] for the patient. Radiology Reports and Pathology Reports are provided separately, in subsequent sections. Lab Results This section contains the Chemistry/Hematology Results that were resulted 30 days before or 30 daysafter the date of the Encounter. Date/Time Source Result Type Result - Unit Interpretation Reference Range Specimen Type Comment Jun 05, 2024 04:15 PM [facility] POC UA (STL-PB-MA) URINE Specimen Type: URINE No comment entered. Ordering Provider: NUPUR WOODS Report Released Date/Time: Jun 05, 2024 04:22 PM Reporting Lab: [facility] [address] [facility] [address] Performing Lab: [facility] [address] [facility] [address] PROTEIN POC UA Negative mg/dL Negative BLOOD POC UA Negative Negative LEUKOCYTES POC UA Negative Negative COLOR POC UA Yellow YELLOW SPEC GRAV POC UA 1.020 1.005-1.030 UROBILINOGEN POC UA 0.2 {Caitlin'U}/dL 0 .1-1.0 BILIRUBIN POC UA Negative Negative KETONES POC UA Negative mg/dL Negative GLUCOSE POC UA >=1000 mg/dL Negative pH POC UA 5.5 5.0-8.0 NITRITE POC UA Negative Negative CLARITY POC UA Clear CLEAR Jun 05, 2024 04:07 PM [place] [facility] ANCILLARY GLUCOSE-PB BLOOD Specimen Type: BLO OD Comment: Test performed by: Luis A Whelan [id number] Meter #: [id number] Ordering Provider: NUPUR WOODS Report Released Date/Time: Jun 05, 2024 04:14 PM Reporting Lab: [facility] [address] [facility] [address] Performing Lab: [facility] [address] [place] [address] ANCILLARY GLUCOSE-PB 106 mg/dL H 72-99 Jun 05, 2024 04:01 PM [facility] B12 SERUM Specimen Type: SERUM No comment entered. Ordering Provider: NUPUR WOODS Report Released Date/Time: Jun 04, 2024 02:20 PM Reporting Lab: [place] [facility] [address] [place] [address] Performing Lab: [place] [facility] [address] [place] [address] B12 426 pg/mL 213-816 Jun 05, 2024 04:01 PM [facility] FOLATE (PB) SERUM Specimen Typ e: SERUM No comment entered. Ordering Provider: NUPUR WOODS Report Released Date/Time: Jun 04, 2024 02:20 PM Reporting Lab: [place] [facility] [address] [place] [address] Performing Lab: [place] [facility] [address] [place] [address] FOLATE (PB) 14.8 ng/mL 7-20 Jun 05, 2024 04:01 PM [facility] HGA1C BLOOD Specimen Type: BLOOD No comment entered. Ordering Provider: NUPUR WOODS Report Released Date/Time: Jun 04, 2024 02:20 PM Reporting Lab: [place] [facility] [address] [place] [address] Performing Lab: [place] [facility] [address] [place] [address] HGA1C 7.0 H 4.0-6.0 Jun 05, 2024 04:01 PM [facility] URINE ALBUMIN PROFILE-ih (PB) URINE Specimen Type: URINE Comment: Unable to calculate due to Microalbumin <5.0 mg/dL Ordering Provider: NUPUR WOODS Report Released Date/Time: Jun 04, 2024 02:20 PM Reporting Lab: [place] [facility] [address] [place] [address] Performing Lab: [place] [facility] [address] [place] [address] URINE ALBUMIN (PB-STL) <5.0 mg/L L 0-30 uACR (PB-MA) comment ug/mg CREATININE URINE/OTHERS 74.38 mg/dL Jun 05, 2024 04:01 PM [facility] CHOLESTEROL PANEL (PB) PLASMA Specimen Type: P LASMA No comment entered. Ordering Provider: NUPUR WOODS Report Released Date/Time: Jun 04, 2024 02:20 PM Reporting Lab: [place] [facility] [address] [place] [address] Performing Lab: [place] [facility] [address] [place] [address] CHOLESTEROL 138 mg/dL 0-200 TRIGLYCERIDE 205 mg/dL H 0-150 CALCULATED LDL 56.0 mg/dL HDL(New) 41.0 mg/dL H >40 HDL % OF TOTAL CHOLESTEROL (PB) 29.7 >25 Jun 05, 2024 04:01 PM [facility] VITAMIN D, 25-HYDROXY SERUM Specimen Type: SE RUM No comment entered. Ordering Provider: NUPUR WOODS Report Released Date/Time: Jun 04, 2024 02:20 PM Reporting Lab: [place] [facility] [address] [place] [address] Performing Lab: [place] [facility] [address] [place] [address] VITAMIN D, 25-HYDROXY 42.3 ng/mL 30-96 Jun 05, 2024 04:01 PM [facility] COMPREHENSIVE METABOLIC PANEL PLASMA Specimen Type: PLASMA No comment entered. Ordering Provider: NUPUR WOODS Report Released Date/Time: Jun 04, 2024 02:20 PM Reporting Lab: [place] [facility] [address] [place] [facility] Performing Lab: [place] [facility] [address] [place] [address] CREATININE 0.96 mg/dL 0.7-1.3 UREA NITROGEN 15 mg/dL 9-25 GLUCOSE 113 mg/dL H 72-99 SODIUM 138 meq/L 136-145 POTASSIUM 4.3 meq/L 3.5-5 CHLORIDE 104 meq/L 98-107 CARBON DIOXIDE 24 meq/L 22-31 CALCIUM 9.3 mg/dL 8.4-10.4 PROTEIN 8.5 g/dL 6-8.6 ALBUMIN 4.5 g/dL 3.4-5 TOTAL BILIRUBIN 0.5 mg/dL 0.2-1.2 ALKALINE PHOSPHATASE 89 U/L 40-150 AST/SGOT 16 U/L 5-34 ALT/SGPT 16 U/L 8-40 EGFR (CKD-EPI 2020) 84 Jun 05, 2024 04:01 PM [facility] CBC BLOOD Specimen Type: BLOOD No comment entered. Ordering Provider: NUPUR WOODS Report Released Date/Time: Jun 04, 2024 02:20 PM Reporting Lab: [place] [facility] [address] [place] [address] Performing Lab: [place] [facility] [address] [place] [facility] WBC 9.2 10*3/uL 3.6-11.2 RBC 5.44 10*6/uL 4.10-5.70 HGB 15.4 g/dL 13.1-16.8 HCT 49.1 H 38.2-48.4 MCV 90.3 fL 80.0-100.0 MCH 28.3 pg 27.0-34.0 MCHC 31.4 g/dL L 33.0-36.0 PLT 338 10*3/uL 150-400 MPV 11.9 fL H 7.5-11.2 RDW 15.2 H 11.8-15.1 LYMPHOCYTES, AUTO % 20.5 MONOCYTES, AUTO % 7.4 NEUTROPHILS, AUTO % 68.2 EOSINOPHILS, AUTO % 3.1 BASOPHILS, AUTO % 0.4 LYMPHOCYTES, ABSOLUTE 1.88 10*3/uL 0.77- 4.50 MONOCYTES, ABSOLUTE 0.68 10*3/uL 0.19-0. 8 NEUTROPHILS, ABSOLUTE 6.26 10*3/uL 2.10- 8.00 EOSINOPHILS, ABSOLUTE 0.28 10*3/uL 0.00- 0.60 BASOPHILS, ABSOLUTE 0.04 10*3/uL 0.00-0. 20 IMMATURE GRANS, AUTO % 0.4 IMMATURE GRANS, AUTO ABS 0.04 10*3/uL 0. 00-0.05 Jun 05, 2024 04:01 PM [facility] TSH (MA-PB) SERUM Specimen Typ e: SERUM No comment entered. Ordering Provider: NUPUR WOODS Report Released Date/Time: Jun 04, 2024 02:20 PM Reporting Lab: [place] [facility] [address] [place] [phone] Performing Lab: [place] [facility] [address] [place] [id number] TSH 0.545 u[IU]/mL 0.47-5 Jun 05, 2024 04:01 PM [facility] PROCALCITONIN (PB) PLASMA Specimen Type: PLASM A No comment entered. Ordering Provider: NUPUR WOODS Report Released Date/Time: Jun 05, 2024 03:50 PM Reporting Lab: [place] [facility] [address] [place] [facility] Performing Lab: [place] [facility] [address] [place] [phone] PROCALCITONIN (PB) 0.03 ng/mL 0-0.5 Jun 05, 2024 04:01 PM [facility] MAGNESIUM PLASM A Specimen Type: PLASMA No comment entered. Ordering Provider: NUPUR WOODS Report Released Date/Time: Jun 05, 2024 03:50 PM Reporting Lab: [place] [facility] [address] [place] [address] Performing Lab: [place] [facility] [address] [place] [address] MAGNESIUM 2.19 mg/dL 1.6-2.6 May 07, 2024 09:54 AM [place] [facility] CREATININE(EGFR) PLASMA Specimen Type: PLASM A No comment entered. Ordering Provider: SALENA CARRION Report Released Date/Time: Apr 16, 2024 08:11 AM Reporting Lab: [place] [facility] [address] [place] [address] Performing Lab: [place] [facility] [address] [place] [address] CREATININE 0.90 mg/dL 0.7-1.3 EGFR (CKD-EPI 2020) 91 May 07, 2024 09:54 AM [facility] HGB,HCT,PLT BLOOD Specimen Ty pe: BLOOD No comment entered. Ordering Provider: SALENA CARRION Report Released Date/Time: Apr 16, 2024 08:11 AM Reporting Lab: [place] [facility] [address] [place] [address] Performing Lab: [place] [facility] [address] [place] [address] HGB 14.1 g/dL 13.1-16.8 HCT 43.9 38.2-48.4 PLT 272 10*3/uL 150-400 Advance Directives: All historical and current Section Date Range: From patient's date of to the date document was created. This section includes ALL of a patient's completed or amended [place] Advance and Rescinded Directives. The entries below indicate that a directive exists for the patient, but an actual copy is not included with this document. The data comes from all [place] facilities. Date Advance Directives Provider Source Apr 30, 2016 ADVANCE DIRECTIVE DISCUSSION MICHELINE BELTRAN [facility] May 10, 2000 ADVANCE DIRECTIVE BELLA SAHA [facility] Encounter Notes: All associated encounter notes This section contains the clinical notes associated to the Encounter. Date/Time Encounter Note(s) Provider Source May 31, 2024 02:16 PM [facility]IO NOTE: LOCAL TITLE: [facility] Assessment PB STANDARD TITLE: HOME HEALTH PROGRESS NOTE DATE OF NOTE: MAY 31, 2024@14:16 ENTRY DATE: MAY 31, 2024@14:16:17 AUTHOR: ERIN RASMUSSEN EXP COSIGNER: URGENCY: STATUS: COMPLETED [facility] Assessment PB Has ADDENDA 05/31/2024 - 1045 This nurse and [facility] Provider arrived at patients residence for possible admission into the [facility] program. Patient greeted [facility] staff at door. Patient ambulated without difficulty, resp even and non-labored, alert, speach clear, patient pleasant. Patient invited [facility] staff to sit at dining table to discuss [facility]. During conversation with [facility] staff patient stated he only needed help with his diarrhea and did not need any help with ADLs or transportation. Patients residence was well kept/clean. Patient verbalized that the only thing he needed help with was getting the Non-VA specialist in [facility] to return his calls related to his diarrhea. Patient informed that the [facility] provider had attempted to contact the specialist already with no answer. Patient declined admission into the [facility] program. Patient informed that if his health worsened and he needed [facility] to have his PACT notify the [facility] team. Patient verbalized understanding. Time at patients residence 30 minutes. /deandra/ Erin Rasmussen RN [facility] Signed: 05/31/2024 14:25 05/31/2024 ADDENDUM STATUS: COMPLETED Patient was identified by full name and Full SSN for visit. /deandra/ Erin Rasmussen RN [facility] Signed: 05/31/2024 14:44 [facility]
--- OUTSIDE RECORDS SUMMARY | 2024-06-05 10:31 | XMS_ITS ---
Author Name [facility] [place] Address [address] [place] [address] Care Team Providers Care Public Safety Police Name Role Phone KAELYN WOODS Primary Care Provider Unavailabl e Insurance [...] PART A Apr 08, 1991 PART A [id number] [phone] Randy KNOX PATIENT MEDICARE (WNR) MEDICARE (M) PART A Apr 08, 1991 PART A [id number] [phone] Randy KNOX PATIENT MEDICARE (WNR) MEDICARE (M) PART B Apr 08, 1991 PART B [id number] [phone] Randy KNOX PATIENT MEDICARE (WNR) MEDICARE (M) PART B Apr 08, 1991 PART B [id number] [phone] Randy KNOX PATIENT MEDICARE (WNR) MEDICARE (M) PART A Apr 08, 1991 PART A [id number] Randy KNOX PATIENT MEDICARE (WNR) MEDICARE (M) PART A Apr 08, 1991 PART A [id number] [phone] Randy KNOX PATIENT MEDICARE (WNR) MEDICARE (M) PART B Apr 08, 1991 PART B [id number] [phone] Randy KNOX PATIENT MEDICARE (WNR) MEDICARE (M) PART B Apr 08, 1991 PART B [id number] Randy KNOX PATIENT Selected Encounter This section includes the information on record at [place] for the [place]counter. Date/Time Encounter Type Encounter Description Reason Provider Source Jun 05, 2024 03:31 PM SYNCH AUDIO-VIDEO EST MOD 30 PRIMARY CARE/MEDICINE ICD-10-CM R35.0 Frequency of micturition KAELYN WOODS Encounter Template Text not used by [place] Assessments - Encounter Diagnoses This section includes the primary and secondary diagnoses documented for the Encounter. Date/Time Primary/Secondary Diagnosis Diagnosis Name Provider Source Jun 05, 2024 04:05 PM PRIMARY Frequency of micturition [facility] Jun 05, 2024 04:05 PM SECONDARY Diarrhea, unspecified [facility] Jun 05, 2024 04:05 PM SECONDARY Other nonspecific abnormal finding of lung field KAELYN WOODS CB Plan of Treatment: Future Appointments (+ 6 months) and Future Tests (+/- 45 days) The Plan of Treatment section includes future care activities for the patient from all [place] treatmentfacilities. This section includes future appointments and future orders which are active, pending or scheduled. Future Appointments This section includes appointments that were scheduled to occur 6 months from the date of the Encounter, up to a maximum of 20 appointments. The data comes from all [place] treatment facilities. Appointment Date/Time Appointment Type Appointme nt Facility Name Aug 29, 2024 07:30 AM AMBULATORY - MEDICINE [facility] Sep 03, 2024 01:02 PM AMBULATORY - MEDICINE [facility] September 12, 2024 08:40 AM AMBULATORY - MEDICINE [facility] September 12, 2024 09:15 AM AMBULATORY - MEDICINE [facility] Nov 28, 2024 10:00 AM AMBULATORY - MEDICINE [facility] Active, Pending, and Scheduled Orders This section includes a listing of several types of active, pending, and scheduled orders, including clinic medications orders, diagnostic test orders, procedure orders and consult orders; where the start date of the order is 45 days before the date of the Encounter or 45 days after the date of theEncounter. The data comes from all [place] treatment facilities. Test Date/Time Test Type Test Details Facility Name Jun 05, 2024 04:01 PM Laboratory - Chemi stry Order ANCILLARY GLUCOSE-PB BLOOD, [facility] Jun 05, 2024 04:01 PM Laboratory - Chemi stry Order POC UA (STL-PB-MA) URINE [facility] Lab Results: +/- 30 days of the encounter This section includes the Chemistry and Hematology Lab Results on record with [place] for the patient. Radiology Reports and Pathology Reports are provided separately, in subsequent sections. Lab Results This section contains the Chemistry/Hematology Results that were resulted 30 days before or 30 daysafter the date of the Encounter. Date/Time Source Result Type Result - Unit Interpretation Reference Range Specimen Type Comment Jun 05, 2024 04:15 PM [facility] POC UA (STL-PB-MA) URINE Specimen Type: URINE No comment entered. Ordering Provider: KAELYN WOODS Report Released Date/Time: Jun 05, 2024 04:22 PM Reporting Lab: [facility] [address] [facility] [address] Performing Lab: [facility] [address] [facility] [id number] PROTEIN POC UA Negative mg/dL Negative BLOOD [...] Clear CLEAR Jun 05, 2024 04:07 PM [facility] ANCILLARY GLUCOSE-PB BLOOD Specimen Type: BLO OD Comment: Test performed by: Luis A Whelan [id number] Meter #: [id number] Ordering Provider: KAELYN WOODS Report Released Date/Time: Jun 05, 2024 04:14 PM Reporting Lab: [facility] [address] [facility] [address] Performing Lab: [place] [facility] [address] [place] [address] ANCILLARY GLUCOSE-PB 106 mg/dL H 72-99 Jun 05, 2024 04:01 PM [facility] FOLATE (PB) SERUM Specimen Typ e: SERUM No comment entered. Ordering Provider: KAELYN WOODS Report Released Date/Time: Jun 04, 2024 02:20 PM Reporting Lab: [place] [facility] [address] [place] [address] Performing Lab: [place] [facility] [address] [place] [address] FOLATE (PB) 14.8 ng/mL 7-20 Jun 05, 2024 04:01 PM [facility] B12 SERUM Specimen Type: SERUM No comment entered. Ordering Provider: KAELYN WOODS Report Released Date/Time: Jun 04, 2024 02:20 PM Reporting Lab: [place] [facility] [address] [place] [address] Performing Lab: [place] [facility] [address] [place] [address] B12 426 pg/mL 213-816 Jun 05, 2024 04:01 PM [facility] HGA1C BLOOD Specimen Type: BLOOD No comment entered. Ordering Provider: KAELYN WOODS Report Released Date/Time: Jun 04, 2024 02:20 PM Reporting Lab: [place] [facility] [address] [place] [address] Performing Lab: [place] [facility] [address] [place] [address] HGA1C 7.0 H 4.0-6.0 Jun 05, 2024 04:01 PM [facility] URINE ALBUMIN PROFILE-ih (PB) URINE Specimen Type: URINE Comment: Unable to calculate due to Microalbumin <5.0 mg/dL Ordering Provider: KAELYN WOODS Report Released Date/Time: Jun 04, 2024 02:20 PM Reporting Lab: [place] [facility] [address] [place] [address] Performing Lab: [place] [facility] [address] [place] [id number] URINE ALBUMIN (PB-STL) <5.0 mg/L L 0-30 uACR (PB-MA) comment ug/mg CREATININE URINE/OTHERS 74.38 mg/dL Jun 05, 2024 04:01 PM [facility] CHOLESTEROL PANEL (PB) PLASMA Specimen Type: P JIMMY No comment entered. Ordering Provider: KAELYN WOODS Report Released Date/Time: Jun 04, 2024 02:20 PM Reporting Lab: [place] [facility] [address] [place] [address] Performing Lab: [place] [facility] [address] [place] [address] CHOLESTEROL 138 mg/dL 0-200 TRIGLYCERIDE 205 mg/dL H 0-150 CALCULATED LDL 56.0 mg/dL HDL(New) 41.0 mg/dL H >40 HDL % OF TOTAL CHOLESTEROL (PB) 29.7 >25 Jun 05, 2024 04:01 PM [facility] COMPREHENSIVE METABOLIC PANEL PLASMA Specimen Type: PLASMA No comment entered. Ordering Provider: KAELYN WOODS Report Released Date/Time: Jun 04, 2024 02:20 PM Reporting Lab: [place] [facility] [address] [place] [address] Performing Lab: [place] [facility] [address] [place] [facility] CREATININE 0.96 mg/dL 0.7-1.3 UREA NITROGEN 15 [...] 2020) 84 Jun 05, 2024 04:01 PM [facility] VITAMIN D, 25-HYDROXY SERUM Specimen Type: SE RUM No comment entered. Ordering Provider: KAELYN WOODS Report Released Date/Time: Jun 04, 2024 02:20 PM Reporting Lab: [place] [facility] [address] [place] [address] Performing Lab: [place] [facility] [address] [place] [address] VITAMIN D, 25-HYDROXY 42.3 ng/mL 30-96 Jun 05, 2024 04:01 PM [facility] CBC BLOOD Specimen Type: BLOOD No comment entered. Ordering Provider: KAELYN WOODS Report Released Date/Time: Jun 04, 2024 02:20 PM Reporting Lab: [place] [facility] [address] [place] [address] Performing Lab: [place] [facility] [address] [place] [address] WBC 9.2 10*3/uL 3.6-11.2 RBC 5.44 10*6/uL [...] 0. 00-0.05 Jun 05, 2024 04:01 PM [facility] TSH (MA-PB) SERUM Specimen Typ e: SERUM No comment entered. Ordering Provider: KAELYN WOODS Report Released Date/Time: Jun 04, 2024 02:20 PM Reporting Lab: [place] [facility] [address] [place] [address] Performing Lab: [place] [facility] [address] [place] [address] TSH 0.545 u[IU]/mL 0.47-5 Jun 05, 2024 04:01 PM [facility] PROCALCITONIN (PB) PLASMA Specimen Type: PLASM A No comment entered. Ordering Provider: KAELYN WOODS Report Released Date/Time: Jun 05, 2024 03:50 PM Reporting Lab: [place] [facility] [address] [place] [address] Performing Lab: [place] [facility] [address] [place] [address] PROCALCITONIN (PB) 0.03 ng/mL 0-0.5 Jun 05, 2024 04:01 PM [facility] MAGNESIUM PLASM A Specimen Type: PLASMA No comment entered. Ordering Provider: KAELYN WOODS Report Released Date/Time: Jun 05, 2024 03:50 PM Reporting Lab: [place] [facility] [address] [place] [address] Performing Lab: [place] [facility] [address] [place] [address] MAGNESIUM 2.19 mg/dL 1.6-2.6 May 07, 2024 09:54 AM [place] [facility] CREATININE(EGFR) PLASMA Specimen Type: PLASM A No comment entered. Ordering Provider: SALENA CARRION Report Released Date/Time: Apr 16, 2024 08:11 AM Reporting Lab: [place] [facility] [address] [place] [address] Performing Lab: [place] [facility] [address] [place] [address] CREATININE 0.90 mg/dL 0.7-1.3 EGFR (CKD-EPI 2020) 91 May 07, 2024 09:54 AM [place] [facility] HGB,HCT,PLT BLOOD Specimen Ty pe: BLOOD No comment entered. Ordering Provider: SALENA CARRION Report Released Date/Time: Apr 16, 2024 08:11 AM Reporting Lab: [place] [facility] [address] [place] [address] Performing Lab: [place] [facility] [address] [place] [address] HGB 14.1 g/dL 13.1-16.8 HCT 43.9 38.2-48.4 PLT 272 10*3/uL 150-400 Vital Signs: All taken on the encounter date This section contains inpatient and outpatient Vital Signs collected on the date of the Encounter. Date/Time Temperature Pulse Blood Pressure Respiratory Rate SP02 Pain Height Weight Body Mass Index Source Jun 05, 2024 03:36 PM 98 76 110/76 20 95 0 229.8 31 [place] [place] [facility] Social History: Smoking Status (Most current) and Tobacco Use (All prior to encounter date) This section includes the most current, and the historical, smoking and tobacco- related health factors from the [place] facility where the Encounter took place. Current Smoking Status This section includes the most current smoking, or tobacco-related health factor, from the [place] facility where the Encounter took place. Date/Time Current Smoking Status Comment Matteo ity September 29, 2023 12:30 PM VA-TOBACCO NEVER USED [facility] Tobacco Use History This section includes a history of the smoking, or tobacco-related health factors, that were collected on or before the date of the Encounter. The data comes from the [place] facility where the Encounter took place. Date/Time Smoking Status/Tobacco Use Comment F acility Aug 05, 2022 11:30 AM VA-TOBACCO NEVER USED [place] [facility] Oct 21, 2020 09:00 AM VA-TOBACCO NEVER USED [facility] [place] [facility] Jan 19, 2019 11:38 AM LIFETIME NON-TOBACCO USER [facility] Jan 19, 2019 11:38 AM VA-TOBACCO NEVER USED [place] [place] Jul 26, 2018 09:42 AM CURRENT NON-TOBACCO USER-HX OF [place] [place] [facility] May 14, 2015 11:17 AM TOBACCO MEDS OFFERED BUT DECLINE D [facility] May 14, 2015 11:17 AM TOBACCO OFFERED PT MEDS (PROVIDE R) [facility] May 14, 2015 11:17 AM TOBACCO OFFERED STOP SMOKING CLI RHODA [facility] Dec 12, 2014 10:11 AM LIFETIME NON-USER OF TOBACCO [facility] Advance Directives: All historical and current Section Date Range: From patient's date of to the date document was created. This section includes ALL of a patient's completed or amended [place] Advance and Rescinded Directives. The entries below indicate that a directive exists for the patient, but an actual copy is not included with this document. The data comes from all [place] facilities. Date Advance Directives Provider Source Apr 30, 2016 ADVANCE DIRECTIVE DISCUSSION MICHELINE BELTRAN [facility] May 10, 2000 ADVANCE DIRECTIVE BELLA SAHA [facility] Encounter Notes: All associated encounter notes This section contains the clinical notes associated to the Encounter. Date/Time Encounter Note(s) Provider Source October 04, 2024 03:20 PM PHYSICIAN LETTERS: LOCAL TITLE: TEST RESULT GENERAL LETTER STL STANDARD TITLE: PHYSICIAN LETTERS DATE OF NOTE: OCTOBER 04, 2024@15:20 ENTRY DATE: OCTOBER 04, 2024@15:20:37 AUTHOR: KAELYN WOODS EXP COSIGNER: URGENCY: STATUS: COMPLETED [facility] [address] [place] [address] OCTOBER 04, 2024 ELOINA [address] [place], [place] [address] Dear Eloina Knox, I would like to update you on your recent test results. FUTURE APPOINTMENTS: 11/28/2024 10:00 PB-MARILU VACCINE 03/11/2025 08:30 PB-MARILU CVT PACT DELTA(PAT 03/11/2025 08:31 PB-MARILU CVT PACT DELTA(PRO October 04, 2024 Mr. Eloina [address] [place], [place] [address] Dear Mr. Knox: The following Health Care Report is based on the most recent data we have at this time. We hope this information will help you make necessary life-style changes to improve your health. If you have any questions, please feel free to contact our clinic. BMI (Body Mass Index): Normal range - 21 to 25. 25.1 to 29.9 = Overweight. BMI of 30 or greater: Obese. 06/05/2024 BMI 31.00 Blood Pressure: Goal: 135/85 (or less). 06/05/2024 110/76 Glucose: Normal fasting glucose: 70 to 100 mg%. 09/12/2024 Glucose 196 Hemoglobin A1c: This shows how well your diabetes is controlled. Less than 7: good control. 7 to 8: fair control. 8 to 9: poor control. Over 9: very poor control (please contact your provider). 09/12/2024 A1c 7.8 Cholesterol: LDL ( bad ) Cholesterol should be less than 100 and Triglyceride should be less than 150. 09/12/2024 Cholesterol 126 09/12/2024 LDL-CHOL 65.3 09/12/2024 HDL-CHOL 34.5 09/12/2024 Triglyceride 264 Triglyceride (a form of cholesterol) is above the desired value. PSA: PSA test is of uncertain value in screening for Prostate cancer. According to the latest recommendations, most experts do not recommend screening of healthy individuals with PSA test. If indicated, the PSA test may be repeated every 12-24 months between age 50 and 75. In general, the normal range is 0 to 4.0. 08/05/2022 PSA 1.39 Your recent lab test reports are printed on the attached page(s). Your provider has reviewed these tests reports. Any necessary follow up actions will be planned as necessary, including addressing the abnormal findings on or before your next scheduled clinic visit(s). If you have any questions about the above report, please feel free to contact our clinic. Sincerely, Kaelyn Woods MD [facility] Date Lab Test Result H/L Unit Range 09/12/2024 VITAMIN B12 LEVEL 368 pg/mL 213 - 816 09/12/2024 HEMOGLOBIN A1C 7.8 H % 4.0 - 6.0 09/12/2024 WBC 8.9 10*3/uL 3.6 - 11.2 09/12/2024 RBC 5.03 10*6/uL 4.10 - 5.70 09/12/2024 HEMOGLOBIN 14.8 g/dL 13.1 - 16.8 09/12/2024 HEMATOCRIT 45.8 % 38.2 - 48.4 09/12/2024 MCV 91.1 fL 80.0 - 100.0 09/12/2024 MCH 29.4 pg 27.0 - 34.0 09/12/2024 MCHC 32.3 L g/dL 33.0 - 36.0 09/12/2024 RDW 15.0 % 11.8 - 15.1 09/12/2024 PLATELETS 250 10*3/uL 150 - 400 09/12/2024 MPV 11.8 H fL 7.5 - 11.2 09/12/2024 NEUTROPHIL % 77.0 % - 09/12/2024 LYMPHOCYTE % 14.9 % - 09/12/2024 MONOCYTES, AUTO % 5.9 % - 09/12/2024 EO% 1.1 % - 09/12/2024 BASOPHILS, AUTO % 0.5 % - 09/12/2024 IG% 0.6 % - 09/12/2024 NEUT ABS 6.83 10*3/uL 2.10 - 8.00 09/12/2024 LYMPH ABS 1.32 10*3/uL 0.77 - 4.50 09/12/2024 MONO ABS 0.52 10*3/uL 0.19 - 0.8 09/12/2024 EO ABS 0.10 10*3/uL 0.00 - 0.60 09/12/2024 BASO ABS 0.04 10*3/uL 0.00 - 0.20 09/12/2024 IG ABS 0.05 10*3/uL 0.00 - 0.05 09/12/2024 LDL-CHOL 65.3 mg/Your is climbing. We need to put you back on something I know that your metformin was causing your diarrhea I would like for you to try glipizide.dL 0 - 99.9 09/12/2024 eGFR 79 - 09/12/2024 SODIUM 140 mEq/L 136 - 145 09/12/2024 POTASSIUM 4.7 mEq/L 3.5 - 5 09/12/2024 CHLORIDE 107 mEq/L 98 - 107 09/12/2024 UREA NITROGEN 17 mg/dL 9 - 25 09/12/2024 CREATININE, SERUM 1.01 mg/dL 0.7 - 1.3 09/12/2024 CALCIUM, SERUM 9.1 mg/dL 8.4 - 10.4 09/12/2024 PROTEIN, TOTAL 7.4 g/dL 6 - 8.6 09/12/2024 ALBUMIN, SERUM 4.2 g/dL 3.4 - 5 09/12/2024 TRIGLYCERIDE 264 H mg/dL 0 - 150 09/12/2024 CHOLESTEROL 126 mg/dL 0 - 200 09/12/2024 ALKALINE PHOSPHAT 80 U/L 40 - 150 09/12/2024 ALT (SGPT) 14 U/L 8 - 40 09/12/2024 AST (SGOT) 16 U/L 5 - 34 09/12/2024 BILIRUBIN, TOTAL 0.7 mg/dL 0.2 - 1.2 09/12/2024 CONJ. BILIRUBIN 0.2 mg/dL 0 - 0.5 09/12/2024 CO2 23 mEq/L 22 - 31 09/12/2024 GLUCOSE 196 H mg/dL 72 - 99 09/12/2024 HDL-CHOL 34.5 L mg/dL 40 - 09/12/2024 LDL-CHOL comment mg/dL - 09/12/2024 HDL%CHO 27.4 % 25 - Your is climbing. We need to put you back on something I know that your metformin was causing your diarrhea I would like for you to try glipizide.And continue empagliflozin I do not just want to order it for you because I know you have to pay for your medications. Also if you want a diabetic counseling diet please let your [facility] team know and the nurse can place that for you. Every little bit will help we need to get your hemoglobin A1c again below 7. Also your triglycerides are upThey were nice and low before. 152 now they have double. Please verify with the nurse that you are taking all the medication as prescribed. If you would like a formal chronic disease management by pharmacy please let me know as well. We can place that consult and you can talk to somebody even by telephone you do not always have to come in. Sincerely, ELOINA ONEAL MD,[facility] Jun 13, 2024 04:46 PM PHYSICIAN LETTERS: LOCAL TITLE: TEST RESULT GENERAL LETTER STL STANDARD TITLE: PHYSICIAN LETTERS DATE OF NOTE: JUN 13, 2024@16:46 ENTRY DATE: JUN 13, 2024@16:46:25 AUTHOR: KAELYN WOODSIGNER: URGENCY: STATUS: COMPLETED [facility] [address] [place] [address] JUN 13, 2024 ELOINA OSEIGABE KNOX [address] [place], [place] [address] Dear Eloina Knox, I would like to update you on your recent test results. FUTURE APPOINTMENTS: No future appointments Jun 13, 2024 Mr. Johnson Ragan [address] [place], [place] [address] Dear Mr. Knox: The following Health Care Report is based on the most recent data we have at this time. We hope this information will help you make necessary life-style changes to improve your health. If you have any questions, please feel free to contact our clinic. BMI (Body Mass Index): Normal range - 21 to 25. 25.1 to 29.9 = Overweight. BMI of 30 or greater: Obese. 06/05/2024 BMI 31.00 Blood Pressure: Goal: 135/85 (or less). 06/05/2024 110/76 Glucose: Normal fasting glucose: 70 to 100 mg%. 06/05/2024 Glucose 113 Hemoglobin A1c: This shows how well your diabetes is controlled. Less than 7: good control. 7 to 8: fair control. 8 to 9: poor control. Over 9: very poor control (please contact your provider). 06/05/2024 A1c 7.0 Cholesterol: LDL ( bad ) Cholesterol should be less than 100 and Triglyceride should be less than 150. 06/05/2024 Cholesterol 138 06/05/2024 LDL-CHOL 56.0 06/05/2024 HDL-CHOL 41.0 06/05/2024 Triglyceride 205 Triglyceride (a form of cholesterol) is above the desired value. PSA: PSA test is of uncertain value in screening for Prostate cancer. According to the latest recommendations, most experts do not recommend screening of healthy individuals with PSA test. If indicated, the PSA test may be repeated every 12-24 months between age 50 and 75. In general, the normal range is 0 to 4.0. 08/05/2022 PSA 1.39 Your recent lab test reports are printed on the attached page(s). Your provider has reviewed these tests reports. Any necessary follow up actions will be planned as necessary, including addressing the abnormal findings on or before your next scheduled clinic visit(s). If you have any questions about the above report, please feel free to contact our clinic. Sincerely, Kaelyn Woods MD Department of [facility] [place] [facility] Date Lab Test Result H/L Unit Range 06/05/2024 COLOR POC UA Yellow YELLOW - 06/05/2024 CLARITY POC UA Clear CLEAR - 06/05/2024 LEUKOCYTES POC UA Negative Negative - 06/05/2024 BILIRUBIN POC UA Negative Negative - 06/05/2024 KETONES POC UA Negative mg/dL Negative - 06/05/2024 SPEC GRAV POC UA 1.020 1.005 - 1.030 06/05/2024 BLOOD POC UA Negative Negative - 06/05/2024 pH POC UA 5.5 5.0 - 8.0 06/05/2024 PROTEIN POC UA Negative mg/dL Negative - 06/05/2024 URO POC UA 0.2 E.U./dL 0.1 - 1.0 06/05/2024 NITRITE POC UA Negative Negative - 06/05/2024 GLUCOSE POC UA >=1000 mg/dL Negative - 06/05/2024 ANCGLUC 106 H mg/dL 72 - 99 06/05/2024 uACR (PB-MA) comment mcg/mg - 06/05/2024 CREATuF 74.38 mg/dL - 06/05/2024 MICROALBUMIN LEVE <5.0 L mg/L 0 - 30 06/05/2024 FOLIC ACID LEVEL 14.8 ng/mL 7 - 20 06/05/2024 TSH 0.545 uIU/mL 0.47 - 5 06/05/2024 VITAMIN B12 LEVEL 426 pg/mL 213 - 816 06/05/2024 VITAMIN D LEVEL 42.3 ng/mL 30 - 96 06/05/2024 eGFR 84 - 06/05/2024 SODIUM 138 mEq/L 136 - 145 06/05/2024 POTASSIUM 4.3 mEq/L 3.5 - 5 06/05/2024 CHLORIDE 104 mEq/L 98 - 107 06/05/2024 UREA NITROGEN 15 mg/dL 9 - 25 06/05/2024 CREATININE, SERUM 0.96 mg/dL 0.7 - 1.3 06/05/2024 CALCIUM, SERUM 9.3 mg/dL 8.4 - 10.4 06/05/2024 PROTEIN, TOTAL 8.5 g/dL 6 - 8.6 06/05/2024 ALBUMIN, SERUM 4.5 g/dL 3.4 - 5 06/05/2024 TRIGLYCERIDE 205 H mg/dL 0 - 150 06/05/2024 CHOLESTEROL 138 mg/dL 0 - 200 06/05/2024 ALKALINE PHOSPHAT 89 U/L 40 - 150 06/05/2024 ALT (SGPT) 16 U/L 8 - 40 06/05/2024 AST (SGOT) 16 U/L 5 - 34 06/05/2024 BILIRUBIN, TOTAL 0.5 mg/dL 0.2 - 1.2 06/05/2024 CO2 24 mEq/L 22 - 31 06/05/2024 GLUCOSE 113 H mg/dL 72 - 99 06/05/2024 HDL-CHOL 41.0 H mg/dL 40 - 06/05/2024 LDL-CHOL 56.0 mg/dL - 06/05/2024 HDL%CHO 29.7 % 25 - 06/05/2024 HEMOGLOBIN A1C 7.0 H % 4.0 - 6.0 06/05/2024 WBC 9.2 10*3/uL 3.6 - 11.2 06/05/2024 RBC 5.44 10*6/uL 4.10 - 5.70 06/05/2024 HEMOGLOBIN 15.4 g/dL 13.1 - 16.8 06/05/2024 HEMATOCRIT 49.1 H % 38.2 - 48.4 06/05/2024 MCV 90.3 fL 80.0 - 100.0 06/05/2024 MCH 28.3 pg 27.0 - 34.0 06/05/2024 MCHC 31.4 L g/dL 33.0 - 36.0 06/05/2024 RDW 15.2 H % 11.8 - 15.1 06/05/2024 PLATELETS 338 10*3/uL 150 - 400 06/05/2024 MPV 11.9 H fL 7.5 - 11.2 06/05/2024 NEUTROPHIL % 68.2 % - 06/05/2024 LYMPHOCYTE % 20.5 % - 06/05/2024 MONOCYTES, AUTO % 7.4 % - 06/05/2024 EO% 3.1 % - 06/05/2024 BASOPHILS, AUTO % 0.4 % - 06/05/2024 IG% 0.4 % - 06/05/2024 NEUT ABS 6.26 10*3/uL 2.10 - 8.00 06/05/2024 LYMPH ABS 1.88 10*3/uL 0.77 - 4.50 06/05/2024 MONO ABS 0.68 10*3/uL 0.19 - 0.8 06/05/2024 EO ABS 0.28 10*3/uL 0.00 - 0.60 06/05/2024 BASO ABS 0.04 10*3/uL 0.00 - 0.20 06/05/2024 IG ABS 0.04 10*3/uL 0.00 - 0.05 06/05/2024 MAGNESIUM 2.19 mg/dL 1.6 - 2.6 06/05/2024 PROCALCITONIN 0.03 ng/mL 0 - 0.5 05/07/2024 HEMOGLOBIN 14.1 g/dL 13.1 - 16.8 05/07/2024 HEMATOCRIT 43.9 % 38.2 - 48.4 05/07/2024 PLATELETS 272 10*3/uL 150 - 400 05/07/2024 eGFR 91 - 05/07/2024 CREATININE, SERUM 0.90 mg/dL 0.7 - 1.3 Sincerely, ELOINA ONEAL MD, [facility] Jun 05, 2024 03:38 PM PRIMARY CARE PROGR ESS NOTE: LOCAL TITLE: PRIMARY CARE CLINIC PROGRESS NOTE PB STANDARD TITLE: PRIMARY CARE PROGRESS NOTE DATE OF NOTE: JUN 05, 2024@15:38 ENTRY DATE: JUN 05, 2024@15:38:49 AUTHOR: KAELYN WOODS EXP COSIGNER: URGENCY: STATUS: COMPLETED DATE & TIME:May@15:38 CHIEF COMPLAINT: acute visit, diarrhea HISTORY OF PRESENT ILLNESS: diarrhea is from metformin resolved since stopped metformin PAST MEDICAL HISTORY: 1) RA - Rheumatoid arthritis (SNOMED CT 50861794) 2) LUMBAGO 3) Hypertensive disorder, systemic arterial 4) Hypercholesterolemia 5) 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 6) Forgetful 7) Word finding difficulty 8) Cardiomyopathy 9) Depressive disorder 10) H/O: CVA 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 12) Type II diabetes mellitus uncontrolled 13) Migraine without Aura ([facility] [id number]) 14) Retention of Urine ([facility] [id number]) 15) Diarrhea 16) Clostridioides difficile infection 17) Localized eruption of skin 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 TAKE WITH PLENTY OF WATER. [...] MOUTH ONCE A DAY ACTIVE Indication: FOR FOLIC ACID SUPPLEMENTATION 9) FUROSEMIDE 20MG TAB TAKE ONE TABLET BY MOUTH EVERY MORNING ACTIVE FOR FLUID RETENTION 10) LOPERAMIDE HCL 2MG CAP TAKE ONE CAPSULE BY MOUTH NEEDED ACTIVE (S) TAKE 2 CAPSULES JUST BEFORE START OF DIARRHEA, THEN 1 CAPSULE AFTER EACH DIARRHEA EPISODE TO MAXIMUM OF 8 CAPSULES IN A DAY Indication: FOR DIARRHEA 11) METFORMIN HCL 500MG 24HR SA TAB TAKE TWO TABLETS BY MOUTH ACTIVE TWICE A DAY WITH MEALS TAKE WITH [...] BY MOUTH ACTIVE NEEDED 16 Total Medications REVIEW OF SYSTEMS: Review of Systems Systemic: Denies fatique, fever, chills, or weight loss CV: Denies chest pain, palpitations Pulm: Denies hemoptysis, wheezing GI: Denies constipation, bloody stools. Musculoskeletal: Denies swelling Neuro: Denies slurred speech Skin: Denies abnormal lesions, denies any new rashes PSYCH: Denies SI/HI PHYSICAL ASSESSMENT: VITAL SIGNS Pulse: 76 (06/05/2024 15:36) Blood Pressure: 110/76 (06/05/2024 15:36) Respiratory Rate: 20 (06/05/2024 15:36) Temperature: 98 F [36.7 C] (06/05/2024 15:36) Weight: 229.8 lb [104.24 kg] (06/05/2024 15:36) Height: 72.0 in [182.9 cm] (09/29/2023 12:48) Pain: 0 (06/05/2024 15:36) GENERAL: Appears in no acute distress. HEENT: Conjunctiva are clear without exudate or hemorrhage. Sclera nonicteric. EOM are intact. Pupils reactive. Ear canals without discharge, Tympanic membrane is without acute changes. Oropharynx is normal in appearanceand without swelling or exudate without exudate NECK: Supple and nontender without adenopathy. Thyroid gland nonpalpable without masses or enlargement CARDIAC: Regular rate and rhythm. No JVD RESPIRATORY: CTA bilaterally no rhonchi wheezing or rails. Nonlabored respirations GI: Abdomen soft, normal bowel sounds, no HSM, no guarding or rebound. MUSCULOSKELETAL: No joint effusions, no gross muscle spasms, nontender to palpation SKIN: [place], warm, dry and intact. Appropriate color for ethnicity. NEUROLOGICAL: The is alert and oriented without distress. DTR's 2/4, motor and sensory grossly intact. PSYCHOLOGICAL: Appropriate mood and affect. No suicidal or homicidal ideation. A/P: ASSESSMENT and PLAN 3) Hypertensive disorder, systemic arterial - stable 8) Cardiomyopathy - stable clinically 12) Type II diabetes mellitus 14) Hx Retention of Urine 15) Diarrhea 16) Hx Clostridioides difficile infection 19) H/O: Stroke 21) Hx Dank Hematuria 22) Benign Prostatic Hypertrophy with Outflow Obstruction 24) Hx UTI - Urinary Tract Infection - now with frequency, and nocturia 25) Multiple rib fractures on the right 03/2024, and hx of atalectasis - now with abnormal breath sounds on exam -cxr today, recommend deep breathing excercies today -labs to be drawn today, include poc today 09/2023 hbga1c 7.2, await todays hbg aic result, poc, and accuc huy lozoya to check accucheck at home if feels sugar is high, and anything over 300 to report to team immediactely eating a diabetic diet, offered dietitian and declined holding metformin for now bc of diarrhea, patieint is on other diabetic medications, await labs result to adjust diabetic medications further will check accucheck now in clinic 15:38 to 16:00 discussion of his issues was for 22 minutes total time was over 31 minutes w , waited until 16:34 for accucheck and poc results from [employer] [employer] Luis A Green. Discussed medications with patient; med rec completed. Continue current regimen as prescribed by PCP and specialists. RTC as needed if developing any new or worsening symptoms. Please notify PACT with medication changes or for orders coordination as needed if seen by a specialist in the future. Discussed with patient that in the event of community imaging / testing being ordered in the future, once the imaging / testing has been completed, please notify PACT of completion at outside facility if not called with results within 1 week by a [place] PACT member; this is due to intermittent lapses in notification of imaging completion within [facility]. -Follow-up with me every April for annual labs and annual exam -Follow up for 6 months labs every October -Follow-up with me as needed. All questions answered; agrees to plan of care. Follow up as listed above, annually, and as needed. Keep all appointments. Medications Reconciled. /es/ KAELYN WOODS MD Signed: 06/05/2024 16:37 KAELYN WOODS [facility] Jun 05, 2024 03:37 PM PRIMARY CARE NURSI NG NOTE: LOCAL TITLE: PRIMARY CARE NURSING PROGRESS NOTE (TEXT) NURSING P STANDARD TITLE: PRIMARY CARE NURSING NOTE DATE OF NOTE: JUN 05, 2024@15:37 ENTRY DATE: JUN 05, 2024@15:37:11 AUTHOR: LIBRADO ZARAGOZA EXP COSIGNER: URGENCY: STATUS: COMPLETED PRIMARY CARE NURSING PROGRESS NOTE (TEXT) NURSING PB Has ADDENDA Established Patient ELOINA KNOX IS A 73 YEAR OLD MALE BEING SEEN IN CLINIC JUN 05, 2024. REASON FOR VISIT: Here for annual follow up on chronic health conditions. [place] has been holding the metformin per this investigative writer recommendation to see if diarrhea improved and he states he is 100% better. States he has had normal bowel movements when he has gone. Are you receiving care any where other than the [facility]? No HEALTH AND SURGICAL HISTORY: Does patient report using home oxygen? CURRENT ACTIVE MEDICATIONS FOR REVIEW: Allergies/ADRs (Tool #5) FACILITY ALLERGY/ADR -------- [facility] NO KNOWN ALLERGIES [facility] No Known Allergies Med. Reconciliation (Tool #1) INCLUDED IN THIS LIST: Alphabetical list of active outpatient prescriptions dispensed from this [place] (local) and dispensed from another [place] or [facility] facility (remote) as well as inpatient orders (local pending and active), local clinic medications, locally documented non-VA medications, and local prescriptions that have or been discontinued in the past 90 days. Non-VA Meds Last Documented On: Jan 04, 2023 NOTE The display of VA prescriptions dispensed from another [place] or [facility] facility (remote) is limited to active outpatient prescription entries matched to National Drug File at the originating site and may not include some items such as investigational drugs, compounds, etc. NOT INCLUDED IN THIS LIST: Medications self-entered by the patient into personal health records (i.e. [place]) are NOT included in this list. Non-VA medications documented outside this [place], remote inpatient orders (regardless of status) and remote clinic medications are NOT included in this list. The patient and provider must always discuss medications the patient is taking, regardless of where the medication was dispensed or obtained. OUTPT ALLOPURINOL 100MG TAB (Status = Active) TAKE ONE TABLET BY MOUTH ONCE A DAY FOR GOUT. TAKE WITH PLENTY OF WATER. Rx# [id number] Last Released: 05/22/24 Qty/Days Supply: Rx Expiration Date: 09/07/24 Refills Remainin OUTPT AMLODIPINE BESYLATE 10MG TAB (Status = Active) TAKE ONE TABLET BY MOUTH ONCE A DAY FOR HIGH BLOOD PRESSURE Rx# [id number] Last Released: 03/16/24 Qty/Days Supply: 90/90 Rx Expiration Date: 09/07/24 Refills Remainin Indication: FOR HIGH BLOOD PRESSURE OUTPT APIXABAN 5MG TAB (Status = Active/Suspended) TAKE ONE TABLET BY MOUTH TWICE A DAY FOR ANTICOAGULATION Rx# [id number] Last Released: 05/07/24 Qty/Days Supply: 120/60 Rx Expiration Date: 12/22/24 Refills Remainin Indication: FOR ANTICOAGULATION OUTPT ATORVASTATIN CALCIUM 80MG TAB (Status = Discontinued) TAKE ONE-HALF TABLET BY MOUTH EVERY EVENING FOR CHOLESTEROL. REPORT ANY UNEXPLAINED MUSCLE PAIN/WEAKNESS TO PROVIDER. Rx# [id number] Last Released: 02/04/24 Qty/Days Supply: 45/ Rx Expiration Date: 05/17/24 Refills Remainin OUTPT ATORVASTATIN CALCIUM 80MG TAB (Status = Active) TAKE ONE-HALF TABLET BY MOUTH EVERY EVENING FOR CHOLESTEROL. REPORT ANY UNEXPLAINED MUSCLE PAIN/WEAKNESS TO PROVIDER. Rx# [id number] Last Released: 04/25/24 Qty/Days Supply: 45 Rx Expiration Date: 04/04/25 Refills Remainin Non-VA BISMUTH SUBSALICYLATE 262MG/15ML SUSP TAKE 30 ML BY MOUTH NEEDED September 15, 2021 Non-VA medication recommended by VA provider. Patient wants to buy from Non-VA pharmacy. Take 2 tablespoons at first start of diarrhea and may follow with one teblespoon after each additional diarrhea bouts up to 8 per day OUTPT BISMUTH SUBSALICYLATE 262MG/15ML SUSP (Status = ) TAKE 30 ML BY MOUTH EVERY 4 HOURS NEEDED FOR DIARRHEA ([facility]) Rx# [id number] Last Released: 06/21/23 Qty/Days Supply: 480/90 Rx Expiration Date: 04/07/24 Refills Remainin Indication: FOR DIARRHEA OUTPT CARBAMIDE PEROXIDE 6.5% OTIC SOLN (Status = ) INSTILL 4 DROPS IN BOTH EARS EVERY 4 WEEKS FOR EAR WAX BLOCKAGE AND MORE FREQUENTLY IF NEEDED Rx# [id number] Last Released: 06/20/23 Qty/Days Supply: Rx Expiration Date: 04/20/24 Refills Remainin Indication: FOR EAR WAX BLOCKAGE OUTPT CHOLECALCIF 10MCG (D3-400UNIT) TAB (Status = Active) TAKE ONE TABLET BY MOUTH ONCE A DAY FOR VITAMIN D DEFICIENCY. Rx# [id number] Last Released: 03/06/24 Qty/Days Supply: 100/90 Rx Expiration Date: 12/22/24 Refills Remainin OUTPT CLOPIDOGREL BISULFATE 75MG TAB (Status = Active) TAKE ONE TABLET BY MOUTH ONCE A DAY FOR STROKE PREVENTION Rx# [id number] Last Released: 03/17/24 Qty/Days Supply: 90 Rx Expiration Date: 12/23/24 Refills Remainin Indication: FOR STROKE PREVENTION OUTPT DONEPEZIL HCL 10MG TAB (Status = ) TAKE TWO TABLETS BY MOUTH AT BEDTIME FOR MEMORY (JUST PRIOR TO RETIRING) Rx# [id number] Last Released: 04/09/24 Qty/Days Supply: 180/90 Rx Expiration Date: 04/20/24 Refills Remainin OUTPT EMPAGLIFLOZIN 25MG TAB (Status = Active) TAKE ONE TABLET BY MOUTH ONCE A DAY FOR DIABETES Rx# [id number] Last Released: 04/04/24 Qty/Days Supply: 90 Rx Expiration Date: 12/22/24 Refills Remainin Indication: FOR DIABETES OUTPT FOLIC ACID 0.4MG TAB (Status = Discontinued) TAKE ONE TABLET BY MOUTH ONCE A DAY FOR FOLIC ACID SUPPLEMENTATION Rx# [id number] Last Released: 03/03/24 Qty/Days Supply: 100/90 Rx Expiration Date: 04/20/24 Refills Remainin Indication: FOR FOLIC ACID SUPPLEMENTATION OUTPT FOLIC ACID 0.4MG TAB (Status = Active) TAKE ONE TABLET BY MOUTH ONCE A DAY FOR FOLIC ACID SUPPLEMENTATION Rx# [id number] Last Released: 05/10/24 Qty/Days Supply: 100/90 Rx Expiration Date: 04/04/25 Refills Remainin Indication: FOR FOLIC ACID SUPPLEMENTATION OUTPT FUROSEMIDE 20MG TAB (Status = Discontinued) TAKE ONE TABLET BY MOUTH EVERY MORNING FOR FLUID RETENTION Rx# [id number] Last Released: 01/26/24 Qty/Days Supply: 90/ Rx Expiration Date: 05/17/24 Refills Remainin OUTPT FUROSEMIDE 20MG TAB (Status = Active) TAKE ONE TABLET BY MOUTH EVERY MORNING FOR FLUID RETENTION Rx# [id number] Last Released: 04/25/24 Qty/Days Supply: Rx Expiration Date: 04/04/25 Refills Remainin OUTPT HYDROCODONE 5MG/ACETAMINOPHEN 325MG TAB (Status = ) TAKE 1 TABLET BY MOUTH EVERY EIGHT(8) HOURS NEEDED FOR PAIN (MAX 3 TABLETS PER DAY) CAUTION: DO NOT EXCEED 4000MG PER DAY ACETAMINOPHEN (APAP) FROM ALL MEDS. Rx# [id number] Last Released: 03/23/24 Qty/Days Supply: 25/11 Rx Expiration Date: 04/20/24 Refills Remainin OUTPT LOPERAMIDE HCL 2MG CAP (Status = Active/Suspended) TAKE ONE CAPSULE BY MOUTH NEEDED FOR DIARRHEA TAKE 2 CAPSULES JUST BEFORE START OF DIARRHEA, THEN 1 CAPSULE AFTER EACH DIARRHEA EPISODE TO MAXIMUM OF 8 CAPSULES IN A DAY Rx# [id number] Last Released: 03/31/24 Qty/Days Supply: 60 Rx Expiration Date: 01/19/25 Refills Remainin Indication: FOR DIARRHEA OUTPT METFORMIN HCL 500MG 24HR SA TAB (Status = Discontinued) TAKE TWO TABLETS BY MOUTH TWICE A DAY WITH MEALS FOR DIABETES TAKE WITH FOOD. AVOID ALCOHOL. DISCONTINUE BEFORE GETTING XRAY DYE. INCREASE DOSE Rx# [id number] Last Released: 03/06/24 Qty/Days Supply: 120/30 Rx Expiration Date: 10/20/24 Refills Remainin Indication: FOR DIABETES OUTPT METFORMIN HCL 500MG 24HR SA TAB (Status = Discontinued) TAKE TWO TABLETS BY MOUTH TWICE A DAY WITH MEALS FOR DIABETES TAKE WITH FOOD. AVOID ALCOHOL. DISCONTINUE BEFORE GETTING XRAY DYE. INCREASE DOSE Rx# [id number] Last Released: 05/07/24 Qty/Days Supply: 120/30 Rx Expiration Date: 04/04/25 Refills Remainin Indication: FOR DIABETES OUTPT METFORMIN HCL 500MG 24HR SA TAB (Status = Active) TAKE TWO TABLETS BY MOUTH TWICE A DAY WITH MEALS FOR DIABETES TAKE WITH FOOD. AVOID ALCOHOL. DISCONTINUE BEFORE GETTING XRAY DYE. INCREASE DOSE Rx# [id number] Last Released: 05/16/24 Qty/Days Supply: / Rx Expiration Date: 07/02/24 Refills Remainin Indication: FOR DIABETES OUTPT METOPROLOL TARTRATE 100MG TAB (Status = Active) TAKE ONE-HALF TABLET BY MOUTH TWICE A DAY FOR HEART/BLOOD PRESSURE. TAKE WITH OR IMMEDIATELY FOLLOWING FOOD. Rx# [id number] Last Released: 05/03/24 Qty/Days Supply: 90 Rx Expiration Date: 07/27/24 Refills Remainin OUTPT PANTOPRAZOLE NA 40MG EC TAB (Status = Active) TAKE ONE TABLET BY MOUTH TWICE A DAY TO LOWER STOMACH ACID - TAKE 30 MINUTES BEFORE MEAL(S) Rx# [id number] Last Released: 03/17/24 Qty/Days Supply: 200/90 Rx Expiration Date: 07/27/24 Refills Remainin OUTPT PROBIOTIC COMBINATION CAP/TAB (Status = Active) TAKE 1 CAPSULE BY MOUTH ONCE A DAY NUTRITIONAL SUPPLEMENT Rx# [id number] Last Released: 03/07/24 Qty/Days Supply: Rx Expiration Date: 03/02/25 Refills Remainin Indication: NUTRITIONAL SUPPLEMENT OUTPT TAMSULOSIN HCL 0.4MG CAP (Status = Discontinued) TAKE ONE CAPSULE BY MOUTH EVERY EVENING FOR BENIGN PROSTATIC HYPERPLASIA APPROXIMATELY 30 MINUTES AFTER THE SAME MEAL EACH DAY Rx# [id number] Last Released: 04/04/24 Qty/Days Supply: Rx Expiration Date: 06/20/24 Refills Remainin Indication: FOR BENIGN PROSTATIC HYPERPLASIA OUTPT TAMSULOSIN HCL 0.4MG CAP (Status = Active/Suspended) TAKE ONE CAPSULE BY MOUTH EVERY EVENING FOR BENIGN PROSTATIC HYPERPLASIA APPROXIMATELY 30 MINUTES AFTER THE SAME MEAL EACH DAY Rx# [id number] Last Released: Supply: Rx Expiration Date: 04/04/25 Refills Remainin Indication: FOR BENIGN PROSTATIC HYPERPLASIA SUPPLIES PHARMACY TERMS AND POSSIBLE PATIENT ACTIONS INPT = [place] inpatient order IV = [place] intravenous medication OUTPT = [place] outpatient prescription PHARMACY POSSIBLE PATIENT TERMS EXPLANATION ACTIONS -------- - ACTIVE A prescription that can be If you have refills, filled at the local [place] pharmacy. you may request a refill of this prescription from your VA pharmacy. CLINIC A medication you received during If you have questions a visit to a [place] clinic or about this medication emergency department. contact your [place] healthcare team. DISCONTINUED A prescription your provider has Contact your VA stopped. It is no longer healthcare team if you available to be sent to you or need more of this picked up at the [place] pharmacy medication. window. A prescription which is too old Contact your VA to fill. This does not refer to healthcare team if you the expiration date of the need more of this medication in the container. medication. NON-VA A medication that came from If this medication someplace other than a VA information is pharmacy. This may be a incorrect or out of prescription from either the VA date, please tell your or non VA providers that was VA healthcare team. filled outside the VA. Or, it may be an [id number] (OTC), herbal, dietary supplements or sample medication. ON HOLD An active prescription that will Contact your VA not be filled until pharmacy pharmacy when you need resolves the issue. more of this medication. PARKED An active prescription that will Contact your VA not be filled until the patient pharmacy when you need requests it. this medication. PENDING This prescription order has been If you have been sent to the pharmacy for review instructed to start and is not ready yet. this medication now, contact your VA pharmacy. SUSPENDED An active prescription that is Contact your VA not scheduled to be filled yet. pharmacy if you need You should receive it before this medication now. you run out. ==== IS PATIENT TAKING ANY OVER THE COUNTER MEDICATIONS, SUCH VITAMINS OR HERBAL SUPPLEMENTS, INCLUDING ANY MEDICATIONS PRESCRIBED BY ANOTHER PHYSICIAN? No ALLERGIES/ADVERSE REACTIONS: Patient has answered NKA Does patient have any new allergies to report since last visit? VITALS: TEMPERATURE: 98 F [36.7 C] (06/05/2024 15:36) BP: 110/76 (06/05/2024 15:36) RESP: 20 (06/05/2024 15:36) PULSE: 76 (06/05/2024:36) HT: 72.0 in [182.9 cm] (09/29/2023 12:48) WT: 229.8 lb [104.24 kg] (06/05/2024 15:36) BMI: 31.2 PAIN ASSESSMENT: (Most Recent Pain Score in Vitals Package: 0 (06/05/2024 15:36) ) The patient indicated that they and their close contacts have not traveled outside of the [place] in the past 21 days. The patient reports the following symptoms: No symptoms present The patient is not immunocompromised. The patient does not report having a history of Multi Drug Resistant Organism (MDRO) within the last five years. The patient does not report having been exposed to measles, chickenpox, or zoster in last 30 days. STRESS: Thank you for your service. Now let us serve you. At the [facility], we strive to provide you with exceptional health care that improves your health and well-being. Are you feeling sad, empty, or depressed? No Do you need to talk about things in your life that worry you or cause you stress? No Do you need to talk about personal problems, family problems, alcohol use, drug use, or mental or emotional illness? No SUICIDE SCREENING: The patient was asked, Over the past two weeks, how often have you been bothered by thoughts that you would be better off or of hurting yourself in some way? Not At All SPIRITUAL ASSESSMENT: Are there mosque practices or spiritual concerns you want the excavator backhoe operator, your physician, and other health care team members to immediately know about? Patient advised to call the clinic for any concerns, questions, or symptoms. Patient and/or caregiver verbalized understanding of plan of care. Suicide Screen - V: C-SSRS Screening Moffat-Suicide Severity Rating Scale (C-SSRS Screener) 1. Over the past month, have you wished you were or wished you could go to sleep and not wake up? No 2. Over the past month, have you had any actual thoughts of killing yourself? No 3. Over the past month, have you been thinking about how you might do this? Response not required due to responses to other questions. 4. Over the past month, have you had these thoughts and had some intention of acting on them? Response not required due to responses to other questions. 5. Over the past month, have you started to work out or worked out the details of how to kill yourself? Response not required due to responses to other questions. 6. If yes, at any time in the past month did you intend to carry out this plan? Response not required due to responses to other questions. 7. In your lifetime, have you ever done anything, started to do anything, or prepared to do anything to end your life (for example, collected pills, obtained a gun, gave away valuables, went to the roof but didn't jump)? No 8. If YES, was this within the past 3 months? Response not required due to responses to other questions. RHS Screen - VS: RHS Screen Environmental Check Screening was not completed at this time due to: Other: single Homelessness/Food Insecurity Screen - DI,L,N,P,PH,PS,S,U: In the past 2 months, have you been living in stable housing that you own, rent, or stay in as part of a household? Yes - Living in stable housing. Are you worried or concerned that in the next 2 months you may NOT have stable housing that you own, rent, or stay in as part of a household? No - Not worried about housing near future The [place] reports the following: Within the past 12 months, you worried whether your food would run out before you got money to buy more. Never true Within the past 12 months, the food you bought just didn't last and you didn't have money to get more. Never true Pneumococcal Conjugate Vaccine (PCV15/PCV20) - L,N,P,PH,U: Refuses PCV vaccine Immunization: PNEUMOCOCCAL CONJUGATE, UNSPECIFIED FORMULATION Refusal Reason: PATIENT DECISION Patient refuses all immunization(s) in the PneumoPCV group Date Documented: 06/05/24 15:57 Pain Assessment: - PAIN ASSESSMENT: .. Patient reports no pain at this visit. Pain Score = 0. Patient's self identified pain goal: 0 Dementia Safety Assessment: Is there a gun in your home (place where you live)? NO Do you drive? YES Have you been involved in any motor vehicle accidents or mishaps (such as near-misses, traffic tickets, getting lost while driving etc) in the past year? NO Herpes Zoster (Shingles) Vaccine - L,N,P,PH,U: The patient declines to receive the recommended dose of zoster (shingles) vaccine. Immunization: ZOSTER RECOMBINANT Refusal Reason: PATIENT DECISION Patient refuses all immunization(s) in the ZOSTER group Date Documented: 06/05/24 15:57 Patient/Nurse Interview: * * Patient states that questions were answered in a way that was easily understood. * Patient stated that adequate information was received regarding the condition and/or treatment. PAVE Foot Check - L,N,P,PH,PO,PT,U: A complete foot check was completed at this encounter. VISUAL INSPECTION: Includes inspection for skin breaks, deformity, erythema, trauma, pallor on elevation, dependent rubor, nail deformities, extensive callus and pitting edema. Visual exam results: Abnormal Observations: Thickened toenails PEDAL PULSES: Includes palpation of dorsalis and posterior tibial pulses and signs/symptoms of vascular compromise like pain, pallor, parasthesia or paralysis. Present (even if diminished) SENSORY CHECK: Includes 10 gram Monofilament ([place]-Constantine) test of sensation. Intact (Greater than or equal to 80% of sites checked) Abnormal (Less than 80% of sites checked): Abnormal (decreased or absent sensation to monofilament): Comment: diminished HIGH-RISK: HIGH RISK INFORMATION PROVIDED: 1. Advised patient that extra depth footwear with soft molded inserts and braces may be required. 2. Advised patient not to walk barefoot. 3. Explained the importance of daily foot checks. 4. Stressed the importance of daily foot hygiene, including bathing, complete drying and thorough inspection for changes. Patient referred to Podiatry. Tdap Immunization - L,N,P,PH,U: The patient declines to receive the recommended dose of Tdap vaccine. Immunization: TDAP Refusal Reason: PATIENT DECISION Patient refuses all immunization(s) in the TDAP group Date Documented: 06/05/24 15:59 Influenza Immunization - L,N,P,PH,U: Deferral / Refusal The patient declines to receive the recommended dose of seasonal influenza vaccine. Immunization: INFLUENZA, UNSPECIFIED FORMULATION Refusal Reason: PATIENT DECISION Patient refuses all immunization(s) in the FLU group Date Documented: 06/05/24 15:59 /deandra/ LIBRADO ZARAGOZA LPN Signed: 06/05/2024 16:00 06/05/2024 ADDENDUM STATUS: COMPLETED Provider asking for results of Ancillary glucose : 106. Provider made aware verbally. POC completed and the only abnormality is glucose >1000. Provider made aware verbally over CVT. Labs reported electronically as well. /deandra/ LIBRADO ZARAGOZA LPN Signed: 06/05/2024 16:37 LIBRADO ZARAGOZA [facility]
--- OUTSIDE RECORDS SUMMARY | 2024-09-12 04:15 | XMS_ITS | Encounter Summary ---
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 Name Role Phone PEGGYLAURENE Primary Care Provider [...] PART A Apr 08, 1991 PART A [id number] [phone] Randy KNOX PATIENT MEDICARE (WNR) MEDICARE (M) PART B Apr 08, 1991 PART B [id number] Randy KNOX PATIENT MEDICARE (WNR) MEDICARE (M) PART A Apr 08, 1991 PART A [id number] Randy KNOX PATIENT MEDICARE (WNR) MEDICARE (M) PART B Apr 08, 1991 PART B [id number] [phone] Randy KNOX PATIENT MEDICARE (WNR) MEDICARE (M) PART A Apr 08, 1991 PART A [id number] Randy KNOX PATIENT MEDICARE (WNR) MEDICARE (M) PART B Apr 08, 1991 PART B [id number] Randy KNOX PATIENT MEDICARE (WNR) MEDICARE (M) PART A Apr 08, 1991 PART A [id number] Randy KNOX PATIENT MEDICARE (WNR) MEDICARE (M) PART B Apr 08, 1991 PART B [id number] Randy KNOX PATIENT Selected Encounter This section includes the information on record at [place] for the Encounter. Date/Time Encounter Type Encounter Description Reason Provider Source September 12, 2024 09:15 AM OFF/OP EST SEPTEMBER X REQ PHY/QHP PRIMARY CARE/MEDICINE ICD-10-CM Z23 Encounter for immunization NASREEN PATINO Albino Encounter Template Text not used by [place] Assessments - Encounter Diagnoses This section includes the primary and secondary diagnoses documented for the Encounter. Date/Time Primary/Secondary Diagnosis Diagnosis Name Provider Source September 12, 2024 09:53 AM PRIMARY Encounter for immunization ARTHUR PATINO [facility] Plan of Treatment: Future Appointments (+ 6 months) and Future Tests (+/- 45 days) The Plan of Treatment section includes future care activities for the [facility] This section includes future appointments and future orders which are active, pending or scheduled. Future Appointments This section includes appointments that were scheduled to occur 6 months from the date of the Encounter, up to a maximum of 20 appointments. The data comes from all [place] treatment facilities. Appointment Date/Time Appointment Type Appointme nt Facility Name Nov 28, 2024 10:00 AM AMBULATORY - MEDICINE [facility] Dec 28, 2024 08:00 AM AM[facility]ULATORY - MED[facility]INE [facility] Jan 08, 2025 09:00 AM AMBULATORY - MEDICINE [facility] Jan 09, 2025 08:30 AM AMBULATORY - MEDICINE [facility] Mar 11, 2025 08:30 AM AMBULATORY - MEDICINE [facility] Mar 11, 2025 08:31 AM AMBULATORY - MEDICINE [facility] Lab Results: +/- 30 days of the encounter This section includes the Chemistry and Hematology Lab Results on record with [place] for the patient. Radiology Reports and Pathology Reports are provided separately, in subsequent sections. Lab Results This section contains the Chemistry/Hematology Results that were resulted 30 days before or 30 daysafter the date of the Encounter. Date/Time Source Result Type Result - Unit Interpretation Reference Range Specimen Type Comment September 12, 2024 09:07 AM [facility] HGA1C BLOOD Specimen Type: BLOOD No comment entered. Ordering Provider: NUPUR WOODS Report Released Date/Time: Jun 14, 2024 08:29 AM Reporting Lab: [place] [facility] [address] [place] [address] Performing Lab: [place] [facility] [address] [place] [address] HGA1C 7.8 H 4.0-6.0 September 12, 2024 09:07 AM [facility] CHOLESTEROL PANEL (PB) PLASMA Specimen Type: P JIMMY Comment: LDL calculation invalid when Triglyceride exceeds 250 mg/dl Ordering Provider: NUPUR WOODS Report Released Date/Time: Jun 14, 2024 08:29 AM Reporting Lab: [place] [facility] [address] [place] [address] Performing Lab: [place] [facility] [address] [place] [address] CHOLESTEROL 126 mg/dL 0-200 TRIGLYCERIDE 264 mg/dL H 0-150 CALCULATED LDL comment mg/dL HDL(New) 34.5 mg/dL L >40 HDL % OF TOTAL CHOLESTEROL (PB) 27.4 >25 DIRECT LDL(MA) 65.3 mg/dL 0-99.9 September 12, 2024 09:07 AM [facility] HEPATIC FUNCTION PROFILE (PB) PLASMA Specimen Type: PLASMA Comment: LDL calculation invalid when Triglyceride exceeds 250 mg/dl Ordering Provider: NUPUR WOODS Report Released Date/Time: Jun 14, 2024 08:29 AM Reporting Lab: [place] [facility] [address] [place] [address] Performing Lab: [place] [facility] [address] [place] [address] PROTEIN 7.4 g/dL 6-8.6 ALBUMIN 4.2 g/dL 3.4-5 TOTAL BILIRUBIN 0.7 mg/dL 0.2-1.2 ALKALINE PHOSPHATASE 80 U/L 40-150 AST/SGOT 16 U/L 5-34 ALT/SGPT 14 U/L 8-40 CONJ. BILIRUBIN 0.2 mg/dL 0-0.5 September 12, 2024 09:07 AM [facility] BASIC METABOLIC PANEL PLASMA Specimen Type: PL ASMA Comment: LDL calculation invalid when Triglyceride exceeds 250 mg/dl Ordering Provider: NUPUR WOODS Report Released Date/Time: Jun 14, 2024 08:29 AM Reporting Lab: [place] [facility] [address] [place] [address] Performing Lab: [place] [facility] [address] [place] [address] CREATININE 1.01 mg/dL 0.7-1.3 UREA NITROGEN 17 mg/dL 9-25 GLUCOSE 196 mg/dL H 72-99 SODIUM 140 meq/L 136-145 POTASSIUM 4.7 meq/L 3.5-5 CHLORIDE 107 meq/L 98-107 CARBON DIOXIDE 23 meq/L 22-31 CALCIUM 9.1 mg/dL 8.4-10.4 EGFR (CKD-EPI 2020) 79 September 12, 2024 09:07 AM [facility] B12 SERUM Specimen Type: SERUM No comment entered. Ordering Provider: NUPUR WOODS Report Released Date/Time: Jun 14, 2024 08:29 AM Reporting Lab: [place] [facility] [address] [place] [address] Performing Lab: [place] [facility] [address] [place] [address] B12 368 pg/mL 213-816 September 12, 2024 09:07 AM [facility] CBC BLOOD Specimen Type: BLOOD Comment: ~Pre-Operative Pre-Operative Ordering Provider: NUPUR WOODS Report Released Date/Time: Jun 14, 2024 08:29 AM Reporting Lab: [place] [facility] [address] [place] [address] Performing Lab: [place] [facility] [address] [place] [address] WBC 8.9 10*3/uL 3.6-11.2 RBC 5.03 10*6/uL 4.10-5.70 HGB 14.8 g/dL 13.1-16.8 HCT 45.8 38.2-48.4 MCV 91.1 fL 80.0-100.0 MCH 29.4 pg 27.0-34.0 MCHC 32.3 g/dL L 33.0-36.0 PLT 250 10*3/uL 150-400 MPV 11.8 fL H 7.5-11.2 RDW 15.0 11.8-15.1 LYMPHOCYTES, AUTO % 14.9 MONOCYTES, AUTO % 5.9 NEUTROPHILS, AUTO % 77.0 EOSINOPHILS, AUTO % 1.1 BASOPHILS, AUTO % 0.5 LYMPHOCYTES, ABSOLUTE 1.32 10*3/uL 0.77- 4.50 MONOCYTES, ABSOLUTE 0.52 10*3/uL 0.19-0. 8 NEUTROPHILS, ABSOLUTE 6.83 10*3/uL 2.10- 8.00 EOSINOPHILS, ABSOLUTE 0.10 10*3/uL 0.00- 0.60 BASOPHILS, ABSOLUTE 0.04 10*3/uL 0.00-0. 20 IMMATURE GRANS, AUTO % 0.6 IMMATURE GRANS, AUTO ABS 0.05 10*3/uL 0. 00-0.05 Immunizations: All administered on the encounter date This section contains immunizations associated to the Encounter. Immunization Series Date Issued Administered By Site Reaction Lot Number CVX Code Drug Filling Technician Comment(s) Source ZOSTER RECOMBINANT September 12, 2024 NASREEN PATINO LEFT DELTO ID [id number] DIANEITHNURYS [place] [facility] Social History: Smoking Status (Most current) and Tobacco Use (All prior to encounter date) This section includes the most current, and the historical, smoking and tobacco- related health factors from the [place] facility where the Encounter took place. Current Smoking Status This section includes the most current smoking, or tobacco-related health factor, from the [place] facility where the Encounter took place. Date/Time Current Smoking Status Comment Facil ity September 29, 2023 12:30 PM CO-TOBACCO NEVER USED [facility] Tobacco Use History This section includes a history of the smoking, or tobacco-related health factors, that were collected on or before the date of the Encounter. The data comes from the [place] facility where the Encounter took place. Date/Time Smoking Status/Tobacco Use Comment F acility Aug 05, 2022 11:30 AM [place]-TOBACCO NEVER USED [facility] Oct 21, 2020 09:00 AM VA-TOBACCO NEVER USED [facility] Jan 19, 2019 11:38 AM LIFETIME NON-TOBACCO USER [place] [facility] Jan 19, 2019 11:38 AM VA-TOBACCO NEVER USED [facility] Jul 26, 2018 09:42 AM CURRENT NON-TOBACCO USER-HX OF U SE [facility] May 14, 2015 11:17 AM TOBACCO MEDS OFFERED BUT DECLINE D [facility] May 14, 2015 11:17 AM TOBACCO OFFERED PT MEDS (PROVIDE R) [facility] May 14, 2015 11:17 AM TOBACCO OFFERED STOP SMOKING CLI RHODA [facility] Dec 12, 2014 10:11 AM LIFETIME NON-USER OF TOBACCO [facility] Advance Directives: All historical and current Section Date Range: From patient's date of to the date document was created. This section includes ALL of a patient's completed or amended [place] Advance and Rescinded Directives. The entries below indicate that a directive exists for the patient, but an actual copy is not included with this document. The data comes from all [place] facilities. Date Advance Directives Provider Source Apr 30, 2016 ADVANCE DIRECTIVE DISCUSSION MICHELINE BELTRAN [facility] May 10, 2000 ADVANCE DIRECTIVE BELLA SAHA [facility] Encounter Notes: All associated encounter notes This section contains the clinical notes associated to the Encounter. Date/Time Encounter Note(s) Provider Source September 12, 2024 09:46 AM NURSING PROGRESS N OTE: LOCAL TITLE: NURSING NOTE PB STANDARD TITLE: NURSING PROGRESS NOTE DATE OF NOTE: SEPTEMBER 12, 2024@09:46 ENTRY DATE: SEPTEMBER 12, 2024@09:46:42 AUTHOR: OMERO PATINO COSIGNER: URGENCY: STATUS: COMPLETED The presented to the clinic for a singles vacine. Let the know that the shingles vaccine was a two part vaccine and he would need to schedule for his second vaccine in 2-6 months. The voiced undersanding. Herpes Zoster (Shingles) Vaccine - L,N,P,PH,U: Administered: ZOSTER RECOMBINANT Date Administered: September 12, 2024 09:15 Filling Technician: [employer] Lot: [id number] Exp Date: Mar 03, 2026 [facility]: [id number] Admin Route/Site: INTRAMUSCULAR/LEFT DELTOID Dosage: 0.5mL Vaccine Information Statement(s): RECOMBINANT ZOSTER VACCINE VIS 2021 ([place]) Order By: Policy Administered By: Omero Patino The Recombinant Zoster Vaccine Information Statement (VIS) was reviewed with the patient/caregiver which lists the benefits and risks of the vaccine and the risks of not receiving the Recombinant Zoster vaccine. The patient/caregiver denied any prior severe reaction to this vaccine or its components or a severe allergic reaction, such as anaphylaxis, to any vaccine or any injectable therapy. The patient/caregiver gave verbal consent to receive the vaccine. /deandra/ Omero Patino RN,BSN KIANNA Peres Signed: 09/12/2024 09:54 OMERO PATINO
--- OUTSIDE RECORDS SUMMARY | 2025-01-08 04:00 | XMS_ITS | Encounter Summary ---
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 Role Phone PEGGYLAURENE Primary Care Provider [...] PART A Apr 08, 1991 PART A [id number] [phone] Randy KNOX PATIENT MEDICARE (WNR) MEDICARE (M) PART A Apr 08, 1991 PART A [id number] [phone] Randy KNOX PATIENT MEDICARE (WNR) MEDICARE (M) PART B Apr 08, 1991 PART B [id number] [phone] Randy KNOX PATIENT MEDICARE (WNR) MEDICARE (M) PART B Apr 08, 1991 PART B [id number] [phone] Randy KNOX PATIENT MEDICARE (WNR) MEDICARE (M) PART A Apr 08, 1991 PART A [id number] [phone] Randy KNOX PATIENT MEDICARE (WNR) MEDICARE (M) PART A Apr 08, 1991 PART A [id number] Randy KNOX PATIENT MEDICARE (WNR) MEDICARE (M) PART B Apr 08, 1991 PART B [id number] Randy KNOX PATIENT MEDICARE (WNR) MEDICARE (M) PART B Apr 08, 1991 PART B [id number] Randy KNOX PATIENT Selected Encounter This section includes the information on record at [place] for the Encounter. Date/Time Encounter Type Encounter Description Reason Provider Source Jan 08, 2025 09:00 AM OFF/OP EST SEPTEMBER X REQ PHY/QHP PRIMARY CARE/MEDICINE ICD-10-CM M25.511 Pain in right shoulder [facility] [place] Encounter Template Text not used by [place] Assessments - Encounter Diagnoses This section includes the primary and secondary diagnoses documented for the Encounter. Date/Time Primary/Secondary Diagnosis Diagnosis Name Provider Source Jan 08, 2025 03:24 PM PRIMARY Pain in right shoulder [facility] Plan of Treatment: Future Appointments (+ 6 months) and Future Tests (+/- 45 days) The Plan of Treatment section includes future care activities for the patient from all [place] [facility] This section includes future appointments and future orders which are active, pending or scheduled. Future Appointments This section includes appointments that were scheduled to occur 6 months from the date of the Encounter, up to a maximum of 20 appointments. The data comes from all [place] treatment facilities. Appointment Date/Time Appointment Type Appointme nt Facility Name Jan 09, 2025 08:30 AM AMBULATORY - MEDICINE [facility] Mar 11, 2025 08:30 AM AMBULATORY - MEDICINE [facility] Mar 11, 2025 08:31 AM AMBULATORY MEDICINE [facility] Active, Pending, and Scheduled Orders This section includes a listing of several types of active, pending, and scheduled orders, including clinic medications orders, diagnostic test orders, procedure orders and consult orders; where the start date of the order is 45 days before the date of the Encounter or 45 days after the date of theEncounter. The data comes from all [place] treatment facilities. Test Date/Time Test Type Test Details Facility Name Jan 08, 2025 03:29 PM Consult Order COMMUNITY CARE-PHYSICAL THERAPY [id number] Cons Chemistry Technician's Choice [facility] Vital Signs: All taken on the encounter date This section contains inpatient and outpatient Vital Signs collected on the date of the Encounter. Date/Time Temperature Pulse Blood Pressure Respiratory Rate SP02 Pain Height Weight Body Mass Index Source Jan 08, 2025 03:07 PM 98 F 78 /min 153/83 mm[Hg] [facility] Social History: Smoking Status (Most current) and Tobacco Use (All prior to encounter date) This section includes the most current, and the historical, smoking and tobacco- related health factors from the [place] facility where the Encounter took place. Current Smoking Status This section includes the most current smoking, or tobacco-related health factor, from the [place] facility where the Encounter took place. Date/Time Current Smoking Status Comment Facil ity September 29, 2023 12:30 PM VA-TOBACCO NEVER USED [facility] Tobacco Use History This section includes a history of the smoking, or tobacco-related health factors, that were collected on or before the date of the Encounter. The data comes from the [place] facility where the Encounter took place. Date/Time Smoking Status/Tobacco Use Comment F acility Aug 05, 2022 11:30 AM VA-TOBACCO NEVER USED [facility] Oct 21, 2020 09:00 AM [facility] Jan 19, 2019 11:38 AM LIFETIME NON-TOBACCO USER [facility] Jan 19, 2019 11:38 AM VA-TOBACCO NEVER USED [facility] Jul 26, 2018 09:42 AM CURRENT NON-TOBACCO USER-HX OF U SE [facility] May 14, 2015 11:17 AM TOBACCO MEDS OFFERED BUT DECLINE D [facility] May 14, 2015 11:17 AM TOBACCO OFFERED PT MEDS (PROVIDE R) [facility] May 14, 2015 11:17 AM TOBACCO OFFERED STOP SMOKING CLI RHODA [facility] Dec 12, 2014 10:11 AM LIFETIME NON-USER OF TOBACCO [facility] Advance Directives: All historical and current Section Date Range: From patient's date of to the date document was created. This section includes ALL of a patient's completed or amended [place] Advance and Rescinded Directives. The entries below indicate that a directive exists for the patient, but an actual copy is not included with this document. The data comes from all [place] facilities. Date Advance Directives Provider Source Apr 30, 2016 ADVANCE DIRECTIVE DISCUSSION MICHELINE BELTRAN [facility] May 10, 2000 ADVANCE DIRECTIVE BELLA SAHA [facility] Radiology Reports: +/- 30 days of the encounter Radiology Reports For cases when an order for radiology services may have been completed prior to the date of the Encounter, the report list includes the Radiology Reports that were completed up to 30 days before dateof the Encounter. For cases when an order for radiology services may have been completed after the date of the Encounter, the report list also includes the Radiology Reports that were completed up to30 days after date of the Encounter. The data comes from all [place] treatment facilities. Date/Time Radiology Report Provider Source Jan 08, 2025 10:14 AM SHOULDER,RIGHT,2 O R MORE VIEWS: ELOINA KNOX [id number] -1950 M Exm Date: JAN 08, 2025@10:14 Req Phys: NUPUR WOODS Loc: [facility] [place] [place] (Req'g L Img Loc: PB-XRAY [place] Service: [place] [address] (Case [id number] COMPLETE) SHOULDER,RIGHT,2 OR MORE VIEWS (RAD Detailed) CPT:42961 Proc Modifiers : RIGHT Reason for Study: RIGHT SHOULDER PAIN Clinical History: PAIN 2 WEEKS, NO INJURY Report Status: Verified Date Reported: JAN 08, 2025 Date Verified: JAN 08, 2025 Accounts Payable Representative E-Sig: Report: 2 views of the right shoulder reveal 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 Impression: No acute process Primary Interpreting Staff: JR YANG RADIOLOGIST (Accounts Payable Representative, no e-sig) /JR Poe [facility] Encounter Notes: All associated encounter notes This section contains the clinical notes associated to the Encounter. Date/Time Encounter Note(s) Provider Source Jan 08, 2025 03:07 PM NURSING PROGRESS N OTE: LOCAL TITLE: NURSING NOTE PB STANDARD TITLE: NURSING PROGRESS NOTE DATE OF NOTE: JAN 08, 2025@15:07 ENTRY DATE: JAN 08, 2025@15:07:30 AUTHOR: SUAD CARPENTER EXP COSIGNER: URGENCY: STATUS: COMPLETED Blood Pressure: 153/83 Pulse: 78 Temperature: 98 F (36.7 C) Pulse Oximetry: 93% Active Outpatient Medications: Active Outpatient Medications (including Supplies): Active Outpatient Medications Status 1) ALLOPURINOL 100MG TAB TAKE ONE TABLET BY MOUTH ONCE A DAY ACTIVE FOR GOUT. TAKE WITH PLENTY OF WATER. 2) AMLODIPINE BESYLATE 10MG TAB TAKE ONE TABLET BY MOUTH ONCE A ACTIVE DAY Indication: FOR HIGH BLOOD PRESSURE 3) APIXABAN 5MG TAB TAKE ONE TABLET BY MOUTH TWICE A DAY ACTIVE Indication: FOR ANTICOAGULATION 4) ATORVASTATIN CALCIUM 80MG TAB TAKE ONE-HALF TABLET BY MOUTH ACTIVE EVERY EVENING FOR CHOLESTEROL. REPORT ANY UNEXPLAINED MUSCLE PAIN/WEAKNESS TO PROVIDER. 5) CHOLECALCIF 10MCG (D3-400UNIT) TAB TAKE ONE TABLET BY MOUTH ACTIVE ONCE A DAY FOR VITAMIN D DEFICIENCY. 6) DONEPEZIL HCL 10MG TAB TAKE TWO TABLETS BY MOUTH AT BEDTIME ACTIVE FOR MEMORY (JUST PRIOR TO RETIRING) 7) FOLIC ACID 0.4MG TAB TAKE ONE TABLET BY MOUTH ONCE A DAY ACTIVE Indication: FOR FOLIC ACID SUPPLEMENTATION 8) FUROSEMIDE 20MG TAB TAKE ONE TABLET BY MOUTH EVERY MORNING ACTIVE FOR FLUID RETENTION 9) GLIPIZIDE 5MG TAB TAKE ONE TABLET BY MOUTH TWO TIMES A DAY ACTIVE BEFORE MEALS TAKE 30 MINUTES BEFORE EATING. Indication: FOR DIABETES 10) LOPERAMIDE HCL 2MG CAP TAKE ONE CAPSULE BY MOUTH NEEDED ACTIVE TAKE 2 CAPSULES JUST BEFORE START OF DIARRHEA, THEN 1 CAPSULE AFTER EACH DIARRHEA EPISODE TO MAXIMUM OF 8 CAPSULES IN A DAY Indication: FOR DIARRHEA 11) METOPROLOL TARTRATE 100MG TAB TAKE ONE-HALF TABLET BY MOUTH ACTIVE TWICE A DAY FOR HEART/BLOOD PRESSURE. TAKE WITH OR IMMEDIATELY FOLLOWING FOOD. 12) PANTOPRAZOLE NA 40MG EC TAB TAKE ONE TABLET BY MOUTH TWICE A ACTIVE DAY TO LOWER STOMACH ACID - TAKE 30 MINUTES BEFORE MEAL(S) 13) PROBIOTIC COMBINATION CAP/TAB TAKE 1 CAPSULE BY MOUTH ONCE A ACTIVE DAY Indication: NUTRITIONAL SUPPLEMENT 14) TAMSULOSIN HCL 0.4MG CAP TAKE ONE CAPSULE BY MOUTH EVERY ACTIVE EVENING APPROXIMATELY 30 MINUTES AFTER THE SAME MEAL EACH DAY Indication: FOR BENIGN PROSTATIC HYPERPLASIA Active Non-VA Medications Status 1) Non-VA BISMUTH SUBSALICYLATE 262MG/15ML SUSP 30 ML BY MOUTH ACTIVE NEEDED CC: presents to clinic stating right upper arm pain and decreased motion of shoulder. Subjective: states he has been having some pain and decreased mobility for 1 week now. Reports he has been taking pain medications he had on hand with some relief of pain. Denies injury or known stressor that caused problem. O/A: is alert and oriented. Right arm painful with increased pain with movement or palpation of arm. States he tries not to lift or move it due to pain. Right arm with mild swelling of hand, circulation check normal with no signs of circulatory compromise. Plan/ Intervention: Discussed with PCP. Right shoulder x-ray today to right shoulder with results as follows: SHOULDER,RIGHT,2 OR MORE VIEWS Exam Date: JAN 08, 2025@10:14 Req Phys: NUPUR WOODS Pat Loc: PB-[facility] [place] (Req'g L Img Loc: [facility] [place] Service: [place] [address] (Case [id number] COMPLETE) SHOULDER,RIGHT,2 OR MORE VIEWS (RAD Detailed) CPT:[id number] Proc Modifiers : RIGHT Reason for Study: RIGHT SHOULDER PAIN Clinical History: PAIN 2 WEEKS, NO INJURY Report Status: Verified Date Reported: JAN 08, 2025 Date Verified: JAN 08, 2025 Accounts Payable Representative E-Sig: Report: 2 views of the right shoulder reveal 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 Impression: No acute process Primary Interpreting Staff: JR YANG, RADIOLOGIST (Accounts Payable Representative, no e-sig) /rld [place] educated on conservative treatment to include rest, elevation, apply ice/heat as needed, take Tylenol as needed with safe dosing discussed. Toradol IM left dorsogluteal. Will place physical therapy consult for right shoulder pain. aware and agrees with plan of care. Follow up in clinic if no improvement or symptoms worsen. RTC: As scheduled and as needed. Per A Directive 1605.06, wristband documentation: Patient wristband was removed and destroyed by (staff name) Suad Carpenter RN and placed in the designated General Compression-It bin. /es/ SUAD RYAN, ANURADHA [facility] Signed: 01/08/2025 15:24 Receipt Acknowledged By: 01/08/2025 15:44 /es/ NUPUR CARPENTER,SUAD OSUNA MD [facility]
--- OUTSIDE RECORDS SUMMARY | 2025-01-08 07:00 | XMS_ITS | Encounter Summary ---
Author Name [facility] [place] [facility] [place] [facility] [place] Address [address] [place] [address] Care Team Providers Care Pattern Painter Name Role Phone NUPUR WOODS Primary Care [...] PART A Apr 08, 1991 PART A [id number] [phone] Randy KNOX PATIENT MEDICARE (WNR) MEDICARE (M) PART B Apr 08, 1991 PART B [id number] [phone] Randy KNOX PATIENT MEDICARE (WNR) MEDICARE (M) PART A Apr 08, 1991 PART A [id number] [phone] Randy KNOX PATIENT MEDICARE (WNR) MEDICARE (M) PART B Apr 08, 1991 PART B [id number] [phone] Randy KNOX PATIENT MEDICARE (WNR) MEDICARE (M) PART A Apr 08, 1991 PART A [id number] [phone] Randy KNOX PATIENT MEDICARE (WNR) MEDICARE (M) PART B Apr 08, 1991 PART B [id number] Randy KNOX PATIENT MEDICARE (WNR) MEDICARE (M) PART A Apr 08, 1991 PART A [id number] Randy KNOX PATIENT MEDICARE (WNR) MEDICARE (M) PART B Apr 08, 1991 PART B [id number] Randy KNOX PATIENT Selected Encounter This section includes the information on record at [place] for the Encounter. Date/Time Encounter Type Encounter Description Reason Pro vider Source Jan 08, 2025 12:00 PM Outpatient Encounter EVENT (HISTORICAL) IHE Encounter Template Text not used by [place] Plan of Treatment: Future Appointments (+ 6 [...] The data comes from all [place] treatment facilities. Appointment Date/Time Appointment Type Appointme nt Facility Name Jan 09, 2025 08:30 AM AMBULATORY - MEDICINE [facility] Mar 11, 2025 08:30 AM [facility]ORY - MEDICINE [facility] Mar 11, 2025 08:31 AM AMBULATORY - MEDICINE [facility] Active, Pending, [...] of theEncounter. The data comes from all [place] treatment facilities. Test Date/Time Test Type Test Details Facility Name Jan 08, 2025 03:29 PM Consult Order COMMUNITY CARE-PHYSICAL THERAPY [id number] [facility] B2B Account Executive's Choice [facility] Social History: Smoking Status (Most current) and Tobacco Use (All prior to encounter date) This section includes the most current, and the historical, smoking and tobacco- related health factors from the [place] facility where the Encounter took place. Current Smoking Status This section includes the most current smoking, or tobacco-related health factor, from the [place] facility where the Encounter took place. Date/Time Current Smoking Status Comment Matteo tyson Apr 29, 2016 11:20 AM LIFETIME NON-USER OF TOBACCO [facility] Advance Directives: All historical and current Section Date Range: From patient's date of to the date document was created. This section includes ALL of a patient's completed or amended [place] Advance and Rescinded Directives. The entries below indicate that a directive exists for the patient, but an actual copy is not included with this document. The data comes from all [facility]. Date Advance Directives Provider Source Apr 30, 2016 ADVANCE DIRECTIVE DISCUSSION MICHELINE BELTRAN [facility] May 10, 2000 ADVANCE DIRECTIVE BELLA SAHA [facility] Radiology Reports: +/- 30 days of the [...] the Encounter. The data comes from all [place] treatment facilities. 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 Impression: No acute process Primary Interpreting Staff: JR YANG, RADIOLOGIST (Battery Container Tester [employer]um, no e-sig) /JR Poe [place] [facility] Encounter Notes: All associated encounter notes This section contains the clinical notes associated to the Encounter. Date/Time Encounter Note(s) Provider Source Jan 08, 2025 12:00 PM NONVA CONSULT: LOCAL TITLE: COMMUNITY CARE-CONSULT RESULT NOTE PB STANDARD TITLE: NONVA CONSULT DATE OF NOTE: JAN 08, 2025@12:00 ENTRY DATE: JAN 08, 2025@15:43:50 AUTHOR: LAURA GONG COSIGNER: URGENCY: STATUS: COMPLETED VistA Imaging - Scanned Document [facility] SCANNED DOCUMENT SIGNATURE NOT REQUIRED Electronically Filed: 01/08/2025 by: LAURA HINES [facility]
--- OUTSIDE RECORDS SUMMARY | 2025-01-09 04:16 | XMS_ITS | Continuity of Care Document ---
Author Name [facility] Organization [facility] Care Team Providers Care Coffee Attendant Name Role Phone [facility] Unavailable Unavailable Problems Combined list of problems from Department of Defense and Veterans Affairs facilities. It does not include entries that were removed or entered in error. Problem Status Onset Date Problem Type Date of Resolution Comments Source Abdominal Pain of the Left Lower Quadrant Active Condition [place] Arthritis, Rheumatoid * (ICD-9-CM 714.0) Active Condition [place] Atrial fibrillation (SCT 09005086) Active Condition [place] [facility] Benign Prostatic Hypertrophy with Outflow Obstruction (SCT [id number]) Active Condition [place] [facility] Cardiomyopathy Active Condition Jul 092016 Entered By: DANK TRAVIS Comment: see post op noted from [facility] after CAB[facility] Chronic low back pain (SNOMED CT 911785426) Active Condition [place] Clostridioides difficile infection Active Condition Dec 28, 2021 Entered By: NUPUR WOODS Comment: Awaiting fecal transplant [place] [facility] 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 Condition Aug 07, 2020 Entered By: NUPUR WOODS Comment: seen ED 07/2020, refer to cardiology and EGDAug 2020 Entered By: NUPUR WOODS Comment: Chest pain seen in ED December 2020 = discharged home atypical chest painFeb 2023 Entered By: NUPUR WOODS Comment: chest pain to go to ed 2023 Entered By: NUPUR WOODS Comment: atypical chest pain and urethritis seen in ED = doxycycline [place] [facility] Depressive disorder Active Condition [place] [facility] Diarrhea Active Condition Jun 05 Entered By: NUPUR WOODS Comment: [facility] ec 2022 Entered By: NUPUR WOODS [facility] Entered By: NUPUR WOODS Comment: ID consulted [place] [facility] Disability Active Condition Dec 06 025 Entered By: NUPUR WOODS Comment: permanent disability plates. [facility] Disorder of sleep-wake cycle Active Condition [facility] Dissection of vertebral artery Active Condition Aug 03 Entered By: NUPUR WOODS Comment: Per vascular continue anticoagulation [place] [facility] DJD * (ICD-9-CM 715.90) Active Condition [facility] Fatigue Active Condition [facility] Forgetful Active Condition Jul 14 17 Entered By: ADNK TRAVIS Comment: newly noted since post op from [facility] Dank Hematuria (SCT [id number]) Active Condition Aug 03, 2022 Entered By: NUPUR WOODS Comment: Gross hematuria 07/2022 during CVA hospitalization [place] [facility] Gout Active Condition [facility] H/O: CVA Active Condition Nov 16 21 Entered By: NUPUR WOODS Comment: us carotids 09/2020 ok [place] [facility] H/O: Stroke (SCT [id number]) Active Condition Aug 03, 2022 Entered By: NUPUR WOODS Comment: Right-sided weakness, right hemianopsia [place] [facility] History of coronary artery bypass grafting Active Condition [place] [facility] HTN * (ICD-9-CM 401.9) Active Condition [facility] Hypercholesterolemia Active Condition [facility] Hypertensive disorder, systemic arterial Active Condition [facility] Iodide-induced hyperthyroidism Active Condition [facility] Issue of Repeat Prescriptions (ICD-9-CM V68.1) Active Condition [facility] Localized eruption of skin Active Condition [place] [facility] LUMBAGO Active Condition [place] [facility] Lung nodules Active Condition [facility] Migraine without Aura (SCT 12681549) Active Condition Jul 28, 2020 Entered By: NUPUR WOODS Comment: sees neurology [place] [facility] Multiple rib fractures on the right 03/2024 Active Condition [place] [facility] Obesity * (ICD-9-CM 278.00) Active Condition [facility] Other Specified Counseling (ICD-9-CM V65.49) Active Condition [facility] RA - Rheumatoid arthritis (SNOMED CT 48697624) Active Condition [place] [facility] Retention of Urine (SCT 994210709) Active Condition Nov 16, 2020 Entered By: NUPUR WOODS Comment: urology [place] [facility] Sciatica (SNOMED CT 89045613) Active Condition [facility] Type II diabetes mellitus uncontrolled Active Condition September Entered By: NUPUR WOODS Comment: metformin induced diarrhea per patietn [place] [facility] UTI - Urinary Tract Infection (SCT 15474257) Active Condition Sep 02, 2023 Entered By: NUPUR WOODS Comment: nitrofur [place] [facility] Warfarin monitoring status Active Condition [place] [facility] Word finding difficulty Active Condition Jul 14, 2016 Entered By: DANK TRAVIS Comment: new since post op CABGJul 2019 Entered By: NUPUR WOODS Comment: [place] dx seen ED 10/26/19, conservative tx, [facility] Angina pectoris Inactive Condition 08/05/2022 [place] [facility] Angina, class IV Inactive Condition 07/28/2020 [place] [facility] 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 Pain of sternum (SNOMED CT 526445443) Inactive Condition 07/28/2020 [place] [facility] SPRAIN LUMBAR REGION Inactive Condition 07/28/2020 [place] [facility] Diagnosis: ICD-10-CM M25.511 Pain in right shoulder Active Diagnosis [facility] Diagnosis: ICD-10-CM Z23 Encounter for immunization Active Diagnosis [facility] Diagnosis: ICD-10-CM R35.0 Frequency of micturition Active Diagnosis [facility] Diagnosis: ICD-10-CM M06.9 Rheumatoid arthritis, unspecified Active Diagnosis [place] [facility] Diagnosis: ICD-10-CM Z51.81 Encounter for therapeutic drug level monitoring Active Diagnosis [place] [facility] Diagnosis: ICD-10-CM R51.9 Headache, unspecified Active Diagnosis [facility] Diagnosis: ICD-10-CM 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 Active Diagnosis [facility] Diagnosis: ICD-10-CM R19.7 Diarrhea, unspecified Active Diagnosis [place] [facility] Diagnosis: ICD-10-CM H72.91 Unspecified perforation of tympanic membrane, right ear Active Diagnosis [facility] Diagnosis: ICD-10-CM 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 [place] [facility] Diagnosis: ICD-10-CM I48.91 Unspecified atrial fibrillation Active Diagnosis [place] [facility] [facility] Diagnosis: ICD-10-CM F03.90 Unsp dementia, unsp severity, without beh/psych/mood/anx Active Diagnosis [facility] Diagnosis: ICD-10-CM Z13.5 Encounter for screening for eye and ear disorders Active Diagnosis [place] [facility] Diagnosis: ICD-10-CM N40.1 Benign prostatic hyperplasia with lower urinary tract symp Active Diagnosis [place] [facility] Diagnosis: ICD-10-CM A63.8 Other specified predominantly sexually transmitted diseases Active Diagnosis [facility] Diagnosis: ICD-10-CM R30.0 Dysuria Active Diagnosis [facility] Diagnosis: ICD-10-CM Z95.1 Presence of aortocoronary bypass graft Active Diagnosis [facility] Medications Combined list of outpatient medications from Department of Defense and Veterans Affairs facilities.Medications provided include 1) outpatient medications from the last 15 months, and 2) patient-reported medications. Medication Details Route Status Patient Instructions Prescription Expires Prescription Number Last Dispense Date Ordering Provider Order Date Order Qty Source ALLOPURINOL 100MG TAB TAKE ONE TABLET BY MOUTH ONCE A DAY FOR GOUT. TAKE WITH PLENTY OF WATER. ORAL ACTIVE 08/09/2025 [id number] LAUREN WOODS 2024 90 [place] [facility] ALLOPURINOL 100MG TAB TAKE ONE TABLET BY MOUTH ONCE A DAY FOR GOUT. TAKE WITH PLENTY OF WATER. ORAL DISCONT INUED 09/07/2024 [id number] 5 LAUREN WOODS 2023 90 [place] [facility] AMLODIPINE BESYLATE 10MG TAB TAKE ONE TABLET BY MOUTH ONCE A DAY FOR HIGH BLOOD PRESSURE ORAL ACTIVE 10/03/2025 [id number] 5 LAUREN WOODS 2024 90 [place] [facility] AMLODIPINE BESYLATE 10MG TAB TAKE ONE TABLET BY MOUTH ONCE A DAY FOR HIGH BLOOD PRESSURE ORAL DISCONT INUED 09/07/2024 [id number] 5 LAUREN WOODS 2023 90 [place] [facility] APIXABAN 5MG TAB TAKE ONE TABLET BY MOUTH TWICE A DAY FOR ANTICOAG ULATION ORAL ACTIVE 11/29/2025 [id number] SALENA CARRION 2024 180 [place] [facility] APIXABAN 5MG TAB TAKE ONE TABLET BY MOUTH TWICE A DAY FOR ANTICOAG ULATION ORAL DISCONT INUED (EDIT) 12/22/2024 [id number] 5 SAL[place] CARRION 2023 120 [place] [facility] ATORVASTATI N CA 80MG TAB TAKE ONE-HALF TABLET BY MOUTH EVERY EVENING FOR CHOLESTE ROL. REPORT ANY UNEXPLAI FRIDA MUSCLE PAIN/WEA KNESS TO PROVIDER . ORAL ACTIVE 04/04/2025 [id number] 5 MANPREET MARKS 2023 45 [facility] ATORVASTATI N CA 80MG TAB TAKE ONE-HALF TABLET BY MOUTH EVERY EVENING FOR CHOLESTE ROL. REPORT ANY UNEXPLAI FRIDA MUSCLE PAIN/WEA KNESS TO PROVIDER . ORAL DISCONT INUED 05/17/2024 [id number] 4 LAUREN WOODS 2023 45 [place] [facility] BISMUTH SUBSALICYLA TE 262MG/15ML SUSP,ORAL TAKE 30 ML BY MOUTH PRN ORAL ACTIVE MANPREET MARKS 2021 [facility] CHOLECALCIF ARNIE 10MCG (400UNIT) TAB TAKE ONE TABLET BY MOUTH ONCE A DAY FOR VITAMIN D DEFICIEN CY. ORAL ACTIVE 10/24/2025 [id number] 5 LAUREN WOODS 2024 100 [facility] CHOLECALCIF ARNIE 10MCG (400UNIT) TAB TAKE ONE TABLET BY MOUTH ONCE A DAY FOR VITAMIN D DEFICIEN CY. ORAL DISCONT INUED 12/22/2024 [id number] 5 LAUREN WOODS 2023 100 [facility] CLOPIDOGREL BISULFATE 75MG TAB TAKE ONE TABLET BY MOUTH ONCE A DAY FOR STROKE PREVENTI ON ORAL 12/23/2024 [id number] 5 LAUREN WOODS 2023 90 [place] [facility] DICLOFENAC NA 1% GEL,TOP APPLY 2 GM TO AFFECTED AREA(S) FOUR TIMES A DAY NO MORE THAN 16 GM/DAY TO ANY LOWER EXTREMIT Y JOINT. NO MORE THAN 8 GM/DAY TO ANY UPPER EXTREMIT Y JOINT. MAX 32GM/DAY OVER ALL JOINTS.( MEASURE DOSE WITH RULER INSIDE BOX) TOPICA L 08/15/2024 [id number] 5 GABRIELLA FONTANEZ CTORIA 2024 100 [place] [facility] DONEPEZIL HCL 10MG TAB TAKE TWO TABLETS BY MOUTH AT BEDTIME FOR MEMORY (JUST PRIOR TO RETIRING ) ORAL ACTIVE 07/26/2025 [id number] 5 LAUREN WOODS 2024 180 [facility] DONEPEZIL HCL 10MG TAB TAKE TWO TABLETS BY MOUTH AT BEDTIME FOR MEMORY (JUST PRIOR TO RETIRING ) ORAL DISCONT INUED 04/20/2024 [id number] LAUREN WOODS 2023 180 [facility] EMPAGLIFLOZ IN 25MG TAB TAKE ONE TABLET BY MOUTH ONCE A DAY FOR DIABETES ORAL 12/22/2024 [id number] 5 MANPREET MARKS 2023 90 [facility] FISH OIL 1000MG (500MG DHA/EPA) CAP,ORAL TAKE ONE CAPSULE BY MOUTH TWICE A DAY WITH MEALS FOR HIGH TRIGLYCE RIDES ORAL DISCONT INUED 03/29/2024 [id number] MANPREET MARKS Bogdan 2022 200 [facility] FOLIC ACID 0.4MG TAB TAKE ONE TABLET BY MOUTH ONCE A DAY FOR FOLIC ACID SUPPLEME NTATION ORAL ACTIVE 04/04/2025 [id number] 5 KENDRICKMANPREET 2024 100 [facility] FOLIC ACID 0.4MG TAB TAKE ONE TABLET BY MOUTH ONCE A DAY FOR FOLIC ACID SUPPLEME NTATION ORAL DISCONT INUED 04/20/2024 [id number] 4 LAUREN WOODS 2022 100 [facility] FUROSEMIDE 20MG TAB TAKE ONE TABLET BY MOUTH EVERY MORNING FOR FLUID RETENTIO N ORAL ACTIVE 04/04/2025 [id number] 5 KENDRICKMANPREET 2023 90 [facility] FUROSEMIDE 20MG TAB TAKE ONE TABLET BY MOUTH EVERY MORNING FOR FLUID RETENTIO N ORAL DISCONT INUED 05/17/2024 [id number] 4 LAUREN WOODS 2023 90 [facility] GLIPIZIDE 5MG TAB TAKE ONE TABLET BY MOUTH TWO TIMES A DAY BEFORE MEALS FOR DIABETES TAKE 30 MINUTES BEFORE EATING. ORAL ACTIVE 10/23/2025 [id number] 5 LAUREN WOODS 2024 180 [facility] HYDROCODONE 5MG/ACETAMI NOPHEN 325MG TAB TAKE 1 TABLET BY MOUTH EVERY 6 HOURS NEEDED FOR SEVERE PAIN (MAX 4 TABLETS PER DAY) CAUTION: DO NOT EXCEED 4000MG PER DAY ACETAMIN OPHEN (APAP) FROM ALL MEDS. ORAL 08/15/2024 [id number] 5 GABRIELLA FONTANEZ CTRANDI 2024 10 [place] [facility] HYDROCODONE 5MG/ACETAMI NOPHEN 325MG TAB TAKE 1 TABLET BY MOUTH EVERY EIGHT(8) HOURS NEEDED FOR PAIN (MAX 3 TABLETS PER DAY) CAUTION: DO NOT EXCEED 4000MG PER DAY ACETAMIN OPHEN (APAP) FROM ALL MEDS. ORAL 04/20/2024 [id number] DUGLAS PETERDARYL Posada 2023 20 [place] [facility] LIDOCAINE 5% PATCH APPLY 1 PATCH TO AFFECTED AREA(S) EVERY 24 HOURS (ONCE A DAY) APPLY PATCH AND PRESS FIRMLY FOR 10-15 SECONDS. KEEP ON FOR 12 HOURS THEN REMOVE PATCH FOR 12 HOURS. TOPICA L 08/15/2024 [id number] 5 GABRIELLA FONTANEZ CTORIA 2024 30 [place] [facility] LOPERAMIDE HCL 2MG CAP TAKE ONE CAPSULE BY MOUTH NEEDED FOR DIARRHEA TAKE 2 CAPSULES JUST BEFORE START OF DIARRHEA , THEN 1 CAPSULE AFTER EACH DIARRHEA EPISODE TO MAXIMUM OF 8 CAPSULES IN A DAY TAKE 2 CAPSULES JUST BEFORE START OF DIARRHEA , THEN 1 CAPSULE AFTER EACH DIARRHEA EPISODE TO MAXIMUM OF 8 CAPSULES IN A DAY ORAL ACTIVE 01/19/2025 [id number] KENDRICK MANPREET Bogdan 2023 60 [facility] METFORMIN HCL 500MG 24HR TAB,SA TAKE TWO TABLETS BY MOUTH TWICE A DAY WITH MEALS FOR DIABETES TAKE WITH FOOD. AVOID ALCOHOL. DISCONTI NUE BEFORE GETTING XRAY DYE. INCREASE DOSE ORAL DISCONT INUED 04/04/2025 [id number] 4 MANPREET MARKS Bogdan 2023 120 [facility] METFORMIN HCL 500MG 24HR TAB,SA TAKE TWO TABLETS BY MOUTH TWICE A DAY WITH MEALS FOR DIABETES TAKE WITH FOOD. AVOID ALCOHOL. DISCONTI NUE BEFORE GETTING XRAY DYE. INCREASE DOSE ORAL DISCONT INUED 10/20/2024 [id number] 4 KENDRICK MANPREET W 2023 120 [facility] METFORMIN HCL 500MG 24HR TAB,SA TAKE TWO TABLETS BY MOUTH TWICE A DAY WITH MEALS FOR DIABETES TAKE WITH FOOD. AVOID ALCOHOL. DISCONTI NUE BEFORE GETTING XRAY DYE. INCREASE DOSE ORAL 07/02/2024 [id number] 5 KENDRICK MANPREET Bogdan 2024 360 [facility] METOPROLOL TARTRATE 100MG TAB TAKE ONE-HALF TABLET BY MOUTH TWICE A DAY FOR HEART/BL OOD PRESSURE . TAKE WITH OR IMMEDIAT CALLY FOLLOWIN G FOOD. ORAL ACTIVE 07/26/2025 [id number] 5 LAUREN WOODS R [address] [place] [id number] [facility] METOPROLOL TARTRATE 100MG TAB TAKE ONE-HALF TABLET BY MOUTH TWICE A DAY FOR HEART/BL OOD PRESSURE . TAKE WITH OR IMMEDIAT CALLY FOLLOWIN G FOOD. ORAL DISCONT INUED 07/27/2024 [id number] 4 LAUREN WOODS R 2023 90 [facility] PANTOPRAZOL E NA 40MG TAB,EC TAKE ONE TABLET BY MOUTH TWICE A DAY TO LOWER STOMACH ACID - TAKE 30 MINUTES BEFORE MEAL(S) ORAL ACTIVE 10/03/2025 [id number] 5 LAUREN WOODS R 2024 180 [facility] PANTOPRAZOL E NA 40MG TAB,EC TAKE ONE TABLET BY MOUTH TWICE A DAY TO LOWER STOMACH ACID - TAKE 30 MINUTES BEFORE MEAL(S) ORAL DISCONT INUED 07/27/2024 [id number] 5 LAUREN WOODS R [address] [place] [address] [facility] PROBIOTIC COMBINATION CAP/TAB TAKE 1 CAPSULE BY MOUTH ONCE A DAY NUTRITIO NAL SUPPLEME NT ORAL ACTIVE 03/02/2025 [id number] 5 MANPREET MARKS [address] [place] [id number] [facility] PROBIOTIC COMBINATION CAP/TAB TAKE 1 CAPSULE BY MOUTH ONCE A DAY NUTRITIO NAL SUPPLEME NT ORAL DISCONT INUED 01/05/2024 [id number] 4 MANPREET MARKS [address] [place] [id number] [facility] TAMSULOSIN HCL 0.4MG CAP TAKE ONE CAPSULE BY MOUTH EVERY EVENING FOR BENIGN PROSTATI C HYPERPLA ERAN APPROXIM ATELY 30 MINUTES AFTER THE SAME MEAL EACH DAY ORAL ACTIVE 04/04/2025 [id number] 5 MANPREET MARKS [address] [place] [id number] [facility] TAMSULOSIN HCL 0.4MG CAP TAKE ONE CAPSULE BY MOUTH EVERY EVENING FOR BENIGN PROSTATI C HYPERPLA ERAN APPROXIM ATELY 30 MINUTES AFTER THE SAME MEAL EACH DAY ORAL DISCONT INUED 06/20/2024 [id number] 4 PEGGYLAUREN Albino Mena 2023 90 [facility] WARFARIN NA ([place]) 2MG TAB TAKE FOUR TABLETS BY MOUTH MON, WED AND FRI AND TAKE THREE TABLETS ALL OTHER DAYS FOR ANTICOAG ULATION ORAL DISCONT INUED 11/23/2024 [id number] 4 VINCENT ENCARNACION 2023 102 [place] [facility] WARFARIN NA ([place]) 2MG TAB TAKE FOUR TABLETS BY MOUTH MON, WED AND FRI AND TAKE THREE TABLETS ALL OTHER DAYS FOR ANTICOAG ULATION ORAL DISCONT INUED 10/20/2024 [id number] 4 SAL[place] CARRION 2023 102 [facility] Immunizations Combined list of available immunizations from the Department of Defense and Veterans Affairs facilities. Immunization Series Date Given Administered By Site Reaction Lot Number CVX Code Drug Plan Checker Status Comments Source ZOSTER RECOMBINANT 2024 [place] LACKEY LEFT DELTO ID [id number] 187 complet ed [facility] ZOSTER RECOMBINANT 2024 [place] LEFT DELTO ID [id number] 187 complet ed [facility] COVID-19 (MODERNA), MRNA, LNP-S, PF, 100 MCG/0.5ML DOSE OR 50 MCG/0.25ML DOSE 3 2020 207 complet ed HISTORICA L INFORMATI ON - FROM OTHER REGISTRY, [facility] COVID-19 (MODERNA), MRNA, LNP-S, PF, 100 MCG/0.5 ML DOSE 2 2020 207 complet ed MOD; [id number]; 1 [place] [facility] COVID-19 (MODERNA), MRNA, LNP-S, PF, 100 MCG/0.5 ML DOSE 1 2020 207 complet ed MOD; [id number]; 1 [facility] TETANUS-DIPHT -aPERT (HISTORICAL) 2010 115 complet ed [facility] TD(ADULT) UNSPECIFIED FORMULATION 2004 139 complet ed Booster for Series, TERRANCE GUERRERO [facility] TD(ADULT) UNSPECIFIED FORMULATION 2001 139 complet ed [facility] Results Combined list of recent chemistry, hematology and other laboratory results from Department of Defense and Veterans Affairs, ranging from 15 months to all on record, depending upon the facility. Order Name Results Value Reference Range Date Interpretation Specimen Comments Source HGA1C HEMOGLOBIN A1C/HEMOGLO BIN.TOTAL IN BLOOD 7.8 4.0 - 6.0 09/12 H Specimen Type: BLOOD No comment entered. Ordering Provider: NUPUR WOODS Report Released Date/Time: Jun 14, 2024 08:29 AM Reporting Lab: [place] [facility] [address] [place] [address] Performing Lab: [place] [facility] [address] [place] [address] [facility] CHOLESTER OL PANEL (PB) CHOLESTEROL [MASS/VOLUM E] IN SERUM OR PLASMA 126 mg/dL 0 - 200 09/12 Specimen Type: PLASMA Comment: LDL calculation invalid when Triglycerid e exceeds 250 mg/dl Ordering Provider: NUPUR WOODS Report Released Date/Time: Jun 14, 2024 08:29 AM Reporting Lab: [place] [facility] [address] [place] [address] Performing Lab: [place] [facility] [address] [place] [address] [facility] CHOLESTER OL PANEL (PB) TRIGLYCERID E [MASS/VOLUM E] IN SERUM OR PLASMA 264 mg/dL 0 - 150 09/12 H Specimen Type: PLASMA Comment: LDL calculation invalid when Triglycerid e exceeds 250 mg/dl Ordering Provider: NUPUR WOODS Report Released Date/Time: Jun 14, 2024 08:29 AM Reporting Lab: [place] [facility] [address] [place] [address] Performing Lab: [place] [facility] [address] [place] [address] [facility] CHOLESTER OL PANEL (PB) CHOLESTEROL IN LDL [MASS/VOLUM E] IN SERUM OR PLASMA BY CALCULATION commentm g/dL 09/12 Specimen Type: PLASMA Comment: LDL calculation invalid when Triglycerid e exceeds 250 mg/dl Ordering Provider: NUPUR WOODS Report Released Date/Time: Jun 14, 2024 08:29 AM Reporting Lab: [place] [facility] [address] [place] [address] Performing Lab: [place] [facility] [address] [place] [address] [facility] CHOLESTER OL PANEL (PB) CHOLESTEROL IN HDL [MASS/VOLUM E] IN SERUM OR PLASMA 34.5 mg/dL 40 09/12 L Specimen Type: PLASMA Comment: LDL calculation invalid when Triglycerid e exceeds 250 mg/dl Ordering Provider: NUPUR WOODS Report Released Date/Time: Jun 14, 2024 08:29 AM Reporting Lab: [place] [facility] [address] [place] [address] Performing Lab: [place] [facility] [address] [place] [address] [facility] CHOLESTER OL PANEL (PB) CHOLESTEROL IN HDL/CHOLEST ARNIE.TOTAL [MASS RATIO] IN SERUM OR PLASMA 27.4 25 09/12 Specimen Type: PLASMA Comment: LDL calculation invalid when Triglycerid e exceeds 250 mg/dl Ordering Provider: NUPUR WOODS Report Released Date/Time: Jun 14, 2024 08:29 AM Reporting Lab: [place] [facility] [address] [place] [address] Performing Lab: [place] [facility] [address] [place] [address] [facility] CHOLESTER OL PANEL (PB) CHOLESTEROL IN LDL [MASS/VOLUM E] IN SERUM OR PLASMA BY DIRECT ASSAY 65.3 mg/dL 0 - 99.9 09/12 Specimen Type: PLASMA Comment: LDL calculation invalid when Triglycerid e exceeds 250 mg/dl Ordering Provider: NUPUR WOODS Report Released Date/Time: Jun 14, 2024 08:29 AM Reporting Lab: [place] [facility] [address] [place] [address] Performing Lab: [place] [facility] [address] [place] [address] [facility] HEPATIC FUNCTION PROFILE (PB) PROTEIN [MASS/VOLUM E] IN SERUM OR PLASMA 7.4 g/dL 6 - 8.6 09/12 Specimen Type: PLASMA Comment: LDL calculation invalid when Triglycerid e exceeds 250 mg/dl Ordering Provider: NUPUR WOODS Report Released Date/Time: Jun 14, 2024 08:29 AM Reporting Lab: [place] [facility] [address] [place] [address] Performing Lab: [place] [facility] [address] [place] [address] [facility] HEPATIC FUNCTION PROFILE (PB) ALBUMIN [MASS/VOLUM E] IN SERUM OR PLASMA 4.2 g/dL 3.4 - 5 09/12 Specimen Type: PLASMA Comment: LDL calculation invalid when Triglycerid e exceeds 250 mg/dl Ordering Provider: NUPUR WOODS Report Released Date/Time: Jun 14, 2024 08:29 AM Reporting Lab: [place] [facility] [address] [place] [address] Performing Lab: [place] [facility] [address] [place] [address] [facility] HEPATIC FUNCTION PROFILE (PB) BILIRUBIN.T OTAL [MASS/VOLUM E] IN SERUM OR PLASMA 0.7 mg/dL 0.2 - 1.2 09/12 Specimen Type: PLASMA Comment: LDL calculation invalid when Triglycerid e exceeds 250 mg/dl Ordering Provider: NUPUR WOODS Report Released Date/Time: Jun 14, 2024 08:29 AM Reporting Lab: [place] [facility] [address] [place] [address] Performing Lab: [place] [facility] [address] [place] [address] [facility] HEPATIC FUNCTION PROFILE (PB) ALKALINE PHOSPHATASE [ENZYMATIC ACTIVITY/VO LUME] IN SERUM OR PLASMA 80 U/L 40 - 150 09/12 Specimen Type: PLASMA Comment: LDL calculation invalid when Triglycerid e exceeds 250 mg/dl Ordering Provider: NUPUR WOODS Report Released Date/Time: Jun 14, 2024 08:29 AM Reporting Lab: [place] [facility] [address] [place] [address] Performing Lab: [place] [facility] [address] [place] [address] [facility] HEPATIC FUNCTION PROFILE (PB) ASPARTATE AMINOTRANSF ERASE [ENZYMATIC ACTIVITY/VO LUME] IN SERUM OR PLASMA 16 U/L 5 - 34 09/12 Specimen Type: PLASMA Comment: LDL calculation invalid when Triglycerid e exceeds 250 mg/dl Ordering Provider: NUPUR WOODS Report Released Date/Time: Jun 14, 2024 08:29 AM Reporting Lab: [place] [facility] [address] [place] [address] Performing Lab: [place] [facility] [address] [place] [address] [facility] HEPATIC FUNCTION PROFILE (PB) ALANINE AMINOTRANSF ERASE [ENZYMATIC ACTIVITY/VO LUME] IN SERUM OR PLASMA 14 U/L 8 - 40 09/12 Specimen Type: PLASMA Comment: LDL calculation invalid when Triglycerid e exceeds 250 mg/dl Ordering Provider: NUPUR WOODS Report Released Date/Time: Jun 14, 2024 08:29 AM Reporting Lab: [place] [facility] [address] [place] [address] Performing Lab: [place] [facility] [address] [place] [address] [facility] HEPATIC FUNCTION PROFILE (PB) BILIRUBIN.C ONJUGATED [MASS/VOLUM E] IN SERUM OR PLASMA 0.2 mg/dL 0 - 0.5 09/12 Specimen Type: PLASMA Comment: LDL calculation invalid when Triglycerid e exceeds 250 mg/dl Ordering Provider: NUPUR WOODS Report Released Date/Time: Jun 14, 2024 08:29 AM Reporting Lab: [place] [facility] [address] [place] [address] Performing Lab: [place] [facility] [address] [place] [address] [facility] B12 COBALAMIN (VITAMIN B12) [MASS/VOLUM E] IN SERUM OR PLASMA 368 pg/mL 213 - 816 09/12 Specimen Type: SERUM No comment entered. Ordering Provider: NUPUR WOODS Report Released Date/Time: Jun 14, 2024 08:29 AM Reporting Lab: [place] [facility] [address] [place] [address] Performing Lab: [place] [facility] [address] [place] [address] [facility] BASIC METABOLIC PANEL CREATININE [MASS/VOLUM E] IN SERUM OR PLASMA 1.01 mg/dL 0.7 - 1.3 09/12 Specimen Type: PLASMA Comment: LDL calculation invalid when Triglycerid e exceeds 250 mg/dl Ordering Provider: NUPUR WOODS Report Released Date/Time: Jun 14, 2024 08:29 AM Reporting Lab: [place] [facility] [address] [place] [address] Performing Lab: [place] [facility] [address] [place] [address] [facility] BASIC METABOLIC PANEL UREA NITROGEN [MASS/VOLUM E] IN SERUM OR PLASMA 17 mg/dL 9 - 25 09/12 Specimen Type: PLASMA Comment: LDL calculation invalid when Triglycerid e exceeds 250 mg/dl Ordering Provider: NUPUR WOODS Report Released Date/Time: Jun 14, 2024 08:29 AM Reporting Lab: [place] [facility] [address] [place] [address] Performing Lab: [place] [facility] [address] [place] [address] [facility] BASIC METABOLIC PANEL GLUCOSE [MASS/VOLUM E] IN SERUM OR PLASMA 196 mg/dL 72 - 99 09/12 H Specimen Type: PLASMA Comment: LDL calculation invalid when Triglycerid e exceeds 250 mg/dl Ordering Provider: NUPUR WOODS Report Released Date/Time: Jun 14, 2024 08:29 AM Reporting Lab: [place] [facility] [address] [place] [address] Performing Lab: [place] [facility] [address] [place] [address] [facility] BASIC METABOLIC PANEL SODIUM [MOLES/VOLU ME] IN SERUM OR PLASMA 140 meq/L 136 - 145 09/12 Specimen Type: PLASMA Comment: LDL calculation invalid when Triglycerid e exceeds 250 mg/dl Ordering Provider: NUPUR WOODS Report Released Date/Time: Jun 14, 2024 08:29 AM Reporting Lab: [place] [facility] [address] [place] [address] Performing Lab: [place] [facility] [address] [place] [facility] [facility] BASIC METABOLIC PANEL POTASSIUM [MOLES/VOLU ME] IN SERUM OR PLASMA 4.7 meq/L 3.5 - 5 09/12 Specimen Type: PLASMA Comment: LDL calculation invalid when Triglycerid e exceeds 250 mg/dl Ordering Provider: NUPUR WOODS Report Released Date/Time: Jun 14, 2024 08:29 AM Reporting Lab: [place] [facility] [address] [place] [address] Performing Lab: [place] [facility] [address] [place] [facility] [place] [address] [facility] BASIC METABOLIC PANEL CHLORIDE [MOLES/VOLU ME] IN SERUM OR PLASMA 107 meq/L 98 - 107 09/12 Specimen Type: PLASMA Comment: LDL calculation invalid when Triglycerid e exceeds 250 mg/dl Ordering Provider: NUPUR WOODS Report Released Date/Time: Jun 14, 2024 08:29 AM Reporting Lab: [place] [facility] [address] [place] [address] Performing Lab: [place] [facility] [address] [place] [address] [facility] BASIC METABOLIC PANEL CARBON DIOXIDE, TOTAL [MOLES/VOLU ME] IN SERUM OR PLASMA 23 meq/L 22 - 31 09/12 Specimen Type: PLASMA Comment: LDL calculation invalid when Triglycerid e exceeds 250 mg/dl Ordering Provider: NUPUR WOODS Report Released Date/Time: Jun 14, 2024 08:29 AM Reporting Lab: [place] [facility] [address] [place] [address] Performing Lab: [place] [facility] [address] [place] [address] [facility] BASIC METABOLIC PANEL CALCIUM [MASS/VOLUM E] IN SERUM OR PLASMA 9.1 mg/dL 8.4 - 10.4 09/12 Specimen Type: PLASMA Comment: LDL calculation invalid when Triglycerid e exceeds 250 mg/dl Ordering Provider: NUPUR WOODS Report Released Date/Time: Jun 14, 2024 08:29 AM Reporting Lab: [place] [facility] [address] [place] [address] Performing Lab: [place] [facility] [address] [place] [address] [facility] BASIC METABOLIC PANEL GLOMERULAR FILTRATION RATE/1.73 SQ M.PREDICTED [VOLUME RATE/AREA] IN SERUM, PLASMA OR BLOOD BY CREATININE- BASED FORMULA (CKD-EPI 2020) 79 09/12 Specimen Type: PLASMA Comment: LDL calculation invalid when Triglycerid e exceeds 250 mg/dl Ordering Provider: NUPUR WOODS Report Released Date/Time: Jun 14, 2024 08:29 AM Reporting Lab: [place] [facility] [address] [place] [address] Performing Lab: [place] [facility] [address] [place] [address] [facility] CBC LEUKOCYTES [#/VOLUME] IN BLOOD BY AUTOMATED COUNT 8.9 10*3/uL 3.6 - 11.2 09/12 Specimen Type: BLOOD Comment: ~Pre-Operat jo-ann Pre-Operati ve Ordering Provider: NUPUR WOODS Report Released Date/Time: Jun 14, 2024 08:29 AM Reporting Lab: [place] [facility] [address] [place] [address] Performing Lab: [place] [facility] [address] [place] [address] [facility] CBC ERYTHROCYTE S [#/VOLUME] IN BLOOD BY AUTOMATED COUNT 5.03 10*6/uL 4.10 - 5.70 09/12 Specimen Type: BLOOD Comment: ~Pre-Operat jo-ann Pre-Operati ve Ordering Provider: NUPUR WOODS Report Released Date/Time: Jun 14, 2024 08:29 AM Reporting Lab: [place] [facility] [address] [place] [address] Performing Lab: [place] [facility] [address] [place] [address] [facility] CBC HEMOGLOBIN [MASS/VOLUM E] IN BLOOD 14.8 g/dL 13.1 - 16.8 09/12 Specimen Type: BLOOD Comment: ~Pre-Operat jo-ann Pre-Operati ve Ordering Provider: NUPUR WOODS Report Released Date/Time: Jun 14, 2024 08:29 AM Reporting Lab: [place] [facility] [address] [place] [address] Performing Lab: [place] [facility] [address] [place] [address] [facility] CBC HEMATOCRIT [VOLUME FRACTION] OF BLOOD 45.8 38.2 - 48.4 09/12 Specimen Type: BLOOD Comment: ~Pre-Operat jo-ann Pre-Operati ve Ordering Provider: NUPUR WOODS Report Released Date/Time: Jun 14, 2024 08:29 AM Reporting Lab: [place] [facility] [address] [place] [address] Performing Lab: [place] [facility] [address] [place] [address] [facility] CBC MCV [ENTITIC VOLUME] BY AUTOMATED COUNT 91.1 fL 80.0 - 100.0 09/12 Specimen Type: BLOOD Comment: ~Pre-Operat jo-ann Pre-Operati ve Ordering Provider: NUPUR WOODS Report Released Date/Time: Jun 14, 2024 08:29 AM Reporting Lab: [place] [facility] [address] [place] [address] Performing Lab: [place] [facility] [address] [place] [address] [facility] CBC MCH [ENTITIC MASS] BY AUTOMATED COUNT 29.4 pg 27.0 - 34.0 09/12 Specimen Type: BLOOD Comment: ~Pre-Operat jo-ann Pre-Operati ve Ordering Provider: NUPUR WOODS Report Released Date/Time: Jun 14, 2024 08:29 AM Reporting Lab: [place] [facility] [address] [place] [address] Performing Lab: [place] [facility] [address] [place] [address] [facility] CBC MCHC [MASS/VOLUM E] BY AUTOMATED COUNT 32.3 g/dL 33.0 - 36.0 09/12 L Specimen Type: BLOOD Comment: ~Pre-Operat jo-ann Pre-Operati ve Ordering Provider: NUPUR WOODS Report Released Date/Time: Jun 14, 2024 08:29 AM Reporting Lab: [place] [facility] [address] [place] [address] Performing Lab: [place] [facility] [address] [place] [address] [facility] CBC PLATELETS [#/VOLUME] IN BLOOD BY AUTOMATED COUNT 250 10*3/uL 150 - 400 09/12 Specimen Type: BLOOD Comment: ~Pre-Operat jo-ann Pre-Operati ve Ordering Provider: NUPUR WOODS Report Released Date/Time: Jun 14, 2024 08:29 AM Reporting Lab: [place] [facility] [address] [place] [address] Performing Lab: [place] [facility] [address] [place] [address] [facility] CBC PLATELET MEAN VOLUME [ENTITIC VOLUME] IN BLOOD BY AUTOMATED COUNT 11.8 fL 7.5 - 11.2 09/12 H Specimen Type: BLOOD Comment: ~Pre-Operat jo-ann Pre-Operati ve Ordering Provider: NUPUR WOODS Report Released Date/Time: Jun 14, 2024 08:29 AM Reporting Lab: [place] [facility] [address] [place] [address] Performing Lab: [place] [facility] [address] [place] [address] [facility] CBC ERYTHROCYTE DISTRIBUTIO N WIDTH [RATIO] BY AUTOMATED COUNT 15.0 11.8 - 15.1 09/12 Specimen Type: BLOOD Comment: ~Pre-Operat jo-ann Pre-Operati ve Ordering Provider: NUPUR WOODS Report Released Date/Time: Jun 14, 2024 08:29 AM Reporting Lab: [place] [facility] [address] [place] [address] Performing Lab: [place] [facility] [address] [place] [address] [facility] CBC LYMPHOCYTES /100 LEUKOCYTES IN BLOOD BY AUTOMATED COUNT 14.9 09/12 Specimen Type: BLOOD Comment: ~Pre-Operat jo-ann Pre-Operati ve Ordering Provider: NUPUR WOODS Report Released Date/Time: Jun 14, 2024 08:29 AM Reporting Lab: [place] [facility] [address] [place] [address] Performing Lab: [place] [facility] [address] [place] [id number] [facility] CBC MONOCYTES/1 00 LEUKOCYTES IN BLOOD BY AUTOMATED COUNT 5.9 09/12 Specimen Type: BLOOD Comment: ~Pre-Operat jo-ann Pre-Operati ve Ordering Provider: NUPUR WOODS Report Released Date/Time: Jun 14, 2024 08:29 AM Reporting Lab: [place] [facility] [address] [place] [address] Performing Lab: [place] [facility] [address] [place] [address] [facility] CBC NEUTROPHILS /100 LEUKOCYTES IN BLOOD BY AUTOMATED COUNT 77.0 09/12 Specimen Type: BLOOD Comment: ~Pre-Operat jo-ann Pre-Operati ve Ordering Provider: NUPUR WOODS Report Released Date/Time: Jun 14, 2024 08:29 AM Reporting Lab: [place] [facility] [address] [place] [address] Performing Lab: [place] [facility] [address] [place] [address] [facility] CBC EOSINOPHILS /100 LEUKOCYTES IN BLOOD BY AUTOMATED COUNT 1.1 09/12 Specimen Type: BLOOD Comment: ~Pre-Operat jo-ann Pre-Operati ve Ordering Provider: NUPUR WOODS Report Released Date/Time: Jun 14, 2024 08:29 AM Reporting Lab: [place] [facility] [address] [place] [address] Performing Lab: [place] [facility] [address] [place] [address] [facility] CBC BASOPHILS/1 00 LEUKOCYTES IN BLOOD BY AUTOMATED COUNT 0.5 09/12 Specimen Type: BLOOD Comment: ~Pre-Operat jo-ann Pre-Operati ve Ordering Provider: NUPUR WOODS Report Released Date/Time: Jun 14, 2024 08:29 AM Reporting Lab: [place] [facility] [address] [place] [id number] Performing Lab: [place] [facility] [address] [place] [address] [facility] CBC LYMPHOCYTES [#/VOLUME] IN BLOOD BY AUTOMATED COUNT 1.32 10*3/uL 0.77 - 4.50 09/12 Specimen Type: BLOOD Comment: ~Pre-Operat jo-ann Pre-Operati ve Ordering Provider: NUPUR WOODS Report Released Date/Time: Jun 14, 2024 08:29 AM Reporting Lab: [place] [facility] [address] [place] [id number] Performing Lab: [place] [facility] [address] [place] [address] [facility] CBC MONOCYTES [#/VOLUME] IN BLOOD BY AUTOMATED COUNT 0.52 10*3/uL 0.19 - 0.8 09/12 Specimen Type: BLOOD Comment: ~Pre-Operat jo-ann Pre-Operati ve Ordering Provider: NUPUR WOODS Report Released Date/Time: Jun 14, 2024 08:29 AM Reporting Lab: [place] [facility] [address] [place] [address] Performing Lab: [place] [facility] [address] [place] [address] [facility] CBC NEUTROPHILS [#/VOLUME] IN BLOOD BY AUTOMATED COUNT 6.83 10*3/uL 2.10 - 8.00 09/12 Specimen Type: BLOOD Comment: ~Pre-Operat jo-ann Pre-Operati ve Ordering Provider: NUPUR WOODS Report Released Date/Time: Jun 14, 2024 08:29 AM Reporting Lab: [place] [facility] [address] [place] [facility] Performing Lab: [place] [facility] [address] [place] [address] [place] [address] [facility] CBC EOSINOPHILS [#/VOLUME] IN BLOOD BY AUTOMATED COUNT 0.10 10*3/uL 0.00 - 0.60 09/12 Specimen Type: BLOOD Comment: ~Pre-Operat jo-ann Pre-Operati ve Ordering Provider: NUPUR WOODS Report Released Date/Time: Jun 14, 2024 08:29 AM Reporting Lab: [place] [facility] [address] [place] [facility] Performing Lab: [place] [facility] [address] [place] [address] [facility] CBC BASOPHILS [#/VOLUME] IN BLOOD BY AUTOMATED COUNT 0.04 10*3/uL 0.00 - 0.20 09/12 Specimen Type: BLOOD Comment: ~Pre-Operat jo-ann Pre-Operati ve Ordering Provider: NUPUR WOODS Report Released Date/Time: Jun 14, 2024 08:29 AM Reporting Lab: [place] [facility] [address] [place] [facility] Performing Lab: [place] [facility] [address] [place] [address] [facility] CBC IMMATURE GRANULOCYTE S/100 LEUKOCYTES IN BLOOD BY AUTOMATED COUNT 0.6 09/12 Specimen Type: BLOOD Comment: ~Pre-Operat jo-ann Pre-Operati ve Ordering Provider: NUPUR WOODS Report Released Date/Time: Jun 14, 2024 08:29 AM Reporting Lab: [place] [facility] [address] [place] [address] Performing Lab: [place] [facility] [address] [place] [address] [facility] CBC IMMATURE GRANULOCYTE S [#/VOLUME] IN BLOOD BY AUTOMATED COUNT 0.05 10*3/uL 0.00 - 0.05 09/12 Specimen Type: BLOOD Comment: ~Pre-Operat jo-ann Pre-Operati ve Ordering Provider: NUPUR WOODS Report Released Date/Time: Jun 14, 2024 08:29 AM Reporting Lab: [place] [facility] [address] [place] [id number] Performing Lab: [place] [facility] [address] [place] [phone] [facility] POC UA (STL-PB-M A) PROTEIN [MASS/VOLUM E] IN URINE BY TEST STRIP Negative mg/dL 06/05 Specimen Type: URINE No comment entered. Ordering Provider: NUPUR WOODS Report Released Date/Time: Jun 05, 2024 04:22 PM Reporting Lab: [place] [facility] [address] [facility] [address] Performing Lab: [place] [facility] [address] [facility] [address] [facility] POC UA (STL-PB-M A) HEMOGLOBIN [MASS/VOLUM E] IN URINE BY TEST STRIP Negative 06/05 Specimen Type: URINE No comment entered. Ordering Provider: NUPUR WOODS Report Released Date/Time: Jun 05, 2024 04:22 PM Reporting Lab: [place] [facility] [address] [facility] [address] Performing Lab: [place] [facility] [address] [facility] [address] [facility] POC UA (STL-PB-M A) LEUKOCYTES [PRESENCE] IN URINE Negative 06/05 Specimen Type: URINE No comment entered. Ordering Provider: NUPUR WOODS Report Released Date/Time: Jun 05, 2024 04:22 PM Reporting Lab: [place] [facility] [address] [facility] [address] Performing Lab: [place] [facility] [address] [facility] [address] [facility] [address] [facility] POC UA (STL-PB-M A) COLOR OF URINE Yellow 06/05 Specimen Type: URINE No comment entered. Ordering Provider: NUPUR WOODS Report Released Date/Time: Jun 05, 2024 04:22 PM Reporting Lab: [place] [facility] [address] [facility] [address] Performing Lab: [place] [facility] [address] [facility] [address] [facility] [address] [facility] POC UA (STL-PB-M A) SPECIFIC GRAVITY OF URINE 1.020 1.005 - 1.030 06/05 Specimen Type: URINE No comment entered. Ordering Provider: NUPUR WOODS Report Released Date/Time: Jun 05, 2024 04:22 PM Reporting Lab: [facility] [address] [facility] [address] [facility] [address] Performing Lab: [place] [facility] [address] [facility] [address] [facility] [address] [facility] POC UA (STL-PB-M A) UROBILINOGE N [UNITS/VOLU ME] IN URINE 0.2 {Caitlin 'U}/dL 0.1 - 1.0 06/05 Specimen Type: URINE No comment entered. Ordering Provider: NUPUR WOODS Report Released Date/Time: Jun 05, 2024 04:22 PM Reporting Lab: [place] [facility] [address] [facility] [address] Performing Lab: [place] [facility] [address] [facility] [address] [facility] [address] [facility] POC UA (STL-PB-M A) BILIRUBIN.T OTAL [PRESENCE] IN URINE Negative 06/05 Specimen Type: URINE No comment entered. Ordering Provider: NUPUR WOODS Report Released Date/Time: Jun 05, 2024 04:22 PM Reporting Lab: [place] [facility] [address] [facility] [address] Performing Lab: [place] [facility] [address] [place] [address] [place] [facility] POC UA (STL-PB-M A) KETONES [MASS/VOLUM E] IN URINE BY TEST STRIP Negative mg/dL 06/05 Specimen Type: URINE No comment entered. Ordering Provider: NUPUR WOODS Report Released Date/Time: Jun 05, 2024 04:22 PM Reporting Lab: [place] [facility] [address] [place] [address] Performing Lab: [place] [facility] [address] [place] [address] [place] [facility] POC UA (STL-PB-M A) GLUCOSE [MASS/VOLUM E] IN URINE BY TEST STRIP >=1000mg /dL 06/05 Specimen Type: URINE No comment entered. Ordering Provider: NUPUR WOODS Report Released Date/Time: Jun 05, 2024 04:22 PM Reporting Lab: [place] [facility] [address] [facility] [address] Performing Lab: [place] [facility] [address] [facility] [address] [place] [facility] POC UA (STL-PB-M A) PH OF URINE 5.5 5.0 - 8.0 06/05 Specimen Type: URINE No comment entered. Ordering Provider: NUPUR WOODS Report Released Date/Time: Jun 05, 2024 04:22 PM Reporting Lab: [place] [facility] [address] [facility] [address] Performing Lab: [place] [facility] [address] [place] [address] [place] [facility] POC UA (STL-PB-M A) NITRITE [PRESENCE] IN URINE BY TEST STRIP Negative 06/05 Specimen Type: URINE No comment entered. Ordering Provider: NUPUR WOODS Report Released Date/Time: Jun 05, 2024 04:22 PM Reporting Lab: [place] [facility] [address] [facility] [address] Performing Lab: [place] [facility] [address] [facility] [address] [facility] POC UA (STL-PB-M A) CLARITY OF URINE Clear 06/05 Specimen Type: URINE No comment entered. Ordering Provider: NUPUR WOODS Report Released Date/Time: Jun 05, 2024 04:22 PM Reporting Lab: [facility] [address] [facility] [address] Performing Lab: [place] [facility] [address] [facility] [address] [facility] ANCILLARY GLUCOSE-P B GLUCOSE [MASS/VOLUM E] IN BLOOD BY AUTOMATED TEST STRIP 106 mg/dL 72 - 99 06/05 H Specimen Type: BLOOD Comment: Test performed by: Luis A Whelan [id number] Meter #: [id number] Ordering Provider: NUPUR WOODS Report Released Date/Time: Jun 05, 2024 04:14 PM Reporting Lab: [facility] [address] [facility] [address] Performing Lab: [place] [facility] [address] [place] [address] [facility] B12 COBALAMIN (VITAMIN B12) [MASS/VOLUM E] IN SERUM OR PLASMA 426 pg/mL 213 - 816 06/05 Specimen Type: SERUM No comment entered. Ordering Provider: NUPUR WOODS Report Released Date/Time: Jun 04, 2024 02:20 PM Reporting Lab: [place] [facility] [address] [place] [address] Performing Lab: [place] [facility] [address] [place] [address] [facility] FOLATE (PB) FOLATE [MASS/VOLUM E] IN SERUM OR PLASMA 14.8 ng/mL 7 - 20 06/05 Specimen Type: SERUM No comment entered. Ordering Provider: NUPUR WOODS Report Released Date/Time: Jun 04, 2024 02:20 PM Reporting Lab: [place] [facility] [address] [place] [address] Performing Lab: [place] [facility] [address] [place] [address] [facility] Vital Signs Combined list of inpatient and outpatient Vital Signs from Department of Defense and Veterans Affairs, ranging from 12 months to all on record, depending upon the facility. Vital Sign Value Date Comments Source SYSTOLIC BLOOD PRESSURE 153 01/08/2025 15:07:00 [facility] DIASTOLIC BLOOD PRESSURE 83 01/08/2025 15:07:00 [facility] TEMPERATURE 98 01/08/2025 15:07:00 [place] [facility] PULSE 78 01/08/2025 15:07:00 [facility] SYSTOLIC BLOOD PRESSURE 110 06/05/2024 15:36:38 [facility] DIASTOLIC BLOOD PRESSURE 76 06/05/2024 15:36:38 [facility] PULSE OXIMETRY 95 06/05/2024 15:36:38 [facility] WEIGHT 229.8 06/05/2024 15:36:38 [facility] BMI 31 kg/m2 06/05/2024 15:36:38 [facility] PAIN 0 06/05/2024 15:36:38 [facility] TEMPERATURE 98 06/05/2024 15:36:38 [facility] PULSE 76 06/05/2024 15:36:38 [facility] RESPIRATION 20 06/05/2024 15:36:38 [facility] SYSTOLIC BLOOD PRESSURE 135 05/03/2024 11:58:00 [facility] DIASTOLIC BLOOD PRESSURE 81 05/03/2024 11:58:00 [facility] PULSE OXIMETRY 96 05/03/2024 11:58:00 [facility] TEMPERATURE 98.3 05/03/2024 11:58:00 [facility] PULSE 72 05/03/2024 11:58:00 [facility] Encounters Combined list of: 1) Encounters from Department of Veterans Affairs facilities going backup to the last 18 months, not all VA inpatient encounters are included; 2) Encounters from the Department of Defense facilities going backup to 280 months. Location Location Details Encounter Type Encounter Number Reason For Visit Attending Provider ADM Date DC Date Status Disposition Source 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 CANDIHOLDEN M 07/14 [place] [facility] [place] [facility] Outpatient Encounter [id number] ERINKARIS PONCEChintan SHANE M 07/14 [place] [facility] [place] [facility] MTMS BY PHARM EST 15 MIN [id number] Diagnos is: ICD-10- CM Z51.81 Encount er for therape utic drug level monitor SALENA Hendrix 07/18 [place] [facility] Outpatient Encounter [id number] 08/07 [facility] En[facility] [id number] 08/08 [facility] En[facility] [id number] 08/21 [facility] [place] [facility] Outpatient Encounter [id number] NATALYA URBINA 08/21 [place] [facility] [place] [facility] Outpatient Encounter [id number] 08/21 [place] [facility] [place] [facility] Outpatient Encounter [id number] RUSSELL WAHL 08/21 [place] [facility] Outpatient Encounter [id number] 08/22 [facility] [place] [facility] OFF/OP EST MAY X REQ PHY/QHP [id number] Diagnos is: ICD-10- CM R30.0 Dysuria CUSTRED,TO RRI J 08/22 [facility] OFFICE O/P EST LOW 20 MIN [id number] Diagnos is: ICD-10- CM 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 DEMETRIUS,KRI STEL G 08/22 [facility] [place] [facility] MTMS BY PHARM EST 15 MIN [id number] Diagnos is: ICD-10- CM Z51.81 Encount er for therape utic drug level monitor SALENA Hendrix 08/22 [place] [facility] [place] [facility] Outpatient Encounter [id number] LAUREN DOWLING 09/05 [place] [facility] [place] [facility] Outpatient Encounter [id number] 09/05 [place] [facility] Outpatient Encounter [id number] 09/08 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 VIOLETA TSANG 09/11 [place] [facility] [place] [facility] Outpatient Encounter [id number] SUSANA PEREZ 09/19 [place] [facility] IMG RTA DETCJ/MNTR DS STAFF [id number] Diagnos is: ICD-10- CM Z13.5 Encount er for screeni ng for eye and ear disorde rs GERRYIA LYNSEY Alvarado 09/27 [facility] [place] [facility] Outpatient Encounter [id number] Diagnos is: ICD-10- CM Z13.5 Encount er for screeni ng for eye and ear disorde rs ALINA CHRISTOPHER 09/27 [place] [facility] [place] [facility] MTMS BY PHARM EST 15 MIN [id number] Diagnos is: ICD-10- CM Z51.81 Encount er for therape utic drug level monitor gerald YOSEF NGOC Hugh 09/27 [facility] OFFICE O/P EST LOW 20 MIN [id number] Diagnos is: ICD-10- CM F03.90 Unsp dementi a, unsp severit y, without beh/psy ch/mood /anx NUPUR WOODS 09/28 [facility] Outpatient Encounter [id number] 10/27 [facility] MTMS BY PHARM EST 15 MIN [id number] Diagnos is: ICD-10- CM Z51.81 Encount er for therape utic drug level monitor gerald SHEYLASALENA 11/02 [place] [facility] [place] [facility] MTMS BY PHARM EST 15 MIN [id number] Diagnos is: ICD-10- CM I48.91 Unspeci fied atrial fibrill VINCENT Borrego 11/21 [place] [facility] Outpatient Encounter [id number] CHEMA MORGAN 12/05 [facility] Outpatient Encounter [id number] 12/21 [facility] Outpatient Encounter [id number] 12/21 [facility] [place] [facility] MTMS BY PHARM EST 15 MIN [id number] Diagnos is: ICD-10- CM Z51.81 Encount er for therape utic drug level monitor SALENA Hendrix 12/28 [place] [facility] [place] [facility] Outpatient Encounter [id number] 01/04 [place] [facility] [place] [facility] Outpatient Encounter [id number] 01/12 [place] [facility] [place] [facility] Outpatient Encounter [id number] Diagnos is: ICD-10- CM 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 NIKITA Silva 01/16 [place] [facility] [place] [facility] Outpatient Encounter [id number] 01/18 [place] [facility] [place] [facility] Outpatient Encounter [id number] 01/19 [place] [facility] En[facility] [id number] 01/23 [facility] OFF/OP EST SEPTEMBER X REQ PHY/QHP [id number] Diagnos is: ICD-10- CM H72.91 Unspeci fied perfora tion of tympani c membran e, right ear CUSTRED,TO RRI J 02/21 [facility] Outpatient Encounter [id number] NJSANDRA CAIN 02/21 [facility] Outpatient Encounter [id number] 02/28 [facility] Outpatient Encounter [id number] SEBASTIEN LEW SSA D 03[facility] Outpatient Encounter [id number] 03/19 [facility]ETTE LIANA [facility] [place] [facility] Outpatient Encounter [id number] SEBASTIEN LEW SSA D 03/20 [place] [facility] [place] [facility] Outpatient Encounter [id number] 03/20 [facility] [place] [facility] Outpatient Encounter [id number] 03/21 YETTE LIANA [facility] [place] [facility] Outpatient Encounter [id number] TANO MALONEY 03/21 YEE [facility] Outpatient Encounter [id number] [id number] 03/22 [facility] Outpatient Encounter [id number] 03/22 [facility] [place] [facility] Outpatient Encounter [id number] 04/03 [place] [facility] [place] [facility] Outpatient Encounter [id number] 04/03 [place] [facility] Outpatient Encounter [id number] 04/06 [facility] [place] [facility] Outpatient Encounter [id number] ANABEL PRICE M 04/09 [place] [facility] [place] [facility] Outpatient Encounter [id number] 04/09 [place] [facility] [place] [facility] Outpatient Encounter [id number] Diagnos is: ICD-10- CM R19.7 Diarrhe a, unspeci fied ANABEL PRICE M 04/09 [place] [facility] Outpatient Encounter [id number] WHITE,SEBASTIEN SSA D 04/12 [facility] Outpatient Encounter [id number] 04/16 [facility] [place] [facility] Outpatient Encounter [id number] 04/24 [place] [facility] Outpatient Encounter [id number] 05/01 [facility] Outpatient Encounter [id number] 05/03 [facility] OFF/OP EST MAY X REQ PHY/QHP [id number] Diagnos is: ICD-10- CM G56.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 LEISAPRINCESS Chang R 05/03 [facility] OFF[facility] O/P EST MOD 30 MIN [id number] Diagnos is: ICD-10- CM R51.9 Headach e, unspeci fied PARMINDER ROMO G 05/03 [facility] Outpatient Encounter [id number] SANDRA MAURO 05/04 [facility] [place] [facility] MTMS BY PHARM EST 15 MIN [id number] Diagnos is: ICD-10- CM Z51.81 Encount er for therape utic drug level monitor SALENA Hendrix 05/07 [place] [facility] Outpatient Encounter [id number] SEBASTIEN LEW D 05/15 [facility] Outpatient Encounter [id number] 05/17 [facility] Outpatient Encounter [id number] 05/24 [facility] Outpatient Encounter [id number] 05/24 [facility] HHS/HOSPIC E OF RN EA 15 MIN [id number] [id number] Diagnos is: ICD-10- CM M06.9 Rheumat oid arthrit is, unspeci fiERIN Gutiérrez 05/31 [place] [facility] [place] [facility] Outpatient Encounter [id number] Diagnos is: ICD-10- CM M06.9 Rheumat oid arthrit is, unspeci fiCALEB Del Angel 05/31 [place] [facility] [place] [facility] Outpatient Encounter [id number] 06/01 [place] [facility] FEE [id number] Diagnos is: ICD-10- CM R35.0 Frequen cy of dejontNUPUR Melissa R 06/05 [facility] SYNCH AUDIO-VIDE O EST MOD 30 [id number] Diagnos is: ICD-10- CM R35.0 Frequen cy of dejontNUPUR Melissa R 06/05 [facility] Outpatient Encounter [id number] CAROLARHIANNON BARKLEY TTNEY 07/04 [facility] Outpatient Encounter [id number] [id number] SEBASTIEN LEW SSA D 07/16 [facility] Outpatient Encounter [id number] 07/16 [facility] Outpatient Encounter [id number] [id number] 07/16 [facility] Outpatient Encounter [id number] 07/30 [facility] Outpatient Encounter [id number] 09/12 [facility] OFF/OP EST MAY X REQ PHY/QHP [id number] Diagnos is: ICD-10- CM Z23 Encount er for immuniz PRINCESS Rodriguez R 09/12 [facility] Outpatient Encounter [id number] 09/21 [facility] Outpatient Encounter [id number] 10/23 [facility] Outpatient Encounter [id number] 10/23 [facility] Outpatient Encounter [id number] 11/15 [facility] Outpatient Encounter [id number] 11/15 [facility] Outpatient Encounter [id number] 11/19 [facility] Outpatient Encounter [id number] 11/21 [facility] IMMUNIZATI ON ADMIN [id number] Diagnos is: ICD-10- CM Z23 Encount er for immuniz atTita Parekh 11/28 [facility] Outpatient Encounter [id number] 11/29 [facility] [place] [facility] En[facility] [id number] 11/30 [place] [facility] OFF/OP EST SEPTEMBER X REQ PHY/QHP [id number] Diagnos is: ICD-10- CM M25.511 Pain in right shoulde r CUSTRED,TO RRI J 01/08 [facility] [id number] 01/08 [facility] N Social History Combined list of available smoking, tobacco, and other social history from Department of Defense and Veterans Affairs facilities. Social History Type Response Date Comment Sourc e Tobacco smoking status NHIS VA-TOBACCO NEVER USED 09/29/2023 [facility] History of tobacco use VA-TOBACCO NEVER USED 08/05/2022 [facility] History of tobacco use VA-TOBACCO NEVER USED 10/21/2020 [facility] History of tobacco use VA-TOBACCO NEVER USED 01/19/2019 [facility] History of tobacco use CURRENT NON-TOBAC CO USER-HX OF USE 07/26/2018 [facility] History of tobacco use LIFETIME NON-USER OF TOBACCO 05/25/2016 [facility] History of tobacco use LIFETIME NON-USER OF TOBACCO 04/29/2016 [facility] History of tobacco use TOBACCO [facility] 05/14/2015 [facility] History of tobacco use LIFETIME NON-USER OF TOBACCO 12/12/2014 [facility] History of tobacco use CO-NO TOBACCO USE PAST 12 MO 05/19/2012 [facility] History of tobacco use CO-NO TOBACCO USE PAST 12 [place] 11/05/2009 [facility] History of tobacco use CO-NO TOBACCO USE PAST 12 [place] 11/26/2008 [facility] History of tobacco use CO-NO TOBACCO USE PAST 12 MO 11/08/2007 [facility] History of tobacco use CO-NO TOBACCO USE PAST 12 MO 10/16/2004 [facility] Plan of Care List of future care activities from Department of Veterans Affairs facilities. Additional future care activities may be listed in the Assessment and Plan section. Date/Time Care Activity Care Activity Detail Facili ty 01/09/2025 AMBULATORY - MEDICINE AMBULATORY - MEDICI NE [facility] Advance Directives List of completed, amended, or rescinded Advance Directives on record at Department of [facility] facilities. An actual copy of the Directive is not included. Date Advance Directive Provider Source 04/30/2016 ADVANCE DIRECTIVE DISCUSSION MICHELINE BELTRAN [facility] 05/10/2000 ADVANCE DIRECTIVE BELLA SAHA [facility]
--- NOTE | 2025-01-09 09:20 | CT_ITS ---
WS: [id number] CT HEAD NONCONTRAST HISTORY: weakness TECHNIQUE: Contiguous axial imaging performed through the brain. Bone and soft tissue windows. Sagittal and coronal reformats reviewed. All CT scans at [facility] use at least one of these dose optimization techniques: automated exposure control; mA and/or kV adjustment per patient size (includes targeted exams where dose is matched to clinical indication); or iterative reconstruction. DLP: 1257.67 mGy.cm COMPARISON: 05/03/2024 No acute intracranial hemorrhage, midline shift or mass effect. Mild symmetric atrophy and small vessel disease. Small stable lacunar infarcts along the external capsules. Mild cerebellar atrophy. Ventricles: Normal size with no hydrocephalus. Paranasal sinuses: As visualized are clear. Mastoid air cells: Well pneumatized. Calvarium and scalp: Skull is intact with no soft tissue edema or swelling. Small amount of calcium in the intracranial carotid arteries. CT/CT head wo con* [id number] IMPRESSION: 1. No acute intracranial hemorrhage or edema. 2. Mild atrophy and small vessel disease. No change since 05/03/2024.
--- NOTE | 2025-01-09 09:20 | XR_ITS ---
WS: [id number] Right shoulder, 2 views, 01/09/2025 Clinical Data: shoulder pain Comparison: Right shoulder, 11/10/2019 Findings: No fractures or dislocations are seen. The AC joint shows minimal osteoarthritis. The glenohumeral joint shows no abnormalities. The adjacent right clavicle, right scapula and ribs are normal. The soft tissues are unremarkable. 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
--- OUTSIDE RECORDS SUMMARY | 2025-01-09 09:22 | XMS_ITS | Patient Health Record ---
Author Organization [facility] Address [address] [place] [address] Care Team Providers Care Superintendent Pressure Name Role Phone Yo VO Primary Care Provider Kb Hare JR [phone] Allergies No Known Allergies Results Component Value Reference Range Flag Notes Miscellaneous Test Reviewed date:06/19/2024 08:16:26 AM Interpretation: Performing Lab: Notes/Report: Misc Sent to Ref Lab Name of Misc Test gi pathogen pcr NA Reason For Referral No Information Medications Medication SIG (Take, Route, Frequency, Duration) Notes Start Date End Date Status DULoxetine HCl 60 MG Capsule Delayed Release Particles 1 capsule Orally Once a day Active Isosorbide Mononitrate 10 MG Tablet 1 tab Orally three times a day Active Empagliflozin 25 MG Tablet 1 tablet Oral ly Once a day Active Metoprolol Tartrate 100 MG Tablet 1 tablet with food Orally Twice a day Active Fish Oil 1000 MG Capsule 1 capsule Orall y Once a day Active Tamsulosin HCl 0.4 MG Capsule 1 capsule Orally Once a day Active Folic Acid 0.8 MG Capsule 0.5 capsule Or ally Once a day Active Pantoprazole Sodium 40 MG Tablet Delayed Release 1 tablet Orally Once a day Active Bismuth Subsalicylate 262 MG/15ML Suspension 30 mL with meals and at bedtime Orally Four times a day Active Probiotic - Tablet Chewable as directed Orally Active Carbamide Peroxide 6.5 % Solution 5 drops into affected ear Otic Twice a day Active Warfarin Sodium 2 MG Tablet 1 tablet Ora lly Once a day Active Cholecalciferol 10 MCG (400 UNIT) Tablet 2 tablets Orally Once a day Active Clopidogrel Bisulfate 75 MG Tablet 1 tablet Orally Once a day Active tiZANidine HCl 4 MG Tablet 1 tablet as n eeded Orally Three times a day Active Furosemide 20 MG Tablet 1 tablet Orally Once a day Active Donepezil HCl 10 MG Tablet 1 tablet at b edtime Orally Once a day Active Lactobacillus Acid-Pectin - Capsule as directed Orally Active Allopurinol 100 MG Tablet 1 tablet Orall y Once a day Active Loperamide HCl 2 MG Capsule 1 capsule as needed Orally Four times a day Active amLODIPine Besylate 10 MG Tablet 1 tablet Orally Once a day Active metFORMIN HCl 500 MG Tablet 1 tablet wit h a meal Orally Once a day Active Atorvastatin Calcium 80 MG Tablet 1 tablet Orally Once a day Active Social History Tobacco Use: Social History Observation Description Date Details (start date - stop date) Never Smoker NA - NA Social History Tobacco Use: Social Info Question Answer Notes xTobacco Use/Smoking Are you a never smoker Problems Problem Type SNOMED Code ICD Code Onset Dates Problem Status W/U Status Risk Notes Problem Clostridium difficile colitis (disorder) (585112792) C. difficile colitis (A04.72) Active confirmed Problem Dysenteric diarrhea (A09) Active confirmed Vital Signs Heart Rate 73 /min 05/22/2024 Temperature 97.9 degrees Fahrenheit 05/22/2024 Respiratory Rate 18 /min 05/22/2024 Blood pressure diastolic 75 mm Hg 05/22/2024 Oximetry 94 % 05/22/2024 Weight-kg 104.8 kg 05/22/2024 Blood pressure systolic 131 mm Hg 05/22/2024 Weight 231.04 lbs 05/22/2024 Encounters Encounter Location Date Provider Diagnosis [facility] [address] [place] [address] 05/22/2024 Kb Gonzalez C. difficile colitis A04.72 ; Recurrent Clostridioides difficile diarrhea A04.71 and Dysenteric diarrhea A09 [facility] [address] [place] [address] 05/25/2024 Kb Gonzalez Assessments Encounter Date Diagnosis (ICD Code) Assessment Notes Treatment Notes Treatment Clinical Notes Section Notes 05/22/2024 C. difficile colitis (ICD-10 - A04.72) 1. 73 yo male with Hx of recurrent chronic c. diff colitis -has taken Dificid in past 2. Recurrent chronic C. Diff colitis -consider underlying colon pathology, and he may need immune dysfunction w/u. 3. Lab studies; 05-22-24 Cdiff, stool O&P, stool culture, GI pathogen panel, CBC,CRP,CMP ordered today [facility] 05/22[facility]24 Recurrent Clostridioides difficile diarrhea (ICD-10 - A04.71) 1. 73 yo male with Hx of recurrent chronic c. diff colitis -has taken Dificid in past 2. Recurrent chronic C. Diff colitis -consider underlying colon pathology, and he may need immune dysfunction w/u. 3. Lab studies; 05-22-24 Cdiff, stool O&P, stool culture, GI pathogen panel, CBC,CRP,CMP ordered today Labs Follow up:[address] [facility] 05/22/2024 Dysenteric diarrhea (ICD-10 - A09) 1. 73 yo male with Hx of recurrent chronic c. diff colitis -has taken Dificid in past 2. Recurrent chronic C. Diff colitis -consider underlying colon pathology, and he may need immune dysfunction w/u. 3. Lab studies; 05-22-24 Cdiff, stool O&P, stool culture, GI pathogen panel, CBC,CRP,CMP ordered today Labs Follow up:[facility] Plan Of Treatment Pending Test Test Name Order Date Culture Stool [id number], [id number], [id number], [id number] , [id number] 06/06/2023 Culture Stool [id number], [id number], [id number], [id number] , [id number] 05/22/2024 CBC w\ Auto Diff [id number] 05/22/2024 Comprehensive Metabolic Panel (CMP) 8005 3 05/22/2024 O & P Stool [id number], [id number] 06/06/2023 O & P Stool [id number], [id number] 05/22/2024 CRP [id number] 05/22/2024 CDiff PCR Rfx C diff Toxin NAP/EPI 35529 , [id number] 05/22/2024 C Diff Toxin EIA--[id number] 06/06/2023 Insurance Providers Payer Name Payer Address Payer Phone Subscriber Number Group Number Insured Name Patient Relationship to Insured Coverage Start Date Coverage End Date [employer] [address] [place] [phone] [id number] Alex Nice Self - patient is the insured Medical (General) History Medical History History ICD Code measles mumps Chicken Pox whooping cough (pertussis) Pneumonia Heart Disease Arthritis migraine headaches diabetes mellitus Back Trouble High Blood Pressure bronchitis stroke Surgical History Surgery Date(Month/Year) open heart surgery 2019 Hospitalization History Reason Date(Month/Year) see above
[2025-01-09 09:23] VITALS: BP 152/87; RESP 18; TEMP 36.7; O2SAT 96
--- OUTSIDE RECORDS SUMMARY | 2025-01-09 09:23 | XMS_ITS | Encounter Summary ---
Author Organization [facility] Address [address] [place] [address] Care Team Providers Care Volunteer Firefighter Name Role Phone Non-Staff, Physician Primary Care Provider Unava ilable Reason for Referral * Outpatient Services (Routine) - Closed Specialty Diagnoses / Procedures Referred By Jared seaman Referred To Contact Diagnoses Lumbosacral radiculitis Procedures XR FLUORO NEEDLE GUIDANCE Stephanie Grigsby DO [address] [place] [address] Phone: tel: fax: Referral ID Status Reason Start Date Expiration Date Visits Re quested Visits Authorized [id number] Closed 03/04/2015 04/03/2016 1 1 Encounter Details Date Type Department Care Team (Late st Contact Info) Description 03/04/2015 Ancillary Orders [facility] [place] [address] [place] [address] Stephanie Grigsby DO [address] [address] Lumbosacral radiculitis (Primary Dx) Social History Tobacco Use Types Packs/Day Years Used Date Smoking Tobacco: Never Alcohol Use Standard Drinks/Week Comments No 0 (1 standard drink = 0.6 oz pur e alcohol) 26 years Sex and Gender Information Value Date Recorded Sex Assigned at Not on file 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 Exam was auto-finalized. Stephanie Grigsby DO DIAGNOSTIC IMAGING ORDERABLE S Final Result documented in this encounter Visit Diagnoses Diagnosis Lumbosacral radiculitis- Primary Thoracic or lumbosacral neuritis or radiculitis, unspecified Lumbosacral radiculitis Thoracic or lumbosacral neuritis or radiculitis, unspecified documented in this encounter Care Teams Volunteer Firefighter Relationship Specialty Start Date End Date Non-Staff, Physician NO ADDRESS ON FILE PCP - General 01/13/16 documented as of this encounter
--- OUTSIDE RECORDS SUMMARY | 2025-01-09 09:23 | XMS_ITS | Clinical Summary ---
Author Organization [facility] Address [address] [place] [address] Care Team Providers Care Plant Quality Manager Name Role Phone Non-Staff, Physician Primary Care Provider Unava ilable Allergies No known active allergies Medications DULoxetine (CYMBALTA) 30 mg Capsule, Delayed Release(E.C.)Ind ications:Chronic tension-type headache, intractable Take 1 Capsule (30 mg) by mouth daily. 90 Capsule 1 08/19/2020 Active butalbital-aceta minophen-caffein e (FIORICET) 50-325-40 mg tabletIndication s:Chronic tension-type headache, intractable Take 1 Tablet by mouth every 4 hours as needed for Migraine. 100 Tablet 1 08/19/2020 Active Active Problems Problem Noted Date Diagnosed Date Chronic tension-type headache, intractable 08/19 Lumbar spinal stenosis 02/12/2016 Osteoarthritis of spine with radiculopathy, lumbosacral region 02/12/2016 Family History Medical History Relation Name Comments Cancer Brother 1 Diabetes Brother 1 Cancer Brother 2 Kidney Disease Brother 2 Cancer Brother 3 Other Father Cancer Mother Cancer Sister 1 Diabetes Sister 1 Cancer Sister 2 Relation Name Status Comments Brother 1 Brother 2 Brother 3 Father Mother Sister 1 Sister 2 Social History Tobacco Use Types Packs/Day Years Used Date Smoking Tobacco: Never Alcohol Use Standard Drinks/Week Comments No 0 (1 standard drink = 0.6 oz pur e alcohol) 25 years Sex and Gender Information Value Date Recorded Sex Assigned at Not on file 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 Gender Identity Not on file Sexual Orientation Not on file Last Filed Vital Signs Vital Sign Reading Time Taken Comments Blood Pressure 160/95 08/19/2020 1:55 PM CDT Pulse 76 08/19/2020 1:55 PM CDT Temperature 36 C (96.8 F) 08/19/2020 1:55 PM CDT Respiratory Rate 20 08/19/2020 1:55 PM CDT Oxygen Saturation 97% 08/19/2020 1:55 PM CDT Inhaled Oxygen Concentration - - Weight 124.7 kg (275 lb) 08/19/2020 1:55 PM CDT Height 182.9 cm (6') 08/19/2020 1:55 PM CDT Body Mass Index 37.3 08/19/2020 1:55 PM CDT Plan of Treatment Health Maintenance Due Date Last Done Comments DTAP/TDAP/TD VACCINES (1 - Tdap) 1970 COLORECTAL SCREENING 1996 Colorectal Cancer Screening 1996 FIT-DNA Q 3 years 1996 FIT/FOBT Q 1 year 1996 Flex Sig/CT Colonography Q 5 years 1996 PNEUMOCOCCAL VACCINE 50+ YEARS (1 of 1 - PCV) 06/12/19 02 ZOSTER VACCINE (1 of 2) 2001 INFLUENZA VACCINE (#1) 2024 RSV VACCINE (60+ or ) (1 - 1-dose 75+ series) 2026 Insurance MEDICARE PART A AND B Care Teams Plant Quality Manager Relationship Specialty Start Date End Date Non-Staff, Physician NO ADDRESS ON FILE PCP - General 01/13/16
--- OUTSIDE RECORDS SUMMARY | 2025-01-09 09:23 | XMS_ITS | Encounter Summary ---
Author Organization [facility] Address [address] [place] [address] Care Team Providers Care Attorney General Name Role Phone Non-Staff, Physician Primary Care Provider Unava ilable Encounter Details Date Type Department Care Team (Late st Contact Info) Description 06/06/2002 Emergency [facility] Emergency Department [address] 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
--- OUTSIDE RECORDS SUMMARY | 2025-01-09 09:23 | XMS_ITS | Clinical Summary ---
Author Organization [facility] Address [address] [place] [address] Phone Care Team Providers Care Bdc Manager Name Role Phone Unavailable Primary Care Provider Unavailabl e Allergies No known active allergies Medications butalbital-acetam inophen-caffeine (FIORICET) 50-325-40 mg tabletIndications :Chronic tension-type headache, intractable Take 1 Tablet by mouth every 4 hours as needed for Migraine. 100 Tablet 1 08/20/19 21 Active tiZANidine (ZANAFLEX) 2 mg Tablet 1 po q hs x 2 wks, then go to 2 po q hs 180 Tablet 06/16/19 22 Active allopurinoL (ZYLOPRIM) 100 mg tablet Take 100 mg by mouth daily. Active aluminum - magnesium - simethicone (MYLANTA) 200-200-20 mg/5 mL Suspension Take 10 mL by mouth every 6 hours as needed for Dyspepsia. Active bismuth subsalicylate (PEPTO-BISMOL MAX) 525 mg/15 mL Suspension Take by mouth every 6 hours as needed for Diarrhea/Loose Stools. Active cholecalciferol (VITAMIN D3) 400 unit Tablet Take by mouth daily. Active isosorbide dinitrate (ISORDIL) 10 mg tablet Take 10 mg by mouth 3 times daily. Active metoprolol succinate (TOPROL XL) 50 mg Extended Release 24 hour tablet Take 50 mg by mouth daily. Active pantoprazole (PROTONIX) 40 mg Tablet, Delayed Release (E.C.) Take 40 mg by mouth daily. Active sildenafiL (VIAGRA) 50 mg tablet Take 50 mg by mouth 1 time daily as needed for Erectile Dysfunction. Active DULoxetine (CYMBALTA) 60 mg Capsule, Delayed Release(E.C.) Take 1 Capsule (60 mg) by mouth daily. 90 Capsule 3 04/07/20 22 Active donepeziL (ARICEPT) 10 mg tablet Take 20 mg by mouth daily at bedtime. 05/16/19 24 Active tamsulosin (FLOMAX) 0.4 mg capsule Take 0.4 mg by mouth late in the day. Active aspirin (ECOTRIN EC) 81 mg Tablet, Delayed Release (E.C.) Take 81 mg by mouth daily with breakfast. Active apixaban (ELIQUIS) 5 mg tablet Take 5 mg by mouth 2 times daily. 12/22/19 24 Active amLODIPine (NORVASC) 10 mg tablet Take 10 mg by mouth. 09/07/19 24 Active amiodarone (CORDARONE) 200 mg tablet Take 200 mg by mouth daily. Active clopidogreL (PLAVIX) 75 mg Tablet Take 75 mg by mouth. 12/23/19 24 Active empagliflozin (JARDIANCE) 25 mg tablet Take 25 mg by mouth. 12/22/19 24 Active furosemide (LASIX) 20 mg tablet Take 20 mg by mouth. 05/17/19 24 Active atorvastatin (LIPITOR) 80 mg tablet Take 40 mg by mouth daily at bedtime. 05/17/19 24 Active traZODone (DESYREL) 100 mg tablet Take 100 mg by mouth daily at bedtime. Active loperamide (IMODIUM) 2 mg capsule Take 2 mg by mouth see administration instructions. 2 caps after first lose stool, then 1 cap after each loose stool up to 8 caps in 24 hours Active HYDROcodone-aceta minophen (NORCO) 5-325 mg tabletIndications :Hematoma of leg, right, initial encounter,Pneumot horax, right,Closed fracture of one rib of right side, initial encounter Take 1 Tablet by mouth every 8 hours as needed for Pain. Max Daily Amount: 3 Tablets 20 Tablet 03/21/20 24 Active lidocaine (LIDODERM) 5 % Adhesive Patch, Medicated Apply 1 Patch to affected area every 24 hours. 30 Patch 07/17/19 25 Active Active Problems Problem Noted Date Diagnosed Date Multiple closed fractures of ribs of right side 03/19/2024 Pneumothorax on right 03/19/2024 Traumatic compartment syndrome of right lower ex tremity 03/19/2024 Closed fracture of one rib of right side 024 Pneumothorax, right 03/19/2024 Hematoma of leg, right, initial encounter 2023 Primary hypertension 12/25/2021 Atherosclerosis of coronary artery bypass graft(s) without angina pectoris 12/25/2021 Hyperlipidemia, unspecified 12/25/2021 Recurrent Clostridioides difficile diarrhea 12/07 Type 2 diabetes mellitus, wi thout long-term current use of insulin 12/25/2021 Hypokalemia 12/25/2021 Periumbilical abdominal pain 12/25/2021 Chronic tension-type headache, intractable 08/19 Osteoarthritis of spine with radiculopathy, lumbosacral region 02/12/2016 Lumbar spinal stenosis 02/12/2016 Resolved Problems Problem Noted Date Diagnosed Date Resolved Date Closed traumatic fracture of ribs of right side with pneumothorax 03/19/2024 03/19/2024 Encounters Date Type Department Care Team Description 01/01/2025 External Device Data ST[facility] ABSTRACTION Provider, Abstract 12/18/2024 External Device Data [facility] ABSTRACTION Provider, Abstract 12/12/2024 External Device Data [facility] ABSTRACTION Provider, Abstract 11/21/2024 External Device Data [facility] ABSTRACTION Provider, Abstract from Last 3 Months Immunizations Immunization Administration Dates Next Due (ADACEL/BOOSTRIX)(10 YR UP) TDAP VACCINE, 0.5ML, IM 01/07/2011 (SPIKEVAX) (12 YRS UP PRIMAR Y SERIES) COVID-19 VACCINE - MRNA-[id number](PF) 100 MCG/0.5 ML IM SUSP 04/17/2021,07/15/2020,06/17/2020 Td(adult) Unspecified Formulation 10/16/2004,05/2001 Family History Medical History Relation Name Comments [...] Packs/Day Years Used Date Smoking Tobacco: Never Smokeless Tobacco: Never Tobacco Cessation:Counseling Given: Not Answered Alcohol Use Standard Drinks/Week Comments Not Currently 0 (1 standard drink = 0.6 oz pur e alcohol) Feeling Safe Answer Date Recorded Are you in a relationship wi th someone who hurts you emotionally and/or physically? 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 Gender Identity Not on file Sexual Orientation Not on file Last Filed Vital Signs Vital Sign Reading Time Taken Comments Blood Pressure 153/69 07/16/2024 8:15 AM CDT Pulse 58 07/16/2024 8:15 AM CDT Temperature 35.9 C (96.6 F) 07/16/2024 8:15 AM CDT Respiratory Rate 20 07/16/2024 8:15 AM CDT Oxygen Saturation 98% 07/16/2024 8:15 AM CDT Inhaled Oxygen Concentration - - Weight 108.4 kg (239 lb) 07/16/2024 6:08 AM CDT Height 182.9 cm (6') 07/16/2024 6:08 AM CDT Body Mass Index 32.41 07/16/2024 6:08 AM CDT Plan of Treatment Health Maintenance Due Date Last Done Comments DIABETES ANNUAL FOOT EXAM 1969 DIABETES MICROALBUMIN ANNUAL SCREEN 1969 LDL CHOLESTEROL ANNUAL 1969 PNEUMOCOCCAL VACCINE 50+ YEA RS (1 of 2 - PCV) 1970 COLORECTAL SCREENING 1996 Colorectal Cancer Screening 1996 FIT-DNA Q 3 years 1996 FIT/FOBT Q 1 year 1996 Flex Sig/CT Colonography Q 5 years 1996 ZOSTER VACCINE (1 of 2) 2001 RSV VACCINE (60+ or ) (1 - Risk 60-74 years 1-dose series) 2011 DTAP/TDAP/TD VACCINES (2 - T d or Tdap) 01/07/2021 01/07/2011, 10/16/2004, 05/09/2001 COVID-19 Vaccine ( season) 2024 04/17/2021, 07/15/2020, 06/17/2020 DIABETES ANNUAL RETINAL EXAM 09/27/2024 09/28/2023 DIABETES HBA1C Q 6 MONTHS 12/03/2024 06/05/2024, INFLUENZA VACCINE (#1) 2024 Procedures Procedure Name Priority Date/Time Associated Diagnosis Comments HEMOGLOBIN A1C Routine 12/25/2021 3:12 PM CDT from Last 3 Months or Most Recently Relevant to Health Maintenance Results * (ABNORMAL) HEMOGLOBIN A1C (12/25/2021 3:12 PM CDT) HEMOGLOBIN A1C 6.6(H) <=5.6 % 12/28/2021 10:37 AM CDT [facility] EST. AVG GLUCOSE, A1C 143 mg/dL 12/28/2021 10:37 AM CDT [facility] Blood Venipuncture / Unknown 12/25/2021 3:12 PM CDT 12/25/2021 3:20 PM CDT Narrative [facility] - 12/28/2021 10:37 AM CDT HGB A1C INTERPRETATION NORMAL: <5.7% PRE-DIABETES: 5.7 - 6.4% DIABETES: 6.5% OR GREATER Laila López MD CHEMISTRY ORDERABL ES Final Result [facility] CLIA # [id number] [address] [address] from Last 3 Months or Most Recently Relevant to Health Maintenance Insurance [facility] * Guarantor: 2020 [employer] Account Type Relation to Patient Date of Phone Billing Address Corporate Employer DEFAULT ADDRESS [address] [employer] [facility] [employer] [facility] OFFICE OF COMMUNITY CARE [facility] [employer] [facility] OFFICE OF COMMUNITY CARE [facility] OFFICE OF COMMUNITY CARE * Guarantor: [employer]) Account Type Relation to Patient Date of Phone Billing Address Corporate Employer DEFAULT ADDRESS [address] [place] [address] [place] [address] [employer] Advance Directives For more information, please contact: [phone] * Full Code (Latest Code Status on File) Date Activated Date Inactivated Comments 03/19/2024 10:55 PM 03/21/2024 5:07 PM * Full Code Date Activated Date Inactivated Comments 12/25/2021 2:48 PM 12/29/2021 5:20 PM
--- OUTSIDE RECORDS SUMMARY | 2025-01-09 09:23 | XMS_ITS | Encounter Summary ---
Author Organization [facility] Address [address] [place] [address] Care Team Providers Care Loom Operator Apprentice Name Role Phone Non-Staff, Physician Primary Care Provider Unava ilable Encounter Details Date Type Department Care Team (Latest Contact Info) Description 07/05/2002 Outpatient Historical [facility] Juan Brito MD [address] [place] [address] LOC PRIM OSTEOART-SHLDER (Primary Dx) Social History Tobacco Use Types Packs/Day Years Used Date Smoking Tobacco: Never Assessed Sex and Gender Information Value Date Recorded Sex Assigned at Not on file 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
--- NOTE | 2025-01-09 09:24 | XRR_ITS ---
PROCEDURE INFORMATION: Exam: XR Right Hip Exam date and time: 01/09/2025 9:36 AM Age: 74 years old Clinical indication: Hip pain; Right hip TECHNIQUE: Imaging protocol: Radiologic exam of the right hip. Views: 1 view hip with pelvis when performed. COMPARISON: CT abdomen pelvis w con* [id number] 09/29/2021 10:45 AM FINDINGS: Bones/joints: No acute fracture or dislocation. Mild right hip arthrosis. Soft tissues: Unremarkable. XR/XR hip RT 2-3V wo/w pel* [id number] IMPRESSION: No acute fracture or dislocation.
--- NOTE | 2025-01-09 09:24 | W.ED.GENADLT ---
HPI - General Adult General: Chief complaint: Weakness Stated complaint: rt side numb/unresponsive Time Seen by Provider: 01/09/25 09:12 Source: patient Mode of arrival: ambulatory Limitations: no limitations History of Present Illness: 74-year-old male states has been having some right shoulder along with right hip pain over the last 3 days. States the pain has been sharp in nature he denies any injury. He states the pain in his hip is starting or down his leg states he has felt like he had some weakness in his leg and had a fall. He is able to ambulate and stand here he denies any headache denies any slurred speech Associated symptoms: Deny chest pain, dyspnea, headache(s), nausea, rash or vomiting Related Data Home Medications ?Medication ?Instructions ?Recorded ?Confirmed atorvastatin 80 mg tablet 40 mg PO QPM 07/26/19 05/03/24 cholecalciferol (vitamin D3) 10 400 unit PO DAILY 07/26/19 05/03/24 mcg (400 unit) chewable tablet donepezil 10 mg tablet 20 mg PO BEDTIME 07/26/19 05/03/24 furosemide 20 mg tablet 20 mg PO QAM 07/26/19 05/03/24 nitroglycerin 0.4 mg sublingual 0.4 mg sublingual Q5M PRN Chest 07/31/20 05/03/24 tablet (Nitrostat) Pain tamsulosin 0.4 mg capsule 0.4 mg PO QPM 12/23/20 05/03/24 metformin 500 mg tablet,extended 1,000 mg PO BID 09/01/21 05/03/24 release 24 hr bismuth subsalicylate 262 mg/15 mL 524 mg PO Q1H PRN Heartburn 09/29/21 05/03/24 oral suspension omega-3 fatty acids-fish oil 684 1 cap PO BID 02/22/22 05/03/24 mg-1,200 mg capsule,delayed release loperamide 2 mg capsule 2 mg PO Q6H PRN Diarrhea 07/30/22 05/03/24 empagliflozin 25 mg tablet 25 mg PO DAILY 08/08/23 05/03/24 metoprolol tartrate 100 mg tablet 50 mg PO BID 08/08/23 05/03/24 allopurinol 100 mg tablet 100 mg PO DAILY 08/22/23 05/03/24 pantoprazole 40 mg tablet,delayed 40 mg PO BID 08/22/23 05/03/24 release apixaban 5 mg tablet (Eliquis) 5 mg PO BID 05/03/24 05/03/24 carbamide peroxide 6.5 % ear drops 4 drp otic (ear) .Q30D ear wax 05/03/24 05/03/24 (Debrox) blockage folic acid 400 mcg tablet 0.4 mg PO DAILY 05/03/24 05/03/24 hydrocodone 5 mg-acetaminophen 325 1 - 2 tab PO Q6H PRN Pain 05/03/24 05/03/24 mg tablet Previous Rx's ?Medication ?Instructions ?Recorded sildenafil 50 mg tablet 50 mg PO DAILY PRN sexual activity 05/13/21 #30 tabs amlodipine 10 mg tablet 10 mg PO DAILY #60 tabs 08/02/22 clopidogrel 75 mg tablet 75 mg PO DAILY #90 tabs 08/02/22 hydrocodone 5 mg-acetaminophen 325 1 tab PO Q6H PRN pain #14 tabs 01/09/25 mg tablet prednisone 50 mg tablet 50 mg PO DAILY #5 tabs 01/09/25 Allergies Allergy/AdvReac Type Severity Reaction Status Date / Time No Known Allergies Allergy Verified 05/03/24 12:52 Review of Systems Const: Denies: fever(s), chills, body aches or change in appetite ENMT: Denies: throat pain or dental pain Card: Denies: chest pain Resp: Denies: dyspnea GI: Denies: abdominal pain, nausea, vomiting or diarrhea Musc: Reports: extremity pain; Denies: neck pain or back pain Skin/Breast: Denies: rash Neuro: Denies: headache(s) PFSH ED PFSH: Medical History (Updated 01/09/25 @ 10:44 by Lorie Edge MD) 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 Other CAD (coronary artery disease) Chronic kidney disease (CKD) Diabetes Family history of premature coronary artery disease Hyperlipidemia Hypertension Lung disease Denies family history of Anesthesia complication Bleeding disorder Stroke Social History Smoking and tobacco/nicotine status: never used tobacco/nicotine Alcohol intake: never Substance/Drug Use: never Marital status: Current occupational status: retired and disabled Physical Exam Const: COMMON NORMALS: no acute distress, patient oriented x3 and healthy appearing HENMT: COMMON NORMALS: normocephalic and atraumatic HEAD & SCALP: normocephalic and atraumatic Eye: COMMON NORMALS: conjunctivae normal CONJUNCTIVA: Yes conjunctivae normal Neck/C-Spine: COMMON NORMALS: full ROM and supple Chest: COMMONS NORMALS: normal inspection of the chest Resp: COMMON NORMALS: normal respiratory effort, No retractions, No use of accessory muscles and clear to auscultation bilaterally AUSCULTATION: clear to auscultation bilaterally Cardio: COMMON NORMALS: regular rate, regular rhythm and No murmurs present (Cardio) RATE: regular rate RHYTHM: regular rhythm Extremity: COMMON NORMALS: normal to inspection and full ROM NARRATIVE EXTREMITY EXAM: Tenderness noted over right hip and right shoulder does have pain with range of motion no obvious deformity no saddle anesthesia Neuro: COMMON NORMALS: patient oriented x3, moves all extremities and no focal motor deficits Psych: COMMON NORMALS: mental status grossly normal, Normal thought process present and cooperative THOUGHT PROCESS: Normal thought process present Skin: COMMON NORMALS: no rashes or lesions noted and no wounds GENERAL SKIN EXAM: no rashes or lesions noted Course Vital Signs: Vital signs: Vital Signs Temperature 98.1 F 01/09/25 09:23 Pulse Rate 72 01/09/25 11:01 Respiratory Rate 18 01/09/25 09:23 Blood Pressure 148/87 01/09/25 11:01 Pulse Oximetry 96 01/09/25 11:01 Oxygen Delivery Me thod Room Air 01/09/25 09:23 [facility] - General Adult Medical Decision Making Patient presents here with pain in his shoulder and right hip. States he had some weakness in his legs likely due to his hip pain he has no signs of stroke NIH was 0 x-rays are negative we will put him on steroids and pain meds and have him follow-up with orthopedics Medical Records I reviewed the patient's medical records. Lab Data Radiology Impressions Head CT 01/09/25 09:20 IMPRESSION: 1. No acute intracranial hemorrhage or edema. 2. Mild atrophy and small vessel disease. No change since 05/03/2024. Shoulder X-Ray 01/09/25 09:20 Impression: Minimal osteoarthritis of the right AC joint. Hip/Pelvis X-Ray 01/09/25 09:24 IMPRESSION: No acute fracture or dislocation. All radiology interpretation(s) finalized by discharge Discharge Plan Discharge Patient Disposition: Home Clinical Impression: Pain in right shoulder, Acute pain of right hip Condition: Stable Prescriptions: New hydrocodone-acetaminophen 5-325 mg tablet 1 tab PO Q6H PRN (Reason: pain) Qty: 14 0RF prednisone 50 mg tablet 50 mg PO DAILY Qty: 5 0RF No Action sildenafil 50 mg tablet 50 mg PO DAILY PRN (Reason: sexual activity) Qty: 30 3RF Rx Instructions: administer 30 minutes to 4 hours before activity atorvastatin 80 mg Tablet 40 mg PO QPM donepezil 10 mg Tablet 20 mg PO BEDTIME furosemide 20 mg Tablet 20 mg PO QAM cholecalciferol (vitamin D3) 400 unit Tablet,Chewable 400 unit PO DAILY tamsulosin 0.4 mg capsule 0.4 mg PO QPM nitroglycerin [Nitrostat] 0.4 mg Tablet, Sublingual 0.4 mg SUBLINGUAL Q5M PRN (Reason: Chest Pain) omega-3 fatty acids-fish oil 684-1,200 mg Capsule,Delayed Release(Dr/Ec) 1 cap PO BID loperamide 2 mg Capsule 2 mg PO Q6H PRN (Reason: Diarrhea) clopidogrel 75 mg Tablet 75 mg PO DAILY Qty: 90 3RF amlodipine 10 mg Tablet 10 mg PO DAILY Qty: 60 3RF metoprolol tartrate 100 mg Tablet 50 mg PO BID empagliflozin 25 mg Tablet 25 mg PO DAILY metformin 500 mg Tablet Extended Release 24 Hr 1,000 mg PO BID bismuth subsalicylate 262 mg/15 mL Suspension 524 mg PO Q1H PRN (Reason: Heartburn) Rx Instructions: do not exceed 8 doses in a 24 hour period allopurinol 100 mg Tablet 100 mg PO DAILY pantoprazole 40 mg Tablet,Delayed Release (Dr/Ec) 40 mg PO BID hydrocodone-acetaminophen 5-325 mg tablet 1 - 2 tab PO Q6H MDD 3daily PRN (Reason: Pain) folic acid 400 mcg Tablet 0.4 mg PO DAILY Debrox 6.5 % Drops 4 drp OTIC (EAR) .Q30D Eliquis 5 mg Tablet 5 mg PO BID Discharge Orders: Discharge ED (Routine); Ordered 01/09/25 Ordered By: Lorie Edge Referrals: Kaelyn Horta MD [Primary Care Provider, Family Practice] Derek Laurent DO [Physician, Orthopedics] - 4-7 days Discharge Diet: Advance as tolerated Discharge Activity: Resume usual activity Patient Instructions: Shoulder Pain (ED), Hip Pain (ED), Opioid Safety Print Language: Irish Coding Level of Care Code ED 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
[2025-01-09] MEDS: morphine 4 mg/mL SDV 1 mL IM (09:35)
--- NOTE | 2025-01-09 10:31 | ECG_ITS ---
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 Measurements Intervals [place] Rate: 75 P: 36 IL: 184 QRS: -32 QRSD: 104 T: 114 QT: 414 QTc: 464 Interpretive Statements SINUS RHYTHM POSSIBLE LEFT ATRIAL ENLARGEMENT [-0.1mV P-WAVE IN V1/V2] LEFT AXIS DEVIATION [QRS AXIS < -30] PATTERN CONSISTENT WITH PULMONARY DISEASE LEFT VENTRICULAR HYPERTROPHY AND ST-T CHANGE [VOLTAGE CRITERIA PLUS ST/T ABNORMALITY] Compared to ECG 05/03/2024 12:56:48 Left-axis deviation now present ST (T wave) deviation still present Electronically Signed On 01-09-2025 17:32:53 CDT by Eligio Guzman M.D. [email or web address]
--- NOTE | 2025-01-09 10:31 | XR_ITS ---
WS: [id number] Portable AP upright chest, 01/09/2025 Clinical Data: weakness Comparison: Portable chest, 05/03/2024 Findings: No nodules, masses or effusions are seen. The heart is enlarged. The pulmonary vascularity is not increased. No pneumonia or pneumothorax is seen. The patient had a median sternotomy with mediastinal clips. The aortic arch and descending thoracic aorta show tortuosity. The diaphragms are flattened. XR/XR chest 1V portable [id number] Impression: Cardiomegaly, atherosclerosis and hyperinflation.
[2025-01-09] MEDS: HYDROcodone-acetaminophen 5-325 mg Tablet 1 TAB PO (10:53)
[2025-01-09 11:01] VITALS: BP 148/87; PULSE 72; O2SAT 96
--- NOTE | 2025-01-10 08:00 | DCPLANNER ---
messaged ortho for er f/u
== END 2025-01-09 11:04 | disposition home or self-care (01) ==
PROVIDERS: Emergency Provider Emergency Medicine; PCP Family Medicine
DX: M25.511 Pain in right shoulder (principal); M25.551 Pain in right hip
CPT/HCPCS: 70450; 71045; 73030; 73502; 93005; 96372; 99284; J1100; J2270; J9999

== ENCOUNTER → 2025-01-23 13:51 | Outpatient (BNVA) | payer OTHER, SELFPAY | PROVIDERS: PCP Family Medicine; Visit Provider Student in an Organized Health Care Education/Training Program | DX: M75.41 Impingement syndrome of right shoulder (principal) | CPT/HCPCS: 20610; 99204; J3301; J9999 ==

== ENCOUNTER 2025-04-12 11:58 | Emergency (ER) | payer OTHER, SELFPAY ==
[2025-04-12 12:00] VITALS: BP 158/88; PULSE 60; RESP 18; TEMP 36.4; O2SAT 97; BMI 33.9
--- NOTE | 2025-04-12 12:11 | CT_ITS ---
WS: [id number] CT HEAD TECHNIQUE: Noncontrast CT of the head obtained from the skullbase to the vertex. CLINICAL INFORMATION: curtis COMPARISON: 01/09/2025 DLP: 1178.[address] scans at [facility] [place] use at least one of these dose optimization techniques: automated exposure control; mA and/or kV adjustment per patient size (includes targeted exams where dose is matched to clinical indication); or iterative reconstruction. FINDINGS: No evidence of intracranial hemorrhage or mass effect. Ventricular system and basal cisterns are patent. Mild small vessel changes with mild parenchymal volume loss. No extra-axial fluid collections. No evidence of mass or mass effect. Normal chadwick-white differentiation. Vascular calcification Paranasal sinuses and mastoid air cells are well aerated. Slight mucosal thickening RIGHT mastoid tip..Normal visualized soft tissues. CT/CT head wo con* [id number] IMPRESSION: 1. No evidence of intracranial hemorrhage or mass effect. 2. Vascular calcification 3. And mild small vessel changes with mild parenchymal volume loss. 4. No acute intracranial findings.
--- NOTE | 2025-04-12 12:12 | ED_ITS ---
HPI - Altered Mental Status General: Chief Complaint: Altered Mental Status Stated Complaint: headache (sent by [facility]) Time Seen by Provider: 04/12/25 12:09 Source: patient Mode of arrival: ambulatory Limitations: no limitations History of Present Illness: 74-year-old male states he had went to [facility] today for checkup and sent him here due to having a headache. Patient states he has Alzheimer's and does get some slight confusion but he is answering all my questions appropriately here is AO x 4. States he does have a headache he rates a 7 out of 10 he states he has chronic headaches his headaches no different than previous denies any neck pain or fever Related Data Home Medications ?Medication ?Instructions ?Recorded ?Confirmed atorvastatin 80 mg tablet 40 mg PO QPM 07/26/19 cholecalciferol (vitamin D3) 10 400 unit PO DAILY 07/0701/23/25 mcg (400 unit) chewable tablet donepezil 10 mg tablet 20 mg PO BEDTIME 07/26/19 furosemide 20 mg tablet 20 mg PO QAM 07/26/19 nitroglycerin 0.4 mg sublingual 0.4 mg sublingual Q5M PRN Chest 07/31/20 01/23/25 tablet (Nitrostat) Pain tamsulosin 0.4 mg capsule 0.4 mg PO QPM 12/23/2001/23 metformin 500 mg tablet,extended 1,000 mg PO BID 09/0101/23/25 release 24 hr bismuth subsalicylate 262 mg/15 mL 524 mg PO Q1H PRN H eartburn 09/29/21 01/23/25 oral suspension omega-3 fatty acids-fish oil 684 1 cap PO BID 02/22/22 01/23/25 mg-1,200 mg capsule,delayed release loperamide 2 mg capsule 2 mg PO Q6H PRN Diarrhea 01/23/25 empagliflozin 25 mg tablet 25 mg PO DAILY 08/08/23 metoprolol tartrate 100 mg tablet 50 mg PO BID 4 01/23/25 allopurinol 100 mg tablet 100 mg PO DAILY 08/22/23 pantoprazole 40 mg tablet,delayed 40 mg PO BID 4 01/23/25 release apixaban 5 mg tablet (Eliquis) 5 mg PO BID 05/03/24 carbamide peroxide 6.5 % ear drops 4 drp otic (ear) .Q 30D ear wax 05/03/24 01/23/25 (Debrox) blockage folic acid 400 mcg tablet 0.4 mg PO DAILY 05/03/24 hydrocodone 5 mg-acetaminophen 325 1 - 2 tab PO Q6H NE N Pain 05/03/24 01/23/25 mg tablet Previous Rx's ?Medication ?Instructions ?Recorded sildenafil 50 mg tablet 50 mg PO DAILY PRN sexual ac tivity 05/13/21 #30 tabs amlodipine 10 mg tablet 10 mg PO DAILY #60 tabs 07/08 11/28 clopidogrel 75 mg tablet 75 mg PO DAILY #90 tabs 07/08 11/28 hydrocodone 5 mg-acetaminophen 325 1 tab PO Q6H PRN pa in #14 tabs 01/09/25 mg tablet prednisone 50 mg tablet 50 mg PO DAILY #5 tabs 01/09 Allergies Allergy/AdvReac Type Severity Reaction Status Date / Time No Known Allergies Allergy Verified 04/12/25 12:07 Review of Systems Neuro: Reports: headache(s) [facility] ED PFSH: Medical History (Updated 04/12/25 @ 13:11 by Lorie Edge MD) 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 Other CAD (coronary artery disease) Chronic kidney disease (CKD) Diabetes Family history of premature coronary artery disease Hyperlipidemia Hypertension Lung disease Denies family history of Anesthesia complication Bleeding disorder Stroke Social History Smoking and tobacco/nicotine status: never used tobacco/nicotine Alcohol intake: never Substance/Drug Use: never Marital status: Current occupational status: retired and disabled Physical Exam Const: COMMON NORMALS: no acute distress, patient oriented x3 and healthy appearing HENMT: COMMON NORMALS: normocephalic and atraumatic HEAD & SCALP: normocephalic and atraumatic Eye: COMMON NORMALS: Equal, round and reactive pupils present and EOMs intact bilaterally PUPIL: Yes Equal, round and reactive pupils present Neck/C-Spine: COMMON NORMALS: full ROM and supple Chest: COMMONS NORMALS: normal inspection of the chest and normal palpation of entire chest wall Resp: COMMON NORMALS: normal respiratory effort, No retractions, No use of accessory muscles and clear to auscultation bilaterally AUSCULTATION: clear to auscultation bilaterally Cardio: COMMON NORMALS: regular rate, regular rhythm and No murmurs present (Cardio) RATE: regular rate RHYTHM: regular rhythm GI: COMMON NORMALS: Normal to inspection, nondistended, normoactive bowel sounds present, Soft to palpation, non-tender and no masses PALPATION: Yes Soft to palpation Extremity: COMMON NORMALS: normal to inspection and full ROM Neuro: COMMON NORMALS: patient oriented x3, moves all extremities and no focal motor deficits Psych: COMMON NORMALS: mental status grossly normal, Normal thought process present and cooperative THOUGHT PROCESS: Normal thought process present Skin: COMMON NORMALS: no rashes or lesions noted and no wounds GENERAL SKIN EXAM: no rashes or lesions noted Course Vital Signs: Vital signs: Vital Signs Temperature 97.6 F 04/12/25 12:00 Pulse Rate 60 04/12/25 12:00 Respiratory Rate 18 04/12/25 12:00 Blood Pressure 158/88 04/12/25 12:00 Pulse Oximetry 97 04/12/25 12:00 Oxygen Delivery Me thod Room Air 04/12/25 12:00 MDM - Altered Mental Status Medical Decision Making Patient presents here with headache has history of chronic headaches. Patient differential includes subarachnoid hemorrhage, meningitis. Patient's been well- appearing here has had no fever no signs of meningitis head CT shows no signs of hemorrhage. This headache is chronic in nature he has no concerning signs on his history or physical. This likely chronic headache he did feel improved after Toradol he stable for discharge follow-up PCP return if worsening. Lab Data Radiology Impressions Head CT 04/12/25 12:11 IMPRESSION: 1. No evidence of intracranial hemorrhage or mass effect. 2. Vascular calcification 3. And mild small vessel changes with mild parenchymal volume loss. 4. No acute intracranial findings. All radiology interpretation(s) finalized by discharge Discharge Plan Discharge Patient Disposition: Home Clinical Impression: Headache Condition: Stable Prescriptions: No Action sildenafil 50 mg tablet 50 mg PO DAILY PRN (Reason: sexual activity) Qty: 30 3RF Rx Instructions: administer 30 minutes to 4 hours before activity atorvastatin 80 mg Tablet 40 mg PO QPM donepezil 10 mg Tablet 20 mg PO BEDTIME furosemide 20 mg Tablet 20 mg PO QAM cholecalciferol (vitamin D3) 400 unit Tablet,Chewable 400 unit PO DAILY tamsulosin 0.4 mg capsule 0.4 mg PO QPM nitroglycerin [Nitrostat] 0.4 mg Tablet, Sublingual 0.4 mg SUBLINGUAL Q5M PRN (Reason: Chest Pain) omega-3 fatty acids-fish oil 684-1,200 mg Capsule,Delayed Release(Dr/Ec) 1 cap PO BID loperamide 2 mg Capsule 2 mg PO Q6H PRN (Reason: Diarrhea) clopidogrel 75 mg Tablet 75 mg PO DAILY Qty: 90 3RF amlodipine 10 mg Tablet 10 mg PO DAILY Qty: 60 3RF metoprolol tartrate 100 mg Tablet 50 mg PO BID empagliflozin 25 mg Tablet 25 mg PO DAILY hydrocodone-acetaminophen 5-325 mg tablet 1 tab PO Q6H PRN (Reason: pain) Qty: 14 0RF prednisone 50 mg tablet 50 mg PO DAILY Qty: 5 0RF metformin 500 mg Tablet Extended Release 24 Hr 1,000 mg PO BID bismuth subsalicylate 262 mg/15 mL Suspension 524 mg PO Q1H PRN (Reason: Heartburn) Rx Instructions: do not exceed 8 doses in a 24 hour period allopurinol 100 mg Tablet 100 mg PO DAILY pantoprazole 40 mg Tablet,Delayed Release (Dr/Ec) 40 mg PO BID hydrocodone-acetaminophen 5-325 mg tablet 1 - 2 tab PO Q6H MDD 3daily PRN (Reason: Pain) folic acid 400 mcg Tablet 0.4 mg PO DAILY Debrox 6.5 % Drops 4 drp OTIC (EAR) .Q30D Eliquis 5 mg Tablet 5 mg PO BID Discharge Orders: Discharge ED (Routine); Ordered 04/12/25 Ordered By: Lorie Edge Referrals: Kaelyn Horta MD [Primary Care Provider, [facility]] Discharge Diet: Advance as tolerated Discharge Activity: Resume usual activity Patient Instructions: Headache Print Language: Turkmen Coding Level of Care Code ED Load Out Supervisor for Kevin Martines
== END 2025-04-12 13:40 | disposition home or self-care (01) ==
PROVIDERS: Emergency Provider Emergency Medicine; PCP Family Medicine
DX: R51.9 Headache, unspecified (principal); Z79.02 Long term (current) use of antithrombotics/antiplatelets; Z79.84 Long term (current) use of oral hypoglycemic drugs; Z79.01 Long term (current) use of anticoagulants; Z86.73 Personal history of transient ischemic attack (TIA), and cerebral infarction without residual deficits; E78.5 Hyperlipidemia, unspecified; E11.9 Type 2 diabetes mellitus without complications; I10 Essential (primary) hypertension; I25.10 Atherosclerotic heart disease of native coronary artery without angina pectoris; Z95.1 Presence of aortocoronary bypass graft
CPT/HCPCS: 70450; 96372; 99284; J1885

== ENCOUNTER → 2025-04-24 14:30 | Outpatient (BNVA) | payer OTHER, SELFPAY | PROVIDERS: PCP Family Medicine; Visit Provider Student in an Organized Health Care Education/Training Program | DX: M75.41 Impingement syndrome of right shoulder (principal) | CPT/HCPCS: 20610; 99213; J3301; J9999 ==